=== PATIENT | female | born 1960 | race Caucasian/White ===

== ENCOUNTER 2021-01-15 10:24 | Outpatient (REF) | payer MEDICAID, SELFPAY ==
--- NOTE | ~2021-01-15 | US_ITS ---
EXAMINATION: US THYROID CLINICAL INFORMATION: Nontoxic single thyroid nodule. COMPARISON: Thyroid ultrasound 04/03/2016. TECHNIQUE: Linear transducer fuller-scale and color Doppler examination with attention to the region of the thyroid. FINDINGS: SIZE: Measurements of the thyroid lobes and nodules are given in sagittal, anteroposterior and transverse dimensions respectively. Right Thyroid Lobe: 4.1 x 1.9 x 1.7 cm, volume 6.6 mL. Previously 3.8 x 1.7 x 1.8 cm, volume 5.8 mL. Parenchyma: The gland echotexture is homogeneous. Thyroid vascularity is normal. Left Thyroid Lobe: 3.4 x 1.5 x 1.3 cm, volume 3.4 mL. Previously 3.6 x 1.4 x 1.5 cm, volume 3.8 mL. Parenchyma: The gland echotexture is homogeneous. Thyroid vascularity is normal. Isthmus: 0.5 cm in maximum AP dimension. Previously 0.4 cm. Estimated total number of nodules greater than or equal to 1 cm: 0. Hose Builder nodules are described as follows: 1. Location: Right midpole. Size: 0.9 x 0.5 x 0.8 cm, volume 0.2 mL. Previously: 1.1 x 0.5 x 0.8 cm, volume 0.2 mL. Nodule characteristics: Composition: Solid (2). Echogenicity: Hyperechoic (1). Shape: Not taller than wide (0). Margins: Smooth (0). Echogenic Foci: None (0). ACR TI-RADS total points: 3 ACR TI-RADS category: 3 Significant change in size (>/= 20% in 2 dimensions and minimal increase of 2 mm or 50% or greater increase in volume): None Change in features: None Change in ACR TI-RADS risk category: None NODES: No lymphadenopathy is seen in the tissue surrounding the thyroid gland. US/US thyroid IMPRESSION: Solitary nodule midpole right thyroid lobe, stable. Rest of the thyroid ultrasound is unremarkable. ACR TI-RADS RECOMMENDATION REFERENCE: Ultrasound-guided fine-needle aspiration, followup ultrasound, no further follow up. * TR1 (0 point) and TR 2 (2 points): No FNA or follow up * TR3 (3 points): FNA if more than or equal to 2.5 cm in maximum dimension, followup ultrasound in 1, 3 and 5 years if 1.5 to 2.4 cm in maximum dimension. * TR4 (4-6 points): FNA if more than or equal to 1.5 cm in maximum dimension, followup ultrasound in 1, 2, 3 and 5 years if 1 to 1.4 cm in maximum dimension. * TR5 (more than or equal to 7 points): FNA if more than or equal to 1 cm in maximum dimension, followup ultrasound every year for 5 years if 0.5 to 0.9 cm in maximum dimension. * TR3, TR4 or TR5 nodules that are below the size threshold for follow up receive no follow up.
== END 2021-01-15 10:25 | disposition home or self-care (01) ==
LOC: HO.US 10:24
PROVIDERS: Visit Provider Internal Medicine
DX: L04.1 Acute lymphadenitis of trunk (principal)
CPT/HCPCS: 76536

== ENCOUNTER 2021-08-08 12:04 | Emergency (ER) | payer MEDICAID, SELFPAY ==
--- NOTE | 2021-08-08 | ECG_ITS ---
Test Reason : weakness Blood Pressure : / mmHG Vent. Rate : 074 BPM Atrial Rate : 074 BPM P-R Int : 186 ms QRS Dur : 070 ms QT Int : 368 ms P-R-T Axes : 049 043 039 degrees QTc Int : 408 ms Normal sinus rhythm Normal ECG No previous ECGs available Referred By: Generic ED Physician Electronically Signed By:ATTO ANTON MD
--- NOTE | ~2021-08-08 | CT_ITS ---
EXAMINATION: CT ABDOMEN AND PELVIS WITHOUT CONTRAST CLINICAL INFORMATION: Left flank pain. Rule out kidney stone. COMPARISON: Previous abdominal ultrasound December 2019 TECHNIQUE: Multidetector volumetric imaging was performed from the superior aspect of the liver through the pubic symphysis. Sagittal and coronal reformatted images were obtained on the technologist's workstation. This CT examination was performed using dose optimization techniques as appropriate, variously including the following: *Automated exposure control *Adjustment of mA and/or kV according to patient size (this includes techniques or standardized protocols for targeted exams where dose is matched to indication/reason for exam; i.e. extremities or head) *Use of iterative reconstruction technique DLP: 759 mGy-cm FINDINGS: LUNG BASES: There is a 4 mm calcified left lower lobe nodule probably representing a calcified granuloma. LIVER, GALLBLADDER, AND BILIARY TREE: The liver is normal in size, shape, and attenuation. No focal hepatic lesion or biliary ductal dilatation is present. The gallbladder has been removed. PANCREAS: Unremarkable. SPLEEN: Unremarkable. ADRENAL GLANDS: Unremarkable. KIDNEYS AND URETERS: The kidneys are normal in size, shape, and attenuation. No hydronephrosis, hydroureter, or calculi seen. No perinephric stranding. BLADDER: Unremarkable. GASTROINTESTINAL TRACT: The small and large bowel are unremarkable. The appendix is unremarkable. ABDOMINAL WALL: There is a small umbilical hernia containing fat. LYMPH NODES: There are small retroperitoneal lymph nodes. No enlarged lymph nodes are seen. VASCULAR: Unremarkable. PELVIC VISCERA: There is abnormal contour to the left anterior uterine fundus, question representing a fibroid. This abuts the left anterior abdominal wall/rectus muscle for example axial image 57and 58 series 3. There are small calcifications in the right ovary. OSSEOUS STRUCTURES: There are degenerative changes of the spine. CT/CT abdomen pelvis wo con IMPRESSION: No renal stone or hydronephrosis seen. Abnormal contour to the left anterior uterine fundus probably representing a small fibroid. This abuts the left anterior abdominal wall/rectus muscle.
[2021-08-08 12:14] VITALS: BP 128/78; PULSE 80; O2SAT 98
[2021-08-08 12:18] VITALS: BP 126/62; PULSE 77; RESP 18; TEMP 36.9; O2SAT 97; BMI 37.7
--- NOTE | 2021-08-08 12:51 | ED_ITS ---
HPI - General Adult General Chief complaint: General Medical Stated complaint: KIDNEY PAIN PER EMS Time Seen by Provider: 08/08/21 12:30 Source: patient Mode of arrival: EMS Limitations: no limitations History of Present Illness HPI narrative: 61-year-old female who presents emergency department for evaluation headache, nausea, left flank pain. Patient states that she has been having pain in her left flank for approximately 2 weeks. She states that the pain came on gradually but has gotten progressively worse. She describes the pain as a constant, stabbing pain which is 8/10. The patient states that she robin s had similar pain in the past when her sugars have been high. She states that she was on metformin for hyperglycemia but this was stopped after she modified her diet and was able to get her A1c below 6. She states that she has been under increased stress since her 2-year-old granddaughter was diagnosed with cancer and that she has not followed a good diet has not been exercising. She states her glucose has been running in the 150-200 range. She has noted urinary frequency but denied dysuria. She denied fever but has had occasional chills. She denied chest pain, shortness of breath or cough. She is also complaining of a headache over the past 2 days. She points to the frontal area of her head when asked to localize the pain. The pain is a pressure-like pain which is constant and is 8/10 at its worst. The patient was seen yesterday and today by her PCP and was sent to the emergency department by ambulance after seeing her PCP today. Related Data Previous Rx's Medication Instructions Recorded cyclobenzaprine 10 mg tablet 10 mg PO BEDTIME PRN #10 tab 08/08/21 Allergies Allergy/AdvReac Type Severity Reaction Status Date / Time No Known Drug Allergies Allergy Unknown Verified 08/08/21 12:22 Review of Systems Review of Systems: Yes all other systems are reviewed and are negative [facility] Past Medical History [facility] Narrative: Past medical history: Diabetes mellitus-diet controlled, hypothyroidism. Past surgical history: Cholecystectomy. Social history: Patient is her is here in the emergency department with the patient. The patient denies tobacco, alcohol and drug use. Social History Social History Use of substances other than those prescribed or required for medical reasons: No Advance Directives: No Advance Directives Information Provided: No Patient : No Physical Exam Vital Signs: Vital Signs: Last Vital Signs Temp 98.4 F 08/08/21 12:18 Pulse 78 08/08/21 14:20 Resp 16 08/08/21 14:20 BP 127/64 08/08/21 14:20 Pulse Ox 99 08/08/21 14:20 Body Mass Index 37.7 Const: General: cooperative and no acute distress Orientation/consciousness: oriented to person and oriented to place Limitations: no limitations HENMT: Head: Yes normal to inspection, Yes normocephalic and Yes atraumatic Ears: external ears normal General nose exam: Normal external nose present Face and sinus: Yes normal facial exam Mouth: Normal oral and palatal mucosa present Throat: Yes posterior oropharynx normal Eyes: General: appearance normal, both eyes and all related structures Pupils: Equal, round and reactive pupils present Neck: Neck: Yes normal visual inspection, Yes no lymphadenopathy, Yes trachea midline and Yes supple Chest: Chest palpation & inspection: normal inspection of the chest and normal palpation of entire chest wall Resp: Effort & Inspection: normal respiratory effort and able to speak in complete sentences Auscultation: clear to auscultation bilaterally Cardio: Rate: regular rate Rhythm: regular rhythm Heart sounds: S1 normal heart sound present, S2 normal heart sound present and no murmurs GI: Inspection: Yes normal to inspection Palpation (GI): Soft to palpation, Tenderness to palpation present (GI) in the epigastrum (Moderate) and no guarding Auscultation: normal bowel sounds : General: Yes CVA tenderness (Moderate, left-sided) Back/Spine/Pelvis: Back: CVA tenderness (Moderate, left-sided) Skin: General skin exam: no rashes or lesions noted Neuro: General: oriented to person and oriented to place Cranial nerves: Yes CN's II-XII intact bilaterally and Yes Equal, round and reactive pupils present Cognition (Neuro): normal cognition Motor exam (neuro): 5/5 motor strength present throughout Extrem: General: Yes normal to inspection Psych: Appearance: grossly normal Speech and movement: Normal speech and movement present Affect: normal affect Attitude: cooperative Thought process: Normal thought process present Thought content: Normal thought content present Course Course Course Narrative: 61-year-old female who presents emergency department for evaluation left-sided flank pain which is common gradually over 2 weeks associated with frequency but no dysuria. She has also had a headache x2 days associated with nausea photophobia and frontal pain. Patient's vital signs were normal. Physical examination did reveal epigastric tenderness and left CVA tenderness otherwise was unremarkable. Differential includes but is not limited to kidney stone, pyelonephritis, musculoskeletal pain. The patient's headache is consistent with a migraine-like syndrome. I did order a CBC, CMP, lipase, urinalysis, CT scan of the abdomen pelvis without contrast. Patient was ordered to get normal saline 1 L IV. Her flank pain and headache will be treated with Toradol 30 mg IV, Reglan 10 mg IV and Benadryl 50 mg IV. 1514: The patient states that her headache and abdominal pain has resolved with the above treatment. The patient's laboratory evaluation was unremarkable. The patient's CT scan of the abdomen pelvis with a out IV contrast did not reveal a clear cause for the patient's left-sided flank pain. I did discuss this with the patient. At this time the patient will be treated with Tylenol and ibuprofen for pain and Flexeril (cyclobenzaprine) at night for pain and spasm. Patient was given printed and verbal instructions and discharged home. Medical Decision Making Lab Data Result diagrams: 08/08/21 14:03 08/08/21 14:03 Labs: Lab Results 08/08/21 08/08/21 08/08/21 Range/Units 14:03 14:03 14:08 WBC 10.6 (4.8-10.8) X10*3/uL RBC 4.49 (4.20-5.50) X10*6/uL Hgb 13.3 (12.0-16.0) g/dl Hct 41.2 (37.0-47.0) % MCV 91.8 (80.0-98.0) fL MCH 29.6 (27.0-33.0) pg MCHC 32.3 (31.0-35.0) g/dl RDW 12.8 (11.0-16.0) % Plt Count 248 (160-400) X10*3/uL MPV 10.6 (9.4-12.3) fL Immature Gran % (Auto) 0.3 (0.0-0.4) % Neut % (Auto) 62.0 (45-73) % Lymph % (Auto) 27.4 (20-40) % Parke % (Auto) 8.1 (2-11) % Eos % (Auto) 1.4 (0-4) % Baso % (Auto) 0.8 (0-2) % Lymph # (Auto) 2.9 (1.2-4.9) X10*3/uL Parke # (Auto) 0.9 (0.1-1.2) X10*3/uL Eos # (Auto) 0.2 (0.0-0.4) X10*3/uL Baso # (Auto) 0.1 (0.0-0.2) X10*3/uL Abs Immat Gran (auto) 0.03 (0.00-0.03) X10*3/uL Absolute Neuts (auto) 6.6 (2.0-8.3) x10*3/uL Absolute Nucleated RBC 0.000 (0.0-0.012) X10*3/uL Nucleated RBC % (auto) 0.0 (0.0-0.2) /100WBC Smear Tech's Comments VERIFIED Sodium 143 (135-145) mmol/L Potassium 4.0 (3.3-5.1) mmol/L Chloride 111 H (96-108) mmol/L Carbon Dioxide 25 (22-29) mmol/L Anion Gap 11 L (12-20) BUN 6 L (9-16) mg/dL Creatinine 0.71 (0.5-1.4) mg/dL Estim Creat Clear Calc 83.9 Estimated GFR > 60 Random Glucose 112 (60-115) mg/dL Calcium 9.0 (8.4-10.2) mg/dL Total Bilirubin 0.4 (0.0-1.0) mg/dL AST 16 (5-31) U/L ALT 14 (0-31) U/L Alkaline Phosphatase 63 (39-117) U/L Total Protein 6.7 (6.5-8.0) g/dL Albumin 3.9 (3.5-5.0) g/dL Lipase 25 (8-78) U/L Urine Color STRAW Urine Appearance CLEAR Urine pH 5.5 (5.0-8.0) Ur Specific [place] 1.020 (1.005-1.025) Urine Protein NEG (NEG-TRACE) MG/DL Urine Glucose (UA) NEG (NEG) MG/DL Urine Ketones NEG (NEG) MG/DL Urine Blood TRACE (NEG) Urine Nitrite NEG (NEG) Ur Leukocyte Esterase NEG (NEG) Urine RBC 0-2 (0) /HPF Urine WBC 1-4 (0-4) /HPF Ur Squamous Epith Cells 1+ /LPF Urine Bacteria 1+ /LPF ECG Data Attestation: I personally reviewed and interpreted this ECG as follows: Interpretation: 1244: Normal sinus rhythm with a rate of 74, normal NH interval, QRS duration and QTC interval, no ST segment elevation, no ST segment depression, no PACs, no PVCs. This is a normal EKG. Discharge Plan Discharge Clinical Impression: Acute flank pain Headache Qualifiers: Headache type: unspecified Headache chronicity pattern: acute headache Intractability: not intractable Qualified Code(s): R51.9 - Headache, unspecified Patient Disposition: Home, Self-Care Instructions: Flank Pain (ED) Additional Instructions: The CT scan of your abdomen pelvis without IV contrast did not reveal a clear cause for your left-sided flank pain. You do have a fibroid uterus but this is not the cause of your pain. Your blood work was normal. Your urinalysis was unremarkable. At this time, I do not have a clear cause for your pain, it is possible that the pain may be caused by muscle pain and spasm in your back. Take ibuprofen 200 mg pills, 3 pills every 6 hours as needed for pain. Take Tylenol (acetaminophen) 500 mg pills, 2 pills every 4 to 6 hours as needed for pain. Take Flexeril (cyclobenzaprine) 10 mg pills, 1 pill every at night for pain or spasm as needed This medication will make you sleepy. Do not drive or work while taking this medication. Follow-up with your doctor in 2 days. Please return to the emergency department if your symptoms get worse or if you develop any symptoms that are concerning to you. Prescriptions: New cyclobenzaprine 10 mg tablet 10 mg PO BEDTIME PRN (Reason: pain, muscle spasm) Qty: 10 RF: 0
[2021-08-08] MEDS: Metoclopramide HCl 10 MG/2 ML VIAL IVPUSH (13:16)
[2021-08-08] MEDS: diphenhydrAMINE HCL 50 MG/ML VIAL IVPUSH (13:17)
[2021-08-08] MEDS: Ketorolac Tromethamine 15 MG/ML VIAL 30 MG IVPUSH (13:17)
[2021-08-08] MEDS: 0.9 % Sodium Chloride 1,000 ML 999 ML IV (13:17)
[2021-08-08 14:14] LABS: Basophils Absolute Auto 0.1 X10*3/uL (0.0-0.2); Hemoglobin 13.3 g/dl (12.0-16.0); Imm Gran Abs Auto 0.03 X10*3/uL (0.00-0.03); Imm Gran Pct Auto 0.3 % (0.0-0.4); MANUAL DIFF FLAG SCAN; PLT CLUMP 1; Red Cell Distribution Width 12.8 % (11.0-16.0); SCAN SMEAR FLAG 1
[2021-08-08 14:14] LABS: Appearance Urine CLEAR; Color Urine STRAW; Glucose Urine UA NEG (NEG); Leukocyte Esterase Urine NEG (NEG); Nitrite Urine NEG (NEG); PH 5.5 (5.0-8.0); UACC Culture Trigger NO; Urine Blood TRACE (NEG); Urine Ketones NEG (NEG); Urine Protein NEG (NEG-TRACE)
[2021-08-08 14:15] LABS: Basophils Percent Auto 0.8 % (0-2); Eosinophils Absolute Auto 0.2 X10*3/uL (0.0-0.4); Eosinophils Percent Auto 1.4 % (0-4); Hematocrit 41.2 % (37.0-47.0); Lymphocytes Absolute Auto 2.9 X10*3/uL (1.2-4.9); Lymphocytes Percent Auto 27.4 % (20-40); Mean Corpuscular HGB Conc 32.3 g/dl (31.0-35.0); Mean Corpuscular Hemoglobin 29.6 pg (27.0-33.0); Mean Corpuscular Volume 91.8 fL (80.0-98.0); Mean Platelet Volume 10.6 fL (9.4-12.3); Monocytes Absolute Auto 0.9 X10*3/uL (0.1-1.2); Monocytes Percent Auto 8.1 % (2-11); Neutrophils Absolute Auto 6.6 x10*3/uL (2.0-8.3); Platelet Count 248 X10*3/uL (160-400); Red Blood Count 4.49 X10*6/uL (4.20-5.50); White Blood Count 10.6 X10*3/uL (4.8-10.8)
[2021-08-08 14:20] VITALS: BP 127/64; PULSE 78; RESP 16; O2SAT 99
[2021-08-08 14:25] LABS: Bacteria Urine 1+ /LPF; RBC Urine 0-2 /HPF (0); Squamous Epithelial Cell Urine 1+ /LPF
[2021-08-08 14:33] LABS: Alanine Aminotransferase 14 U/L (0-31); Albumin Level 3.9 g/dL (3.5-5.0); Alkaline Phosphatase 63 U/L (39-117); Anion Gap 11 (12-20); Aspartate Amino Transferase 16 U/L (5-31); Bilirubin Total 0.4 mg/dL (0.0-1.0); Blood Urea Nitrogen 6 mg/dL (9-16); Carbon Dioxide 25 mmol/L (22-29); Chloride 111 mmol/L (96-108); Creatinine Clr Calc Pharmacy 83.9; Estimated Glomerular Filt Rate > 60; Glucose Random 112 mg/dL (60-115); Lipase 25 U/L (8-78); Sodium 143 mmol/L (135-145); Total Protein 6.7 g/dL (6.5-8.0)
[2021-08-08 14:56] LABS: SLIDE REVIEW VERIFIED
== END 2021-08-08 15:47 | disposition home or self-care (01) ==
PROVIDERS: Emergency Provider Emergency Medicine Emergency Medical Services; PCP Internal Medicine
DX: R10.9 Unspecified abdominal pain (principal); R51.9 Headache, unspecified; E11.9 Type 2 diabetes mellitus without complications
CPT/HCPCS: 36415; 74176; 80053; 81001; 83690; 85025; 93005; 96361; 96374; 96375; 99284; J1200; J1885; J2765

== ENCOUNTER 2021-10-09 10:37 | Outpatient (REF) | payer MEDICAID, SELFPAY ==
--- NOTE | ~2021-10-09 | US_ITS ---
EXAMINATION: US PELVIS CLINICAL INFORMATION: Uterine fibroids. COMPARISON: Previous CT of the abdomen and pelvis July 2021. TECHNIQUE: Ultrasound of the pelvis is performed using both transabdominal and transvaginal transducers along with Doppler. Transvaginal imaging is performed due to inadequate visualization transabdominally. FINDINGS: Exam is limited due to patient body habitus. The uterus and left ovary are seen transabdominally only. The uterus is slightly anteverted and retroflexed and measures 10.6 x 3.3 x 5 cm in dimension. There are 2 hypoechoic uterine lesions 1.2 x 0.9 x 1.5 cm in the right posterior uterine body and 1 x 0.9 x 1 cm in the left anterior uterine fundus suggestive of small fibroids. Endometrial thickness is normal measuring 0.3 cm. The right ovary is not seen. The left ovary measures 1.8 x 0.8 x 1.8 cm and is normal-appearing. There is no fluid in the pelvis. US/US pelvic and transvaginal IMPRESSION: Limited exam. 2 small hypoechoic uterine lesions probably representing fibroids. Right ovary not seen.
== END 2021-10-09 10:38 | disposition home or self-care (01) ==
LOC: HO.US 10:37
PROVIDERS: PCP Internal Medicine; Visit Provider Internal Medicine
DX: D25.9 Leiomyoma of uterus, unspecified (principal)
CPT/HCPCS: 76830; 76856

== ENCOUNTER 2022-03-20 12:47 | Outpatient (REF) | payer MEDICAID, SELFPAY ==
--- NOTE | ~2022-03-20 | US_ITS ---
EXAMINATION: US THYROID CLINICAL INFORMATION: Nontoxic single thyroid nodule. COMPARISON: US thyroid 01/15/2021 and 04/03/2016. TECHNIQUE: Linear transducer grayscale and color Doppler examination with attention to the region of the thyroid. FINDINGS: SIZE: Measurements of the thyroid lobes and nodules are given in sagittal, anteroposterior and transverse dimensions respectively. Right Thyroid Lobe: 4.5 x 1.7 x 1.8 cm, volume 7.2 mL. Previously 4.1 x 1.9 x 1.7 cm, volume 6.6 mL. Parenchyma: The gland echotexture is homogeneous. Thyroid vascularity is normal. Left Thyroid Lobe: 3.7 x 1.5 x 1.2 cm, volume 3.5 mL. Previously 3.4 x 1.5 x 1.3 cm, volume 3.4 mL. Parenchyma: The gland echotexture is homogeneous. Thyroid vascularity is normal. Isthmus: 0.6 cm in maximum AP dimension. Previously 0.5 cm. Estimated total number of nodules greater than or equal to 1 cm: 1. Medical Recruiter nodules are described as follows: 1. Location: Right mid. Size: 1.3 x 1.1 x 0.7 cm, volume 0.50 mL. Previously: 0.9 x 0.5 x 0.8 cm, volume 0.14 mL. Nodule characteristics: Composition: Solid (2). Echogenicity: Hyperechoic (1). Shape: Not taller than wide (0). Margins: Smooth (0). Echogenic Foci: None (0). ACR TI-RADS total points: 3 Previous: 3 ACR TI-RADS category: 3 Previous: 3 Significant change in size (>/= 20% in 2 dimensions and minimal increase of 2 mm or 50% or greater increase in volume): None Change in features: None Change in ACR TI-RADS risk category: None NODES: No lymphadenopathy is seen in the tissue surrounding the thyroid gland. US/US thyroid IMPRESSION: There is mild right thyroid enlargement with a solitary nodule midpole measuring 1.3 cm slightly increased in size but no change in the TI-RADS component. ACR TI-RADS RECOMMENDATION REFERENCE: Ultrasound-guided fine-needle aspiration, followup ultrasound, no further follow up. * TR1 (0 point) and TR 2 (2 points): No FNA or follow up * TR3 (3 points): FNA if more than or equal to 2.5 cm in maximum dimension, followup ultrasound in 1, 3 and 5 years if 1.5 to 2.4 cm in maximum dimension. * TR4 (4-6 points): FNA if more than or equal to 1.5 cm in maximum dimension, followup ultrasound in 1, 2, 3 and 5 years if 1 to 1.4 cm in maximum dimension. * TR5 (more than or equal to 7 points): FNA if more than or equal to 1 cm in maximum dimension, followup ultrasound every year for 5 years if 0.5 to 0.9 cm in maximum dimension. * TR3, TR4 or TR5 nodules that are below the size threshold for follow up receive no follow up.
== END 2022-03-20 12:48 | disposition home or self-care (01) ==
LOC: HO.US 12:47
PROVIDERS: Visit Provider Internal Medicine
DX: E04.1 Nontoxic single thyroid nodule (principal)
CPT/HCPCS: 76536

== ENCOUNTER → 2022-08-14 11:55 | Outpatient (BNVA) | payer MEDICAID, SELFPAY | PROVIDERS: PCP Internal Medicine; Visit Provider Internal Medicine | DX: E04.2 Nontoxic multinodular goiter (principal); E03.9 Hypothyroidism, unspecified | CPT/HCPCS: 36415; 84439; 84443; 86376; 86800; 99202 ==

== ENCOUNTER 2022-08-14 12:36 | Outpatient (REF) | payer MEDICAID, SELFPAY ==
[2022-08-14 14:52] LABS: Thyroid Stimulating Hormone 2.09 uIU/mL (0.32-4.0)
[2022-08-16 04:51] LABS: Thyroglobulin Antibodies 17 IU/mL (< or = 1); Thyroid Peroxidase Antibodies 43 IU/mL (<9)
== END 2022-08-14 12:37 | disposition home or self-care (01) ==
LOC: HO.10HDL 12:36
PROVIDERS: Visit Provider Internal Medicine
DX: E04.2 Nontoxic multinodular goiter (principal)
CPT/HCPCS: 36415; 84439; 84443; 86376; 86800

== ENCOUNTER 2022-08-29 12:51 | Outpatient (REF) | payer MEDICAID, SELFPAY ==
--- NOTE | ~2022-08-29 | CT_ITS ---
EXAMINATION: CT SOFT TISSUE NECK WITHOUT CONTRAST CLINICAL INFORMATION: Nontoxic multinodular goiter. COMPARISON: Thyroid ultrasound from 03/20/2022. CT chest from 07/21/2019. TECHNIQUE: Multidetector helical imaging was performed in the axial plane without intravenous contrast. Multiple axial reformats and coronal/sagittal reconstructions were created the technologist workstation for review. This CT examination was performed using dose optimization techniques as appropriate, variously including the following: *Automated exposure control. *Adjustment of mA and/or kV according to patient size (this includes techniques or standardized protocols for targeted exams where dose is matched to indication/reason for exam; i.e. extremities or head). *Use of iterative reconstruction technique. DLP: 329 mGy-cm FINDINGS: No significant cutaneous thickening or subcutaneous inflammation. No discrete fluid collection within the deep tissues of the neck. The premaxillary, retromaxillary, pterygopalatine fossa, orbital apical, parapharyngeal, and prelaryngeal adipose tissue is maintained. Normal appearance of the parotid and submandibular glands. Heterogeneous multinodular thyroid gland similar to prior evaluation. The largest demonstrated nodule appears to measure approximately 1.3 cm (no follow-up imaging recommended based on current guidelines at the time of examination). Elongated level Ib lymph nodes measure up to 1.3 cm bilaterally with maintained normal fatty josi. Level IIa lymph nodes measure up to 1.2 cm bilaterally with maintained normal fatty josi. An elongated left supraclavicular lymph node measures up to 1.2 cm with maintained normal fatty hilum (similar to exam from 2019). Otherwise, scattered subcentimeter lymph nodes bilaterally, none of which are pathologically enlarged. Normal mucosal contours of the pharynx and larynx. Normal appearance of the hyoid bone, thyroid cartilage, or cartilaginous trachea. The airways remains widely patent. No radiopaque foreign bodies. The atlantooccipital and atlantoaxial articulations remain well aligned. Straightening of the normal cervical lordosis. Otherwise, normal anatomic alignment. No evidence of acute fracture or subluxation of the cervical spine. The vertebral body heights are maintained. Moderate degenerative disc disease at C6-C7. Mild degenerative disc disease at all additional cervical levels. There is no prevertebral soft tissue swelling. The visualized portion of the skull base is without significant abnormalities. The visualized paranasal sinuses are clear. The mastoid air cells and middle ear cavities are clear. Periapical lucency associated with the maxillary left molar. No demonstrated additional significant periapical odontogenic disease. CT Upper Chest: The visualized lung apices and upper mediastinum are within normal limits. CT/CT soft tissue neck wo IV con IMPRESSION: 1. Redemonstrated multinodular thyroid gland. The largest demonstrated nodule appears to measure approximately 1.3 cm (no follow-up imaging recommended based on current guidelines at the time of examination). If clinical concern remains high, follow-up thyroid ultrasound would provide more direct comparison to prior evaluations to evaluate for changer fixer time. 2. Mildly prominent level I, level II, and left supraclavicular lymph nodes with normal maintained fatty josi. No morphologically suspicious cervical lymphadenopathy.
== END 2022-08-29 12:52 | disposition home or self-care (01) ==
LOC: HO.CT 12:51
PROVIDERS: Visit Provider Internal Medicine
DX: E04.2 Nontoxic multinodular goiter (principal)
CPT/HCPCS: 70490

== ENCOUNTER → 2022-09-18 10:53 | Outpatient (BNVA) | payer MEDICAID, SELFPAY | PROVIDERS: PCP Internal Medicine; Visit Provider Internal Medicine | DX: E04.2 Nontoxic multinodular goiter (principal); E03.8 Other specified hypothyroidism; E06.3 Autoimmune thyroiditis; Z79.899 Other long term (current) drug therapy | CPT/HCPCS: 99212 ==

== ENCOUNTER 2022-12-09 12:16 | Day surgery (SDC) | payer MEDICAID, SELFPAY ==
--- NOTE | 2022-12-06 10:49 | HO.ANESPROP2 ---
Documented by User: Sloane Emery NP 12/06/22 10:49 HPI - Anesthesia Eval Consult details Narrative: 62yo F for Colonoscopy PMFSH Active Problems Active Problems: All Active Problems (Updated 08/14/22 @ 12:29 by Ladi Gonzalez DO) Hypothyroidism (Acute) Multinodular thyroid (Acute) Past Medical History Medical History Hypothyroidism Multinodular thyroid T2DM (type 2 diabetes mellitus) Family History Family History Father Diabetes Heart attack Mother Thyroid disease COPD (chronic obstructive pulmonary disease) Maternal Aunt Thyroid cancer Surgical History Surgical History Hx of cholecystectomy Hx of tubal ligation Social History Social History Alcohol intake: current Alcohol intake frequency: does not drink Patient Tobacco Use Status: Never used Tobacco Use of substances other than those prescribed or required for medical reasons: No Are you DNR?: No Advance Directives: No Advance Directives Information Provided: Yes Recently lost weight without trying: No How much weight loss: 2-13 pounds Nutrition Risks: No Nutritional Risk Meds Allergies Allergy/AdvReac Type Severity Reaction Status Date / Time tumeric AdvReac Hives Uncoded 12/09/22 12:32 Home Medications Medication Instructions Recorded Confirmed Last Taken Type cholecalciferol (vitamin D3) 25 25 mcg PO DAILY 08/14/22 12/09/22 Unknown History mcg (1,000 unit) capsule levothyroxine 88 mcg capsule 88 mcg PO DAILY 08/14/22 12/09/22 Unknown History (Tirosint) metformin 500 mg tablet,extended 500 mg PO QPM 08/14/22 12/09/22 Unknown History release 24 hr Exam Exam Date and Time: December 06, 2022 104 Assessment and Plan Assessment Anesthesia Assessment: Chart Reviewed Documented by User: Ferny Melgar MD 12/09/22 12:37 [facility] Past Medical History Medical History Hypothyroidism Multinodular thyroid T2DM (type 2 diabetes mellitus) Family History Family History Father Diabetes Heart attack Mother Thyroid disease COPD (chronic obstructive pulmonary disease) Maternal Aunt Thyroid cancer Family history of problems with anesthesia: No Surgical History Surgical History Hx of cholecystectomy Hx of tubal ligation History of Problems with Anesthesia: No Social History Social History Alcohol intake: current Alcohol intake frequency: does not drink Patient Tobacco Use Status: Never used Tobacco Use of substances other than those prescribed or required for medical reasons: No Are you DNR?: No Advance Directives: No Advance Directives Information Provided: Yes Recently lost weight without trying: No How much weight loss: 2-13 pounds Nutrition Risks: No Nutritional Risk Meds Allergies Allergy/AdvReac Type Severity Reaction Status Date / Time tumeric AdvReac Hives Uncoded 12/09/22 12:32 Home Medications Medication Instructions Recorded Confirmed Last Taken Type cholecalciferol (vitamin D3) 25 25 mcg PO DAILY 08/14/22 12/09/22 Unknown History mcg (1,000 unit) capsule levothyroxine 88 mcg capsule 88 mcg PO DAILY 08/14/22 12/09/22 Unknown History (Tirosint) metformin 500 mg tablet,extended 500 mg PO QPM 08/14/22 12/09/22 Unknown History release 24 hr Exam Airway Mallampati Class: II TM Dist: >3cm Neck ROM: Full Heart: rrr Lungs: cta Assessment and Plan Assessment Anesthesia Assessment: Anesthesia Plan Discussed Final Anesthetic Review Family History of Problems with Anesthesia: No History of Problems with Anesthesia: No NPO: Yes ASA Class: II Final Preanesthetic Review: No Changes in Pt Med Stat, Meds/Allgs Chart Reviewed, Consent Obtained/Reviewed and Anes Risks/Benef Reviewed Patient Risk: Low Procedure Risk: Low Anesthetic Plan Anesthetic Plan: MAC: Disposition: Standard PACU
[2022-12-09 12:33] VITALS: BMI 33.2
[2022-12-09 12:40] VITALS: BP 104/68; PULSE 79; RESP 16; TEMP 36.5; O2SAT 99
[2022-12-09 12:56] LABS: Glucose, Whole Blood 82 mg/dL (60-115)
[2022-12-09] MEDS: Lactated Ringers 1,000 ML 100 ML IVCONT (13:00)
[2022-12-09 14:34] VITALS: BP 93/49; PULSE 74; RESP 16; TEMP 36.7; O2SAT 98
--- NOTE | 2022-12-09 14:35 | P.BOP_ITS ---
Brief Operative Note Date of Service: 12/09/22 Pre-op diagnosis: Screening Post-op diagnosis: other (Colon polyps) Procedure: Colonoscopy to the cecum and TI with bx/removal of polyps Surgeon: Siddhartha Calderon Anesthesia: MAC Was an Sound Engineering Technician used for this Procedure?: No Estimated blood loss (mL): 2.0 Pathology: other (A. Proximal ascending colon polyps) Condition: stable Disposition: PACU
[2022-12-09 14:49] VITALS: BP 103/46; PULSE 66; RESP 16; TEMP 36.6; O2SAT 100
--- NOTE | 2022-12-10 01:56 | OP_ITS ---
SURGEON: Siddhartha Calderon MD PREOPERATIVE DIAGNOSIS: Colorectal cancer screening and personal history of tubular adenoma of the colon. POSTOPERATIVE DIAGNOSIS: Colorectal cancer screening and personal history of tubular adenoma of the colon. Small colon polyps, diverticulosis, and internal hemorrhoids. Medications used; monitored anesthesia care. PROCEDURE PERFORMED: ESTIMATED BLOOD LOSS: COMPLICATIONS: ANESTHESIA: ASSISTANTS: SPECIMENS: PROCEDURE: Colonoscopy to the cecum and terminal ileum with biopsy and removal of polyps. INDICATION: The patient presents for evaluation of colorectal cancer screening and personal history of tubular adenoma of the colon. Full consent has been obtained from her for this, including risks of bleeding and perforation. DESCRIPTION OF PROCEDURE: The patient was placed in the left lateral decubitus position. The digital rectal exam revealed no abnormality. The Olympus video pediatric colonoscope was entered into the rectum, advanced to the cecum with the assistance of abdominal pressure. Once in the cecum, I did identify normal-appearing cecal pouch with appendiceal orifice and a normal-appearing ileocecal valve. The terminal ileum was cannulated and appeared normal. The scope was withdrawn back in the colon. The entire cecum and ileocecal valve appeared normal. The scope was slowly withdrawn assessing all mucosal surfaces carefully. Preparation was excellent. In the very proximal ascending colon, just above the ileocecal valve, were 2 flat approximately 3 to 4 mm polyps which were both biopsied and removed with cold biopsy forceps and placed in the same container. I did not visualize any other polyps, colitis nor angiodysplasia. There was a mild amount of sigmoid diverticulosis. In the rectum, the scope was retroflexed visualizing internal hemorrhoids, but no other pathology. The rectal mucosa appeared normal. The scope was straightened out and withdrawn from the patient. She tolerated the procedure well and returned to the recovery area in stable condition. IMPRESSION: 1. Colon polyps. 2. Diverticulosis. 3. Internal hemorrhoids. PLAN: The biopsies will be checked. I would recommend a repeat colonoscopy in 5 years for further surveillance. She will otherwise see me on a p.r.n. basis. MD ALLEY Bryson/BRENDA / [id number] MTDD
== END 2022-12-09 15:45 | disposition home or self-care (01) ==
PROVIDERS: PCP Internal Medicine; Visit Provider Internal Medicine
PROC: 0DJD8ZZ Inspection of Lower Intestinal Tract, Via Natural or Artificial Opening Endoscopic (ICD-10-PCS; CPT 45378; principal; 2022-12-09 13:20)
DX: Z12.11 Encounter for screening for malignant neoplasm of colon (principal); Z86.010 Personal history of colon polyps; D12.2 Benign neoplasm of ascending colon; K57.30 Diverticulosis of large intestine without perforation or abscess without bleeding; K64.8 Other hemorrhoids; E03.9 Hypothyroidism, unspecified; E04.1 Nontoxic single thyroid nodule; E11.8 Type 2 diabetes mellitus with unspecified complications; Z79.84 Long term (current) use of oral hypoglycemic drugs; Z79.899 Other long term (current) drug therapy; Z90.49 Acquired absence of other specified parts of digestive tract
CPT/HCPCS: 45380; 82947; 88305

== ENCOUNTER 2023-01-02 09:57 | Outpatient (REF) | payer MEDICAID, SELFPAY ==
--- NOTE | 2023-01-02 10:18 | P.BOP_ITS ---
Brief Operative Note Date of Service: 01/02/23 Pre-op diagnosis: Goiter Procedure: EXAMINATION: US THYROID CLINICAL INFORMATION: Multinodular Thyroid COMPARISON: Prior TECHNIQUE: Linear transducer fuller-scale and color Doppler examination with attention to the region of the thyroid. FINDINGS: SIZE: Measurements of the thyroid lobes and nodules are given in sagittal, anteroposterior and transverse dimensions respectively. Right Thyroid Lobe: 4.1 x 1.7 x 1.6 cm, volume 5.92 mL. Parenchyma: The gland echotexture is diffusely heterogenous. Thyroid vascularity is increased. Left Thyroid Lobe: 3.7 x 1.5 x 1.4 cm, volume 7.8 mL. Parenchyma: The gland echotexture is diffusely heterogenous. Thyroid vascularity is normal. Isthmus: 0.4 cm in maximum AP dimension. There are no thyroid nodules visualized. There are multiple pseudonodules, but no true thyroid nodules visualized. NODES: No lymphadenopathy is seen in the tissue surrounding the thyroid gland. Impression: A hypervascular and diffusely heterogenous thyroid gland consistent with autoimmune thyroid disease. No nodules are appreciated. Surgeon: Ladi Gonzalez, DO Was an Heavy Equipment Operator/Paver used for this Procedure?: No Estimated blood loss (mL): 0
== END 2023-01-02 09:58 | disposition home or self-care (01) ==
LOC: HO.US 09:57
PROVIDERS: Visit Provider Internal Medicine
DX: E04.2 Nontoxic multinodular goiter (principal)
CPT/HCPCS: 76536

== ENCOUNTER → 2023-01-30 14:16 | Outpatient (BNVA) | payer MEDICAID, SELFPAY | PROVIDERS: PCP Internal Medicine; Visit Provider Internal Medicine | DX: E03.9 Hypothyroidism, unspecified (principal) | CPT/HCPCS: 99212 ==

== ENCOUNTER 2023-08-27 09:48 | Outpatient (REF) | payer MEDICAID, SELFPAY ==
--- NOTE | ~2023-08-27 | XR_ITS ---
EXAMINATION: XR CHEST CLINICAL INFORMATION: Posterior chest pain COMPARISON: None available. TECHNIQUE: 2 views of the chest were obtained. FINDINGS: No significant abnormality is noted involving the heart, lungs, mediastinum, bony thorax or soft tissues. No pleural effusions seen. There is thoracic spondylitic change. XR/XR chest 2V IMPRESSION: No evidence for acute process.
== END 2023-08-27 09:49 | disposition home or self-care (01) ==
LOC: HO.HHCX 09:48
PROVIDERS: Visit Provider Emergency Medicine
DX: Z13.89 Encounter for screening for other disorder (principal)
CPT/HCPCS: 71046

== ENCOUNTER 2023-08-28 09:23 | Outpatient (REF) | payer MEDICAID, SELFPAY | END 2023-08-28 09:24 | disposition home or self-care (01) | LOC: HO.LNP 09:23 | PROVIDERS: Visit Provider Emergency Medicine | DX: N23 Unspecified renal colic (principal) | CPT/HCPCS: 87086 ==

== ENCOUNTER 2024-01-30 06:17 | Outpatient (REF) | payer MEDICAID, SELFPAY ==
[2024-01-30 08:35] LABS: Thyroid Stimulating Hormone 2.06 uIU/mL (0.32-4.0)
== END 2024-01-30 06:18 | disposition home or self-care (01) ==
LOC: HO.LAB 06:17
PROVIDERS: PCP Internal Medicine; Visit Provider Internal Medicine Endocrinology, Diabetes & Metabolism
DX: E03.9 Hypothyroidism, unspecified (principal)
CPT/HCPCS: 36415; 84439; 84443

== ENCOUNTER 2024-02-02 13:38 | Outpatient (AMB) | payer MEDICAID, SELFPAY ==
--- NOTE | 2024-02-02 13:39 | A.OFFVIS_ITS ---
Vital Signs 02/02/24 13:40 Height 5 ft Weight 179 lb 10.828 oz BMI 35.1 BP 98/62 Blood Pressure Location Lt brachial Position Sitting Pulse 83 Pulse Source Pulse Oximeter Intake Visit Reasons: F/U Hypothyroidism/CONFIRMED Intake Note: Patient present today for Hypothyroidism follow up visit. Senior Report Developer Required: No Accompanied by: Self / Same As Patient Allergies tumeric Adverse Reaction (Uncoded 02/02/24 13:45) Hives HPI Comments Details: 63 YO F with PMHx hypothyroidism who is seen in F/U for a NTMNG.. The patient last saw Dr. Crespo on 01/30/2023 She has a long history of hypothyroidism, and is currently using Tirosint 88 mcg PO daily. She had a thyroid US which revealed a 1.3 cm RMP thyroid nodule. She was subsequently referred to Endocrinology. Currently does complain of dysphagia but denies hoarseness of voice. Denies sensation of swelling in the neck or difficulty breathing while lying flat. Denies any tenderness in the neck. She underwent CT of the neck given the compressive symptoms. This did not reveal any mass effect from the thyroid. There were some elongated lymph nodes visualized. I repeated her US of the thyroid myself 12/09/2022 and this revealed only pseudonodules, no true nodules were identified. Denies any symptoms of hyper or hypothyroidism. Has hypothyroidism and remains on tirosint 88 mcg PO daily with TSH at goal. Denies any history of head or neck irradiation. Does have a family history of thyroid cancer in her maternal aunt. CT Neck: 08/29/2022 FINDINGS: No significant cutaneous thickening or subcutaneous inflammation. No discrete fluid collection within the deep tissues of the neck. The premaxillary, retromaxillary, pterygopalatine fossa, orbital apical, parapharyngeal, and prelaryngeal adipose tissue is maintained. Normal appearance of the parotid and submandibular glands. Heterogeneous multinodular thyroid gland similar to prior evaluation. The largest demonstrated nodule appears to measure approximately 1.3 cm (no follow-up imaging recommended based on current guidelines at the time of examination). Elongated level Ib lymph nodes measure up to 1.3 cm bilaterally with maintained normal fatty josi. Level IIa lymph nodes measure up to 1.2 cm bilaterally with maintained normal fatty josi. An elongated left supraclavicular lymph node measures up to 1.2 cm with maintained normal fatty hilum (similar to exam from 2019). Otherwise, scattered subcentimeter lymph nodes bilaterally, none of which are pathologically enlarged. Normal mucosal contours of the pharynx and larynx. Normal appearance of the hyoid bone, thyroid cartilage, or cartilaginous trachea. The airways remains widely patent. No radiopaque foreign bodies. The atlantooccipital and atlantoaxial articulations remain well aligned. Straightening of the normal cervical lordosis. Otherwise, normal anatomic alignment. No evidence of acute fracture or subluxation of the cervical spine. The vertebral body heights are maintained. Moderate degenerative disc disease at C6-C7. Mild degenerative disc disease at all additional cervical levels. There is no prevertebral soft tissue swelling. The visualized portion of the skull base is without significant abnormalities. The visualized paranasal sinuses are clear. The mastoid air cells and middle ear cavities are clear. Periapical lucency associated with the maxillary left molar. No demonstrated additional significant periapical odontogenic disease. CT Upper Chest: The visualized lung apices and upper mediastinum are within normal limits. Labs: Laboratory Tests 08/14/22 12:42 TSH 2.09 Free T4 1.10 PFSH Medical History Hypothyroidism Multinodular thyroid T2DM (type 2 diabetes mellitus) Surgical History Hx of cholecystectomy Hx of tubal ligation Family History Father Diabetes Heart attack Mother Thyroid disease COPD (chronic obstructive pulmonary disease) Maternal Aunt Thyroid cancer Social History (System 08/27/23 @ 11:06 by Rneetta Martinez) Alcohol intake: current Alcohol intake frequency: does not drink Patient Tobacco Use Status: Never used Tobacco Physical Exam Vital Signs: Last Vital Signs Pulse 83 02/02/24 13:40 BP 98/62 02/02/24 13:40 BMI result Body Mass Index 35.1 Assessment & Plan Assessment & Plan (1) Hypothyroidism: Code(s): E03.9 - Hypothyroidism, unspecified Category: Medical Plan: Clinically and biochemically euthyroid on Tirosint 88 mcg Continue current management. At this time, patient returned to the care of her primary care provider and returned back to endocrinology as needed (2) Multinodular thyroid: Code(s): E04.2 - Nontoxic multinodular goiter Category: Medical Plan This 63-year-old female with a history of a right midpole thyroid nodule which may represent a pseudo nodule. Repeat thyroid ultrasound and biopsy was canceled because no discrete nodule was seen No reason to repeat thyroid ultrasound Coding Level of Care Code Est Pt Level 3 (55693) Diagnoses Hypothyroidism E03.9 Multinodular thyroid E04.2
[2024-02-02 13:40] VITALS: BP 98/62; PULSE 83; BMI 35.1
== END 2024-02-02 16:15 | disposition home or self-care (01) ==
PROVIDERS: PCP Internal Medicine; Referring Provider Internal Medicine; Visit Provider Internal Medicine Endocrinology, Diabetes & Metabolism
DX: E03.9 Hypothyroidism, unspecified (principal); E04.2 Nontoxic multinodular goiter
CPT/HCPCS: 99213

== ENCOUNTER → 2024-02-02 13:38 | Outpatient (BNVA) | payer MEDICAID, SELFPAY | PROVIDERS: Visit Provider Internal Medicine Endocrinology, Diabetes & Metabolism | DX: E03.9 Hypothyroidism, unspecified (principal); E04.2 Nontoxic multinodular goiter | CPT/HCPCS: 99212 ==

== ENCOUNTER 2024-03-09 10:13 | Outpatient (REF) | payer MEDICAID, SELFPAY ==
--- NOTE | 2024-03-09 10:18 | EMG_ITS ---
Bilateral median and ulnar motor and sensory studies were performed. Bilateral radial and median and lateral antecubital brachial sensory studies were performed. The patient refused electromyogram. IMPRESSION: Mild bilateral median neuropathy across carpal tunnel. Radiculopathy could not be ruled out as patient refused electromyogram. MD СЕРГЕЙ Saucedo/SHAEL / [id number]
== END 2024-03-09 10:14 | disposition home or self-care (01) ==
LOC: HO.NEURO 10:13
PROVIDERS: PCP Internal Medicine; Visit Provider Internal Medicine
DX: R20.0 Anesthesia of skin (principal); R20.2 Paresthesia of skin
CPT/HCPCS: 95913

== ENCOUNTER 2024-05-27 07:30 | Outpatient (REF) | payer MEDICAID, SELFPAY ==
[2024-05-27 09:15] LABS: Alanine Aminotransferase 14 U/L (0-31); Alkaline Phosphatase 60 U/L (39-117); Anion Gap 15 (12-20); Aspartate Amino Transferase 18 U/L (5-31); Bilirubin Total 0.3 mg/dL (0.0-1.0); Blood Urea Nitrogen 10 mg/dL (9-16); Calcium 9.9 mg/dL (8.4-10.2); Carbon Dioxide 24 mmol/L (22-29); Chloride 108 mmol/L (96-108); Cholesterol 152 mg/dL (<200); Estimated Glomerular Filt Rate > 60; Glucose Random 116 mg/dL (60-115); HDL Cholesterol 45 mg/dL (>40); LDL Cholesterol Calculated 85 mg/dL (<100); Potassium 4.6 mmol/L (3.3-5.1); Sodium 142 mmol/L (135-145); Total Protein 7.3 g/dL (6.5-8.0); Triglycerides 110 mg/dL (<150)
== END 2024-05-27 07:31 | disposition home or self-care (01) ==
LOC: HO.LAB 07:30
PROVIDERS: PCP Internal Medicine; Visit Provider Internal Medicine
DX: E78.2 Mixed hyperlipidemia (principal); I10 Essential (primary) hypertension
CPT/HCPCS: 36415; 80053; 80061

== ENCOUNTER 2024-08-03 13:31 | Outpatient (REF) | payer MEDICAID, SELFPAY ==
[2024-08-03 16:49] LABS: Creatinine Urine 121.86 mg/dL; Microalbum/Creatinine Ratio Ur 9.8 ug/mg cr (<30)
== END 2024-08-03 13:32 | disposition home or self-care (01) ==
LOC: HO.HHCL 13:31
PROVIDERS: Visit Provider Internal Medicine
DX: E11.9 Type 2 diabetes mellitus without complications (principal)
CPT/HCPCS: 82043; 82570

== ENCOUNTER 2024-12-02 14:39 | Outpatient (REF) | payer MEDICAID, SELFPAY ==
--- NOTE | ~2024-12-02 | XR_ITS ---
EXAMINATION: XR LUMBOSACRAL SPINE CLINICAL INFORMATION: low back pain COMPARISON: None available. TECHNIQUE: Three views of the lumbosacral spine. FINDINGS: There is normal lumbar lordosis. The vertebral heights and alignment is normal. There is loss of L2-3 disc height. Rest the disc heights are normal. There is no visible acute fracture, dislocation or lytic process seen. There is mild ventral spondylosis at L2-3 disc level. No visible acute fracture, dislocation or lytic process seen. SI joints are symmetrical and normal. XR/XR lumbar spine 2-3V IMPRESSION: Mild degenerative disc changes L2-3 disc level with ventral spondylosis. No visible acute fracture, dislocation or subluxation seen Electronically signed by: Christofer Monroy MD 12/02/2024 03:57 PM EST
--- OUTSIDE RECORDS SUMMARY | 2024-12-02 18:04 | XMS_ITS | Patient Health Record ---
Author Organization [facility] Address [address] [place] [address] Care Team Providers Care Relief Master Name Role Phone Drew Long MD, Eduardo Primary Care Provide r Siddhartha Grove Unavailable [phone] Allergies No Known Allergies Reason For Referral No Information Medications Medication SIG (Take, Route, Fr equency, Duration) Notes Start Date End Date Status Vitamin B12 Active Vitamin D Active Potassium Active Multivitamin Active Tirosint 88 MCG Oral for 90 Ac tive metFORMIN HCl ER 500 MG TAKE 1 TABLET BY MOUTH EVERY DAY WITH THE EVENING MEAL Oral for 90 Active Immunizations Vaccine Route Administration Date Status Comme nts Influenza Unknown 10/31/2022 Refused Social History Alcohol Screen Question Answer Notes Did you have a drink containing alcohol in the p ast year? No Points 0 Interpretation Negative Section Notes: Nonsmoker; no alcohol Nonsmoker; no alcohol Nonsmoker; no alcohol Problems Problem Type SNOMED Code ICD Code Onset Dates Problem Status W/U Status Risk Notes Problem 960886332 Encounter for screening for malignant neoplasm of colon (Z12.11) Active confirmed Problem 079861740 History of adenomatous polyp of colon (Z86.010) Active confirmed Problem 903903718 Bloating (R14.0) Active confirmed Problem Diverticular disease of colon (275776956) Diverticulosis of large intestine without perforation or abscess without bleeding (K57.30) Active confirmed Problem 736088424650874 Pre-procedural examination (Z01.818) Active confirmed Plan Of Treatment Future Test Test Name Order Date COLONOSCOPY 11/05/2012 COLONOSCOPY 01/31/2017 COLONOSCOPY 10/31/2022 Insurance Providers Payer Name Payer Address Payer Phone Subscriber Number Group Number Insured Name Patient Relationship to Insured Coverage Start Date Coverage End Date [place] [address] [place] [phone] [id number] SHANAE GARCIA Self - patient is the insured Medical (General) History Medical History History ICD Code NIDDM Hypothyroidism and thyroid nodule Denies ME,CVA,Lung disease,renal disease Neg. ETT at [facility] in 2011 and 1 10/2015 Screening Colonoscopy 12/2012 --small tubular adenomas, mild diverticulosis, small internal hemorrhoids Negative colonoscopy in 08/2017 Surgical History Surgery Date(Month/Year) Tubal ligatiion 4 C-sections Cholecystectomy
--- OUTSIDE RECORDS SUMMARY | 2024-12-02 18:04 | XMS_ITS | Clinical Summary ---
Author Organization [facility] it[facility] Address [address] [place] [address] Care Team Providers Care Learning And Development Consultant Name Role Phone Eduardo Verma MD Primary Care Provi nabil Surgical History Surgery Date Site/Laterality Comments CHOLECYSTECTOMY PROCEDURE: PA LAPAROSCOPY SURG CHOLECYSTECTOMY Medical History Medical History Date Comments Diabetes mellitus type 2, co ntrolled, with complications (CMS/HCC) DX:Diabetes mellitus type 2, controlled, with complications (HCC) Thyroid disorder DX:Thyroid diso rder Social History Tobacco Use Types Packs/Day Years Used Date Smoking Tobacco: Never Assessed Alcohol Use Standard Drinks/Week Comments Never 0 (1 standard drink = 0.6 oz pur e alcohol) Comments Unknown Sex and Gender Information Value Date Recorded Sex Assigned at Not on file Legal Sex Female 3:58 AM EST Gender Identity Not on file Sexual Orientation Not on file Obstetrics History Last Filed Vital Signs Vital Sign Reading Time Taken Comments Blood Pressure 114/64 04/12/2022 10:40 AM EDT Si tting L Arm Pulse 72 04/12/2022 10:40 AM EDT Temperature - - Respiratory Rate - - Oxygen Saturation - - Inhaled Oxygen Concentration - - Weight 81.6 kg (180 lb) 04/12/2022 10:40 AM EDT Height 152.4 cm (5') 04/12/2022 10:40 AM EDT Body Mass Index 35.15 04/12/2022 10:40 AM EDT Plan of Treatment Health Maintenance Due Date Last Done Comments DTaP,Tdap,and Td Vaccines (1 - Tdap) 1981 Cervical Cancer Screening: Pap Smear 1983 Pneumococcal Vaccine: 50+ Years (1 of 1 - PCV) 2012 Zoster Vaccines (1 of 2) 2012 Colorectal Cancer Screening: Colonoscopy 09/01/2022 Depression Screening 09/01/2022 HIV Screening 09/01/2022 Hepatitis C Screening 09/01/2022 Social Influencers of Health Screening 09/01/2022 COVID-19 Vaccine (2023- season) 2024 Influenza Vaccine (#1) 2024 Breast Cancer Screening 09/18/2025 09/18/20 23, 07/12/2022, 07/10/2021, Additional history exists RSV Immunization Patients 60+ Years Old (1 - 1-dose 75+ series) 2037 HIB Vaccines Aged Out No longer eligi ble based on patient's age to complete this topic HPV Vaccines Aged Out No longer eligi ble based on patient's age to complete this topic Hepatitis A Vaccines Aged Out No long er eligible based on patient's age to complete this topic Hepatitis B Vaccines Aged Out No long er eligible based on patient's age to complete this topic IPV Vaccines Aged Out No longer eligi ble based on patient's age to complete this topic MMR Vaccines Aged Out No longer eligi ble based on patient's age to complete this topic Meningococcal ACWY Vaccine Aged Out N o longer eligible based on patient's age to complete this topic Meningococcal B Vacine Aged Out No lo nger eligible based on patient's age to complete this topic Pneumococcal Vaccine: Pediatrics (0 to 5 Years) and At-Risk Patients (6 to 64 Years) Aged Out No longer eligible based on patient's age to complete this topic RSV Immunization Patients Under 20 months Aged Out No longer eligible based on patient's age to complete this topic Varicella Vaccines Aged Out No longer eligible based on patient's age to complete this topic Procedures Procedure Name Priority Date/Time Associated Diagnosis Comments [facility] SCREENING DIGITAL Routine 09/18/2023 2:29 PM EST Encounter for screening mammogram for malignant neoplasm of breast from Last 3 Months or Most Recently Relevant to Health Maintenance Results * MAYI SCREENING DIGITAL (09/18/2023 2:29 PM EST) Anatomical Region Laterality Modality Mammography 09/18/2023 12:5 1 PM EST Narrative 09/18/2023 2:29 PM EST [facility] Diagnostic Imaging Department [address] [place] [id number] Patient: ??SHANAE GARCIA ?/Age/Sex: 1960 - 63 - F Unit#: ??[id number] ? Location/Status: ??SPDIMAM/REG CLI ? Mnemonic/Ordering Site: ??DIGSC/SPMAM Ordering Physician: ??EDUARDO VERMA MD [facility] Screening Digital - 09/18/23 - 1318 Report Status:Signed EXAM: [facility] Screening Digital EXAM DATE AND TIME: 09/18/2023 1:18 PM HISTORY: ??Screening. 30 pound weight loss in past year. COMPARISON: ??07/12/22, 07/10/21, 06/23/20 TECHNIQUE: Bilateral digital breast tomosynthesis was performed in the CC and MLO projections. Computer aided detection with [employer] 3D 3.1 was employed. TISSUE DENSITY: b. There are scattered areas of fibroglandular density. FINDINGS: No suspicious masses, grouped microcalcifications, or areas of architectural distortion are seen. Skin calcifications are again seen. The vascularity is unremarkable. IMPRESSION: Stable mammographic appearance of the breasts. ??No evidence of malignancy is seen. A negative mammogram in the presence of a clinically suspicious palpable abnormality does not preclude the possibility of malignancy or alter the indications for biopsy. BI-RADS: ??Category 2: Benign RECOMMENDATION(S): 1: Routine screening mammogram BILATERAL in 1 year. Dictating Physician: ??MARK JULIO MD Electronically Signed by: ??MARK JULIO MD Dic Date/Time: ??09/18/23 142 Sign date/Time: ??09/18/23 1424 Procedure Note Mark Julio MD - 11/04/2023 [facility] Diagnostic Imaging Department [address] [place] [address] Patient: SHANAE GARCIA /Age/Sex: 1960 - 63 - F Unit#: [id number] [facility] Mnemonic/Ordering Site: [facility] Ordering Physician: EDUARDO VERMA MD [facility] Screening Digital - 09/18/23 - 1318 Report Status:Signed EXAM: [facility] Screening Digital EXAM DATE AND TIME: 09/18/2023 1:18 PM HISTORY: Screening. 30 pound weight loss in past year. COMPARISON: 07/12/22, 07/10/21, 06/23/20 TECHNIQUE: Bilateral digital breast tomosynthesis was performed in the CCand MLO projections. Computer aided detection with [employer] 3D 3.1was employed. TISSUE DENSITY: b. There are scattered areas of fibroglandular density. FINDINGS: No suspicious masses, grouped microcalcifications, or areas ofarchitectural distortion are seen. Skin calcifications are again seen. The vascularityis unremarkable. IMPRESSION: Stable mammographic appearance of the breasts. No evidence of malignancyis seen. A negative mammogram in the presence of a clinically suspicious palpable abnormality does not preclude the possibility of malignancy or alter the indications for biopsy. BI-RADS: Category 2: Benign RECOMMENDATION(S): 1: Routine screening mammogram BILATERAL in 1 year. Dictating Physician: MARK JULIO MD Electronically Signed by: MARK JULIO MD Dic Date/Time: 09/18/23 1428 Sign date/Time: 09/18/231428 us Eduardo Verma MD IMG BI PROCEDURES F inal Result from Last 3 Months or Most Recently Relevant to Health Maintenance Care Teams Learning And Development Consultant Relationship Specialty Start Date End Date Eduardo Verma MD [address] [place] [address] [place] [address] PCP - General Internal Medicine 04/08/22
== END 2024-12-02 14:40 | disposition home or self-care (01) ==
LOC: HO.HHCX 14:39
PROVIDERS: Visit Provider Internal Medicine
DX: M54.50 Low back pain, unspecified (principal)
CPT/HCPCS: 36415; 72100; 85025

== ENCOUNTER → 2024-12-02 14:39 | Outpatient (BNV) | payer MEDICAID, SELFPAY | PROVIDERS: Visit Provider Radiology Diagnostic Radiology | DX: M54.50 Low back pain, unspecified (principal) | CPT/HCPCS: 72100 ==

== ENCOUNTER 2024-12-02 15:01 | Outpatient (REF) | payer MEDICAID, SELFPAY ==
--- OUTSIDE RECORDS SUMMARY | 2024-12-02 18:35 | XMS_ITS | Encounter Summary ---
Author Organization [employer] Address [address] [facility] 7 [place] [address] Care Team Providers Care Compliance Aide Name Role Phone Eduardo Minor MD Primary Care Provide r Reason for Visit * Reason Onset Date Comments Med Refill 10/13/2024 Encounter Details Date Type Department Care Team ([facility] st Contact Info) Description 10/13/2024 Refill [facility] [address] [place], [place] [phone] Eduardo Minor MD [address] [place] [address] Type 2 diabetes mellitus without complication, without long-term current use of insulin ([facility]); Type 2 diabetes mellitus without complication, unspecified whether mcc insulin use ([facility]) Social History Tobacco Use Types Packs/Day Years Used Date Smoking Tobacco: Never Passive Smoke Exposure: Never Smokeless Tobacco: Never Depression Answer Date Recorded Patient Health Questionnaire-9 Score 0 02/03/2024 Patient Health Questionnaire-9 Score 0 02/03/2024 Last PHQ-9: Questionnaire Data Not on file 0 02/03/2024 Housing Stability Answer Date Recorded What is your housing situation today? I have xiomy walker 02/03/[address] you li ve. Do you have problems with any of the following? None of the above 02/03/2024 Food Insecurity Answer Date Recorded Within the past 12 months, y ou worried that your food would run out before you got money to buy more: Never True 02/03/2024 Within the past 12 months,th e food you bought just didn't last and you didn't have enough money to get more: Never True 03/2024 Transportation Answer Date Recorded In the past 12 months, has l ack of transportation kept you from medical appts, meetings, work or from getting things needed for daily living? No 02/03/2024 Utilities Answer Date Recorded In the past 12 months, has t he electric, gas, oil or water company threatened to shut off services in your home? No 02/03/2024 Depression Answer Date Recorded Patient Health Questionnaire-2 Score 0 02/03/2024 Internet Access Answer Date Recorded Internet Access Q1 Yes 05/31/2024 Internet Access Q2 Not on file 05/31/2024 Comments Unknown Sex and Gender Information Value Date Recorded Sex Assigned at Female 07/29/2022 10:14 AM EDT Legal Sex Female 10:14 AM EDT Gender Identity Female 07/29/2022 10:14 AM EDT Sexual Orientation Straight 07/29/2022 10 :14 AM EDT documented as of this encounter Plan of Treatment Not on file documented as of this encounter Visit Diagnoses Diagnosis Type 2 diabetes mellitus without complication, unspecified whether intermediate accountant insulin use ([facility]) documented in this encounter Additional Health Concerns Assessment Noted Time PHQ-9 Depression Total Score: 0 02/03/20 24 1:01 PM EDT documented as of this encounter Care Teams Compliance Aide Relationship Specialty Start Date End Date Eduardo Minor MD [address] [place] [id number] PCP - General Internal Medicine 03/18/19 documented as of this encounter
--- OUTSIDE RECORDS SUMMARY | 2024-12-02 18:35 | XMS_ITS | Encounter Summary ---
Author Organization [employer] Address [address] [facility] 7t [place] [address] Care Team Providers Care Circuit Judge Name Role Phone Eduardo Minor MD Primary Care Provide r Reason for Visit * Reason Onset Date Comments Medication Question 11/18/2024 Encounter Details Date Type Department Care Team ([facility] st Contact Info) Description 11/18/2024 Telephone [facility] [address] [place], [place] [phone] Eduardo Minor MD [address] [place], [place] [phone] Medication Question Social History Tobacco Use Types Packs/Day Years [...] AM EDT documented as of this encounter Miscellaneous Notes * Telephone Encounter - Opal Friedman RN - 11/22/2024 8:45 AM EST Pt seen in [facility] by Dr Gar on 11/20/23, prescribed levothyroxine tablets. [facility] Endocrinology office called back today 11/22/24 and said okay to prescribe tablets however they haven't seen the pt in >1year. If PCP recommends her to continue to see endocrinology, then pt needs a new referral. Will send as FYI to PCP. * Telephone Encounter - Opal Friedman RN - 11/19/2024 4:16 PM EST Called [facility] Endocrinology, left message for KYREE Hardwick regarding message below. Will task to call again. * Telephone Encounter - Opal Friedman RN - 11/19/2024 8:52 AM EST Called [facility] endocrinology Dr Merida's office, left voicemail for medical communication specialist Belinda asking forcall back in regards to this medication. -- Pt sees an Hedis Coordinator, please contact their office * Telephone Encounter - Opal Friedman RN - 11/18/2024 2:40 PM EST Telephone call to Ana. Per Estefany, [employer] will not cover levothyroxine capsules (either brand name or generic) so PA would be required (this was already done and denied). She stated that tablets are typically covered by [employer]. Will send to PCP to advise. * Telephone Encounter - Pura Roland - 11/18/2024 2:05 PM EST Tc from pt stating received email from pharmacy saying needs to pay $336 for medication (levothyroxine (Tirosint) 88MCG capsule) documented in this encounter Plan of Treatment Not on file documented as of this encounter Visit Diagnoses Not on filedocumented in this encounter Additional Health Concerns Assessment Noted Time PHQ-9 Depression Total Score: 0 02/03/20 24 1:01 PM EDT documented as of this encounter Care Teams Circuit Judge Relationship Specialty Start Date End Date Eduardo Minor MD [address] [place] [id number] PCP - General Internal Medicine 03/18/19 documented as of this encounter
--- OUTSIDE RECORDS SUMMARY | 2024-12-02 18:35 | XMS_ITS | Encounter Summary ---
Author Organization [employer] [facility] Address [address] [place] [address] 7t [place] [address] Care Team Providers Care Trichologist Name Role Phone Eduadro Minor MD Primary Care Provide r Reason for Referral * Neurology (Routine) - Authorized Specialty Diagnoses / Procedures Referred By Heri ibrahim Referred To Contact Diagnoses Left leg numbness Procedures Nerve conduction test Eduardo Minor MD [address] [place] [address] Phone: tel: fax: [address] Phone: tel: fax: Referral ID Status Reason Start Date Expiration Date V isits Requested Visits Authorized [id number] Authorized 12/02/2024 12/02/2025 1 1 * Imaging (Routine) - Closed Specialty Diagnoses / Procedures Referred By Contmejia t Referred To Contact Radiology Diagnoses Breast cancer screening by mammogram Procedures BI Mammogram Screening Tomosynthesis Bilateral Eduardo Minor MD [address] [place] [address] Phone: tel: fax: [address] Phone: tel: fax: Referral ID Status Reason Start Date Expiration Date Visits Re quested Visits Authorized [id number] Closed 12/02/2024 12/02/2025 1 1 * Imaging (Routine) - Authorized Specialty Diagnoses / Procedures Referred By Heri t Referred To Contact Radiology Diagnoses Low back pain radiating down leg Procedures MR Lumbar Spine w/o Contrast Eduardo Minor MD [address] [place] [address] Phone: tel: fax: [address] Phone: tel: fax: Referral ID Status Reason Start Date Expiration Date V isits Requested Visits Authorized [id number] Authorized 12/02/2024 12/02/2025 1 1 Reason for Visit * Reason Comments Diabetes Pt would like to get her Iron levels checked CHW - Office Visit Pt states that her l eft leg from her knee to her ankle its numb , she was seen on a Friday visit and was told that it could be because of a pinched nerve; pt stated that ever since she stopped using Metformin that's when the numbness began. Encounter Details Date Type Department Care Team (Late st Contact Info) Description 12/02/2024 2:00 PM EST Office Visit [facility] [address] [place] [address] Eduardo Minor MD [address] [place] [address] Essential hypertension (Primary Dx); Type 2 diabetes mellitus without complication, without long-term current use of insulin ([facility]); Acquired hypothyroidism; Low back pain radiating down leg; Breast cancer screening by mammogram; Left leg numbness Social History Tobacco Use Types Packs/Day Years Used Date Smoking Tobacco: Never Passive Smoke Exposure: Never Smokeless Tobacco: Never Depression Answer Date Recorded Patient Health Questionnaire-9 Score 0 12/02/2024 Patient Health Questionnaire-9 Score 0 12/02/2024 Last PHQ-9: Questionnaire Data Not on file 0 12/02/2024 Housing Stability Answer Date Recorded What is [...] to shut off services in your home? Yes 12/02/2024 Depression Answer Date Recorded Patient Health Questionnaire-2 Score 0 12/02/2024 Internet Access Answer Date Recorded Internet Access Q1 Yes 05/31/2024 Internet Access Q2 Not on file 05/31/2024 Comments Unknown Sex and Gender Information Value Date Recorded Sex Assigned at Female 07/29/2022 10:14 AM EDT Legal Sex Female 10:14 AM EDT Gender Identity Female 07/29/2022 10:14 AM EDT Sexual Orientation Straight 07/29/2022 10 :14 AM EDT documented as of this encounter Last Filed Vital Signs Vital Sign Reading Time Taken Comments Blood Pressure 105/66 12/02/2024 1:45 PM EST pt reports no symptoms of dizziness or SOB Pulse 70 12/02/2024 1:45 PM EST Temperature 35.9 ??C (96.6 ??F) 12/02/2024 1 :45 PM EST Respiratory Rate 20 12/02/2024 1:45 PM EST Oxygen Saturation 97% 12/02/2024 1:4 5 PM EST Inhaled Oxygen Concentration - - Weight 78.7 kg (173 lb 9.6 oz) 12/02/2024 1:45 PM EST Height 152.4 cm (5') 12/02/2024 1:45 PM EST Body Mass Index 33.9 12/02/2024 1:45 PM EST documented in this encounter Progress Notes * Eduardo Long MD - 12/02/2024 2:00 PM EST SUBJECTIVE Lili Madrid is a 64 y.o. female who presents for Diabetes (Pt would like to get her Iron levels checked ) and [facility]W - Office Visit (Pt states that her left leg from her knee to her ankle its numb , she was seen on a Friday visit and was told that it could be because of a pinched nerve; pt stated that ever since she stopped using Metformin that's when the numbness began.). Diabetes She presents for her follow-up diabetic visit. She has type 2 diabetes mellitus. Pertinent negatives for hypoglycemia include no headaches. Pertinent negatives for diabetes include no chest pain. Review of Systems Constitutional: Negative for fever. HENT: Negative for sore throat. Respiratory: Negative for cough and shortness of breath. Cardiovascular: Negative for chest pain. Gastrointestinal: Negative for abdominal pain. Neurological: Negative for headaches. Allergies Allergen Reactions Qc Tumeric Complex [Turmeric] Hives OBJECTIVE Vitals: 12/02/24 1345 BP: 105/66 BP Location: Left arm Patient Position: Sitting BP Cuff Size: Large adult Pulse: 70 Resp: 20 Temp: 96.6 ??F (35.9 ??C) TempSrc: Temporal SpO2: 97% Weight: 173 lb 9.6 oz (78.7 kg) Height: 5' (1.524 m) Physical Exam Vitals reviewed. Constitutional: Appearance: Normal appearance. HENT: Head: Normocephalic and atraumatic. Right Ear: External ear normal. Left Ear: External ear normal. Nose: Nose normal. Mouth/Throat: Mouth: Mucous membranes are moist. Eyes: Conjunctiva/sclera: Conjunctivae normal. Cardiovascular: Rate and Rhythm: Normal rate and regular rhythm. Pulmonary: Effort: Pulmonary effort is normal. Breath sounds: Normal breath sounds. Skin: General: Skin is warm. Neurological: Mental Status: She is alert. Mental status is at baseline. Assessment/Plan Problem List Items Addressed This Visit Type 2 diabetes mellitus without complication (CMS/HCC) Patient here for a f/u DM controlled She had been on a regimen of: Metformin XR 500 mg po daily . Pt tells me she stopped it on her own because her BG were fine Hgb A1c 12/02/2024: 6.4 Eye exam 04/07/2024 [facility] Microalbumin checked on: 11/30/2020 1 was: 0.4 Pt is not on an HOLGER/ARB. Pt very concerned about side effects of these medications. Foot check risk zero Plan: continue to hold off Metformin for now Pt does not take Asa due to stomach upset Pt advised to: adhere to diabetic diet check your blood sugars regularly check your feet on a daily basis Relevant Orders POCT Glucose (Completed) POCT HGB A1C (Completed) Essential hypertension - Primary Patient here for a f/u BP today Controlled She is on a regimen of: diet and exercise. Pt previously lost over 30 lbs and controls her salt intake Given adequate blood pressure control will continue with current regimen. Most recent electrolytes, Bun and Creatinine done on: Lab Results Component Value Date NA 142 05/27/2024 NA 141 01/07/2023 K 4.6 05/27/2024 K 4.6 01/07/2023 CL 108 05/27/2024 CL 101 01/07/2023 BUN 10 05/27/2024 BUN 12 01/07/2023 CREATININE 0.73 05/27/2024 CREATININE 0.72 01/07/2023 were within normal limits. patient advised to adhere to a low sodium diet, encouraged about medication compliance. The 10-year ASCVD risk score (Tara TOMLIN, et al., 2019) is: 4.9% Values used to calculate the score: Age: 64 years Sex: Female Is Non- : No Diabetic: Yes Tobacco smoker: No Systolic Blood Pressure: 105 mmHg Is BP treated: No HDL Cholesterol: 45 mg/dL Total Cholesterol: 152 mg/dL Relevant Orders CBC auto differential Acquired hypothyroidism Pt with Hypothyroidism Used to be under the care of Dr Merida, last note on record 07/2022 on: Levothyroxine tablets 88 mcg po daily seen in the past by Dr Longo TSH and Free T4 01/2024 wnl Left leg numbness Pt with c/o new onset of Left anterior leg numbness x 1 month. Pt denies back pain at rest but reports it when bending Plan: NCS, Plain x-ray LS spine, MRI LS rule out radiculopathy VS neuropathy Relevant Orders Nerve conduction test Other Visit Diagnoses Breast cancer screening by mammogram Relevant Orders BI Mammogram Screening Tomosynthesis Bilateral documented in this encounter Miscellaneous Notes * Assessment & Plan Note - Eduardo Long MD - 12/02/2024 2:07 PM EST Associated Problem(s): Left leg numbness Pt with c/o new onset of Left anterior leg numbness x 1 month. Pt denies back pain at rest but reports it when bending Plan: NCS, Plain x-ray LS spine, MRI LS rule out radiculopathy VS neuropathy * Assessment & Plan Note - Eduardo Long MD - 12/02/2024 2:06 PM EST Associated Problem(s): Acquired hypothyroidism Pt with Hypothyroidism Used to be under the care of Dr Merida, last note on record 07/2022 on: Levothyroxine tablets 88 mcg po daily seen in the past by Dr Longo TSH and Free T4 01/2024 wnl * Assessment & Plan Note - Eduardo Long MD - 12/02/2024 2:04 PM EST Associated Problem(s): Type 2 diabetes mellitus without complication (CMS/HCC) Patient here for a f/u DM controlled She had been on a regimen of: Metformin XR 500 mg po daily . Pt tells me she stopped it on her own because her BG were fine Hgb A1c 12/02/2024: 6.4 Eye exam 04/07/2024 [facility] Microalbumin checked on: 11/30/2020 1 was: 0.4 Pt is not on an HOLGER/ARB. Pt very concerned about side effects of these medications. Foot check risk zero Plan: continue to hold off Metformin for now Pt does not take Asa due to stomach upset Pt advised to: adhere to diabetic diet check your blood sugars regularly check your feet on a daily basis * Assessment & Plan Note - Eduardo Long MD - 12/02/2024 2:04 PM EST Associated Problem(s): Essential hypertension Patient here for a f/u BP today Controlled She is on a regimen of: diet and exercise. Pt previously lost over 30 lbs and controls her salt intake Given adequate blood pressure control will continue with current regimen. Most recent electrolytes, Bun and Creatinine done on: Lab Results Component Value Date NA 142 05/27/2024 NA 141 01/07/2023 K 4.6 05/27/2024 K 4.6 01/07/2023 CL 108 05/27/2024 CL 101 01/07/2023 BUN 10 05/27/2024 BUN 12 01/07/2023 CREATININE 0.73 05/27/2024 CREATININE 0.72 01/07/2023 were within normal limits. patient advised to adhere to a low sodium diet, encouraged about medication compliance. The 10-year ASCVD risk score (Tara TOMLIN, et al., 2019) is: 4.9% Values used to calculate the score: Age: 64 years Sex: Female Is Non- : No Diabetic: Yes Tobacco smoker: No Systolic Blood Pressure: 105 mmHg Is BP treated: No HDL Cholesterol: 45 mg/dL Total Cholesterol: 152 mg/dL documented in this encounter Plan of Treatment Scheduled Orders Name Type Priority Associated Diagnoses Orde r Schedule MR Lumbar Spine w/o Contrast Imaging Routine Low back pain radiating down leg Expected: 12/02/2024, Expires: 12/02/2025 BI Mammogram Screening Tomosynthesis Bilateral Imaging Routine Breast cancer screening by mammogram Ordered: 12/02/2024 Nerve conduction test Neurology Routine Left leg numbness Expected: 12/02/2024 (Approximate), Expires: 12/02/2025 CBC auto differential Lab Routine Essential hypertension Expected: 12/02/2024 (Approximate), Expires: 12/02/2025 documented as of this encounter Procedures Procedure Name Priority Date/Time Associated Diagnosis Comments XR LUMBAR SPINE 2-3 VIEWS Routine 12/02/2024 2:39 PM EST Low back pain radiating down leg POCT GLYCATED HEMOGLOBIN, TOTAL Routine 12/02/2024 2:06 PM EST Type 2 diabetes mellitus without complication, without long-term current use of insulin ([facility]) POCT GLUCOSE Routine 12/02/2024 1:58 PM EST Type 2 diabetes mellitus without complication, without long-term current use of insulin ([facility]) documented in this encounter Results * XR Lumbar Spine 2-3 Views (12/02/2024 2:39 PM EST) Anatomical Region Laterality Modality Spine, L-spine Radiographic Soledad ging 12/02/2024 2:39 PM EST Narrative 12/02/2024 4:00 PM EST ?[facility] ?[address] ?[place] [address] ?XRay Report ? Signed ? Patient: Lili Madrid ?MR#: [id number] ? : 1960 ?Acct:[id number] ? Age/Sex: 64 / F ?ADM Date: 12/02/24 ? Loc: HO.HHCX ? Attending Dr: Eduardo Verma MD ? Ordering Physician: Eduardo Verma MD ?? Date of Service: 12/02/24 ?? Procedure(s): XR lumbar spine 2-3V ?? Accession Number(s): [id number] ? cc: Eduardo Verma MD ? EXAMINATION: ?? XR LUMBOSACRAL SPINE ? CLINICAL INFORMATION: ?? low back pain ? COMPARISON: ?? None available. ? TECHNIQUE: ?? Three views of the lumbosacral spine. ? FINDINGS: ?? There is normal lumbar lordosis. The vertebral heights and alignment is ?? normal. There is loss of L2-3 disc height. Rest the disc heights are ?? normal. There is no visible acute fracture, dislocation or lytic ?? process seen. There is mild ventral spondylosis at L2-3 disc level. No ?? visible acute fracture, dislocation or lytic process seen. SI joints ?? are symmetrical and normal. ? XR/XR lumbar spine 2-3V ?? IMPRESSION: ?? Mild degenerative disc changes L2-3 disc level with ventral ?? spondylosis. No visible acute fracture, dislocation or subluxation seen ? Electronically signed by: ??Christofer Monroy MD ??12/02/2024 03:57 PM EST RP ? Dictated By: ?Christofer Monroy MD ? Signed By: ?<Electronically signed by Christofer Monroy MD in OV> ?12/02/24 1557 ? DD/ 1439 ? TD/TT: 12/02/24 1541 ? Lithoplate Maker: [employer] ? Procedure Note Donfarihater, Image - 12/02/[address] [address] XRay Report Signed Patient: Linda Madrid#: [id number] : 2Acct:[id number] Age/Sex: 64 / FADM Date: 12/02/24 Loc: HO.HHCX Attending Dr: Eduardo Verma MD Ordering Physician: Eduardo Verma MD Date of Service: 12/02/24 Procedure(s): XR lumbar spine 2-3V Accession Number(s): [id number] cc: Eduardo Verma MD EXAMINATION: XR LUMBOSACRAL SPINE CLINICAL INFORMATION: low back pain COMPARISON: None available. TECHNIQUE: Three views of the lumbosacral spine. FINDINGS: There is normal lumbar lordosis. The vertebral heights and alignment is normal. There is loss of L2-3 disc height. Rest the disc heights are normal. There is no visible acute fracture, dislocation or lytic process seen. There is mild ventral spondylosis at L2-3 disc level. No visible acute fracture, dislocation or lytic process seen. SI joints are symmetrical and normal. XR/XR lumbar spine 2-3V IMPRESSION: Mild degenerative disc changes L2-3 disc level with ventral spondylosis. No visible acute fracture, dislocation or subluxation seen Electronically signed by: Christofer Monroy MD 12/02/2024 03:57 PM EST RP Dictated By: Christofer Monroy MD Signed By: <Electronically signed by Christofer Monroy MD in OV> 12/02/24 1557 DD/ 1439 TD/TT: 12/02/24 1541 Lithoplate Maker: [facility] Eduardo Long MD IMG XR PROCEDURES Fin al Result * (ABNORMAL) POCT HGB A1C (12/02/2024 2:06 PM EST) Hemoglobin A1C 6.4(A) 4.0 - 6.0 % QC Media Lot # [id number] Lot# Expiration Date , Blood 12/02/2024 2:06 PM EST Eduardo Long MD POINT OF CARE TEST EN TER/EDIT ORDERABLES Final Result * POCT Glucose (12/02/2024 1:58 PM EST) Glucose Blood, POC 94 60 - 200 mg/dL QC Media Lot # [id number] Lot# Expiration Date 706,025 Blood Capillary blood specimen / Unknown 12/02/2024 1:58 PM EST Eduardo Long MD POINT OF CARE TEST EN TER/EDIT ORDERABLES Final Result documented in this encounter Visit Diagnoses Diagnosis Essential hypertension- Primary Unspecified essential hypertension Type 2 diabetes mellitus without complication, without long-term current use of insulin ([facility]) Acquired hypothyroidism Unspecified hypothyroidism Low back pain radiating down leg Breast cancer screening by mammogram Left leg numbness Disturbance of skin sensation documented in this encounter Additional Health Concerns Assessment Noted Time PHQ-9 Depression Total Score: 0 12/03/19 25 1:50 PM EST documented as of this encounter Care Teams Trichologist Relationship Specialty Start Date End Date Eduardo Minor MD [address] [place] [address] PCP - General Internal Medicine 03/18/19 documented as of this encounter
--- OUTSIDE RECORDS SUMMARY | 2024-12-02 18:35 | XMS_ITS | Encounter Summary ---
Author Organization [employer] Address [address] [place] [address] Care Team Providers Care It Sales Representative Name Role Phone Eduardo Minor MD Primary Care Provide r Encounter Details Date Type Department Care Team (Late st Contact Info) Description 11/07/2023 Orders Only [facility] [address] [place] [address] [phone] Ronny Topete MD [address] [place], [place] [phone] Posterior chest pain (Primary Dx) Social History Tobacco Use Types Packs/Day Years Used Date Smoking Tobacco: Never Passive Smoke Exposure: Never Smokeless Tobacco: Never Depression Answer Date Recorded Patient Health Questionnaire-9 Score 5 01/07/2023 Housing Stability Answer Date Recorded What is your housing situation today? I have xiomydwaine walker 07/05/[address] you li ve. Do you have problems with any of the following? Oven or stove not working 07/05/2023 Food Insecurity Answer Date Recorded Within the past 12 months, y ou worried that your food would run out before you got money to buy more: Never True 07/29/2023 Within the past 12 months,th e food you bought just didn't last and you didn't have enough money to get more: Never True Transportation Answer Date Recorded In the past 12 months, has l ack of transportation kept you from medical appts, meetings, work or from getting things needed for daily living? No 07/29/2023 Utilities Answer Date Recorded In the past 12 months, has t he electric, gas, oil or water company threatened to shut off services in your home? No 07/29/2023 Depression Answer Date Recorded Patient Health Questionnaire-2 Score 0 01/07/2023 Comments Unknown Sex and Gender Information Value Date Recorded Sex Assigned at Female 07/29/2022 10:14 AM EDT Legal Sex Female 10:14 AM EDT Gender Identity Female 07/29/2022 10:14 AM EDT Sexual Orientation Straight 07/29/2022 10 :14 AM EDT documented as of this encounter Plan of Treatment Scheduled Orders Name Type Priority Associated Diagnoses Orde r Schedule XR Chest 2 Views Imaging Routine Posterior chest pain Expected: 11/07/2023, Expires: 11/07/2024 documented as of this encounter Visit Diagnoses Diagnosis Posterior chest pain- Primary documented in this encounter Additional Health Concerns Assessment Noted Time PHQ-9 Depression Total Score: 5 01/08/20 23 1:17 PM EDT documented as of this encounter Care Teams It Sales Representative Relationship Specialty Start Date End Date Eduardo Minor MD [address] [place] [id number] PCP - General Internal Medicine 03/18/19 documented as of this encounter
--- OUTSIDE RECORDS SUMMARY | 2024-12-02 18:35 | XMS_ITS | Encounter Summary ---
Author Organization [employer] Address [address] [facility] [address] [place] [address] Care Team Providers Care Industrial Relations Manager Name Role Phone Eduardo Minor MD Primary Care Provide r Reason for Visit * Reason Comments walk in visit Encounter Details Date Type Department Care Team (Latest Contact Info) Description 11/20/2024 10:00 AM EST Office Visit [facility] [address] [place] [phone] Name, MD Bacilio [address] [place] [phone] Acquired hypothyroidism (Primary Dx); Paresthesia of left leg Social History Tobacco Use Types Packs/Day Years [...] Sign Reading Time Taken Comments Blood Pressure 127/75 11/20/2024 9:44 AM EST Pulse 83 11/20/2024 9:44 AM EST Temperature 36.3 ??C (97.3 ??F) 11/20/2024 9:44 AM ES T Respiratory Rate 16 11/20/2024 9:44 AM EST Oxygen Saturation 98% 11/20/2024 9:44 AM EST Inhaled Oxygen Concentration - - Weight 78.6 kg (173 lb 3.2 oz) 11/20/2024 9:44 A M EST Height 152.4 cm (5') 11/20/2024 9:44 AM EST Body Mass Index 33.83 11/20/2024 9:44 AM EST documented in this encounter Progress Notes * Bacilio Gar MD - 11/20/2024 10:00 AM EST Subjective Patient ID: Lili Madrid is a 64 y.o. female who presents for walk in visit. Patient comes to walk-in because she ran out of her levothyroxine. The patient is chronically treated with levothyroxine but the medication is now not covered by her insurance. She was instructed to switch from levothyroxine capsules to tablets. She requires a new prescription. Patient is also concerned of a few weeks of left lower leg numbness, paresthesias, pain. The patient tells me she has a history of DJD of the spine and she had similar symptoms in the past on her arms. She does not have severe pain, no weakness, no back pain, no history of trauma, no history of malignancy. Review of Systems Constitutional: Negative for chills and fever. HENT: Negative for sore throat. Respiratory: Negative for cough, shortness of breath and wheezing. Cardiovascular: Negative for chest pain, palpitations and leg swelling. Gastrointestinal: Negative for abdominal pain. Musculoskeletal: See HPI Visit Vitals BP 127/75 (BP Location: Left arm, Patient Position: Sitting, BP Cuff Size: Adult long) Pulse 83 Temp 97.3 ??F (36.3 ??C) (Temporal) Resp 16 Ht 5' (1.524 m) Wt 173 lb 3.2 oz (78.6 kg) SpO2 98% BMI 33.83 kg/m?? Smoking Status Never BSA 1.82 m?? Objective Physical Exam Constitutional: Appearance: Normal appearance. Cardiovascular: Rate and Rhythm: Normal rate and regular rhythm. Pulses: Dorsalis pedis pulses are 3+ on the left side. Posterior tibial pulses are 3+ on the left side. Pulmonary: Effort: Pulmonary effort is normal. Breath sounds: Normal breath sounds. Musculoskeletal: Right lower leg: No edema. Left lower leg: No edema. Feet: Left foot: Protective Sensation: 5 sites tested. 5 sites sensed. Neurological: General: No focal deficit present. Mental Status: She is alert. Sensory: No sensory deficit. Motor: No weakness. Deep Tendon Reflexes: Reflexes normal. Assessment/Plan Diagnoses and all orders for this visit: Acquired hypothyroidism Comments: I refilled the levothyroxine tablets at her request at her usual dose. Paresthesia of left leg Comments: Likely related to lumbar radiculopathy. Neurological exam is nonfocal. She is reassured. I recommended OTC Tylenol or ibuprofen for pain. Keep follow-up with PCP. Other orders - levothyroxine (Synthroid) 88 MCG tablet; Take 1 tablet (88 mcg) by mouth before breakfast. documented in this encounter Plan of Treatment Not on file documented as of this encounter Visit Diagnoses Diagnosis Acquired hypothyroidism- Primary Unspecified hypothyroidism Paresthesia of left leg Disturbance of skin sensation documented in this encounter Additional Health Concerns Assessment Noted Time PHQ-9 Depression Total Score: 0 02/03/20 24 1:01 PM EDT documented as of this encounter Care Teams Industrial Relations Manager Relationship Specialty Start Date End Date Eduardo Minor MD [address] [place] [phone] PCP - General Internal Medicine 03/18/19 documented as of this encounter
--- OUTSIDE RECORDS SUMMARY | 2024-12-02 18:35 | XMS_ITS | Clinical Summary ---
Author Organization [employer] Address [address] [facility] [address] [place] [address] Care Team Providers Care Lien Searcher Name Role Phone Eduardo Minor MD Primary Care Provide r Allergies Active Allergy Reactions Criticality Noted Date Comments Turmeric Hives 01/07/2023 Medications ibuprofen 400 MG tablet Take 1 tablet (400 mg) by mouth every 6 (six) hours if needed for moderate pain or fever for up to 30 doses. 15 tablet 08/27/20 23 Active triamcinolone (Kenalog) 0.025 % ointmentIndicatio ns:Eczema, unspecified type Apply topically 2 times daily. 15 g 3 02/03/20 24 Active Blood Glucose Monitoring Suppl (FreeStyle Lite) w/Device kitIndications:Ty pe 2 diabetes mellitus without complication, without long-term current use of insulin (CMS/HCC) USE KIT TWICE DAILY 1 kit 03/11/20 24 Active glucose blood (FREESTYLE LITE) test stripIndications: Type 2 diabetes mellitus without complication, unspecified whether correction insulin use (CMS/HCC) USE DIRECTED TO TEST BLOOD GLUCOSE TWICE DAILY 50 strip 11 08/03/20 24 Active levothyroxine (Synthroid) 88 MCG tablet Take 1 tablet (88 mcg) by mouth before breakfast. 30 tablet 11 11/20/19 25 2025 Active metFORMIN XR (Glucophage-XR) 500 MG 24 hr tabletIndications :Type 2 diabetes mellitus without complication, without long-term current use of insulin (CMS/HCC) TAKE 1 TABLET BY MOUTH EVERY DAY WITH THE EVENING MEAL 90 tablet 09/16/20 24 03/06/ 2025 Discontinued(N on-compliance) levothyroxine (Tirosint) 88 MCG capsuleIndication s:Acquired hypothyroidism TAKE 1 CAPSULE(88 MCG) BY MOUTH IN THE MORNING 90 capsule 1 09/30/19 25 2024 Discontinued(R eorder (will not trigger notification to Pharmacy)) levothyroxine (Tirosint) 88 MCG capsuleIndication s:Acquired hypothyroidism TAKE 1 CAPSULE(88 MCG) BY MOUTH IN THE MORNING 90 capsule 1 11/18/19 25 2024 Discontinued(D ose adjustment) levothyroxine (Synthroid, Levoxyl) 25 MCG tablet Take 88 mcg by mouth before breakfast. 2024 Discontinued(D ose adjustment) Active Problems Problem Noted Date Diagnosed Date Left leg numbness 12/02/2024 Assessment & Plan (12/02/2024 2:16 PM EST): Pt with c/o new onset of Left anterior leg numbness x 1 month. Pt denies back pain at rest but reports it when bending Plan: NCS, Plain x-ray LS spine, MRI LS rule out radiculopathy VS neuropathy Bilateral carpal tunnel syndrome 02/03/2024 Assessment & Plan (08/03/2024 1:00 PM EST): X 5 months mainly on the left hand 3th 4th and 5th finger Etiology ? CTS ? VS radiculopathy VS Peripheral Neuropathy Pt has a Hx of CTS release surgery. NCS 03/09/2024 showed: Mild bilateral median neuropathy across carpal tunnel. Radiculopathy could not be ruled out as patient refused electromyogram. Assessment & Plan (02/03/2024 1:13 PM EDT): X 5 months mainly on the left hand 3th 4th and 5th finger Etiology ? CTS ? VS radiculopathy VS Peripheral Neuropathy Pt has a Hx of CTS release surgery Eczema 02/03/2024 Assessment & Plan (02/03/2024 1:19 PM EDT): Pt reports a hx of this responds well to topical steroid creams requesting a refill Fibroids 01/07/2023 Assessment & Plan (01/07/2023 12:41 PM EDT): Seen on , follows with Dr Paulson [facility] 01/07/2023 Assessment & Plan (02/03/2024 1:03 PM EDT): Mammogram: 09/18/2023 Normal done at [facility] Pap Smear: Done 08/2023 at [facility] Colonoscopy: 11/2022 showed a Tubular adenoma, Diverticulosis and Hemorrhoids Dr. Calderon Assessment & Plan (01/07/2023 4:16 PM EDT): Mammogram: 07/12/2022 Normal done at [facility] Pap Smear: Done by Dr Paulson [facility] Colonoscopy: 12/09/2022 showed a Tubular adenoma, Diverticulosis and Hemorrhoids Dr. Calderon Acquired hypothyroidism 10/07/2022 Assessment & Plan (12/02/2024 2:06 PM EST): Pt with Hypothyroidism Used to be under the care of Dr Merida, last note on record 07/2022 on: Levothyroxine tablets 88 mcg po daily seen in the past by Dr Donta TREOJ and Free T4 01/2024 wnl Assessment & Plan (02/03/2024 1:04 PM EDT): Pt with Hypothyroidism Used to be under the care of Dr Merida, last note on record 07/2022 on: Levothyroxine 88 mcg po daily seen in the past by Dr Donta TREJO and Free T4 01/2024 wnl Assessment & Plan (01/07/2023 12:42 PM EDT): Pt with Hypothyroidism Under the care of Dr Merida, last note on record 07/2022 on: Levothyroxine 88 mcg po daily seen in the past by Dr Donta TREJO 07/2022 wnl Essential hypertension 10/07/2022 Assessment & Plan (12/02/2024 2:04 PM EST): Patient here for a f/u BP today [...] Cholesterol: 45 mg/dL Total Cholesterol: 152 mg/dL Assessment & Plan (08/03/2024 12:59 PM EST): Patient here for a f/u BP today [...] score (Tara TOMLIN, et al., 2019) is: 7.8% Values used to calculate the score: Age: 64 years Sex: Female Is Non- : No Diabetic: Yes Tobacco smoker: No Systolic Blood Pressure: 134 mmHg Is BP treated: No HDL Cholesterol: 45 mg/dL Total Cholesterol: 152 mg/dL Assessment & Plan (02/03/2024 12:57 PM EDT): Patient here for a f/u BP today Controlled She is on a regimen of: diet and exercise. Pt previously lost over 30 lbs and controls her salt intake Given adequate blood pressure control will continue with current regimen. Most recent electrolytes, Bun and Creatinine done on: 01/07/2023 were within normal limits. Will repeat patient advised to adhere to a low sodium diet, encouraged about medication compliance. Assessment & Plan (01/07/2023 12:35 PM EDT): Patient here for a f/u BP today Controlled She is on a regimen of: diet and exercise. Pt previously lost over 30 lbs and controls her salt intake Given adequate blood pressure control will continue with current regimen. Most recent electrolytes, Bun and Creatinine done on: 03/25/2022 were within normal limits. patient advised to adhere to a low sodium diet, encouraged about medication compliance. Major depression in remission 10/07/2022 Mixed hyperlipidemia 10/07/2022 Assessment & Plan (08/03/2024 12:59 PM EST): Patient with elevated lipids. Most recent lipid profile from: Lab Results Component Value Date TRIG 110 05/27/2024 TRIG 82 01/07/2023 CHOL 152 05/27/2024 LDLCHOLCAL 85 05/27/2024 HDL 45 05/27/2024 Were wnl Currently not on any regimen . Plan: continue to adhere to a low cholesterol diet. Advised to try to adhere to a low cholesterol diet, counseled and educated about diet and exercise, Patient encouraged to come up with a personal goal for weight loss. Assessment & Plan (02/03/2024 1:00 PM EDT): Patient with elevated lipids. Most recent lipid profile from: 01/07/2023 Will repeat Currently not on any regimen . Plan: continue to adhere to a low cholesterol diet. Repeat Lipid profile advised to try to adhere to a low cholesterol diet, counseled and educated about diet and exercise, Patient encouraged to come up with a personal goal for weight loss. Assessment & Plan (01/07/2023 12:36 PM EDT): Patient with elevated lipids. Most recent lipid profile from: 11/30/2020 shows a total cholesterol of: 160 triglycerides of: 146 HDL of: 50 and LDL of: 85 Currently not on any regimen . Plan: continue to adhere to a low cholesterol diet. Repeat Lipid profile advised to try to adhere to a low cholesterol diet, counseled and educated about diet and exercise, Patient encouraged to come up with a personal goal for weight loss. Tubular adenoma 10/07/2022 Assessment & Plan (02/03/2024 1:01 PM EDT): Last colonoscopy 11/2022 Dr. Calderon Type 2 diabetes mellitus without complication Assessment & Plan (12/02/2024 2:14 PM EST): Patient here for a f/u DM controlled She had been on a regimen of: Metformin XR 500 mg po daily . Pt tells me she stopped it on her own because her BG were fine Hgb A1c 12/02/2024: 6.4 Eye exam 04/07/2024 [facility] Microalbumin checked on: 11/30/2020 1 was: 0.4 Pt is not on an HOLGER/ARB. Pt very concerned about side effects of these medications. Foot check risk zero Plan: continue to hold off Metformin for now Pt does not take Asa due to stomach upset Pt advised to: adhere to diabetic diet check your blood sugars regularly check your feet on a daily basis Assessment & Plan (08/03/2024 1:09 PM EST): Patient here for a f/u DM controlled She has been on a regimen of: Metformin XR 500 mg po daily Hgb A1c 08/03/2024: 5.9 Eye exam 04/07/2024 [facility] Microalbumin checked on: 11/30/2020 1 was: 0.4 Pt is not on an HOLGER/ARB. Pt very concerned about side effects of these medications. Foot check risk zero Plan: continue Metformin XR 500 mg po daily Pt does not take Asa due to stomach upset Pt advised to: adhere to diabetic diet check your blood sugars regularly check your feet on a daily basis Assessment & Plan (02/03/2024 1:04 PM EDT): Patient here for a f/u DM controlled She has been on a regimen of: Metformin XR 500 mg po daily Hgb A1c 02/03/2024: 6.3 Eye exam done less than a year ago, records were requested previous visit Microalbumin checked on: 11/30/2020 1 was: 0.4 Pt is not on an HOLGER/ARB. Pt very concerned about side effects of these medications. Foot check risk zero Plan: continue Metformin XR 500 mg po daily Pt does not take Asa due to stomach upset Pt advised to: adhere to diabetic diet check your blood sugars regularly check your feet on a daily basis Assessment & Plan (01/07/2023 1:25 PM EDT): Patient here for a f/u DM controlled She has been on a regimen of: Metformin XR 500 mg po daily Hgb A1c 01/07/2023 was 6.0 Eye exam done less than a year ago, records were requested previous visit Microalbumin checked on: 11/30/2020 1 was: 0.4 Pt is not on an HOLGER/ARB. Pt very concerned about side effects of these medications. Foot check risk zero plan: continue Metformin XR 500 mg po daily Pt does not take Asa due to stomach upset Pt advised to: adhere to diabetic diet check your blood sugars regularly check your feet on a daily basis Thyroid nodule 10/07/2022 Assessment & Plan (02/03/2024 12:58 PM EDT): Seen in the past by Dr Donta Comer U/S thyroid showed: There is mild right thyroid enlargement with a solitary nodule midpole measuring 1.3 cm slightly increased in size but no change in the TI-RADS component. Pt was referred back to Endocrinology (Dr Merida ) Seen 07/2022. He recommended to repeat her Thyroid US and a CT of her neck given that she was c/o dysphagia ( CT 08/29/2022 redemonstrated a nodular gland) Pt was subsequently seen by Dr Ladi Crespo who after reviewing the US of her thyroid from 01/02/2023 she no longer needed to have it done. Assessment & Plan (01/07/2023 4:17 PM EDT): Seen in the past by Dr Longo Repeat U/S thyroid showed: There is mild right thyroid enlargement with a solitary nodule midpole measuring 1.3 cm slightly increased in size but no change in the TI-RADS component. Pt was referred back to Endocrinology (Dr Merida ) Seen 07/2022. He recommended to repeat her Thyroid US and a CT of her neck given that she was c/o dysphagia ( CT 08/29/2022 redemonstrated a nodular gland) Pt was subsequently seen by Dr Ladi Crespo who after reviewing the US of her thyroid from 01/02/2023 she no longer needed to have it done Pt has a follow up 01/16/2023 Encounters Date Type Department Care Team Description 12/02/2024 2:00 PM EST Office Visit [address] [phone] Eduardo Minor MD Essential hypertension (Primary Dx); Type 2 diabetes mellitus without complication, without long-term current use of insulin (CMS/HCC); Acquired hypothyroidism; Low back pain radiating down leg; Breast cancer screening by mammogram; Left leg numbness 12/02/2024 Travel 11/26/[address] [address] Eduardo Minor MD Referral 11/23/2024 Patient Outreach [address] [address] Eduardo Minor MD Pre-visit Planning (SDOH Screening negative and Tobacco screening negative) 11/20/2024 10:00 AM EST Office Visit [facility] [address] [place] [phone] Bacilio Gar MD Acquired hypothyroidism (Primary Dx); Paresthesia of left leg 11/20/2024 Refill [facility] [address] [place] [phone] Bacilio Gar MD 11/19/[address] [address] Eduardo Minor MD Nurse Triage 11/18/[address] [address] Eduardo Minor MD Medication Question 11/18/2024 Telephone [facility] [address] [place] [address] Eduardo Minor MD Chart Prep 11/17/2024 Refill [facility] [address] [place] [address] Eduardo Minor MD Acquired hypothyroidism 11/08/2024 Telephone [facility] [address] [place] [address] Eduardo Minor MD Prior Authorization 10/13/2024 Refill [facility] [address] [place] [address] Eduardo Minor MD Type 2 diabetes mellitus without complication, without long-term current use of insulin (CMS/HCC); Type 2 diabetes mellitus without complication, unspecified whether ferry terminal agent insulin use (CMS/HCC) 09/30/2024 Refill [facility] [address] [place] [address] Eduardo Minor MD Acquired hypothyroidism 09/16/2024 Refill [facility] [address] [place] [address] Rachel Cifuentes MD Type 2 diabetes mellitus without complication, without long-term current use of insulin (CMS/HCC) from Last 3 Months Immunizations Name Administration Dates Next Due Tdap 08/09/2021 Social History Tobacco Use Types Packs/Day Years Used Date Smoking Tobacco: Never Passive Smoke Exposure: Never Smokeless Tobacco: Never Tobacco Cessation:Counseling Given: Not Answered Depression Answer Date Recorded Patient Health Questionnaire-9 Score 0 12/02/2024 Patient Health Questionnaire-9 Score 0 12/02/2024 Last PHQ-9: Questionnaire Data Not on file 0 12/02/2024 Housing Stability Answer Date Recorded What is your housing situation today? I have xiomy denise 02/03/[address] you li [...] Orientation Straight 07/29/2022 10 :14 AM EDT Last Filed Vital Signs Vital Sign Reading [...] Mass Index 33.9 12/02/2024 1:45 PM EST Plan of Treatment Health Maintenance Due Date Last Done Comments CT Colonography 1962 FIT DNA/Cologuard 1962 FIT 1962 FOBT 1960 HIV Screening 1960 Sigmoidoscopy 1960 Eye Exam 1972 Hepatitis C Screening 1980 Pneumococcal Vaccine: 50+ Years (1 of 2 - PCV) 1981 Zoster Vaccines (1 of 2) 2012 COVID-19 Vaccine ( season) 2024 10/24/2021, 01/12/2021, 12/15/2020 Influenza Vaccine (#1) 2024 Lipid Panel 05/27/2025 05/27/2024, 04/09/2022, 11/30/2020 Diabetes: Hemoglobin A1C 06/04/2025 025, 02/03/2024, 01/07/2023, Additional history exists Diabetes: Urine Protein Screening 08/03/2025 08/03/2024, 01/07/2023, 11/30/2020 Mammogram 09/18/2025 09/18/2023 Diabetes: Foot Exam 11/20/2025 11/20/2024 Tobacco Screening 11/23/2025 11/23/2024 Alcohol/Substance Use Screening 12/02/2025 12/02/2024 Depression Screening 12/02/2025 12/02/2024, 12/03/19 SDOH Screening 12/02/2025 12/02/2024 Cervical Cancer Screening 09/18/2026 HPV/Cotest 09/18/2026 07/09/2022 Pap Smear 09/18/2026 09/18/2023, 07/09/2022 Colonoscopy 12/10/2027 12/09/2022 Colorectal Cancer Screening 12/10/2027 DTaP/Tdap/Td Vaccines (2 - Td or Tdap) 08/09/2031 08/09/2021 RSV Patients and Patients Aged 60 years or older (1 - 1-dose 75+ series) 2037 HIB [...] patient's age to complete this topic Meningococcal Vaccine Aged Out No nik clint eligible based on patient's age to complete this topic RSV under 20 months Aged Out No longe r eligible based on patient's age to complete this topic Rotavirus Vaccines Aged Out No longer eligible based on patient's age to complete this topic Procedures Procedure Name Priority Date/Time Associated Diagnosis Comments HOLD GREEN GEL Routine 12/02/2024 3:04 PM EST XR LUMBAR SPINE 2-3 VIEWS Routine 12/02/2024 2:39 PM EST Low back pain radiating down leg POCT GLYCATED HEMOGLOBIN, TOTAL Routine 12/02/2024 2:06 PM EST Type 2 diabetes mellitus without complication, without long-term current use of insulin ([facility]) POCT GLUCOSE Routine 12/02/2024 1:58 PM EST Type 2 diabetes mellitus without complication, without long-term current use of insulin ([facility]) ALBUMIN, RANDOM URINE W/CREATININE Routine 08/03/2024 1:35 PM EST Type 2 diabetes mellitus without complication, without long-term current use of insulin ([facility]) LIPID PANEL, STANDARD Routine 05/27/2024 7:46 AM EDT Mixed hyperlipidemia HM PAP/HPV Routine 09/18/2023 HM MAMMOGRAPHY Routine 09/18/2023 HM COLONOSCOPY Routine 12/09/2022 HM PAP/HPV Routine 07/09/2022 from Last 3 Months or Most Recently Relevant to Health Maintenance Results * Hold Green Gel (12/02/2024 3:04 PM EST) Hold Green Gel See Note [facility] Comment:Specimen held untest ed for 24 hours; Call to requestChemistry testing. 12/02/2024 3:04 PM EST 12/02/2024 4:55 PM EST us Eduardo Long MD HISTORICAL/NON ORDERA BLE LABS Final Result [facility] [address] [place] [phone] * XR Lumbar Spine 2-3 Views (12/02/2024 2:39 PM EST) Anatomical Region Laterality Modality Spine, L-spine Radiographic Soledad ging 12/02/2024 2:39 PM EST Narrative 12/02/2024 4:00 PM EST ?[facility] ?[address] ?[place] [address] ?XRay Report ? Signed ? Patient: Madrid,Lili ?MR#: [id number] ? : 1960 ?Acct:[id number] ? Age/Sex: 64 / F ?ADM Date: 12/02/24 ? Loc: HO.HHCX ? Attending Dr: Eduardo Verma MD ? Ordering Physician: Eduardo Verma MD ?? Date of Service: 12/02/24 ?? Procedure(s): XR lumbar spine 2-3V ?? Accession Number(s): [id number] ? cc: Eduardo Verma MD ? EXAMINATION: [...] subluxation seen ? Electronically signed by: ??Christofer Eliana MD ??12/02/2024 03:57 PM EST RP ? Dictated By: ?Eliana,Christofer S MD ? Signed By: ?<Electronically signed by Christofer S Eliana, MD in [place]> ?12/02/24 1557 ? DD/ 1439 ? TD/TT: 12/02/24 1541 ? Repair Armature Winder Helper: MSM ? Procedure Note Donotrupertointerpreter, Image - 12/02/[address] [address] XRay Report Signed Patient: Linda Madrid#: [id number] : 2Acct:[id number] Age/Sex: 64 / FADM Date: 12/02/24 Loc: HO.HHCX Attending Dr: Eduardo Verma MD Ordering Physician: Eduardo Verma MD Date of Service: 12/02/24 Procedure(s): XR lumbar spine 2-3V Accession Number(s): [id number] cc: Eduardo Verma MD EXAMINATION: XR LUMBOSACRAL [...] Christofer Monroy MD 12/02/2024 03:57 PM EST Dictated By: Christofer Monroy MD Signed By: <Electronically signed by Christofer Monroy MD in OV> 12/02/24 1557 DD/ 1439 TD/TT: 12/02/24 1541 Repair Armature Winder Helper: RAUL us Eduardo Long MD IMG XR PROCEDURES Fin al Result * (ABNORMAL) POCT HGB A1C (12/02/2024 2:06 PM EST) Hemoglobin A1C 6.4(A) 4.0 - 6.0 % QC Media Lot # [id number] Lot# Expiration Date Blood 12/02/2024 2:06 PM EST us Eduardo Long MD POINT OF CARE TEST EN TER/EDIT ORDERABLES Final Result * POCT Glucose (12/02/2024 1:58 PM EST) Glucose Blood, POC 94 60 - 200 mg/dL QC Media Lot # [id number] Lot# Expiration Date Blood Capillary blood specimen / Unknown 12/02/2024 1:58 PM EST us Eduardo Long MD POINT OF CARE TEST EN TER/EDIT ORDERABLES Final Result * Albumin, Random Urine W/Creatinine (08/03/2024 1:35 PM EST) Creatinine, Urine 121.86 mg/dL [facility] Microalbumin Urine 12.0 mg/L [facility] Microalbum Creatinine Ratio Ur 9.8 <30 ug/mg cr [facility] Comment:Albumin/Creatinine R atio Reference Ranges: Normal: < 30 ug/mg creatinine Microalbuminuria: 30 - 300 ug/mg creatinineClinical Albuminuria: > 300 ug/mg creatinine Urine (Urine, Random) 08/03/2024 1:35 PM EST 08/03/2024 4:09 PM EST Result Rubens Long MD LAB URINE ORDERABLES Final Result [facility] [address] [place] [phone] * Lipid Panel, Standard (05/27/2024 7:46 AM EDT) Triglycerides 110 <150 mg/dL [facility] Comment:Desirable Triglyceri de: less than 150 mg/dLBorderline High Triglyceride 150-199 mg/dLHigh Triglyceride: 200-499 mg/dLVery High Triglyceride: greater than or equal to 5OO mg/dL Cholesterol 152 <200 mg/dL [facility] Comment:Desirable Cholestero l: less than 200 mg/dLBorderline High Cholesterol: 200-239 mg/dLHigh Cholesterol: greater than 239 mg/dL LDL Cholesterol Calculated 85 <100 mg/dL [facility] Comment:Desirable LDL: less than 100 mg/dLNear Optimal/Above Optimal LDL: 110- 129 mg/dLBorderline High LDL: 130-159 mg/dLHigh LDL: 160-189 mg/dLVery High LDL: greater than or equal to 190 mg/dL HDL Cholesterol 45 >40 mg/dL [facility] Comment:Desirable HDL: great er than 40 mg/dL Note: This HDL assay may give artificially low results in patients with liver disease. Blood Venous blood specimen / Unknown 05/27/2024 7:46 AM EDT 05/27/2024 7:46 AM EDT Eduardo Long MD LAB BLOOD ORDERABLES Final Result [facility] [address] [place] [phone] * Pap Smear (09/18/2023) Only the most recent of2 resultswithin the time period is included. Historical Provider HEALTH MAINTENANCE Final Result * Mammography (09/18/2023) HM Mammogram Normal Comment:[facility] Anatomical Region Laterality Modality Other Historical Provider HEALTH MAINTENANCE Final Result * Colonoscopy (12/09/2022) Colonoscopy Normal Normal Narrative Kelli Mix - 12/09/2022 Repeat in 5 years us Historical Provider HEALTH MAINTENANCE Final Result from Last 3 Months or Most Recently Relevant to Health Maintenance Insurance [facility] C3 Care Teams Lien Searcher Relationship Specialty Start Date End Date Eduardo Minor MD [address] [place] [phone] PCP - General Internal Medicine 03/18/19
--- OUTSIDE RECORDS SUMMARY | 2024-12-02 18:35 | XMS_ITS | Encounter Summary ---
Author Organization [employer] Address [address] [facility] [address] [place] [address] Care Team Providers Care Licensing And Registration Director Name Role Phone Eduardo Minor MD Primary Care Provide r Reason for Visit * Reason Onset Date Comments Referral 11/26/2024 Encounter Details Date Type Department Care Team ([facility] st Contact Info) Description 11/26/2024 Telephone [facility] [address] [place], [place] [phone] Eduardo Minor MD [address] [place], [place] [phone] Referral Social History Tobacco Use Types Packs/Day Years [...] encounter Miscellaneous Notes * Telephone Encounter - Carmen Barboza MA - 11/26/2024 8:16 AM EST Received fax back from [facility] in regards to referral, they indicated that there was no records for this pt in their system. LB documented in this encounter Plan of Treatment Not on file documented as of this encounter Visit Diagnoses Not on filedocumented in this encounter Additional Health Concerns Assessment Noted Time PHQ-9 Depression Total Score: 0 02/03/20 24 1:01 PM EDT documented as of this encounter Care Teams Licensing And Registration Director Relationship Specialty Start Date End Date Eduardo Minor MD [address] [place] [phone] PCP - General Internal Medicine 03/18/19 documented as of this encounter
--- OUTSIDE RECORDS SUMMARY | 2024-12-02 18:35 | XMS_ITS | Encounter Summary ---
Author Organization [employer] Address [address] 7t [place] [address] Care Team Providers Care Loom Checker Name Role Phone Eduardo Minor MD Primary Care Provide r Encounter Details Date Type Department Care Team (Late st Contact Info) Description 10/15/2023 Orders Only [facility] MED[facility]INE [address] [place] [address] ProviderCarlyle MD Social History Tobacco Use Types Packs/Day Years [...] on file documented as of this encounter Procedures Procedure Name Priority Date/Time Associated Diagnosis Comments HM PAP/HPV Routine 09/18/2023 documented in this encounter Results * Pap Smear (09/18/2023) Historical Provider HEALTH MAINTENANCE Final Result documented in this encounter Visit Diagnoses Not on filedocumented in this encounter Additional Health Concerns Assessment Noted Time PHQ-9 Depression Total Score: 5 01/08/20 23 1:17 PM EDT documented as of this encounter Care Teams Loom Checker Relationship Specialty Start Date End Date Eduardo Minor MD [address] [place] [address] PCP - General Internal Medicine 03/18/19 documented as of this encounter
--- OUTSIDE RECORDS SUMMARY | 2024-12-02 18:35 | XMS_ITS | Encounter Summary ---
Author Organization [employer] Address [address] [facility] 7t [place] [address] Care Team Providers Care Tire Room Supervisor Name Role Phone Eduardo Minro MD Primary Care Provide r Reason for Visit * Reason Onset Date Comments Med Refill 11/17/2024 Encounter Details Date Type Department Care Team (Late st Contact Info) Description 11/17/2024 Refill [facility] MED[facility]INE [address] [place], [place] [phone] Eduardo Minor MD [address] [place] [address] Acquired hypothyroidism Social History Tobacco Use Types Packs/Day Years [...] of this encounter Visit Diagnoses Diagnosis Acquired hypothyroidism Unspecified hypothyroidism documented in this encounter Additional Health Concerns Assessment Noted Time PHQ-9 Depression Total Score: 0 02/03/20 24 1:01 PM EDT documented as of this encounter Care Teams Tire Room Supervisor Relationship Specialty Start Date End Date Eduardo Minor MD [address] [place] [address] PCP - General Internal Medicine 03/18/19 documented as of this encounter
--- OUTSIDE RECORDS SUMMARY | 2024-12-02 18:35 | XMS_ITS | Encounter Summary ---
Author Organization [employer] Address [address] 7t [place] [address] Care Team Providers Care Help Desk Manager Name Role Phone Eduardo Minor MD Primary Care Provide r Reason for Visit * Reason Onset Date Comments Med Refill 11/20/2024 Encounter Details Date Type Department Care Team ([facility] st Contact Info) Description 11/20/2024 Refill [facility] [address] [place] [address] [phone] Name, MD Bacilio [address] [place] [address] Social History Tobacco Use Types Packs/Day Years [...] encounter Miscellaneous Notes * Telephone Encounter - Bacilio Gar MD - 11/20/2024 10:03 AM EST This is the wrong dose * Telephone Encounter - Mary Sultana RN - 11/20/2024 9:34 AM EST TC placed to [facility] to inquire about Levothyroxine 88 mcg which is requiring a PA, pharmacist states that insurance doesn't usually cover capsules however if new Rx sent for tablets the medicationshould be covered. Spoke to covering Dr in walk in and provider agrees to send Rx for tablet will que to provider and contact pt. documented in this encounter Plan of Treatment Not on file documented as of this encounter Visit Diagnoses Not on filedocumented in this encounter Additional Health Concerns Assessment Noted Time PHQ-9 Depression Total Score: 0 02/03/20 24 1:01 PM EDT documented as of this encounter Care Teams Help Desk Manager Relationship Specialty Start Date End Date Eduardo Minor MD [address] [place] [address] PCP - General Internal Medicine 03/18/19 documented as of this encounter
--- OUTSIDE RECORDS SUMMARY | 2024-12-02 18:35 | XMS_ITS | Encounter Summary ---
Author Organization [employer] Address [address] [facility] 7t [place] [address] Care Team Providers Care Faculty Dean Name Role Phone Eduardo Minor MD Primary Care Provide r Reason for Visit * Reason Comments Med Refill Encounter Details Date Type Department Care Team ([facility] st Contact Info) Description 01/16/2023 Refill [facility] [address] [place], [place] [phone] Eduardo Minor MD [address] [place] [address] Acquired hypothyroidism Social History Tobacco Use Types Packs/Day Years Used Date Smoking Tobacco: Never Passive Smoke Exposure: Never Smokeless Tobacco: Never Depression Answer Date Recorded Patient Health Questionnaire-9 Score 5 01/07/2023 Depression Answer Date Recorded Patient Health Questionnaire-2 Score 0 01/07/2023 Comments Unknown Sex and Gender Information Value Date Recorded Sex Assigned at Female 07/29/2022 10:14 AM EDT Legal Sex Female 10:14 AM EDT Gender Identity Female 07/29/2022 10:14 AM EDT Sexual Orientation Straight 07/29/2022 10 :14 AM EDT COVID-19 Exposure Response Date Recorded In the last 10 days, have yo u been in contact with someone who was confirmed or suspected to have Coronavirus/COVID-19? No / Unsure 01/07/2023 12:58 PM EDT documented as of this encounter Plan of Treatment Not on file documented as of this encounter Visit Diagnoses Diagnosis Acquired hypothyroidism Unspecified hypothyroidism documented in this encounter Additional Health Concerns Assessment Noted Time PHQ-9 Depression Total Score: 5 01/08/20 23 1:17 PM EDT documented as of this encounter Care Teams Faculty Dean Relationship Specialty Start Date End Date Eduardo Minor MD [address] [place] [address] PCP - General Internal Medicine 03/18/19 documented as of this encounter
--- OUTSIDE RECORDS SUMMARY | 2024-12-02 18:35 | XMS_ITS | Clinical Summary ---
Author Organization [facility] it[facility] Address [address] [place] [address] Care Team Providers Care Electronics Warfare Technician Name Role Phone Eduardo Verma MD Primary Care Provi nabil Surgical History Surgery Date Site/Laterality Comments CHOLECYSTECTOMY PROCEDURE: IN LAPAROSCOPY SURG CHOLECYSTECTOMY Medical History Medical History [...] Procedure Name Priority Date/Time Associated Diagnosis Comments [facility] SCREENING DIGITAL Routine 09/18/2023 2:29 PM EST Encounter for screening mammogram for malignant neoplasm of breast from Last 3 Months or Most Recently Relevant to Health Maintenance Results * [facility] SCREENING DIGITAL (09/18/2023 2:29 PM EST) Anatomical Region Laterality Modality Mammography 09/18/2023 12:5 1 PM EST Narrative 09/18/2023 2:29 PM EST [facility] Diagnostic Imaging Department [address] [place] [address] Patient: ??SHANAE GARCIA ?/Age/Sex: 1960 - 63 - F Unit#: ??[id number] ? Location/Status: ??SPDIMAM/REG CLI ? Mnemonic/Ordering Site: ??DIGSC/SPMAM Ordering Physician: ??EDUARDO VERMA MD [facility] Screening Digital - 09/18/23 - 1318 Report Status:Signed EXAM: [facility] Screening Digital EXAM DATE AND TIME: 09/18/2023 1:18 PM HISTORY: ??Screening. 30 pound weight loss in past year. COMPARISON: ??07/12/22, 07/10/21, 06/23/20 TECHNIQUE: Bilateral digital breast tomosynthesis was performed in the CC and MLO projections. Computer aided detection with [employer] 3D 3.1 was employed. TISSUE DENSITY: b. [...] Dic Date/Time: ??09/18/23 142 Sign date/Time: ??09/18/23 142 Procedure Note Mark Julio MD - 11/04/2023 [facility] Diagnostic Imaging Department [address] [place] [address] Patient: SHANAE GARCIA /Age/Sex: 1960 - 63 - F Unit#: [id number] Location/Status: [facility] Mnemonic/Ordering Site: [facility] Ordering Physician: EDUARDO VERMA MD [facility] Screening Digital - 09/18/23 - 1318 Report Status:Signed EXAM: [facility] Screening Digital EXAM DATE AND TIME: 09/18/2023 1:18 PM HISTORY: Screening. 30 pound weight loss in past year. COMPARISON: 07/12/22, 07/10/21, 06/23/20 TECHNIQUE: Bilateral digital breast tomosynthesis was performed in the CCand MLO projections. Computer aided detection with [employer] 3D 3.1was employed. TISSUE DENSITY: b. There [...] Recently Relevant to Health Maintenance Care Teams Electronics Warfare Technician Relationship Specialty Start Date End Date Eduardo Verma MD [address] [place] [address] [facility] [place] [address] PCP - General Internal Medicine 04/08/22
--- OUTSIDE RECORDS SUMMARY | 2024-12-02 18:35 | XMS_ITS | Encounter Summary ---
Author Organization [employer] Address [address] [facility] 7t [place] [address] Care Team Providers Care Frozen Pie Maker Name Role Phone Eduardo Minor MD Primary Care Provide r Encounter Details Date Type Department Care Team (Latest Contact Info) Description 12/02/2024 Travel Social History Tobacco Use Types Packs/Day Years [...] documented as of this encounter Care Teams Frozen Pie Maker Relationship Specialty Start Date End Date Eduardo Minor MD [address] [place] [address] PCP - General Internal Medicine 03/18/19 documented as of this encounter
--- OUTSIDE RECORDS SUMMARY | 2024-12-02 18:35 | XMS_ITS | Encounter Summary ---
Author Organization [employer] Address [address] [facility] 7t [place] [address] Care Team Providers Care Correctional Food Service Supervisor Name Role Phone Eduardo Minor MD Primary Care Provide r Reason for Visit * Reason Onset Date Comments Nurse Triage 11/19/2024 Encounter Details Date Type Department Care Team ([facility] st Contact Info) Description 11/19/[address] [facility] MEDICINE [address] [place], [place] [phone] Eduardo Minor MD [address] [place], [place] [phone] Nurse Triage Social History Tobacco Use Types Packs/Day Years [...] Encounter - Opal Friedman RN - 11/22/2024 2:38 PM EST Called [facility] pharmacy, pt has not picked up med yet. Called pt who stated she had family emergency after her appt with Dr Gar and just got back in town but is planning to go pick up driver her med tonight. No further questions. * Telephone Encounter - Trina Nolen LPN - 11/19/2024 3:10 PM EST Triage call returned with S # [id number] Patient declines watershed tender. Patient called directly.Patient reports anxiety as related to running out of Thyroid medications and that letter as forwarded from her to [facility] is pending. Patient reports that she took last thyroid pill today as she stretched them out to last by taking one every other day . Now has no further thyroid medication available. Patient reports she used to take Synthroid years ago and wants medication to be addressed SAMMI> Patient without SI/HI concerns at time of call. Reports she has underlying depression. Offered afternoon appt for today and declines as she is getting ready for [employer]. Patient provided information for [facility] for tomorrow as needed and message forwarded to PCP re review of letter requiring more doc umentation for RX coverage. Patient aware that medication concern may not be addressed at [facility] as desired but that she can address anxiety as needed. Patient in agreement with plan. Forwarded to PCP and team as FYI to follow up PRN Multiple (2) protocols were used on this call. Disposition for Call: Discuss with PCP and Callback by Nurse within 1 Hour Protocol Used: Medication Question Call (Adult) Protocol-Based Disposition: Discuss with PCP and Callback by Nurse within 1 Hour Video visit not offered Positive Triage Question: * Caller has URGENT medicine question about med that PCP or specialist prescribed and triager unable to answer question * All higher-acuity triage questions were negative Protocol Used: Anxiety and Panic Attack (Adult) Protocol-Based Disposition: Home Care Positive Triage Question: * Mild anxiety symptoms (e.g., anxiety symptoms are mild and intermittent; symptoms do not interfere with daily activities) * All higher-acuity triage questions were negative Care Advice Discussed: * Reasons To Call Back - Anxiety or panic attacks continue - You feel like harming yourself - You become worse * Telephone Encounter - Pura Roland - 11/19/2024 2:42 PM EST Symptoms: Shaking, Anxiety or Panic Attack, Depression Outcome: Talk to a nurse or provider within 15 minutes Reason: Started within the past 24 hours The caller accepted this outcome. [phone] djiboutian * (pt knows East Timorese but prefers Faroese to understand better) documented in this encounter Plan of Treatment Not on file documented as of this encounter Visit Diagnoses Not on filedocumented in this encounter Additional Health Concerns Assessment Noted Time PHQ-9 Depression Total Score: 0 02/03/20 24 1:01 PM EDT documented as of this encounter Care Teams Correctional Food Service Supervisor Relationship Specialty Start Date End Date Eduardo Minor MD [address] [place] [address] PCP - General Internal Medicine 03/18/19 documented as of this encounter
--- OUTSIDE RECORDS SUMMARY | 2024-12-02 18:35 | XMS_ITS | Encounter Summary ---
Author Organization [employer] Address [address] [facility] 7 [place] [address] Care Team Providers Care Retort Operator Name Role Phone Eduardo Minor MD Primary Care Provide r Reason for Visit * Reason Comments Pre-visit Planning SDOH Screening negat alexei and Tobacco screening negative Encounter Details Date Type Department Care Team ([facility] st Contact Info) Description 11/23/2024 Patient Outreach [facility] MEDICINE [address] [place], [place] [phone] Eduardo Minor MD [address] [place], [place] [phone] Pre-visit Planning (SDOH Screening negative and Tobacco screening negative) Social History Tobacco Use Types Packs/Day Years [...] AM EDT documented as of this encounter Progress Notes * Ana Lilia Arce - 11/23/2024 2:07 PM EST CC Ana Lilia Lima placed successful outbound call to patient for pre-visit planning. Patient name and confirmed. Patient confirms appt date and time, and has transportation arrangements. Biggest concern for appointment at this time is no concerns but if something come up will mentioned it to PCP. Patient advised to bring to appointment a photo id and insurance card. Appropriate screenings completed in anticipation of appointment. documented in this encounter Plan of Treatment Not on file documented as of this encounter Visit Diagnoses Not on filedocumented in this encounter Additional Health Concerns Assessment Noted Time PHQ-9 Depression Total Score: 0 02/03/20 24 1:01 PM EDT documented as of this encounter Care Teams Retort Operator Relationship Specialty Start Date End Date Eduardo Minor MD [address] [place] [address] PCP - General Internal Medicine 03/18/19 documented as of this encounter
--- OUTSIDE RECORDS SUMMARY | 2024-12-02 18:35 | XMS_ITS | Encounter Summary ---
Author Organization [employer] Address [address] [facility] 7t [place] [address] Care Team Providers Care Stretching Press Operator Name Role Phone Eduardo Minor MD Primary Care Provide r Reason for Visit * Reason Onset Date Comments Prior Authorization 11/08/2024 Encounter Details Date Type Department Care Team ([facility] st Contact Info) Description 11/08/2024 Telephone [facility] MEDICINE [address] [place], [place] [phone] Eduardo Minor MD [address] [place] [address] Prior Authorization Social History Tobacco Use Types Packs/Day Years [...] encounter Miscellaneous Notes * Telephone Encounter - Zohreh Alvarez - 11/16/2024 10:09 AM EST PA DENIAL received for Levothyroxine/Tirosint 88mcg; scanned into media. * Telephone Encounter - Zohreh Alvarez - 11/16/2024 9:41 AM EST PA for Levothyroxine(Tirosint) signed and faxed to [facility] on 11/12/24. Confirmation received andsent to scan. If patient calls to check status on above, please advise them to contact Pharmacy . * Telephone Encounter - William Yu MA - 11/10/2024 9:50 AM EST Form has been signed by the PCP, and faxed to [facility] Drug Utilization Review program. Form hasbeen sent in for scanning. * Telephone Encounter - Zohreh Alvarez - 11/09/2024 8:31 AM EST PA for Tirosint 88mcg from [facility] generated and placed on pcp desk for review and signature. * Telephone Encounter - Bernardo Pinaarez - 11/08/2024 9:45 AM EST TC from pt reports PA needed for levothyroxine (Tirosint) 88 MCG capsule . [facility] contacted pharmacy and they tried name brand and generic and it wont go through . Pt only has 3-4 capsules left documented in this encounter Plan of Treatment Not on file documented as of this encounter Visit Diagnoses Not on filedocumented in this encounter Additional Health Concerns Assessment Noted Time PHQ-9 Depression Total Score: 0 02/03/20 24 1:01 PM EDT documented as of this encounter Care Teams Stretching Press Operator Relationship Specialty Start Date End Date Eduardo Minor MD [address] [place] [address] PCP - General Internal Medicine 03/18/19 documented as of this encounter
--- OUTSIDE RECORDS SUMMARY | 2024-12-02 18:35 | XMS_ITS | Encounter Summary ---
Author Organization [employer] Address [address] 7t [place] [address] Care Team Providers Care Advertising Project Manager Name Role Phone Eduardo Minor MD Primary Care Provide r Encounter Details Date Type Department Care Team ([facility] st Contact Info) Description 10/01/[address] [facility] MEDICINE [address] [place], [place] [phone] Eduardo Minor MD [address] [place], [place] [phone] Social History Tobacco Use Types Packs/Day Years [...] documented as of this encounter Care Teams Advertising Project Manager Relationship Specialty Start Date End Date Eduardo Minor MD [address] [place] [address] PCP - General Internal Medicine 03/18/19 documented as of this encounter
--- OUTSIDE RECORDS SUMMARY | 2024-12-02 18:36 | XMS_ITS | Encounter Summary ---
Author Organization [employer] Address [address] [facility] 7t [place] [address] Care Team Providers Care Fire Lookout Name Role Phone Eduardo Minor MD Primary Care Provide r Reason for Visit * Reason Comments Med Refill Encounter Details Date Type Department Care Team ([facility] st Contact Info) Description 08/03/2024 Refill [facility] MEDICINE [address] [place], [place] [phone] Eduardo Minor MD [address] [place], [place] [phone] Type 2 diabetes mellitus without complication, unspecified whether longwall machine operator helper insulin use ([facility]) Social History Tobacco Use Types Packs/Day Years [...] 2 diabetes mellitus without complication, unspecified whether halfway insulin use ([facility]) documented in this encounter Additional Health Concerns Assessment Noted Time PHQ-9 Depression Total Score: 0 02/03/20 24 1:01 PM EDT documented as of this encounter Care Teams Fire Lookout Relationship Specialty Start Date End Date Eduardo Minor MD [address] [place] [address] PCP - General Internal Medicine 03/18/19 documented as of this encounter
--- OUTSIDE RECORDS SUMMARY | 2024-12-02 18:36 | XMS_ITS | Encounter Summary ---
Author Organization [employer] Address [address] [facility] 7 [place] [address] Care Team Providers Care Window Systems Administrator Name Role Phone Eduardo Minor MD Primary Care Provide r Reason for Visit * Reason Onset Date Comments Med Refill 03/08/2024 Encounter Details Date Type Department Care Team ([facility] st Contact Info) Description 03/08/2024 Refill [facility] MEDICINE [address] [place], [place] [phone] Eduardo Minor MD [address] [place] [address] Type 2 diabetes mellitus without complication, without long-term current use of insulin ([facility]); Type 2 diabetes mellitus without complication, unspecified whether fpc insulin use ([facility]) Social History Tobacco Use Types Packs/Day Years Used Date Smoking Tobacco: Never Passive Smoke Exposure: Never Smokeless Tobacco: Never Depression Answer Date Recorded Patient Health Questionnaire-9 Score 0 02/03/2024 Patient Health Questionnaire-9 Score 0 02/03/2024 Last PHQ-9: Questionnaire Data Not on file 0 02/03/2024 Housing Stability Answer Date Recorded What is your housing situation today? I have xiomydwaine walker 02/03/[address] you [...] Recorded Patient Health Questionnaire-2 Score 0 02/03/2024 Comments Unknown Sex and Gender Information Value [...] 2 diabetes mellitus without complication, unspecified whether fpc insulin use ([facility]) documented in this encounter Additional Health Concerns Assessment Noted Time PHQ-9 Depression Total Score: 0 02/03/20 24 1:01 PM EDT documented as of this encounter Care Teams Window Systems Administrator Relationship Specialty Start Date End Date Eduardo Minor MD [address] [place] [address] PCP - General Internal Medicine 03/18/19 documented as of this encounter
--- OUTSIDE RECORDS SUMMARY | 2024-12-02 18:36 | XMS_ITS | Encounter Summary ---
Author Organization [employer] Address [address] [facility] 7t [place] [address] Care Team Providers Care Lap Machine Operator Name Role Phone Eduardo Minor MD Primary Care Provide r Encounter Details Date Type Department Care Team (Late st Contact Info) Description 10/07/2022 Orders Only [facility] MEDICINE [address] [place] [address] Awa Bermudez RN Social History Tobacco Use Types Packs/Day Years Used Date Smoking Tobacco: Never Assessed Comments Unknown Sex and Gender Information Value Date Recorded Sex Assigned at Female 07/29/2022 10:14 AM EDT Legal Sex Female 10:14 AM EDT Gender Identity Female 07/29/2022 10:14 AM EDT Sexual Orientation Straight 07/29/2022 10 :14 AM EDT documented as of this encounter Plan of Treatment Not on file documented as of this encounter Visit Diagnoses Not on filedocumented in this encounter Care Teams Lap Machine Operator Relationship Specialty Start Date End Date Eduardo Minor MD [address] [place] [address] PCP - General Internal Medicine 03/18/19 documented as of this encounter
--- OUTSIDE RECORDS SUMMARY | 2024-12-02 18:36 | XMS_ITS | Encounter Summary ---
Author Organization [employer] Address 75 [facility] 7t [place] [address] Care Team Providers Care Italian Lecturer Name Role Phone Eduardo Minor MD Primary Care Provide r Reason for Visit * Reason Onset Date Comments Chart Prep 11/18/2024 Encounter Details Date Type Department Care Team ([facility] st Contact Info) Description 11/18/2024 Telephone [facility] MEDICINE 230 [place], [place] [phone] Eduardo Minor MD 230 [place], [place] [phone] Chart Prep Social History Tobacco Use Types Packs/Day Years [...] Telephone Encounter - Carmen Barboza [place] - 11/18/2024 11:39 AM EST Chart Prep Labs: done Images: not applicable Vaccines due: Covid Due, PCV20 Due, Flu Due, and Shingles in pharmacy Due Referrals: Physical Therapy Requested notes by Fax. Waiting for notes. Screenings: Eye Exam, Foot Exam, and HIV screening Overdue care gaps: A1C, Glucose, Sbirt, SDOH, PHQ-9, and Oral Health Chart prep for upcoming appt with Dr.Esparza pennington. LB documented in this encounter Plan of Treatment Not on file documented as of this encounter Visit Diagnoses Not on filedocumented in this encounter Additional Health Concerns Assessment Noted Time PHQ-9 Depression Total Score: 0 02/03/20 24 1:01 PM EDT documented as of this encounter Care Teams Italian Lecturer Relationship Specialty Start Date End Date Eduardo Minor MD [address] [place] [phone] PCP - General Internal Medicine 03/18/19 documented as of this encounter
--- OUTSIDE RECORDS SUMMARY | 2024-12-02 18:36 | XMS_ITS | Encounter Summary ---
Author Organization [employer] Address 75 [facility] 7t [place] [address] Care Team Providers Care Embroidery Finisher Name Role Phone Eduardo Minor MD Primary Care Provide r Reason for Visit * Reason Comments Med Refill Encounter Details Date Type Department Care Team ([facility] st Contact Info) Description 12/15/2023 Refill [facility] MEDICINE 230 [place], [place] [phone] Eduardo Minor MD 230 [place], [place] [phone] Social History Tobacco Use Types Packs/Day Years [...] the past 12 months, has t he [employer], gas, oil or water company threatened to [...] documented as of this encounter Care Teams Embroidery Finisher Relationship Specialty Start Date End Date Eduardo Minor MD 230 [place] [address] PCP - General Internal Medicine 03/18/19 documented as of this encounter
--- OUTSIDE RECORDS SUMMARY | 2024-12-02 18:36 | XMS_ITS | Encounter Summary ---
Author Organization [employer] Address 75 [facility] 7t [place] [address] Care Team Providers Care Education Supervisor Name Role Phone Eduardo Minor MD Primary Care Provide r Reason for Visit * Reason Onset Date Comments Appointment Request 12/05/2023 Encounter Details Date Type Department Care Team ([facility] st Contact Info) Description 12/05/2023 Telephone [facility] MEDICINE 230 [place], [place] [phone] Eduardo Minor MD 230 [place], [place] [phone] Appointment Request Social History Tobacco Use Types Packs/Day Years Used Date Smoking Tobacco: Never Passive Smoke Exposure: Never Smokeless Tobacco: Never Depression Answer Date Recorded Patient Health Questionnaire-9 Score 5 01/07/2023 Housing Stability Answer Date Recorded What is your housing situation today? I have xiomy walker 07/05/[address] you [...] encounter Miscellaneous Notes * Telephone Encounter - Mika Long - 12/05/2023 9:38 AM EST Tc from patient calling to reschedule the appt from 10/30 however there was no availability at the moment documented in this encounter Plan of Treatment Not on file documented as of this encounter Visit Diagnoses Not on filedocumented in this encounter Additional Health Concerns Assessment Noted Time PHQ-9 Depression Total Score: 5 01/08/20 23 1:17 PM EDT documented as of this encounter Care Teams Education Supervisor Relationship Specialty Start Date End Date Eduardo Minor MD [address] [place] [phone] PCP - General Internal Medicine 03/18/19 documented as of this encounter
--- OUTSIDE RECORDS SUMMARY | 2024-12-02 18:36 | XMS_ITS | Encounter Summary ---
Author Organization [employer] Address 75 [facility] 7t [place] [address] Care Team Providers Care Emergency Service Restorer Name Role Phone Eduardo Minor MD Primary Care Provide r Encounter Details Date Type Department Care Team (Late st Contact Info) Description 11/26/2022 Orders Only [facility] [address] [place] [address] Gayatri Otto LPN Social History Tobacco Use Types Packs/Day Years [...] on filedocumented in this encounter Care Teams Emergency Service Restorer Relationship Specialty Start Date End Date Eduardo Minor MD [address] [place] [phone] PCP - General Internal Medicine 03/18/19 documented as of this encounter
--- OUTSIDE RECORDS SUMMARY | 2024-12-02 18:36 | XMS_ITS | Encounter Summary ---
Author Organization [employer] Address 75 [facility] 7t [place] [address] Care Team Providers Care Processing Inspector Name Role Phone Eduardo Minor MD Primary Care Provide r Reason for Visit * Reason Comments Med Refill Encounter Details Date Type Department Care Team ([facility] st Contact Info) Description 08/05/2024 Refill [facility] MEDICINE 230 [place], [place] [phone] Eduardo Minor MD 230 [place], [place] [phone] Type 2 diabetes mellitus without complication, without long-term current use of insulin ([facility]) Social History Tobacco Use Types [...] Diagnosis Type 2 diabetes mellitus without complication, without long-term current use of insulin ([facility]) documented in this encounter Additional Health Concerns Assessment Noted Time PHQ-9 Depression Total Score: 0 02/03/20 24 1:01 PM EDT documented as of this encounter Care Teams Processing Inspector Relationship Specialty Start Date End Date Eduardo Minor MD [address] [place] [phone] PCP - General Internal Medicine 03/18/19 documented as of this encounter
--- OUTSIDE RECORDS SUMMARY | 2024-12-02 18:36 | XMS_ITS | Encounter Summary ---
Author Organization [employer] Address 75 [facility] 7t [place] [address] Care Team Providers Care Wall Covering Installer Name Role Phone Eduardo Minor MD Primary Care Provide r Reason for Visit * Reason Comments Med Refill Encounter Details Date Type Department Care Team ([facility] st Contact Info) Description 08/14/2023 Refill [facility] MEDICINE 230 [place], [place] [phone] Eduardo Minor MD 230 [place], [place] [phone] Social History Tobacco Use Types Packs/Day Years [...] the past 12 months, has t he [employer], gas, oil or water company threatened to [...] documented as of this encounter Care Teams Wall Covering Installer Relationship Specialty Start Date End Date Eduardo Minor MD 230 [place] [address] PCP - General Internal Medicine 03/18/19 documented as of this encounter
--- OUTSIDE RECORDS SUMMARY | 2024-12-02 18:36 | XMS_ITS | Encounter Summary ---
Author Organization [employer] Address 75 [facility] 7t [place] [address] Care Team Providers Care Music Cataloguer Name Role Phone Eduardo Minor MD Primary Care Provide r Reason for Visit * Reason Onset Date Comments Durable Medical Equipment 05/06/2023 Encounter Details Date Type Department Care Team ([facility] st Contact Info) Description 05/06/2023 Telephone [facility] MEDICINE 230 [place], [place] [phone] Eduardo Minor MD 230 [place] [address] Durable Medical Equipment Social History Tobacco Use Types Packs/Day Years [...] encounter Miscellaneous Notes * Telephone Encounter - Noa Evans - 05/06/2023 9:25 AM EDT Tc from pt requesting a new glucose monitor. States the one she currently has is not working. documented in this encounter Plan of Treatment Not on file documented as of this encounter Visit Diagnoses Not on filedocumented in this encounter Additional Health Concerns Assessment Noted Time PHQ-9 Depression Total Score: 5 01/08/20 23 1:17 PM EDT documented as of this encounter Care Teams Music Cataloguer Relationship Specialty Start Date End Date Eduardo Minor MD 230 [place] [address] PCP - General Internal Medicine 03/18/19 documented as of this encounter
== END 2024-12-02 15:02 | disposition home or self-care (01) ==
LOC: HO.HHCL 15:01
PROVIDERS: Visit Provider Internal Medicine
DX: Z13.89 Encounter for screening for other disorder (principal)

== ENCOUNTER → 2025-01-10 08:00 | Outpatient (BNV) | payer MEDICAID, SELFPAY | PROVIDERS: PCP Internal Medicine; Referring Provider Internal Medicine; Visit Provider Internal Medicine | DX: R59.0 Localized enlarged lymph nodes (principal) | CPT/HCPCS: 99204 ==

== ENCOUNTER 2025-01-25 08:57 | Day surgery (SDC) | payer MEDICAID, SELFPAY ==
--- OUTSIDE RECORDS SUMMARY | 2025-01-17 13:37 | XMS_ITS | Encounter Summary ---
Author Organization [employer] Address 75 [facility] 7t [place] [address] Care Team Providers Care Rubber Worker Name Role Phone Eduardo Minor MD Primary Care Provide r Reason for Visit * Reason Onset Date Comments Durable Medical Equipment 05/06/2023 Encounter Details Date Type Department Care Team ([facility] st Contact Info) Description 05/06/[address] [facility] MEDICINE 230 [place], [place] [phone] Eduardo Minor MD [address] [place] [address] Durable Medical Equipment Social History Tobacco Use [...] documented in this encounter Plan of Treatment Upcoming Encounters Date Type Department Care Team (Late st Contact Info) Description 03/10/2025 1:15 PM EDT Office Visit [facility] MEDICINE 230 [place] [address] Eduardo Minor MD [address] [place] [address] documented as of this encounter Visit Diagnoses Not on filedocumented in this encounter Additional Health Concerns Assessment Noted Time PHQ-9 Depression Total Score: 5 01/08/20 23 1:17 PM EDT documented as of this encounter Care Teams Rubber Worker Relationship Specialty Start Date End Date Eduardo Minor MD [address] [place], [place] [phone] PCP - General Internal Medicine 03/18/19 documented as of this encounter
--- OUTSIDE RECORDS SUMMARY | 2025-01-17 13:37 | XMS_ITS | Encounter Summary ---
Author Organization [employer] Address 75 [facility] 7t [place] [address] Care Team Providers Care Office Support Specialist Name Role Phone Eduardo Minor MD Primary Care Provide r Reason for Visit * Reason Comments Med Refill Encounter Details Date Type Department Care Team ([facility] st Contact Info) Description 08/03/2024 Refill [facility] MEDICINE 230 [place], [place] [phone] Eduardo Minor MD 230 [place], [place] [phone] Type 2 diabetes mellitus without complication, unspecified whether correction insulin use ([facility]) Social History Tobacco Use Types Packs/Day [...] as of this encounter Plan of Treatment Upcoming Encounters Date Type Department Care Team (Late st Contact Info) Description 03/10/2025 1:15 PM EDT Office Visit [facility] MEDICINE [address] [place] [phone] Eduardo Minor MD [address] [place] [phone] documented as of this encounter Visit Diagnoses Diagnosis Type 2 diabetes mellitus without complication, unspecified whether correction insulin use ([facility]) documented in this encounter Additional Health Concerns Assessment Noted Time PHQ-9 Depression Total Score: 0 02/03/20 24 1:01 PM EDT documented as of this encounter Care Teams Office Support Specialist Relationship Specialty Start Date End Date Eduardo Minor MD [address] [place] [address] PCP - General Internal Medicine 03/18/19 documented as of this encounter
--- OUTSIDE RECORDS SUMMARY | 2025-01-17 13:37 | XMS_ITS | Encounter Summary ---
Author Organization [employer] Address 75 [facility] 7t [place] [address] Care Team Providers Care Grinding Machine Operator Automatic Name Role Phone Eduardo Minor MD Primary Care Provide r Reason for Visit * Reason Comments Med Refill Encounter Details Date Type Department Care Team ([facility] st Contact Info) Description 08/05/2024 Refill [facility] MEDICINE 230 [place], [place] [phone] Eduardo Minor MD 230 [place], [place] [phone] Type 2 diabetes mellitus without complication, without long-term current use of insulin ([facility]) Social History Tobacco Use Types [...] Description 03/10/2025 1:15 PM EDT Office Visit [facility] MEDICINE [address] [place] [phone] Eduardo Minor MD [address] [place] [address] documented as of this encounter Visit Diagnoses Diagnosis Type 2 diabetes mellitus without complication, without long-term current use of insulin ([facility]) documented in this encounter Additional Health Concerns Assessment Noted Time PHQ-9 Depression Total Score: 0 02/03/20 24 1:01 PM EDT documented as of this encounter Care Teams Grinding Machine Operator Automatic Relationship Specialty Start Date End Date Eduardo Minor MD [address] [place] [phone] PCP - General Internal Medicine 03/18/19 documented as of this encounter
--- OUTSIDE RECORDS SUMMARY | 2025-01-17 13:37 | XMS_ITS | Encounter Summary ---
Author Organization [employer] Address [address] [facility] [address] 7t [place] [address] Care Team Providers Care Collet Making Machine Operator Name Role Phone Eduardo Minor MD Primary Care Provide r Encounter Details Date Type Department Care Team ([facility] st Contact Info) Description 10/01/2023 Telephone [facility] MEDICINE 230 [place], [place] [phone] Eduardo Minor MD 230 [place], [place] [phone] Social History Tobacco Use Types Packs/Day Years [...] Description 03/10/2025 1:15 PM EDT Office Visit [facility] MEDICINE 230 [place] [address] Eduardo Minor MD 230 [place] [address] documented as of this encounter Visit Diagnoses Not on filedocumented in this encounter Additional Health Concerns Assessment Noted Time PHQ-9 Depression Total Score: 5 01/08/20 23 1:17 PM EDT documented as of this encounter Care Teams Collet Making Machine Operator Relationship Specialty Start Date End Date Eduardo Minor MD 230 [place] [address] PCP - General Internal Medicine 03/18/19 documented as of this encounter
--- OUTSIDE RECORDS SUMMARY | 2025-01-17 13:37 | XMS_ITS | Encounter Summary ---
Author Organization [employer] Address 75 [facility] 7t [place] [address] Care Team Providers Care Glass Beveller Name Role Phone Eduardo Minor MD Primary Care Provide r Reason for Visit * Reason Comments Med Refill Encounter Details Date Type Department Care Team (Late Contact Info) Description 01/16/2023 Refill [facility] MEDICINE [address] [place] [address] [phone] Eduardo Minor MD [address] [place] [address] Acquired hypothyroidism Social History Tobacco Use Types [...] Upcoming Encounters Date Type Department Care Team ([facility] Contact Info) Description 03/10/2025 1:15 PM EDT Office Visit [facility] MEDICINE 230 [place] [address] Eduardo Minor MD [address] [place] [address] documented as of this encounter Visit Diagnoses Diagnosis Acquired hypothyroidism Unspecified hypothyroidism documented in this encounter Additional Health Concerns Assessment Noted Time PHQ-9 Depression Total Score: 5 01/08/20 23 1:17 PM EDT documented as of this encounter Care Teams Glass Beveller Relationship Specialty Start Date End Date Eduardo Minor MD [address] [place] [address] PCP - General Internal Medicine 03/18/19 documented as of this encounter
--- OUTSIDE RECORDS SUMMARY | 2025-01-17 13:37 | XMS_ITS | Encounter Summary ---
Author Organization [employer] Address 75 [facility] [address] 7t [place] [address] Care Team Providers Care Melter Supervisor Open Hearth Furnace Name Role Phone Eduardo Minor MD Primary Care Provide r Encounter Details Date Type Department Care Team (Late st Contact Info) Description 11/07/2023 Orders Only [facility] [address] [place] [address] [phone] Ronny Topete MD 230 [place], [place] [phone] Posterior chest pain (Primary Dx) Social History [...] Description 03/10/2025 1:15 PM EDT Office Visit [facility] MEDICINE [address] [place] [phone] Eduardo Minor MD [address] [place] [address] Scheduled Orders Name Type Priority Associated Diagnoses Orde r Schedule XR Chest 2 Views Imaging Routine Posterior chest pain Expected: 11/07/2023, Expires: 11/07/2024 documented as of this encounter Visit Diagnoses Diagnosis Posterior chest pain- Primary documented in this encounter Additional Health Concerns Assessment Noted Time PHQ-9 Depression Total Score: 5 01/08/20 23 1:17 PM EDT documented as of this encounter Care Teams Melter Supervisor [employer] Relationship Specialty Start Date End Date Eduardo Minor MD [address] [place] [id number] PCP - General Internal Medicine 03/18/19 documented as of this encounter
--- OUTSIDE RECORDS SUMMARY | 2025-01-17 13:37 | XMS_ITS | Encounter Summary ---
Author Organization [employer] Address 75 [facility] 7t [place] [address] Care Team Providers Care Field Hauler Name Role Phone Eduardo Minor MD Primary Care Provide r Reason for Visit * Reason Comments Med Refill Encounter Details Date Type Department Care Team ([facility] st Contact Info) Description 08/14/2023 Refill [facility] MEDICINE 230 [place], [place] [phone] Eduardo Minor MD 230 [place], [place] [phone] Social History Tobacco Use Types Packs/Day Years [...] the past 12 months, has t he [employer], gas, oil or water company threatened to [...] Description 03/10/2025 1:15 PM EDT Office Visit [facility] MEDICINE 230 [place] [address] Eduardo Minor MD 230 [place] [address] documented as of this encounter Visit Diagnoses Not on filedocumented in this encounter Additional Health Concerns Assessment Noted Time PHQ-9 Depression Total Score: 5 01/08/20 23 1:17 PM EDT documented as of this encounter Care Teams Field Hauler Relationship Specialty Start Date End Date Eduardo Minor MD 230 [place] [address] PCP - General Internal Medicine 03/18/19 documented as of this encounter
--- OUTSIDE RECORDS SUMMARY | 2025-01-17 13:37 | XMS_ITS | Encounter Summary ---
Author Organization [employer] Address [address] [facility] [address]t [place] [address] Care Team Providers Care Emissions Inspector Name Role Phone Eduardo Minor MD Primary Care Provide r Encounter Details Date Type Department Care Team (Late st Contact Info) Description 10/15/2023 Orders Only [facility] MEDICINE 230 [place] [address] ProviderCarlyle MD Social History Tobacco Use Types [...] Description 03/10/2025 1:15 PM EDT Office Visit [facility] MEDICINE 230 [place] [address] Eduardo Minor MD 230 [place] [address] documented as of this encounter Procedures Procedure Name Priority Date/Time Associated Diagnosis Comments HM PAP/HPV Routine 09/18/2023 documented in this encounter Results * Hm Pap Smear (09/18/2023) Historical Provider HEALTH MAINTENANCE Final Result documented in this encounter Visit Diagnoses Not on filedocumented in this encounter Additional Health Concerns Assessment Noted Time PHQ-9 Depression Total Score: 5 01/08/20 23 1:17 PM EDT documented as of this encounter Care Teams Emissions Inspector Relationship Specialty Start Date End Date Eduardo Minor MD [address] [place] [phone] PCP - General Internal Medicine 03/18/19 documented as of this encounter
--- OUTSIDE RECORDS SUMMARY | 2025-01-17 13:38 | XMS_ITS | Encounter Summary ---
Author Organization [employer] Address 75 [facility] 7 [place] [address] Care Team Providers Care Slate Mixer Name Role Phone Eduardo Minor MD Primary Care Provide r Reason for Visit * Reason Onset Date Comments Med Refill 03/08/2024 Encounter Details Date Type Department Care Team ([facility] st Contact Info) Description 03/08/2024 Refill [facility] MEDICINE 230 [place], [place] [phone] Eduardo Minor MD 230 [place] [address] Type 2 diabetes mellitus without complication, without long-term current use of insulin ([facility]); Type 2 diabetes mellitus without complication, unspecified whether mcc insulin use ([facility]) Social History Tobacco Use Types Packs/Day [...] Description 03/10/2025 1:15 PM EDT Office Visit [facility] MEDICINE 230 [place] [address] Eduardo Minor MD 230 [place] [address] documented as of this encounter Visit Diagnoses Diagnosis Type 2 diabetes mellitus without complication, unspecified whether roasterman insulin use ([facility]) documented in this encounter Additional Health Concerns Assessment Noted Time PHQ-9 Depression Total Score: 0 02/03/20 24 1:01 PM EDT documented as of this encounter Care Teams Slate Mixer Relationship Specialty Start Date End Date Eduardo Minor MD [address] [place] [phone] PCP - General Internal Medicine 03/18/19 documented as of this encounter
--- OUTSIDE RECORDS SUMMARY | 2025-01-17 13:38 | XMS_ITS | Clinical Summary ---
Author Organization [employer] Address [address] [facility] [address] [place] [address] Care Team Providers Care Dip Dyer Name Role Phone Eduardo Minor MD Primary Care Provide r Allergies Active Allergy Reactions Criticality Noted Date Comments Turmeric Hives 01/07/2023 Medications ibuprofen 400 MG tablet Take 1 tablet (400 mg) by mouth every 6 (six) hours if needed for moderate pain or fever for up to 30 doses. 15 tablet 3 Active triamcinolone (Kenalog) 0.025 % ointmentIndicati ons:Eczema, unspecified type Apply topically 2 times daily. 15 g 3 4 Active Blood Glucose Monitoring Suppl (FreeStyle Lite) w/Device kitIndications:T ype 2 diabetes mellitus without complication, without long-term current use of insulin ([facility]) USE KIT TWICE DAILY 1 kit 4 Active glucose blood (FREESTYLE LITE) test stripIndications :Type 2 diabetes mellitus without complication, unspecified whether termite control representative insulin use ([facility]) USE DIRECTED TO TEST BLOOD GLUCOSE TWICE DAILY 50 strip 11 4 Active levothyroxine (Synthroid) 88 MCG tablet Take 1 tablet (88 mcg) by mouth before breakfast. 30 tablet 11 5 11/20/19 26 Active Active Problems Problem Noted Date Diagnosed Date Abnormal computed tomography angiography (CTA) of abdomen and pelvis 01/03/2025 Overview (01/03/2025): Pt reported left leg numbness new onset of Left anterior leg numbness x 1 month. at PCP visit on 12/02/24. Pt denies back pain at rest but reports it when bending Plan: NCS, Plain x-ray LS spine, MRI LS rule out radiculopathy VS neuropathy On 12/09/24 PCP documented MRI of Lumbar spine showed 4.9 cm x 3cm para aortic soft tissue mass at the level of L3 . Radiologist recommended Ct abd and pelvis with contrast. Please contact patient to let he know we will be ordering this. CT abdomen and pelvis with contrast dated 12/28/24 shows soft tissue mass in left perarotic region measuring 3.8cm x3.2 cm x4.6 cm with additional enlarged lymph nodes in the left peraortic region more superiorly measuring up to 1.5,g. Fiding concerning for a neoplastic process such as lymphoma. Recommending pathologic sampling. -heme onc contacted to see about getting in and if we can order anything prior to the appointment. -Stat referral to heme onc and interventional radiology placed 01/03/25. Will notify PCP. Soft tissue mass 01/03/2025 Overview (01/03/2025): Pt reported left leg numbness new onset of Left anterior leg numbness x 1 month. at PCP visit on 12/02/24. Pt denies back pain at rest but reports it when bending Plan: NCS, Plain x-ray LS spine, MRI LS rule out radiculopathy VS neuropathy On 12/09/24 PCP documented MRI of Lumbar spine showed 4.9 cm x 3cm para aortic soft tissue mass at the level of L3 . Radiologist recommended Ct abd and pelvis with contrast. Please contact patient to let he know we will be ordering this. CT abdomen and pelvis with contrast dated 12/28/24 shows soft tissue mass in left perarotic region measuring 3.8cm x3.2 cm x4.6 cm with additional enlarged lymph nodes in the left peraortic region more superiorly measuring up to 1.5,g. Fiding concerning for a neoplastic process such as lymphoma. Recommending pathologic sampling. -heme onc contacted to see about getting in and if we can order anything prior to the appointment. -Stat referral to heme onc and interventional radiology placed 01/03/25. Will notify PCP. Left leg numbness 12/02/2024 Assessment & Plan [...] Plan (01/07/2023 12:41 PM EDT): Seen on US , follows with Dr Paulson [facility] 01/07/2023 Assessment & Plan (02/03/2024 1:03 PM EDT): Mammogram: 09/18/2023 Normal done at [facility] Pap Smear: Done 08/2023 at [facility] Colonoscopy: 11/2022 showed a Tubular adenoma, Diverticulosis and Hemorrhoids Dr. Calderon Assessment & Plan (01/07/2023 4:16 PM EDT): Mammogram: 07/12/2022 Normal done at [facility] Pap Smear: Done by Dr Paulson [facility] Colonoscopy: 12/09/2022 showed a Tubular adenoma, Diverticulosis and Hemorrhoids Dr. Calderon Acquired hypothyroidism 10/07/2022 Assessment & Plan (12/02/2024 2:06 PM EST): Pt with Hypothyroidism Used to be under the care of Dr Merida, last note on record 07/2022 on: Levothyroxine tablets 88 mcg po daily seen in the past by Dr Longo TSH and Free T4 01/2024 wnl Assessment & [...] Hgb A1c 12/02/2024: 6.4 Eye exam 04/07/2024 [facility] Microalbumin checked on: 11/30/2020 1 was: [...] Hgb A1c 08/03/2024: 5.9 Eye exam 04/07/2024 [facility] Microalbumin checked on: 11/30/2020 1 was: [...] Encounters Date Type Department Care Team Description 01/10/[address] [address] Eduardo Minor MD 01/03/2025 Orders Only [facility] [place] [address] Bel Han MD 01/03/2025 Telephone [facility] [place] [address] Bel Han MD 01/03/2025 Orders Only [facility] [address] [place] [address] Bel Han MD Soft tissue mass (Primary Dx); Abnormal computed tomography angiography (CTA) of abdomen and pelvis; Enlarged lymph node 12/21/2024 Orders Only [facility] [address] [place] [address] Eduardo Minor MD Essential hypertension (Primary Dx) 12/16/2024 Telephone [facility] [place] [address] ABDOMEN ORDER 12/10/2024 Population Health Risk Score Community [facility] () Department [address] [place] [phone] Provider, Population Health Generic 12/09/2024 Telephone [facility] [place] [address] Sayra Mcmullen, business economist Orders 12/09/2024 Orders Only [facility] [place] [address] Eduardo Minor MD Abdominal mass of other site (Primary Dx) 12/06/2024 Telephone [facility] [place] [address] Eduardo Minor MD Lab Orders 12/02/2024 2:00 PM EST Office Visit [facility] [place] [address] Eduardo Minor MD Essential hypertension (Primary Dx); Type 2 diabetes mellitus without complication, without long-term current use of insulin ([facility]); Acquired hypothyroidism; Low back pain radiating down leg; Breast cancer screening by mammogram; Left leg numbness 12/02/2024 Travel 11/26/[address] [address] Eduardo Minor MD Referral 11/23/2024 Patient Outreach [address] [address] Eduardo Minor MD Pre-visit Planning (SDOH Screening negative and Tobacco screening negative) 11/20/2024 10:00 AM EST Office Visit [facility] [address] [place] [phone] Bacilio Gar MD Acquired hypothyroidism (Primary Dx); Paresthesia of left leg 11/20/[facility] [address] [address] Bacilio Gar MD 11/19/[address] [address] Eduardo Minor MD Nurse Triage 11/18/[address] [address] Eduardo Minor MD Medication Question 11/18/[address] [address] Eduardo Minor MD Chart Prep 11/17/[address] [address] Eduardo Minor MD Acquired hypothyroidism 11/08/[address] [address] Eduardo Minor MD Prior Authorization from Last 3 Months Immunizations Name Administration [...] 12/02/2024 1:45 PM EST Plan of Treatment Upcoming Encounters Date Type Department Care Team (Late st Contact Info) Description 03/10/2025 1:15 PM EDT Office Visit [facility] [address] [place] [address] Eduardo Minor MD [address] [place] [address] Health Maintenance Due Date Last Done Comments CT Colonography 1962 FIT DNA/Cologuard 1962 FIT 1960 FOBT 1960 HIV Screening 1960 Sigmoidoscopy 1960 Eye Exam 1972 Hepatitis C Screening 1980 Pneumococcal Vaccine: 50+ Years (1 of 2 - PCV) 1981 Zoster Vaccines (1 of 2) 2012 COVID-19 Vaccine ( - season) 2024 10/24/2021, 01/12/2021, 12/15/2020 Influenza Vaccine (#1) 2024 Lipid Panel 05/27/2025 05/27/2024, 0409/2022, 11/30/2020 Diabetes: Hemoglobin A1C 06/04/2025 025, 02/03/2024, 01/07/2023, Additional history exists Diabetes: Urine Protein Screening 08/03/2025 08/03/2024, 01/07/2023, 11/30/2020 Diabetes: Foot Exam 11/20/2025 11/20/2024 Tobacco Screening 11/23/2025 11/23/2024 Alcohol/Substance Use Screening 12/02/2025 12/02/2024 Depression Screening 12/02/2025 12/02/2024, 12/03/19 25 SDOH Screening 12/02/2025 12/02/2024 Cervical Cancer Screening 09/18/2026 HPV/Cotest 09/18/2026 07/09/2022 Pap Smear 09/18/2026 09/18/2023, 07/09/2022 Mammogram 01/10/2027 01/10/2025, 09/18/2023 Colonoscopy 12/10/2027 12/09/2022 Colorectal Cancer Screening 12/10/2027 [...] Procedure Name Priority Date/Time Associated Diagnosis Comments BI MAMMOGRAM SCREENING TOMOSYNTHESIS BILATERAL Routine 01/10/2025 Breast cancer screening by mammogram CT ABDOMEN PELVIS W CONTRAST STAT 12/28/2024 Abdominal mass of other site BASIC METABOLIC PANEL Routine 12/23/2024 Essential hypertension CANCELLED HEMATOLOGY Routine 12/02/2024 3:04 PM EST HOLD GREEN GEL Routine 12/02/2024 3:04 PM EST XR LUMBAR SPINE 2-3 VIEWS Routine 12/02/2024 2:39 PM EST Low back pain radiating down leg POCT GLYCATED HEMOGLOBIN, TOTAL Routine 12/02/2024 2:06 PM EST Type 2 diabetes mellitus without complication, without long-term current use of insulin (CMS/HCC) POCT GLUCOSE Routine 12/02/2024 1:58 PM EST Type 2 diabetes mellitus without complication, without long-term current use of insulin (CMS/HCC) ALBUMIN, RANDOM URINE W/CREATININE Routine 08/03/2024 1:35 PM EST Type 2 diabetes mellitus without complication, without long-term current use of insulin (CMS/HCC) LIPID PANEL, STANDARD Routine 05/27/2024 7:46 AM EDT Mixed hyperlipidemia PAP/HPV Routine 09/18/2023 COLONOSCOPY Routine 12/09/2022 PAP/HPV Routine 07/09/2022 from Last 3 Months or Most Recently Relevant to Health Maintenance Results * BI Mammogram Screening Tomosynthesis Bilateral (01/10/2025) Anatomical Region Laterality Modality Breast Bilateral Mammography us Eduardo Long MD IMG BI PROCEDURES Fin al Result * CT Abdomen Pelvis w/ Contrast (12/28/2024) Anatomical Region Laterality Modality Body, Pelvis, Abdomen Computed T omography us Eduardo Long MD IMG CT PROCEDURES Fin al Result * Basic Metabolic Panel (12/23/2024) Blood Venous blood specimen / Unknown us Eduardo Long MD LAB BLOOD ORDERABLES Final Result [facility] [address], [place] [phone] * Cancelled Hematology (12/02/2024 3:04 PM EST) Cancelled Hematology SEE NOTE [facility] Comment:THE FOLLOWING TESTS WERE CANCELLED: CBCREASON: INCORRECT CONTAINER 12/02/2024 3:04 PM EST 12/02/2024 4:26 PM EST us Eduardo Long MD HISTORICAL/NON ORDERA BLE LABS Final Result Performing Organization Address City/[facility]/ZIP Co de Phone Number [facility] [address] [place] [address] [phone] * Hold Green Gel (12/02/2024 3:04 PM EST) Hold Green Gel See Note [facility] Comment:Specimen held untest ed for 24 hours; Call to requestChemistry testing. 12/02/2024 3:04 PM EST 12/02/2024 4:55 PM EST us Eduardo Long MD HISTORICAL/NON ORDERA BLE LABS Final Result [facility] [address] [place] [address] [phone] * XR Lumbar Spine 2-3 Views (12/02/2024 2:39 PM EST) Anatomical Region Laterality Modality Spine, L-spine Radiographic Soledad ging 12/02/2024 2:39 PM EST Narrative 12/02/2024 4:00 PM EST ?[facility] ?[address] ?[place] [address] ?XRay Report ? Signed ? Patient: Madrid,Lili ?MR#: [id number] ? : 1960 ?Acct:[id number] ? Age/Sex: 64 / F ?ADM Date: 12/02/24 ? Loc: HO.HHCX ? Attending Dr: Eduardo Verma MD ? Ordering Physician: Eduardo Verma MD ?? Date of Service: 12/02/24 ?? Procedure(s): XR lumbar spine 2-3V ?? Accession Number(s): [id number] ? cc: Eduardo Verma MD ? EXAMINATION: [...] DD/ 1439 ? TD/TT: 12/02/24 1541 ? Tour Operator: MSM ? Procedure Note Donotrupertointerpreter, Image - 12/02/[address] [address] XRay Report Signed Patient: Linda Madrid#: [id number] : 2Acct:[id number] Age/Sex: 64 / FADM Date: 12/02/24 Loc: HO.HHCX Attending Dr: Eduardo Verma MD Ordering Physician: Eduardo Verma MD Date of Service: 12/02/24 Procedure(s): XR lumbar spine 2-3V Accession Number(s): [id number] cc: Eduardo Verma MD EXAMINATION: XR LUMBOSACRAL [...] 12/02/24 1557 DD/ 1439 TD/TT: 12/02/24 1541 Tour Operator: [facility] [place] Long MD IMG XR PROCEDURES Fin al Result * (ABNORMAL) POCT HGB A1C (12/02/2024 2:06 PM EST) Hemoglobin A1C 6.4(A) 4.0 - 6.0 % QC Media Lot # [id number] Lot# Expiration Date Blood 12/02/2024 2:06 PM EST Eduardo Long [...] 1:35 PM EST) Creatinine, Urine 121.86 mg/dL [facility] Microalbumin Urine 12.0 mg/L [facility] Microalbum Creatinine Ratio Ur 9.8 <30 ug/mg cr [facility] Comment:Albumin/Creatinine R atio Reference Ranges: Normal: < 30 ug/mg creatinine Microalbuminuria: 30 - 300 ug/mg creatinineClinical Albuminuria: > 300 ug/mg creatinine Urine (Urine, Random) 08/03/2024 1:35 PM EST 08/03/2024 4:09 PM EST Eduardo Long MD LAB URINE ORDERABLES Final Result Performing Organization Address [facility] Co de Phone Number [facility] [address] [place] [address] [phone] * Lipid Panel, Standard (05/27/2024 7:46 AM EDT) Triglycerides 110 <150 mg/dL [facility] Comment:Desirable Triglyceri de: less than 150 mg/dLBorderline High Triglyceride 150-199 mg/dLHigh Triglyceride: 200-499 mg/dLVery High Triglyceride: greater than or equal to 5OO mg/dL Cholesterol 152 <200 mg/dL [facility] Comment:Desirable Cholestero l: less than 200 mg/dLBorderline High Cholesterol: 200-239 mg/dLHigh Cholesterol: greater than 239 mg/dL LDL Cholesterol Calculated 85 <100 mg/dL [facility] Comment:Desirable LDL: less than 100 mg/dLNear Optimal/Above Optimal LDL: 110- 129 mg/dLBorderline High LDL: 130-159 mg/dLHigh LDL: 160-189 mg/dLVery High LDL: greater than or equal to 190 mg/dL HDL Cholesterol 45 >40 mg/dL [facility] Comment:Desirable HDL: great er than 40 mg/dL Note: This HDL assay may give artificially low results in patients with liver disease. Blood Venous blood specimen / Unknown 05/27/2024 7:46 AM EDT 05/27/2024 7:46 AM EDT Eduardo Long MD LAB BLOOD ORDERABLES Final Result Performing Organization Address [facility]/ZIP Co de Phone Number [facility] [address] [place] [phone] * Hm Pap Smear (09/18/2023) Only the most recent of2 resultswithin the time period is included. us Historical Provider HEALTH MAINTENANCE Final Result * Hm Colonoscopy (12/09/2022) Colonoscopy Normal Normal Narrative Kelli Mix - 12/09/2022 Repeat in 5 years Historical Provider HEALTH MAINTENANCE Final Result from Last 3 Months or Most Recently Relevant to Health Maintenance Insurance [employer] Care Teams Dip Dyer Relationship Specialty Start Date End Date Eduardo Minor MD [address] [place] [address] PCP - General Internal Medicine 03/18/19
--- OUTSIDE RECORDS SUMMARY | 2025-01-17 13:38 | XMS_ITS | Clinical Summary ---
Author Organization [facility] Address [address] [place] [address] Phone Care Team Providers Care Job Checker Name Role Phone Eduardo Verma MD Primary Care Provi nabil Encounters Date Type Department Care Team Description 01/10/2025 10:15 AM EDT - 01/10/2025 11:59 PM EDT Hospital [facility] at [address] [phone] Encounter for screening mammogram for malignant neoplasm of breast Discharge Disposition: Home or Self Care 12/07/2024 7:05 PM EDT - 12/07/2024 11:59 PM EDT Hospital Encounter [facility] MRI [address] [place] [address] Low back pain, unspecified Discharge Disposition: Home or Self Care from Last 3 Months Surgical History Surgery Date Site/Laterality Comments CHOLECYSTECTOMY PROCEDURE: GA LAPAROSCOPY SURG CHOLECYSTECTOMY Medical History Medical History Date Comments Diabetes mellitus type 2, co ntrolled, with complications (CMS/HCC V24, CMS/HCC V28) DX:Diabetes mellitus type 2, controlled, with complications (HCC) Thyroid disorder DX:Thyroid diso rder Social History Tobacco Use Types Packs/Day Years Used Date Smoking Tobacco: Never Assessed Alcohol Use Standard Drinks/Week Comments Never 0 (1 standard drink = 0.6 oz pur e alcohol) Comments No Sex and Gender Information Value Date Recorded Sex Assigned at Not on file Legal Sex Female 3:58 AM EST Gender Identity Not on file Sexual Orientation Not on file Obstetrics History Para Term AB IAB SAB Ectopic Multiple Livin g Live Births 4 Last Filed Vital Signs Vital Sign Reading Time Taken Comments Blood Pressure 114/64 04/12/2022 10:40 AM EDT Si tting L Arm Pulse 72 04/12/2022 10:40 AM EDT Temperature - - Respiratory Rate - - Oxygen Saturation - - Inhaled Oxygen Concentration - - Weight 77.1 kg (170 lb) 01/10/2025 10:32 AM EDT Height 152.4 cm (5') 01/10/2025 10:32 AM EDT Body Mass Index 33.2 01/10/2025 10:32 AM EDT Plan of Treatment Upcoming Encounters Date Type Department Care Team (Late st Contact Info) Description 03/07/2025 1:00 PM EDT Appointment [facility] [address] [place] [phone] 01/11/2026 11:00 AM EDT Appointment [facility] at [address] [address] Health Maintenance Due Date Last Done Comments Diabetes: Annual Foot Exam 1972 Diabetes: Annual Retina Eye Exam 1972 Cervical Cancer Screening: Pap Smear 1983 Pneumococcal Vaccine: 50+ Years (1 of 1 - PCV) 2012 Zoster Vaccines (1 of 2) 2012 RSV Immunization Adult Patients (1 - Risk 60-74 years 1-dose series) 2022 Colorectal Cancer Screening: Colonoscopy 09/01/2022 HIV Screening 09/01/2022 Hepatitis C Screening 09/01/2022 Social Influencers of Health Screening 09/01/2022 COVID-19 Vaccine ( season) 2024 10/24/2021, 01/12/2021, 12/15/2020 Diabetes: Annual Urine Albumin-Creatinine Ratio (uACR) 12/07/2024 Influenza Vaccine (Season Ended) 2025 Diabetes: Blood Sugar Control Test (HGBA1C) 06/04/2025 12/02/2024 Depression Screening 12/02/2025 12/02/2024 Diabetes: Annual GFR (Glomerular Filtration Rate) 12/23/2025 12/23/2024, 12/23/2024 Hypertension/CHF/CAD Annual BMP Blood Test 12/23/2025 12/23/2024, 12/23/2024 Breast Cancer Screening 01/10/2027 01/11/20 25, 09/18/2023, 07/12/2022, Additional history exists Cholesterol Screening (Lipid Panel) 05/27/2029 05/27/2024 DTaP,Tdap,and Td Vaccines (2 - Td or Tdap) 08/09/2031 08/09/2021 HIB Vaccines Aged Out No longer eligi [...] age to complete this topic Meningococcal B Vaccine Aged Out No l onger eligible based on patient's age to complete [...] Procedure Name Priority Date/Time Associated Diagnosis Comments MG MAMMO DIGITAL SCREENING W REJI BILAT Routine 01/10/2025 10:38 AM EDT Encounter for screening mammogram for malignant neoplasm of breast BASIC METABOLIC PANEL Routine 12/23/2024 8:00 AM EDT Essential hypertension, malignant MR LUMBAR SPINE WO CONTRAST Routine 12/07/2024 7:51 PM EDT Low back pain, unspecified from Last 3 Months Results * MG Mammo Digital Screening w Reji bilat (01/10/2025 10:38 AM EDT) Anatomical Region Laterality Modality Breast Bilateral Mammography 01/10/2025 5:24 PM EDT Impressions 01/10/2025 5:32 PM EDT No mammographic evidence of malignancy. ?? No suspicious interval change. A negative mammogram in the presence of a clinically suspicious palpable abnormality does not preclude the possibility of malignancy or alter the indications for biopsy. ASSESSMENT: ?? BI-RADS 1: NEGATIVE RECOMMENDATION(S): 1: Routine screening mammogram BILATERAL in 1 year. [facility]amm[facility] location[facility] at [address], [address] -------- FINAL REPORT -------- Dictated By: Ricardo Patterson Dictated Date: 01/10/2025 17:24 ET Assigned Physician: Ricardo Patterson Reviewed and Electronically Signed By: Ricardo Patterson Signed Date: 01/10/2025 17:32 ET Workstation ID: [id number] Transcribed By: Self Edit Transcribed Date: 01/10/2025 17:24 ET Narrative 01/10/2025 5:32 PM EDT EXAM: ??SCREENING MAMMOGRAPHY, BILATERAL HISTORY: ??SCREENING. ??No additional history. COMPARISON: ??09/18/23, 07/12/22, 07/10/21, 06/23/20 TECHNIQUE: Synthesized CC and MLO projections of each breast. ??Tomosynthesis of each breast in the CC and MLO projections. ADDITIONAL IMAGING: None Computer-aided detection was employed with the iCAD ??ProFound AI 3-D. TISSUE DENSITY: There are scattered areas of fibroglandular density. (BI-RADS category B) FINDINGS: RIGHT BREAST: No suspicious mass. No suspicious calcification. No distortion. ?? No additional suspicious right breast findings LEFT BREAST: No suspicious mass. No suspicious calcification. No distortion. ?? No additional suspicious left breast findings Procedure Note Ricardo Patterson MD - 01/10/2025 EXAM: SCREENING MAMMOGRAPHY, BILATERAL HISTORY: SCREENING. No additional history. COMPARISON: 09/18/23, 07/12/22, 07/10/21, 06/23/20 TECHNIQUE: Synthesized CC and MLO projections of each breast.Tomosynthesis of each breast in the CC and MLO projections. ADDITIONAL IMAGING: None Computer-aided detection was employed with the iCAD ProFound AI 3-D. TISSUE DENSITY: There are scattered areas of fibroglandular density.(BI-RADS category B) FINDINGS: RIGHT BREAST: No suspicious mass. No suspicious calcification. No distortion. Noadditional suspicious right breast findings LEFT BREAST: No suspicious mass. No suspicious calcification. No distortion. Noadditional suspicious left breast findings IMPRESSION: No mammographic evidence of malignancy. No suspicious interval change. A negative mammogram in the presence of a clinically suspicious palpableabnormality does not preclude the possibility of malignancy or alter theindications for biopsy. ASSESSMENT: BI-RADS 1: NEGATIVE RECOMMENDATION(S): 1: Routine screening mammogram BILATERAL in 1 year. [facility]amm[facility] location[facility] [address], [address] -------- FINAL REPORT -------- Dictated By: Ricardo Patterson Dictated Date: 01/10/2025 17:24 ET Assigned Physician: Ricardo Patterson Reviewed and Electronically Signed By: Ricardo Patterson Signed Date: 01/10/2025 17:32 ET Workstation ID: [id number] Transcribed By: Self Edit Transcribed Date: 01/10/2025 17:24 ET Eduardo Verma MD IMG BI PROCEDURES F inal Result * (ABNORMAL) Basic metabolic panel (12/23/2024 8:00 AM EDT) Sodium 142 133 - 145 mmol/L LAB CHEMISTRY METHOD 12/23/2024 9:[address] [facility] Potassium 4.6 3.5 - 5.5 mmol/L LAB CHEMISTRY METHOD 12/23/2024 9:[address] [facility] Chloride 106 96 - 110 mmol/L LAB CHEMISTRY METHOD 12/23/2024 9:[address] [facility] CO2 32 21 - 32 mmol/L LAB CHEMISTRY METHOD 12/23/2024 9:[address] [facility] Anion Gap 4 3 - 11 LAB CHEMISTRY METHOD 12/23/2024 9:[address] [facility] Glucose 110(H) 70 - 100 mg/dL LAB CHEMISTRY METHOD 12/23/2024 9:[address] [facility] BUN 20 5 - 25 mg/dL LAB CHEMISTRY METHOD 12/23/2024 9:[address] [facility] Creatinine 0.62 0.50 - 1.10 mg/dL LAB CHEMISTRY METHOD 12/23/2024 9:[address] [facility] eGFR 101 >=60 mL/min/1. 73m2 LAB CHEMISTRY METHOD 12/23/2024 9:[address] [facility] Comment:Calculation based on the??Chronic Kidney Disease Epidemiology Collaboration (CKD-EPI) equation refit??without adjustment for race. BUN/Creatinine Ratio 32.3 LAB CHEMISTRY METHOD 12/23/2024 9:[address] [facility] Calcium 9.8 8.5 - 10.5 mg/dL LAB CHEMISTRY METHOD 12/23/2024 9:[address] [facility] Blood Venous blood specimen / Unknown Venipuncture / Unknown 12/23/2024 8:00 AM EDT 12/23/2024 8:44 AM EDT us Eduardo Verma MD LAB BLOOD ORDERABLE S Final Result [facility] [address] [place] [address], * MR Lumbar Spine wo Contrast (12/07/2024 7:51 PM EDT) Anatomical Region Laterality Modality L-spine, Spine Magnetic Resonan ce 12/07/2024 9:42 PM EDT Impressions 12/08/2024 9:18 AM EDT 1. ??Partially visible 4 x 2.9 cm soft tissue mass in the left para-aortic region at L3. ??This is incompletely evaluated on this study. ??Recommend further evaluation with dedicated contrast-enhanced CT of the abdomen and pelvis. 2. ??Degenerative changes of the lumbar spine as detailed above. -------- FINAL REPORT -------- Dictated By: Luis Lowery Dictated Date: 12/07/2024 21:42 ET Assigned Physician: Luis Lowery Reviewed and Electronically Signed By: Luis Lowery Signed Date: 12/08/2024 09:18 ET Workstation ID: [id number] Transcribed By: Self Edit Transcribed Date: 12/07/2024 21:42 ET Narrative 12/08/2024 9:18 AM EDT PROCEDURE: MRI of the lumbar spine without contrast. TECHNIQUE: Multiplanar multisequence MRI of the lumbar spine without intravenous contrast administration. HISTORY: LOW BACK PAIN RADIATING DOWN LEG, NUMBNESS COMPARISON: None. FINDINGS: Partially visible 4 x 2.9 cm soft tissue mass in the left para-aortic region at L3. ??No other paraspinous soft tissue findings. No significant listhesis. ??No compression deformity. ??L5 vertebral body hemangioma. ??No concerning marrow infiltrative lesion. The conus is in a normal position at L1. Lumbar disc levels: L1-2: Only imaged in the sagittal plane. ??Minimal endplate irregularity. ??No spinal or foraminal stenosis. L2-3: Moderate disc space height loss and endplate irregularity. ??Small symmetric disc osteophyte complex. ??Minimal degenerative irregularity of the facet joints. ??No significant spinal stenosis. ??Minimal bilateral foraminal stenosis. L3-4: Minimal endplate irregularity. ??Minimal symmetric disc bulge. ??No spinal or foraminal stenosis. L4-5: Mild posterior disc space height loss and mild diffuse endplate irregularity. ??Small disc bulge eccentric to the left. ??Moderate bilateral facet arthropathy and mild bilateral ligament flavum hypertrophy. ??Mild-moderate left and mild right foraminal stenosis. ??No significant spinal stenosis. L5-S1: Minimal endplate irregularity. ??Minimal symmetric disc bulge. ??Moderate bilateral facet arthropathy. ??Minimal right foraminal stenosis. ??No significant spinal stenosis. Procedure Note Luis Lowery MD - 12/08/2024 PROCEDURE: MRI of the lumbar spine without contrast. TECHNIQUE: Multiplanar multisequence MRI of the lumbar spine withoutintravenous contrast administration. HISTORY: LOW BACK PAIN RADIATING DOWN LEG, NUMBNESS COMPARISON: None. FINDINGS: Partially visible 4 x 2.9 cm soft tissue mass in the left para-aorticregion at L3. No other paraspinous soft tissue findings. No significant listhesis. No compression deformity. L5 vertebral bodyhemangioma. No concerning marrow infiltrative lesion. The conus is in a normal position at L1. Lumbar disc levels: L1-2: Only imaged in the sagittal plane. Minimal endplate irregularity.No spinal or foraminal stenosis. L2-3: Moderate disc space height loss and endplate irregularity. Smallsymmetric disc osteophyte complex. Minimal degenerative irregularity ofthe facet joints. No significant spinal stenosis. Minimal bilateralforaminal stenosis. L3-4: Minimal endplate irregularity. Minimal symmetric disc bulge. Nospinal or foraminal stenosis. L4-5: Mild posterior disc space height loss and mild diffuse endplateirregularity. Small disc bulge eccentric to the left. Moderate bilateralfacet arthropathy and mild bilateral ligament flavum hypertrophy.Mild-moderate left and mild right foraminal stenosis. No significantspinal stenosis. L5-S1: Minimal endplate irregularity. Minimal symmetric disc bulge.Moderate bilateral facet arthropathy. Minimal right foraminal stenosis.No significant spinal stenosis. IMPRESSION: 1. Partially visible 4 x 2.9 cm soft tissue mass in the left para-aorticregion at L3. This is incompletely evaluated on this study. Recommendfurther evaluation with dedicated contrast-enhanced CT of the abdomen andpelvis. 2. Degenerative changes of the lumbar spine as detailed above. -------- FINAL REPORT -------- Dictated By: Luis Lowery Dictated Date: 12/07/2024 21:42 ET Assigned Physician: Luis Lowrey Reviewed and Electronically Signed By: Luis Lowery Signed Date: 12/08/2024 09:18 ET Workstation ID: [id number] Transcribed By: Self Edit Transcribed Date: 12/07/2024 21:42 ET us Eduardo Verma MD IMG MRI PROCEDURES Final Result from Last 3 Months Insurance MEDICAID - [place] Care Teams Job Checker Relationship Specialty Start Date End Date Eduardo Verma MD [address] [place] [address] [place] [address] PCP - General Internal Medicine 04/08/22
--- OUTSIDE RECORDS SUMMARY | 2025-01-17 13:38 | XMS_ITS | Encounter Summary ---
Author Organization [employer] Address [address] [facility] 7t [place] [address] Care Team Providers Care Tire Installer Name Role Phone Eduardo Minor MD Primary Care Provide r Reason for Visit * Reason Comments Med Refill Encounter Details Date Type Department Care Team ([facility] st Contact Info) Description 12/15/2023 Refill [facility] [address] [place], [place] [phone] Eduardo Minor MD [address] [place], [place] [phone] Social History Tobacco Use Types Packs/Day Years [...] the past 12 months, has t he [employer], gas, oil or water company threatened to [...] Description 03/10/2025 1:15 PM EDT Office Visit [facility] [address] [place] [phone] Eduardo Minor MD [address] [place] [address] documented as of this encounter Visit Diagnoses Not on filedocumented in this encounter Additional Health Concerns Assessment Noted Time PHQ-9 Depression Total Score: 5 01/08/20 23 1:17 PM EDT documented as of this encounter Care Teams Tire Installer Relationship Specialty Start Date End Date Eduardo Minor MD [address] [place] [address] PCP - General Internal Medicine 03/18/19 documented as of this encounter
--- OUTSIDE RECORDS SUMMARY | 2025-01-17 13:38 | XMS_ITS | Encounter Summary ---
Author Organization [employer] [facility] Address [address] [place] [address] 7 [place] [address] Care Team Providers Care Build Engineer Name Role Phone Eduardo Minor MD Primary Care Provide r Encounter Details Date Type Department Care Team (Late st Contact Info) Description 10/07/[address] [facility] [address] [place] [phone] Awa Bermudez RN Social History Tobacco Use [...] 03/10/2025 1:15 PM EDT Office Visit [facility] [address] [place] [phone] Eduardo Minor MD [address] [place] [address] documented as of this encounter Visit Diagnoses Not on filedocumented in this encounter Care Teams Build Engineer Relationship Specialty Start Date End Date Eduardo Minor MD [address] [place] [address] PCP - General Internal Medicine 03/18/19 documented as of this encounter
--- OUTSIDE RECORDS SUMMARY | 2025-01-17 13:38 | XMS_ITS | Encounter Summary ---
Author Organization [employer] Address [address] [facility] 7t [place] [address] Care Team Providers Care Application Software Developer Name Role Phone Eduardo Minor MD Primary Care Provide r Reason for Visit * Reason Onset Date Comments Appointment Request 12/05/2023 Encounter Details Date Type Department Care Team ([facility] st Contact Info) Description 12/05/2023 Telephone [facility] [address] [place], [place] [phone] Eduardo Minor MD [address] [place], [place] [phone] Appointment Request Social History Tobacco Use Types [...] Description 03/10/2025 1:15 PM EDT Office Visit [facility] [address] [place] [address] Eduardo Minor MD [address] [place] [address] documented as of this encounter Visit Diagnoses Not on filedocumented in this encounter Additional Health Concerns Assessment Noted Time PHQ-9 Depression Total Score: 5 01/08/20 23 1:17 PM EDT documented as of this encounter Care Teams Application Software Developer Relationship Specialty Start Date End Date Eduardo Minor MD [address] [place] [address] PCP - General Internal Medicine 03/18/19 documented as of this encounter
--- OUTSIDE RECORDS SUMMARY | 2025-01-17 13:38 | XMS_ITS | Patient Health Record ---
Author Organization [facility] Address [address] [place] [address] Care Team Providers Care Unmanned Aircraft Systems Roboticist Name Role Phone Drew Long MD, Eduardo Primary Care Provide r Siddhartha [place] Unavailable [phone] Allergies No Known Allergies Reason For Referral [...] Problem Status W/U Status Risk Notes Problem [id number] Encounter for screening for malignant neoplasm of colon (Z12.11) Active confirmed Problem 742398107 History of adenomatous polyp of colon (Z86.010) Active confirmed Problem 816937281 Bloating (R14.0) Active confirmed Problem Diverticular disease of colon (853545125) Diverticulosis of large intestine without perforation or abscess without bleeding (K57.30) Active confirmed Problem [id number] Pre-procedural examination (Z01.818) Active confirmed Plan Of Treatment Future Test Test Name Order Date COLONOSCOPY 11/05/2012 COLONOSCOPY 01/31/2017 COLONOSCOPY 10/31/2022 Insurance Providers Payer Name Payer Address Payer Phone Subscriber Number Group Number Insured Name Patient Relationship to Insured Coverage Start Date Coverage End Date [place] [address] [place] [id number] SHANAE GARCIA Self - patient is the insured Medical (General) History Medical History History ICD Code NIDDM Hypothyroidism and thyroid nodule Denies VT,CVA,Lung disease,renal disease Neg. ETT at [facility] in 2011 and 1 10/2015 Screening Colonoscopy 12/2012 --small tubular adenomas, mild diverticulosis, small internal hemorrhoids Negative colonoscopy in 08/2017 Surgical History Surgery Date(Month/Year) Tubal ligatiion 4 C-sections Cholecystectomy
--- OUTSIDE RECORDS SUMMARY | 2025-01-17 13:38 | XMS_ITS | Encounter Summary ---
Author Organization [employer] Address [address] [facility] 7 [place] [address] Care Team Providers Care Case Aide Name Role Phone Eduardo Minor MD Primary Care Provide r Reason for Visit * Reason Onset Date Comments Med Refill 10/13/2024 Encounter Details Date Type Department Care Team ([facility] st Contact Info) Description 10/13/2024 Refill [facility] [address] [place], [place] [phone] Eduardo Minor MD [address] [place] [address] Type 2 diabetes mellitus without complication, without long-term current use of insulin ([facility]); Type 2 diabetes mellitus without complication, unspecified whether mcfp insulin use ([facility]) Social History Tobacco Use Types Packs/Day Years [...] Description 03/10/2025 1:15 PM EDT Office Visit [facility] [address] [place] [address] Eduardo Minor MD [address] [place] [address] documented as of this encounter Visit Diagnoses Diagnosis Type 2 diabetes mellitus without complication, unspecified whether cluster bore operator insulin use ([facility]) documented in this encounter Additional Health Concerns Assessment Noted Time PHQ-9 Depression Total Score: 0 02/03/20 24 1:01 PM EDT documented as of this encounter Care Teams Case Aide Relationship Specialty Start Date End Date Eduardo Minor MD [address] [place] [address] PCP - General Internal Medicine 03/18/19 documented as of this encounter
--- OUTSIDE RECORDS SUMMARY | 2025-01-17 13:39 | XMS_ITS | Encounter Summary ---
Author Organization [employer] Address [address] [facility] 7t [place] [address] Care Team Providers Care Analytical Manager Name Role Phone Eduardo Minor MD Primary Care Provide r Encounter Details Date Type Department Care Team (Late st Contact Info) Description 11/26/2022 Orders Only [facility] [address] [place] [address] Gaaytri Otto LPN Social History Tobacco Use Types [...] 03/10/2025 1:15 PM EDT Office Visit [facility] [address] [place] [address] Eduardo Minor MD [address] [place] [address] documented as of this encounter Visit Diagnoses Not on filedocumented in this encounter Care Teams Analytical Manager Relationship Specialty Start Date End Date Eduardo Minor MD [address] [place] [address] PCP - General Internal Medicine 03/18/19 documented as of this encounter
--- OUTSIDE RECORDS SUMMARY | 2025-01-17 13:39 | XMS_ITS | Encounter Summary ---
Author Organization [employer] Address [address] [facility] 7t [place] [address] Care Team Providers Care Coremaking Machine Operator Name Role Phone Eduardo Minor MD Primary Care Provide r Encounter Details Date Type Department Care Team ([facility] st Contact Info) Description 01/03/2025 Orders Only [facility] [address] [place], [place] [phone] Bel Han MD [address] [place], [place] [phone] Social History Tobacco Use Types Packs/Day Years [...] Description 03/10/2025 1:15 PM EDT Office Visit [facility] [address] [place] [address] Eduardo Minor MD [address] [place] [address] documented as of this encounter Visit Diagnoses Not on filedocumented in this encounter Additional Health Concerns Assessment Noted Time PHQ-9 Depression Total Score: 0 12/03/19 25 1:50 PM EST documented as of this encounter Care Teams Coremaking Machine Operator Relationship Specialty Start Date End Date Eduardo Minor MD [address] [place] [address] PCP - General Internal Medicine 03/18/19 documented as of this encounter
--- OUTSIDE RECORDS SUMMARY | 2025-01-17 13:39 | XMS_ITS | Encounter Summary ---
Author Organization [employer] Address [address] [facility] 7t [place] [address] Care Team Providers Care Office Support Clerk Name Role Phone Eduardo Minor MD Primary Care Provide r Reason for Referral * Imaging (STAT) - Authorized Specialty Diagnoses / Procedures Referred By Contac t Referred To Contact Radiology Diagnoses Soft tissue mass Enlarged lymph nodes Procedures US Guided Soft Tissue Biopsy Bel Olmos MD [address] [place] [address] Phone: tel: fax: [address] Phone: tel: fax: Referral ID Status Reason Start Date Expiration Date V isits Requested Visits Authorized [id number] Authorized 01/04/2025 01/04/2026 1 1 Reason for Visit * Reason Onset Date Comments Lab Orders 12/09/2024 Encounter Details Date Type Department Care Team (Late st Contact Info) Description 12/09/2024 Telephone [facility] [address] [place], [place] [phone] Sayra Mcmullen RN Lab Orders Social History Tobacco Use Types Packs/Day Years [...] encounter Miscellaneous Notes * Telephone Encounter - Kenyetta Silva RN - 01/13/2025 1:55 PM EDT Incoming call from Ailin at [facility] radiology who states radiologist was able to review the imaging and he thinks it is, just lymph nodes . Wants to review with ordering provider Dr Olmos. I informed Ailin that Dr Olmos is not pt's PCP and was helping out as covering provider while PCP was out of office. I informed that pt has started care with Dr Nelson and I would encourage them to reach out to hem/onc to discuss. Informed Dr Olmos of this who agrees. * Telephone Encounter - Kenyetta Silva RN - 01/10/2025 10:25 AM EDT Telephone call placed to [facility]. Was transferred to planning manager Ailin who states that they have been having trouble uploading images from [employer]. They have been working with IT on this. If anything, she states will call [employer] and see if there is another way they can get images. He states that she spoke with [facility] this morning and has told them the situation and is coordinating with them. * Telephone Encounter - Kenyetta Silva RN - 01/07/2025 11:51 AM EDT Telephone call placed to [facility]. They received the images. Will process now and will call me back to let me know appt details. * Telephone Encounter - Kenyetta Silva RN - 01/07/2025 9:13 AM EDT Telephone call placed to [facility] again. Spoke with Lynda who states they have not received images still. She will send message to her supervisor nurse so that they can try to coordinate with [facility] as well. Telephone call placed to [facility]. Spoke with Sophie who sent via [employer] to [facility] while on the phone with me. States should be all set. * Telephone Encounter - Kenyetta Silva RN - 01/06/2025 1:54 PM EDT Telephone call placed to [facility] Interventional [facility]. No answer, left v/m requesting returned call at my direct ext. * Telephone Encounter - Kenyetta Silva RN - 01/05/2025 3:20 PM EDT Telephone call placed to [facility] who report pt is booked for 01/10/25 @8am with them. Telephone call placed to Judah to see if images were sent to [facility] yet. Spoke Giovani who stated received request but not processed yet. Explained that it is STAT and what thesituation is. Asked if there is any way it can be sent electronically, that would be ideal. She states that she can. She will have her planning manager send images over to [facility] STAT. * Telephone Encounter - Kenyetta Silva RN - 01/04/2025 4:23 PM EDT Incoming call from Bel at [facility]iology stating that they need actual CT images in order to do biopsy, cannot go off of the report. Telephone call placed to judah who states I need to fax written request on [facility] cover sheet to them which address and that they will send it. They stated no way to send electronically, will send overnight mail. Faxed as requested with address as [facility] as STAT * Telephone Encounter - Kenyetta Silva RN - 01/04/2025 1:49 PM EDT Telephone call placed to [facility] hem/onc. They confirmed that they received referral, pt not booked yet. Will give to flight deck officer to review and schedule pt this afternoon. Telephone call placed to [facility] Centralized Scheduling to see if biopsy is scheduled yet. They stated they just received it this morning. Not scheduled yet. Telephone call placed to [facility] Inter[facility] x2. No answer, left detailed v/m requesting urgent returned call at my direct ext to book STAT order. * Addendum Note - Bel Olmos MD - 01/04/2025 8:53 AM EDTAddended by: BEL OLMOS on: 01/04/2025 08:53 AM Modules accepted: Orders * Addendum Note - Kenyetta Silva RN - 01/03/2025 4:32 PM EDTAddended by: KENYETTA SILVA on: 01/03/2025 04:32 PM Modules accepted: Orders * Telephone Encounter - Kenyetta Silva RN - 01/03/2025 4:30 PM EDT Telephone call placed to pt. Informed that I am actively working on everything. As soon as I have any update, I will let her know. Pt verbalized understanding and denied having any further questions or concerns at this time. * Telephone Encounter - Kenyetta Silva RN - 01/03/2025 9:36 AM EDT Spoke with Dr Olmos on site who advised to call Oncology and see if we can get pt in STAT and ifthey need us to order anything for them in the meantime. Telephone call placed to [facility] who stated we need to place STAT referral to them and interventional radiology. Once they get STAT referral, will discuss with oncologist and will get pt in [facility]. Discussed with Dr Olmos who placed both referrals as STAT. Discussed with science specialist who processed. Faxed STAT to [facility]. Telephone call placed to interventional radiology who requested I fax to Centralized Scheduling and directly to her. Faxed as STAT to both. Telephone call placed IR who states needs authorization code and needs to say what procedure. Emely fixed. Spoke with science specialist who states Dx specialist does this type of order. Dx specialist states needs to be ordered as imaging, not referral. * Telephone Encounter - Kenyetta Silva RN - 01/01/2025 9:03 AM EDT Telephone call placed to [facility]. They reported that pt did go and CT has been resulted. They faxed it to HIM. Requested they fax directly to green team. She will fax now. Received fax and scanned in under media DOS 12/28/24. Results most notably showed possible lymphoma. They recommend pathologic sampling. To note, this task is being completed on a Friday. Our Dx specialists are not available, nor is the radiology department at [facility] open today. Will discuss findings with provider first thing Friday morning. Can we check if the CT Abd/pelvis I ordered was done 12/28/2024 please check at [facility] or [facility] * Telephone Encounter - Kenyetta Silva RN - 12/13/2024 9:23 AM EDT I had sent this request to retirement benefits specialist but it looks like instead they sent to [facility] along with previous results so that radiologist can compare. Please contact imaging science specialist to make sure exam is done at [facility] so they can compare with MRI * Telephone Encounter - Sayra Mcmullen RN - 12/09/2024 9:53 AM EDT TC placed to pt to inform of message below regarding results of pt MRI of the lumbar spine that wasperformed on 12/07/2024. Pt advised of the results showing a para aortic soft tissue mass at the level of L3. Pt educated that this needs more detailed imaging as recommended by the radiologist with aCT of the abdomen/pelvis with contrast. Pt agreeable to this information and will await call to schedule. ----- Message from Eduardo Long MD sent at 12/09/2024 9:47 AM EDT ----- MRI of Lumbar spine showed 4.9 cm x 3cm para aortic soft tissue mass at the level of L3 . Radiologist recommended Ct abd and pelvis with contrast. Please contact patient to let he know we will be ordering this. documented in this encounter Plan of Treatment Upcoming Encounters Date Type Department Care Team (Late st Contact Info) Description 03/10/2025 1:15 PM EDT Office Visit [facility] [address] [place] [phone] Eduardo Minor MD [address] [place] [phone] Scheduled Orders Name Type Priority Associated Diagnoses Orde r Schedule US Guided Soft Tissue Biopsy Imaging STAT Soft tissue mass Enlarged lymph nodes Expected: 01/04/2025 (Approximate), Expires: 01/03/2026 documented as of this encounter Visit Diagnoses Diagnosis Soft tissue mass- Primary Disorders of soft tissue, unspecified Enlarged lymph nodes Enlargement of lymph nodes documented in this encounter Additional Health Concerns Assessment Noted Time PHQ-9 Depression Total Score: 0 12/03/19 25 1:50 PM EST documented as of this encounter Care Teams Office Support Clerk Relationship Specialty Start Date End Date Eduardo Minor MD [address] [place] [phone] PCP - General Internal Medicine 03/18/19 documented as of this encounter
[2025-01-25] VITALS (14 sets, daily range): BP systolic 109–132; BP diastolic 44–87; PULSE 61–89; RESP 3–16; TEMP 36.3–36.7; O2SAT 96–100; BMI 33.7
--- NOTE | ~2025-01-25 | CT_ITS ---
PROCEDURE: CT GUIDED BIOPSY, ABDOMINAL MASS CLINICAL INFORMATION: Left retroperitoneal lymph node/mass biopsy COMPARISON: Outside CT performed at [facility]. TECHNIQUE: Following explaining CT fluoroscopy guided left apical mass/lymph node biopsy procedure, benefits and risk, a written consent was obtained. Patient was placed prone on CT table and preliminary imaging was obtained through the abdomen. An optimal slice was selected marker placed along the skin and repeat imaging obtained. A marker was selected and marked on the skin. The area was cleaned and draped in usual sterile manner. 1% lidocaine was administered at puncture site. Conscious sedation and monitoring was performed during the exam by IR nurse and IR physician. Through a small skin incision 20-gauge guide needle was advanced from the skin to the posterior margin of left para-aortic retroperitoneal mass. Subsequently coaxially a 4-5 pass core biopsies were performed to the left retroperitoneal mass. Tissue collected was sent in Cyto[employer]yt and flow cytometry test tubes. Postprocedure needle was withdrawn and complete hemostasis achieved at puncture site. Incidental Band-Aid applied at the puncture site. Repeat CT imaging was performed post procedure. This CT examination was performed using dose optimization techniques as appropriate, variously including the following: *Automated exposure control *Adjustment of mA and/or kV according to patient size (this includes techniques or standardized protocols for targeted exams where dose is matched to indication/reason for exam; i.e. extremities or head) *Use of iterative reconstruction technique DLP: 295 mGy/cm. FINDINGS: On previous CT imaging there is a moderate-sized left retroperitoneal para-aortic mass measuring 3.4 x 2.4 cm. The fluoroscopy-guided left adrenal mass biopsy performed using coaxial technique. Approximately 4-5 passes were performed during exam. CT/CT biopsy abdomen percutaneous IMPRESSION: Successful fluoroscopy-guided left para-aortic mass/lymph node biopsy performed. There are no immediate complications. Electronically signed by: Christofer Monroy MD 01/27/2025 09:33 AM EDT
[2025-01-25 09:48] LABS: Glucose, Whole Blood 122 mg/dL (60-115)
[2025-01-25] MEDS: Midazolam HCl 2 MG/2 ML VIAL 1 MG IVPUSH ×2 (11:00→11:06)
[2025-01-25] MEDS: fentaNYL citrate/PF 100 MCG/2 ML VIAL 25 MCG IVPUSH ×2 (11:00→11:06)
[2025-01-25] MEDS: Lidocaine HCl 1 % MPF 30 ML VIAL 10 ML SUBCUT (11:42)
== END 2025-01-25 13:33 | disposition home or self-care (01) ==
PROVIDERS: Pathology Anatomic Pathology & Clinical Pathology; Radiology Diagnostic Radiology; PCP Internal Medicine; Visit Provider Family Medicine
DX: R59.0 Localized enlarged lymph nodes (principal); R19.09 Other intra-abdominal and pelvic swelling, mass and lump; R20.0 Anesthesia of skin; E27.9 Disorder of adrenal gland, unspecified; E11.9 Type 2 diabetes mellitus without complications; E03.9 Hypothyroidism, unspecified; E04.2 Nontoxic multinodular goiter; Z79.899 Other long term (current) drug therapy; Z90.49 Acquired absence of other specified parts of digestive tract; Z98.51 Tubal ligation status
CPT/HCPCS: 36415; 49180; 77012; 82947; 88184; 88185; 88300; 88305; 88341; 88342; 88374; 99152; J2003; J2250; J2310; J3010

== ENCOUNTER → 2025-01-25 10:38 | Outpatient (BNV) | payer MEDICAID, SELFPAY | PROVIDERS: PCP Internal Medicine; Visit Provider Radiology Diagnostic Radiology | DX: R59.0 Localized enlarged lymph nodes (principal) | CPT/HCPCS: 38505; 77012; 99152 ==

== ENCOUNTER 2025-03-09 11:15 | Outpatient (REF) | payer MEDICAID, SELFPAY ==
--- OUTSIDE RECORDS SUMMARY | 2025-03-09 12:55 | XMS_ITS | Encounter Summary ---
Author Organization [employer] Address [address] [facility] [address] 7t [place] [address] Care Team Providers Care Tunnel Heading Inspector Name Role Phone Eduardo Minor MD Primary Care Provide r Encounter Details Date Type Department Care Team ([facility] st Contact Info) Description 11/07/[address] [facility] [address] [place] [address] [phone] Ronny Topete MD [address] [place], [place] [phone] Posterior chest pain (Primary Dx) Social History [...] Care Team (Late st Contact Info) Description 05/26/2025 10:30 AM EDT Office Visit [facility] [address] [place] [address] Eduardo Minor MD [address] [place] [phone] Scheduled Orders Name Type Priority Associated Diagnoses Orde r Schedule XR Chest 2 Views Imaging Routine Posterior chest pain Expected: 11/07/2023, Expires: 11/07/2024 documented as of this encounter Visit Diagnoses Diagnosis Posterior chest pain- Primary documented in this encounter Additional Health Concerns Assessment Noted Time PHQ-9 Depression Total Score: 5 01/08/20 23 1:17 PM EDT documented as of this encounter Care Teams Tunnel Heading Inspector Relationship Specialty Start Date End Date Eduardo Minor MD [address] [place] [phone] PCP - General Internal Medicine 03/18/19 documented as of this encounter
== END 2025-03-09 11:16 | disposition home or self-care (01) ==
LOC: HO.HHCL 11:15
PROVIDERS: Visit Provider Internal Medicine
DX: Z13.89 Encounter for screening for other disorder (principal)

== ENCOUNTER 2025-03-31 11:34 | Outpatient (REF) | payer MEDICAID, SELFPAY ==
[2025-03-31 11:50] LABS: MANUAL DIFF FLAG NO
--- OUTSIDE RECORDS SUMMARY | 2025-03-31 12:18 | XMS_ITS | Encounter Summary ---
Author Organization [employer] Address [address] 7[address] [place] [address] Care Team Providers Care Journeyman Molder Name Role Phone Eduardo Minor MD Primary Care Provide r Encounter Details Date Type Department Care Team ([facility] st Contact Info) Description 11/07/2023 Orders Only [facility] [address] [place] [address] [phone] Ronny Topete MD [address] [place], [place] [phone] Posterior chest pain (Primary Dx) Social History [...] Care Team (Late st Contact Info) Description 05/24/2025 1:30 PM EDT Office Visit [facility] [address] [place] [phone] Eduardo Mionr MD [address] [place] [address] 05/26/2025 10:30 AM EDT Office Visit [facility] [address] [place] [phone] Eduardo Minor MD [address] [place] [address] Scheduled Orders Name Type Priority Associated Diagnoses Orde r Schedule XR Chest 2 Views Imaging Routine Posterior chest pain Expected: 11/07/2023, Expires: 11/07/2024 documented as of this encounter Visit Diagnoses Diagnosis Posterior chest pain- Primary documented in this encounter Additional Health Concerns Assessment Noted Time PHQ-9 Depression Total Score: 5 01/08/20 23 1:17 PM EDT documented as of this encounter Care Teams Journeyman Molder Relationship Specialty Start Date End Date Eduardo Minor MD [address] [place] [phone] PCP - General Internal Medicine 03/18/19 documented as of this encounter
--- OUTSIDE RECORDS SUMMARY | 2025-03-31 12:18 | XMS_ITS | Patient Health Record ---
Author Organization [facility] Address [address] [place] [phone] Care Team Providers Care Portfolio Administrator Name Role Phone Drew Long MD, Eduardo Primary Care Provide r Siddhartha [place] Unavailable [phone] Allergies No Known Allergies Reason For Referral [...] Problem Status W/U Status Risk Notes Problem [id number] Encounter for screening for malignant neoplasm of colon (Z12.11) Active confirmed Problem 376018223 History of adenomatous polyp of colon (Z86.010) Active confirmed Problem 780463240 Bloating (R14.0) Active confirmed Problem Diverticular disease of colon (151696203) Diverticulosis of large intestine without perforation or abscess without bleeding (K57.30) Active confirmed Problem 691713105111149 Pre-procedural examination (Z01.818) Active confirmed Plan Of Treatment Future Test Test Name Order Date COLONOSCOPY 11/05/2012 COLONOSCOPY 01/31/2017 COLONOSCOPY 10/31/2022 Insurance Providers Payer Name Payer Address Payer Phone Subscriber Number Group Number Insured Name Patient Relationship to Insured Coverage Start Date Coverage End Date [place] [address] [place] [phone] [id number] SHANAE GARCIA Self - patient is the insured Medical (General) History Medical History History ICD Code NIDDM Hypothyroidism and thyroid nodule Denies ME,CVA,Lung disease,renal disease Neg. ETT at [facility] in 2011 and 1 10/2015 Screening Colonoscopy 12/2012 --small tubular adenomas, mild diverticulosis, small internal hemorrhoids Negative colonoscopy in 08/2017 Surgical History Surgery Date(Month/Year) Tubal ligatiion 4 C-sections Cholecystectomy
[2025-03-31 12:31] LABS: Hematocrit 40.2 % (37.0-47.0); Hemoglobin 13.3 g/dl (12.0-16.0); Imm Gran Abs Auto 0.03 X10*3/uL (0.00-0.03); Imm Gran Pct Auto 0.3 % (0.0-0.4); Lymphocytes Absolute Auto 2.0 X10*3/uL (1.2-4.9); Mean Corpuscular HGB Conc 33.1 g/dl (31.0-35.0); Mean Corpuscular Hemoglobin 29.8 pg (27.0-33.0); Mean Corpuscular Volume 90.1 fL (80.0-98.0); NRBC Abs Auto 0.000 X10*3/uL (0.0-0.012); NRBC Pct Auto 0.0 /100WBC (0.0-0.2); Platelet Count 295 X10*3/uL (160-400); Red Blood Count 4.46 X10*6/uL (4.20-5.50); White Blood Count 8.8 X10*3/uL (4.8-10.8)
[2025-03-31 13:18] LABS: Alanine Aminotransferase 19 U/L (0-31); Albumin Level 4.4 g/dL (3.5-5.0); Alkaline Phosphatase 61 U/L (39-117); Anion Gap 12 (12-20); Aspartate Amino Transferase 24 U/L (5-31); Blood Urea Nitrogen 11 mg/dL (9-16); Calcium 9.4 mg/dL (8.4-10.2); Carbon Dioxide 27 mmol/L (22-29); Chloride 105 mmol/L (96-108); Estimated Glomerular Filt Rate > 60; Potassium 4.4 mmol/L (3.3-5.1); Sodium 140 mmol/L (135-145); Total Protein 7.4 g/dL (6.5-8.0)
== END 2025-03-31 11:35 | disposition home or self-care (01) ==
LOC: HO.LAB 11:34
PROVIDERS: PCP Internal Medicine; Visit Provider Internal Medicine
DX: E11.9 Type 2 diabetes mellitus without complications (principal); C85.10 Unspecified B-cell lymphoma, unspecified site; E03.9 Hypothyroidism, unspecified
CPT/HCPCS: 36415; 80053; 84443; 85025

== ENCOUNTER 2025-04-07 14:50 | Outpatient (AMB) | payer MEDICAID, SELFPAY ==
--- OUTSIDE RECORDS SUMMARY | 2025-04-07 14:53 | XMS_ITS | Encounter Summary ---
Author Organization [employer] Address [address] 7[address] [place] [address] Care Team Providers Care Anesthesia Associate Name Role Phone Eduardo Minor MD Primary Care Provide r Encounter Details Date Type Department Care Team ([facility] st Contact Info) Description 11/07/2023 Orders Only [facility] [address] [place] [address] [phone] Ronny Topete MD [address] [place], [place] [phone] Posterior chest pain (Primary Dx) Social History [...] Description 05/24/2025 1:30 PM EDT Office Visit [facility] [address] [place] [phone] Eduardo Minor MD [address] [place] [address] 05/26/2025 10:30 AM EDT Office Visit [facility] [address] [place] [phone] Eduardo Minor MD [address] [place] [address] Scheduled Orders Name Type Priority Associated Diagnoses Orde r Schedule XR Chest 2 Views Imaging Routine Posterior chest pain Expected: 11/07/2023, Expires: 11/07/2024 documented as of this encounter Visit Diagnoses Diagnosis Posterior chest pain- Primary documented in this encounter Additional Health Concerns Assessment Noted Time PHQ-9 Depression Total Score: 5 01/08/20 23 1:17 PM EDT documented as of this encounter Care Teams Anesthesia Associate Relationship Specialty Start Date End Date Eduardo Minor MD [address] [place] [phone] PCP - General Internal Medicine 03/18/19 documented as of this encounter
--- OUTSIDE RECORDS SUMMARY | 2025-04-07 14:53 | XMS_ITS | Clinical Summary ---
Author Organization [facility] Address [address] [place] [address] Phone Care Team Providers Care Senior Net Software Developer Name Role Phone Eduardo Verma MD Primary Care Provi nabil Encounters Date Type Department Care Team Description 02/22/2025 11:07 AM EDT - 02/22/2025 11:59 PM EDT Hospital Encounter [facility] PET Scan [address] [place] [phone] Follicular lymphoma (CMS/HCC V24, CMS/HCC V28) Discharge Disposition: Home or Self Care 01/10/2025 10:15 AM EDT - 01/10/2025 11:59 PM EDT Hospital Encounter [facility] at [address] [phone] Encounter for screening mammogram for malignant neoplasm of breast Discharge Disposition: Home or Self Care from Last 3 Months Surgical History Surgery Date Site/Laterality Comments CHOLECYSTECTOMY PROCEDURE: IA LAPAROSCOPY SURG CHOLECYSTECTOMY Medical History Medical History [...] Care Team (Late st Contact Info) Description 01/11/2026 11:00 AM EDT Appointment [facility] at [address] [phone] Health Maintenance Due Date Last Done Comments Diabetes: Annual Foot Exam 1972 Diabetes: Annual Retina Eye Exam 1972 Pneumococcal Vaccine: 50+ Years (1 of 2 - PCV) 1981 Pneumococcal Vaccine: Pediatrics (0 to 5 Years) and At-Risk Patients (6 to 49 Years) (1 of 2 - PCV) 1981 Zoster Vaccines (1 of 2) 1981 Cervical Cancer Screening: Pap Smear 1983 Colorectal Cancer Screening: Colonoscopy 09/01/2022 HIV Screening 09/01/2022 Hepatitis C Screening 09/01/2022 Social Influencers of Health Screening 09/01/2022 COVID-19 Vaccine ( season) 2024 10/24/2021, 01/12/2021, 12/15/2020 Diabetes: Annual Urine Albumin-Creatinine Ratio (uACR) 12/07/2024 Influenza Vaccine (#1) 2025 Diabetes: Blood Sugar Control Test (HGBA1C) 06/04/2025 12/02/2024 Depression Screening 12/02/2025 12/02/2024 Diabetes: Annual GFR (Glomerular Filtration Rate) 12/23/2025 12/23/2024, 12/23/2024 Hypertension/CHF/CAD Annual BMP Blood Test 12/23/2025 12/23/2024, 12/23/2024 Breast Cancer Screening 01/10/2027 01/11/20 25, 09/18/2023, 07/12/2022, Additional history exists Cholesterol Screening (Lipid Panel) 05/27/2029 05/27/2024 DTaP,Tdap,and Td Vaccines (2 - Td or Tdap) 08/09/2031 08/09/2021 RSV Immunization Adult Patients (1 - 1-dose 75+ series) 2037 HIB [...] Procedure Name Priority Date/Time Associated Diagnosis Comments PET CT SKULL TO MID THIGH INITIAL Routine 02/22/2025 1:35 PM EDT Follicular lymphoma ([facility]/HCC V24, [facility] V28) MG MAMMO DIGITAL SCREENING W REJI BILAT Routine 01/10/2025 10:38 AM EDT Encounter for screening mammogram for malignant neoplasm of breast BASIC METABOLIC PANEL Routine 12/23/2024 8:00 AM EDT Essential hypertension, malignant from Last 3 Months or Most Recently Relevant to Health Maintenance Results * PET CT Skull to Mid Thigh Initial (02/22/2025 1:35 PM EDT) Anatomical Region Laterality Modality Body Radiographic Soledad ging 02/24/2025 3:35 PM EDT Addenda Addendum by Ronn Sweeney MD on 03/16/2025 1:31 PM EDT Addendum: Addendum issued to correct the technique performed. Imaging was performed from the skull base to the distal thighs. -------- ADDENDUM -------- Dictated By: Ronn Sweeney Dictated Date: 03/16/2025 13:30 ET Assigned Physician: Ronn Sweeney Reviewed and Electronically Signed By: Ronn Sweeney Signed Date: 03/16/2025 13:31 ET Workstation ID: [id number] Transcribed By: Self Edit Transcribed Date: 03/16/2025 13:30 ET Impressions 02/24/2025 3:48 PM EDT Metabolically active left para-aortic lymphadenopathy. Heterogeneous thyroid activity is nonspecific. Consider thyroid ultrasound for further evaluation. -------- FINAL REPORT -------- Dictated By: Ronn Sweeney Dictated Date: 02/24/2025 15:35 ET Assigned Physician: Ronn Sweeney Reviewed and Electronically Signed By: Ronn Sweeney Signed Date: 02/24/2025 15:48 ET Workstation ID: [id number] Transcribed By: Self Edit Transcribed Date: 02/24/2025 15:35 ET Narrative 02/24/2025 3:48 PM EDT History: Low-grade follicular lymphoma, initial treatment strategy Comparison: No prior PET scan available for comparison. Outside CT scan of the abdomen and pelvis from December 28, 2024 reviewed. Radiopharmaceutical: 10.7 mCi of F-18 FDG IV given 58 minutes prior to imaging. Blood glucose: 93 mg/dl. CT Dose: 862 DLP (mGy-cm) Routine body FDG PET-CT imaging was performed from the skull base to the proximal thighs and reconstructed in axial, coronal, and sagittal planes at the computer workstation with fused data from both the PET imaging study and attenuation correction CT. The CT portion of the examination was done strictly for attenuation correction and is not a true diagnostic CT examination. PET 5-point scale (Deauville Criteria) Mediastinum uptake SUV max = 3.5 Liver uptake SUV max = 4 Score 4 - Uptake moderately higher than liver. FINDINGS: HEAD AND NECK: Mild activity in nonenlarged left submental node with SUV max of 2.5 and nonenlarged left level 2 node with SUV max of 2.3, likely reactive. Asymmetric increased activity within the right thyroid lobe with SUV max of 5.6. For comparison SUV max is 4.1 within the left thyroid gland. Small nodular focus noted within the left side of the isthmus SUV max of 3.6. THORAX: No abnormal activity. ABDOMEN/PELVIS: Metabolic active left-sided para-aortic lymph node mass with SUV max of 6.8. Mild activity in noted noted solid anterior and superiorly best seen on series 4 image 1:15 measuring 17 mm x 10 mm axially with SUV max of 3. MUSCULOSKELETAL: No abnormal activity. Procedure Note Ronn Sweeney MD - 02/24/2025 History: Low-grade follicular lymphoma, initial treatment strategy Comparison: No prior PET scan available for comparison. Outside CT scan ofthe abdomen and pelvis from December 28, 2024 reviewed. Radiopharmaceutical: 10.7 mCi of F-18 FDG IV given 58 minutes prior toimaging. Blood glucose: 93 mg/dl. CT Dose: 862 DLP (mGy-cm) Routine body FDG PET-CT imaging was performed from the skull base to theproximal thighs and reconstructed in axial, coronal, and sagittal planesat the computer workstation with fused data from both the PET imagingstudy and attenuation correction CT. The CT portion of the examination wasdone strictly for attenuation correction and is not a true diagnostic CTexamination. PET 5-point scale (Deauville Criteria) Mediastinum uptake SUV max = 3.5 Liver uptake SUV max = 4 Score 4 - Uptake moderately higher than liver. FINDINGS: HEAD AND NECK: Mild activity in nonenlarged left submental node with SUVmax of 2.5 and nonenlarged left level 2 node with SUV max of 2.3, likelyreactive. Asymmetric increased activity within the right thyroid lobe with SUV maxof 5.6. For comparison SUV max is 4.1 within the left thyroid gland. Smallnodular focus noted within the left side of the isthmus SUV max of 3.6. THORAX: No abnormal activity. ABDOMEN/PELVIS: Metabolic active left-sided para-aortic lymph node masswith SUV max of 6.8. Mild activity in noted noted solid anterior andsuperiorly best seen on series 4 image 1:15 measuring 17 mm x 10 mmaxially with SUV max of 3. MUSCULOSKELETAL: No abnormal activity. IMPRESSION: Metabolically active left para-aortic lymphadenopathy. Heterogeneous thyroid activity is nonspecific. Consider thyroid ultrasoundfor further evaluation. -------- FINAL REPORT -------- Dictated By: Ronn Sweeney Dictated Date: 02/24/2025 15:35 ET Assigned Physician: Ronn Sweeney Reviewed and Electronically Signed By: Ronn Sweeney Signed Date: 02/24/2025 15:48 ET Workstation ID: [id number] Transcribed By: Self Edit Transcribed Date: 02/24/2025 15:35 ET Xochitl Nelson MD [facility]ED[place] Edited Result - Final * MG Mammo Digital Screening w Reji bilat (01/10/2025 10:38 AM EDT) Anatomical Region Laterality Modality Breast Bilateral Mammography 01/10/2025 5:24 PM EDT Impressions 01/10/2025 5:32 PM EDT No mammographic evidence of malignancy. No suspicious interval change. A negative mammogram in the presence of a clinically suspicious palpable abnormality does not preclude the possibility of malignancy or alter the indications for biopsy. ASSESSMENT: BI-RADS 1: NEGATIVE RECOMMENDATION(S): 1: Routine screening mammogram BILATERAL in 1 year. [facility]amm[facility] location: [facility] at [address], [phone] -------- FINAL REPORT -------- Dictated By: Ricardo Patterson Dictated Date: 01/10/2025 17:24 ET Assigned Physician: Ricardo Patterson Reviewed and Electronically Signed By: Ricardo Patterson Signed Date: 01/10/2025 17:32 ET Workstation ID: [id number] Transcribed By: Self Edit Transcribed Date: 01/10/2025 17:24 ET Narrative 01/10/2025 5:32 PM EDT EXAM: SCREENING MAMMOGRAPHY, BILATERAL HISTORY: SCREENING. No additional history. COMPARISON: 09/18/23, 07/12/22, 07/10/21, 06/23/20 TECHNIQUE: Synthesized CC and MLO projections of each breast. Tomosynthesis of each breast in the CC and MLO projections. ADDITIONAL IMAGING: None Computer-aided detection was employed with the [employer] AI 3-D. TISSUE DENSITY: There are scattered areas of fibroglandular density. (BI-RADS category B) FINDINGS: RIGHT BREAST: No suspicious mass. No suspicious calcification. No distortion. No additional suspicious right breast findings LEFT BREAST: No suspicious mass. No suspicious calcification. No distortion. No additional suspicious left breast findings Procedure Note Ricardo Patterson MD - 01/10/2025 EXAM: SCREENING MAMMOGRAPHY, BILATERAL HISTORY: SCREENING. No additional history. COMPARISON: 09/18/23, 07/12/22, 07/10/21, 06/23/20 TECHNIQUE: Synthesized CC and MLO projections of each breast.Tomosynthesis of each breast in the CC and MLO projections. ADDITIONAL IMAGING: None Computer-aided detection was employed with the [employer] AI 3-D. TISSUE DENSITY: There are [...] year. Mammography location: [facility] at [address], [address] -------- FINAL REPORT -------- Dictated By: Ricardo Patterson Dictated Date: 01/10/2025 17:24 ET Assigned Physician: Ricardo Patterson Reviewed and Electronically Signed By: Ricardo Patterson Signed Date: 01/10/2025 17:32 ET Workstation ID: [id number] Transcribed By: Self Edit Transcribed Date: 01/10/2025 17:24 ET us Eduardo Verma MD IMG BI PROCEDURES F inal Result * (ABNORMAL) Basic metabolic panel (12/23/2024 8:00 AM EDT) Sodium 142 133 - 145 mmol/L LAB CHEMISTRY METHOD 12/23/2024 9:15 AM [facility] Potassium 4.6 3.5 - 5.5 mmol/L LAB CHEMISTRY METHOD 12/23/2024 9:15 AM [facility] Chloride 106 96 - 110 mmol/L LAB CHEMISTRY METHOD 12/23/2024 9:15 AM [facility] CO2 32 21 - 32 mmol/L LAB CHEMISTRY METHOD 12/23/2024 9:15 AM [facility] Anion Gap 4 3 - 11 LAB CHEMISTRY METHOD 12/23/2024 9:15 AM [facility] Glucose 110(H) 70 - 100 mg/dL LAB CHEMISTRY METHOD 12/23/2024 9:15 AM [facility] BUN 20 5 - 25 mg/dL LAB CHEMISTRY METHOD 12/23/2024 9:15 AM [facility] Creatinine 0.62 0.50 - 1.10 mg/dL LAB CHEMISTRY METHOD 12/23/2024 9:15 AM [facility] eGFR 101 >=60 mL/min/1. 73m2 LAB CHEMISTRY METHOD 12/23/2024 9:15 AM [facility] Comment:Calculation based on the Chronic Kidney Disease Epidemiology Collaboration (CKD-EPI) equation refit without adjustment for race. BUN/Creatinine Ratio 32.3 LAB CHEMISTRY METHOD 12/23/2024 9:15 AM [facility] Calcium 9.8 8.5 - 10.5 mg/dL LAB CHEMISTRY METHOD 12/23/2024 9:15 AM [facility] Blood Venous blood specimen / Unknown Venipuncture / Unknown 12/23/2024 8:00 AM EDT 12/23/2024 8:44 AM EDT Eduardo Verma MD LAB BLOOD ORDERABLE S Final Result [facility] [address] [place] [address], from Last 3 Months or Most Recently Relevant to Health Maintenance Insurance MEDICAID - [place] Care Teams Senior Net Software Developer Relationship Specialty Start Date End Date Eduardo Verma MD [address] [place] [address] [place] [address] PCP - General Internal Medicine 04/08/22
[2025-04-07 15:05] VITALS: BP 104/62; PULSE 71; O2SAT 99; BMI 35.2
--- NOTE | 2025-04-07 15:05 | MHC.OFFVIS ---
Vital Signs 04/07/25 15:05 Height 5 ft Weight 180 lb 1.883 oz BMI 35.2 BP 104/62 Blood Pressure Location Rt brachial Position Sitting Pulse 71 Pulse Source Pulse Oximeter Pulse Oximetry (%) 99 Oxygen Delivery Method Room Air Intake Visit Reasons: Hypothyroidism Intake Note: Patient present today for Hypothyroidism office visit. Retail Client Manager Required: No Accompanied by: Self / Same As Patient Allergies tumeric Adverse Reaction (Uncoded 04/07/25 15:08) Hives Medication List - Last Reconciled 04/07/25 by Avani Gold MD blood sugar diagnostic (FreeStyle Lite Strips) As directed blood-glucose meter (FreeStyle Lite Meter kit) As directed cholecalciferol (vitamin D3) 25 mcg PO DAILY cyclobenzaprine 10 mg PO BEDTIME PRN levothyroxine (Tirosint) 88 mcg PO DAILY mecobalamin (vitamin B12) 500 mcg PO DAILY metformin ER 500 mg PO QPM HPI Comments Details: 64 YO F with PMHx hypothyroidism who is seen in F/U for a NTMNG.. Found to have a incidental paraaortic mass on MRI lumbar spine , in , biopsy of the mass showed follicular lymphoma. She is seeing Dr. Nelson for this. During evaluation, had a PET CT for staging performed at [facility] on 02/22/25 revealed metabolically active left para-aortic lymphadenopathy SUV max of 6.8. Asymmetric increased activity in the right thyroid lobe SUV max 5.6. Thats why she is here today. History of hypothyroidism since in her 20s or 30s Currently on levothyroxine 88 mcg , take it at 3 or 4 AM in the morning and then goes to sleep 03/20/22: She had a thyroid US which revealed a 1.3 cm RMP thyroid nodule. She was subsequently referred to Endocrinology. US thyroid showed right mid 1.3 cm nodule solid hyper echoic that had increased in size 08/29/22: She underwent CT of the neck given the compressive symptoms. This did not reveal any mass effect from the thyroid. There were some elongated lymph nodes visualized. 01/02/23: Dr. Crespo repeated US herself didnt show any real nodules jus ta heterogenous gland with pseudonodules Patient currently denies heat or cold intolerance, hair loss, palpitation, mood changes, , changes in appearance of eyes or vision changes, tremors, increased diaphoresis or dry skin. ?Some days low energy. Has Constipation. Anxiety regarding new diagnosis and has gained 8 lbs in the past 3-4 monhts due to eating a lot because of anxiety. Reports intermittent difficulty swallowing, some intermittent hoarseness. Patient denies any history of childhood neck radiation. Denies having ever used lithium, amiodarone or biotin supplements. Maternal aunt had thyroid cancer. Doesnt know what type . Physical exam General: sitting comfortably in no acute distress HEENT: normocephalic/atraumatic Neck: supple, symmetrical, Cardiac: normal heart sounds Pulm: normal breath sounds B/L, no added breath sounds Abd: not distended, no tenderness Extremities: no edema, no signs of myxedema Laboratory Tests 08/14/22 03/31/25 12:42 11:48 TSH 1.80 Thyroglobulin Antibody 17 H Thyroid Peroxidase Ab 43 H Thyroid US: 03/20/2022 Right Thyroid Lobe: 4.5 x 1.7 x 1.8 cm, volume 7.2 mL. Previously 4.1 x 1.9 x 1.7 cm, volume 6.6 mL. Parenchyma: The gland echotexture is homogeneous. Thyroid vascularity is normal. Left Thyroid Lobe: 3.7 x 1.5 x 1.2 cm, volume 3.5 mL. Previously 3.4 x 1.5 x 1.3 cm, volume 3.4 mL. Parenchyma: The gland echotexture is homogeneous. Thyroid vascularity is normal. Isthmus: 0.6 cm in maximum AP dimension. Previously 0.5 cm. Estimated total number of nodules greater than or equal to 1 cm: 1. Cutter Inspector nodules are described as follows: 1. Location: Right mid. Size: 1.3 x 1.1 x 0.7 cm, volume 0.50 mL. Previously: 0.9 x 0.5 x 0.8 cm, volume 0.14 mL. Nodule characteristics: Composition: Solid (2). Echogenicity: Hyperechoic (1). Shape: Not taller than wide (0). Margins: Smooth (0). Echogenic Foci: None (0). ACR TI-RADS total points: 3 Previous: 3 ACR TI-RADS category: 3 Previous: 3 Significant change in size (>/= 20% in 2 dimensions and minimal increase of 2 mm or 50% or greater increase in volume): None Change in features: None Change in ACR TI-RADS risk category: None NODES: No lymphadenopathy is seen in the tissue surrounding the thyroid gland. CT Neck: 08/29/2022 FINDINGS: No significant cutaneous thickening or subcutaneous inflammation. No discrete fluid collection within the deep tissues of the neck. The premaxillary, retromaxillary, pterygopalatine fossa, orbital apical, parapharyngeal, and prelaryngeal adipose tissue is maintained. Normal appearance of the parotid and submandibular glands. Heterogeneous multinodular thyroid gland similar to prior evaluation. The largest demonstrated nodule appears to measure approximately 1.3 cm (no follow-up imaging recommended based on current guidelines at the time of examination). Elongated level Ib lymph nodes measure up to 1.3 cm bilaterally with maintained normal fatty josi. Level IIa lymph nodes measure up to 1.2 cm bilaterally with maintained normal fatty josi. An elongated left supraclavicular lymph node measures up to 1.2 cm with maintained normal fatty hilum (similar to exam from 2019). Otherwise, scattered subcentimeter lymph nodes bilaterally, none of which are pathologically enlarged. Normal mucosal contours of the pharynx and larynx. Normal appearance of the hyoid bone, thyroid cartilage, or cartilaginous trachea. The airways remains widely patent. No radiopaque foreign bodies. The atlantooccipital and atlantoaxial articulations remain well aligned. Straightening of the normal cervical lordosis. Otherwise, normal anatomic alignment. No evidence of acute fracture or subluxation of the cervical spine. The vertebral body heights are maintained. Moderate degenerative disc disease at C6-C7. Mild degenerative disc disease at all additional cervical levels. There is no prevertebral soft tissue swelling. The visualized portion of the skull base is without significant abnormalities. The visualized paranasal sinuses are clear. The mastoid air cells and middle ear cavities are clear. Periapical lucency associated with the maxillary left molar. No demonstrated additional significant periapical odontogenic disease. CT Upper Chest: The visualized lung apices and upper mediastinum are within normal limits. [facility] Medical History Hypothyroidism Multinodular thyroid T2DM (type 2 diabetes mellitus) Surgical History Hx of cholecystectomy Hx of tubal ligation Family History Father Diabetes Heart attack Mother Thyroid disease COPD (chronic obstructive pulmonary disease) Maternal Aunt Thyroid cancer Social History Household Members: Spouse Housing: Apartment Are you a primary weekend caregiver to a significant other at home: Yes Do you presently have visiting nurse or other home services: No Alcohol intake: current Alcohol intake frequency: does not drink Patient Tobacco Use Status: Never used Tobacco service: No Current occupational status: disabled Physical Exam Vital Signs: Last Vital Signs Pulse 71 04/07/25 15:05 BP 104/62 04/07/25 15:05 Pulse Ox 99 04/07/25 15:05 Oxygen Delivery Method Room Air 04/07/25 15:05 BMI result Body Mass Index 35.2 Assessment & Plan Assessment & Plan (1) Multinodular thyroid: Code(s): E04.2 - Nontoxic multinodular goiter Category: Medical Plan: 64-year-old female who was found to have a right dominant 1.3 cm nodule on ultrasound of the thyroid in 2021, who was subsequently thought to have pseudonodules on ultrasound repeated in December 2022. Now she is coming in to reestablish care because recently in November 2024 she got diagnosed with follicular lymphoma, and when she underwent PET-CT scan while staging of this lymphoma in January 2025, she was noted to have increased activity in the right thyroid lobe. At this point given there is a possible concern of increased PET activity on the right thyroid lobe, with a history of possible right-sided nodule, and given her family history of thyroid cancer, I am going to order an ultrasound of the thyroid again. She does have some intermittent compressive symptoms which have been there for years. 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
== END 2025-04-07 15:48 | disposition home or self-care (01) ==
LOC: HO.ENCR 14:51
PROVIDERS: PCP Internal Medicine; Visit Provider Student in an Organized Health Care Education/Training Program
DX: E04.2 Nontoxic multinodular goiter (principal); E06.3 Autoimmune thyroiditis
CPT/HCPCS: 99214

== ENCOUNTER → 2025-04-07 14:50 | Outpatient (BNVA) | payer MEDICAID, SELFPAY | PROVIDERS: PCP Internal Medicine; Visit Provider Student in an Organized Health Care Education/Training Program | DX: E04.2 Nontoxic multinodular goiter (principal); E06.3 Autoimmune thyroiditis | CPT/HCPCS: 99212 ==

== ENCOUNTER 2025-05-23 08:05 | Outpatient (REF) | payer MEDICAID, SELFPAY ==
--- NOTE | ~2025-05-23 | CT_ITS ---
EXAMINATION: CT ABDOMEN AND PELVIS WITH CONTRAST CLINICAL INFORMATION: Follicular lymphoma. COMPARISON: Correlated to CT biopsy procedure. Left retroperitoneal lymph node/mass. CT abdomen and pelvis dated August 08, 2021. TECHNIQUE: Multidetector volumetric images were obtained from the superior aspect of the liver through the pubic symphysis following administration 85 mL of Omnipaque 350 intravenous contrast. Sagittal and coronal reformatted images were obtained on the technologist's workstation. Oral contrast: No This CT examination was performed using dose optimization techniques as appropriate, variously including the following: *Automated exposure control *Adjustment of mA and/or kV according to patient size (this includes techniques or standardized protocols for targeted exams where dose is matched to indication/reason for exam; i.e. extremities or head) *Use of iterative reconstruction technique. DLP: 985 mGy centimeter. FINDINGS: LUNG BASES: 3 mm calcified nodule, left lung base. LIVER, GALLBLADDER, AND BILIARY TREE: Liver measures 17 cm. No focal mass. The main portal veins, hepatic veins and intrahepatic portion of the IVC are patent. Status post cholecystectomy, likely laparoscopic. Mild prominent intrahepatic biliary ductal system. The common bile duct measures 6 mm. . PANCREAS: No focal mass. No peripancreatic fluid collection. No main pancreatic ductal dilatation. SPLEEN: Subcentimeter. No focal mass. ADRENAL GLANDS: No nodular lesions. KIDNEYS AND URETERS: There are a few scattered less than 9 mm cyst in the kidneys. No gross renal mass. No hydronephrosis. No gross nephrolithiasis. There is slight asymmetric prominent left pelvicalyceal system. BLADDER: Fluid-filled nearly collapsed. GASTROINTESTINAL TRACT: Abundant stool throughout the large intestine. Appendix is normal. No intestinal obstruction pattern. No intestinal wall thickening. Collapsed appearance of the rectosigmoid colon. No ascites. No pneumoperitoneum. No peripheral enhancing fluid collection, peritoneal cavity. ABDOMINAL WALL: Fat-containing umbilical hernia. LYMPH NODES: There is lymphadenopathy, retroperitoneum and mostly on the left side and below the infrarenal abdominal aorta, the largest measures 2.9 x 3.8 x 4.5 cm. VASCULAR: No aneurysm or dissection, thoracic aorta. No gross calcified plaques. PELVIC VISCERA: The uterus is elongated in anteversion position. OSSEOUS STRUCTURES: Multilevel thoracolumbar spondylosis pronounced at L2-3 without acute fracture or gross listhesis. Mild degenerative changes in the coxofemoral joints and sacroiliac joints. Facet joint hypertrophy at L5-S1 and L4-[address]/CT abdomen pelvis w IV con IMPRESSION: Left-sided retroperitoneal lymphadenopathy probably engulfing the mid to distal left ureter. Hepatomegaly, mild. Fleischner guidelines were followed. Electronically signed by: Fredi Montoya MD 05/23/2025 11:56 AM EDT
[2025-05-23 08:24] LABS: MANUAL DIFF FLAG NO
[2025-05-23 08:25] LABS: Hematocrit 39.4 % (37.0-47.0); Hemoglobin 13.2 g/dl (12.0-16.0); Imm Gran Abs Auto 0.03 X10*3/uL (0.00-0.03); Imm Gran Pct Auto 0.4 % (0.0-0.4); Lymphocytes Absolute Auto 2.2 X10*3/uL (1.2-4.9); Mean Corpuscular HGB Conc 33.5 g/dl (31.0-35.0); Mean Corpuscular Hemoglobin 30.1 pg (27.0-33.0); Mean Corpuscular Volume 89.7 fL (80.0-98.0); NRBC Abs Auto 0.000 X10*3/uL (0.0-0.012); NRBC Pct Auto 0.0 /100WBC (0.0-0.2); Platelet Count 330 X10*3/uL (160-400); Red Blood Count 4.39 X10*6/uL (4.20-5.50); White Blood Count 7.8 X10*3/uL (4.8-10.8)
[2025-05-23 08:50] LABS: Alanine Aminotransferase 19 U/L (0-31); Albumin Level 4.3 g/dL (3.5-5.0); Alkaline Phosphatase 69 U/L (39-117); Anion Gap 13 (12-20); Aspartate Amino Transferase 23 U/L (5-31); Blood Urea Nitrogen 15 mg/dL (9-16); Calcium 9.9 mg/dL (8.4-10.2); Carbon Dioxide 29 mmol/L (22-29); Chloride 105 mmol/L (96-108); Estimated Glomerular Filt Rate > 60; Potassium 5.1 mmol/L (3.3-5.1); Sodium 142 mmol/L (135-145); Total Protein 7.5 g/dL (6.5-8.0)
[2025-05-23] MEDS: iohexoL 350 MG/ML 100 ML INFUS..BTL 85 ML IV (11:36)
== END 2025-05-23 08:06 | disposition home or self-care (01) ==
LOC: HO.CT 08:05
PROVIDERS: PCP Internal Medicine; Visit Provider Internal Medicine
DX: R59.0 Localized enlarged lymph nodes (principal)
CPT/HCPCS: 36415; 74177; 80053; 82232; 83615; 85025; Q9967

== ENCOUNTER → 2025-05-23 11:06 | Outpatient (BNV) | payer MEDICAID, SELFPAY | PROVIDERS: PCP Internal Medicine; Visit Provider Radiology Diagnostic Radiology | DX: C82.93 Follicular lymphoma, unspecified, intra-abdominal lymph nodes (principal); R59.0 Localized enlarged lymph nodes | CPT/HCPCS: 74177 ==

== ENCOUNTER 2025-05-26 15:14 | Outpatient (REF) | payer MEDICAID, SELFPAY ==
--- NOTE | ~2025-05-26 | US_ITS ---
EXAMINATION: US THYROID HISTORY: E04.2 - Nontoxic multinodular goiter. History of follicular lymphoma with a staging PET/CT scan showing increased activity on the right side of the thyroid. TECHNIQUE: Real-time grayscale ultrasound imaging was performed and images were reviewed. COMPARISON: Comparison is made with the prior examination dated . FINDINGS: SIZE: The right thyroid lobe measures 4.7 x 1.7 x 1.5 cm. The left thyroid lobe measures 4.2 x 1.5 x 1.2 cm. The isthmus measures 4 mm. FLOW: Flow to the gland is normal. ECHOGENICITY: The echotexture of the gland is homogeneous. NODULES: There are nodules in the right thyroid lobe as described below: Nodule #: 1 Location: Mid to lower pole of the right thyroid lobe measuring 1.2 x 0.7 x 0.9 cm (previously 1.3 x 1.1 x 0.7 cm). Shape: Wider than tall (0 points) Margins: Ill-defined (0 points) Echotexture: Isoechoic (1 point) Composition: Solid (2 points) Calcifications: None (0 points) Total points: 3 TIRADS: TR3: Mildly suspicious. Nodule #: 2 Location: Lower pole of the right thyroid lobe measuring 1.3 x 0.8 x 0.8 cm (not seen previously). Shape: Wider than tall (0 points) Margins: Ill-defined (0 points) Echotexture: Hyperechoic (1 point) Composition: Solid (2 points) Calcifications: None (0 points) Total points: 3 TIRADS: TR3: Mildly suspicious. US/US thyroid IMPRESSION: Mildly suspicious nodules on the right, one of which is new from the prior study. ACR TI-RADS Guidelines TR1 (0 points): Benign. No follow-up or biopsy required TR2 (2 points): Not Suspicious. No biopsy or follow up indicated TR3 (3 points): Mildly Suspicious. FNA if >= 2.5 cm, Follow if >= 1.5 cm TR4 (4-6 points): Moderately Suspicious. FNA if >= 1.5 cm, Follow if >= 1.0 cm TR5 (>=7 points): Highly Suspicious. FNA if >= 1.0 cm, Follow if >= 0.5 cm Electronically signed by: Siddhartha Jim MD 05/27/2025 07:25 AM EDT
--- OUTSIDE RECORDS SUMMARY | 2025-05-26 15:50 | XMS_ITS | Encounter Summary ---
Author Organization [employer] Address [address] [facility] 7t [place] [address] Care Team Providers Care Flavor Extractor Name Role Phone Eduardo Minor MD Primary Care Provide r Reason for Visit * Reason Comments Med Refill Encounter Details Date Type Department Care Team ([facility] st Contact Info) Description 08/14/[address] [facility] [address] [place], [place] [phone] Eduardo Minor MD [address] [place], [place] [phone] Social History Tobacco Use Types Packs/Day Years [...] t he electric, gas, oil or water [employer] threatened to shut off services in your [...] Care Team (Late st Contact Info) Description 07/07/2025 10:30 AM EDT Office Visit [facility] [address] [place] [address] Eduardo Minor MD [address] [place] [address] documented as of this encounter Visit Diagnoses Not on filedocumented in this encounter Additional Health Concerns Assessment Noted Time PHQ-9 Depression Total Score: 5 01/08/20 23 1:17 PM EDT documented as of this encounter Care Teams Flavor Extractor Relationship Specialty Start Date End Date Eduardo Minor MD [address] [place] [address] PCP - General Internal Medicine 03/18/19 documented as of this encounter
--- OUTSIDE RECORDS SUMMARY | 2025-05-26 15:50 | XMS_ITS | Encounter Summary ---
Author Organization [employer] Address [address] [facility] 7 [place] [address] Care Team Providers Care House Mover Helper Name Role Phone Eduardo Minor MD Primary Care Provide r Reason for Visit * Reason Onset Date Comments Med Refill 10/13/2024 Encounter Details Date Type Department Care Team ([facility] st Contact Info) Description 10/13/2024 Refill [facility] MED[facility]INE [address] [place], [place] [phone] Eduardo Minor MD [address] [place] [address] Type 2 diabetes mellitus without complication, without long-term current use of insulin ([facility]); Type 2 diabetes mellitus without complication, unspecified whether alf insulin use ([facility]) Social History Tobacco Use Types Packs/Day Years [...] Description 07/07/2025 10:30 AM EDT Office Visit [facility] [address] [place] [address] Eduardo Minor MD [address] [place] [address] documented as of this encounter Visit Diagnoses Diagnosis Type 2 diabetes mellitus without complication, unspecified whether terminal operations supervisor insulin use ([facility]) documented in this encounter Additional Health Concerns Assessment Noted Time PHQ-9 Depression Total Score: 0 02/03/20 24 1:01 PM EDT documented as of this encounter Care Teams House Mover Helper Relationship Specialty Start Date End Date Eduardo Minor MD [address] [place] [address] PCP - General Internal Medicine 03/18/19 documented as of this encounter
--- OUTSIDE RECORDS SUMMARY | 2025-05-26 15:50 | XMS_ITS | Clinical Summary ---
Author Organization [facility] Address [address] [place] [address] Phone Care Team Providers Care Pelletising Extruder Operator Name Role Phone Eduardo Verma MD [facility] Surgical History Surgery Date Site/Laterality Comments CHOLECYSTECTOMY PROCEDURE: [place] LAPAROSCOPY SURG CHOLECYSTECTOMY Medical History Medical History [...] AM EDT [facility]ment [facility] [address] [address] Health Maintenance Due Date Last [...] Vaccine ( season) 2024 10/24/2021, 01/12/2021, 12/15/2020 Depression Screening 09/29/2024 Diabetes: Annual Urine Albumin-Creatinine Ratio (uACR) 12/07/2024 Influenza Vaccine (#1) 2025 Diabetes: Blood Sugar Control Test (HGBA1C) 06/04/2025 12/02/2024 Diabetes: Annual GFR (Glomerular Filtration Rate) 12/23/2025 12/23/2024, 12/23/2024 Hypertension/CHF/CAD Annual BMP Blood Test 12/23/2025 12/23/2024, 12/23/2024 Breast Cancer Screening 01/10/2027 01/11/20, 09/18/2023, 07/12/2022, Additional history exists Cholesterol Screening [...] Recently Relevant to Health Maintenance Results * MG Mammo Digital Screening w [...] year. Mammography location: [facility] at [address], [address] -------- FINAL REPORT -------- Dictated By: Ricardo Patterson Dictated Date: 01/10/2025 17:24 ET Assigned Physician: Ricardo Patterson Reviewed and Electronically Signed By: Ricardo Patterson Signed Date: 01/10/2025 17:32 ET Workstation ID: [id number] Transcribed By: Self Edit Transcribed Date: 01/10/2025 17:24 ET Narrative 01/10/2025 5:32 PM EDT EXAM: SCREENING MAMMOGRAPHY, BILATERAL HISTORY: SCREENING. No additional history. COMPARISON: 09/18/23, 07/12/22, 07/10/21, 06/23/20 TECHNIQUE: Synthesized CC and MLO projections of each breast. Tomosynthesis of each breast in the CC and MLO projections. ADDITIONAL IMAGING: None Computer-aided detection was employed with the [employer] AI 3-D. TISSUE DENSITY: There are scattered [...] None Computer-aided detection was employed with the [employer] AI 3-D. TISSUE DENSITY: There are scattered [...] year. Mammography location: [facility] at [address], [address] -------- FINAL REPORT -------- Dictated By: Ricardo Patterson Dictated Date: 01/10/2025 17:24 ET Assigned Physician: Ricardo Patterson Reviewed and Electronically Signed By: Ricardo Patterson Signed Date: 01/10/2025 17:32 ET Workstation ID: [id number] Transcribed By: Self Edit Transcribed Date: 01/10/2025 17:24 ET us Eduardo Verma MD IMG BI PROCEDURES F inal Result * (ABNORMAL) Basic metabolic panel (12/23/2024 8:00 AM EDT) Sodium 142 133 - 145 mmol/L LAB CHEMISTRY METHOD 12/23/2024 9:15 AM [facility] Potassium 4.6 3.5 - 5.5 mmol/L LAB CHEMISTRY METHOD 12/23/2024 9:15 AM [facility] Chloride 106 96 - 110 mmol/L LAB CHEMISTRY METHOD 12/23/2024 9:15 AM [facility] CO2 32 21 - 32 mmol/L LAB CHEMISTRY METHOD 12/23/2024 9:15 AM [facility] Anion Gap 4 3 - 11 LAB CHEMISTRY METHOD 12/23/2024 9:15 AM [facility] Glucose 110(H) 70 - 100 mg/dL LAB CHEMISTRY METHOD 12/23/2024 9:15 AM [facility] BUN 20 5 - 25 mg/dL LAB CHEMISTRY METHOD 12/23/2024 9:15 AM [facility] Creatinine 0.62 0.50 - 1.10 mg/dL LAB CHEMISTRY METHOD 12/23/2024 9:15 AM [facility] eGFR 101 >=60 mL/min/1. 73m2 LAB CHEMISTRY METHOD 12/23/2024 9:15 AM [facility] Comment:Calculation based on the Chronic Kidney Disease Epidemiology Collaboration (CKD-EPI) equation refit without adjustment for race. BUN/Creatinine Ratio 32.3 LAB CHEMISTRY METHOD 12/23/2024 9:15 AM [facility] Calcium 9.8 8.5 - 10.5 mg/dL LAB CHEMISTRY METHOD 12/23/2024 9:15 AM [facility] Blood Venous blood specimen / Unknown Venipuncture / Unknown 12/23/2024 8:00 AM EDT 12/23/2024 8:44 AM EDT Eduardo Verma MD LAB BLOOD ORDERABLE S Final Result [facility] [address] [place] [address], from Last 3 Months or Most Recently Relevant to Health Maintenance Insurance MEDICAID - [place] Care Teams Pelletising Extruder Operator Relationship Specialty Start Date End Date dEuardo Verma MD [address] [place] [address] [place] [address] PCP - General Internal Medicine 04/08/22
--- OUTSIDE RECORDS SUMMARY | 2025-05-26 15:50 | XMS_ITS | Encounter Summary ---
Author Organization [employer] Address [address] [facility] 7t [place] [address] Care Team Providers Care Assistant Operator Name Role Phone Eduardo Minor MD Primary Care Provide r Encounter Details Date Type Department Care Team ([facility] Contact Info) Description 03/16/2025 Orders Only [facility] [address] [place] [address] Provider, MD Carlyle Social History Tobacco Use Types Packs/Day Years [...] Description 07/07/2025 10:30 AM EDT Office Visit [facility] MED[facility]INE [address] [place], [place] [phone] Eduardo Minor MD [address] [place] [address] documented as of this encounter Procedures Procedure Name Priority Date/Time Associated Diagnosis Comments PET/CT BONE SKULL BASE TO MID THIGH Routine 02/22/2025 3:18 PM EDT documented in this encounter Results * PET/CT Bone Skull Base to Mid Thigh (02/22/2025 3:18 PM EDT) Anatomical Region Laterality Modality Body Computed Tomogra phy us Historical Provider MD SOLIMAN CT PROCEDURES Final R esult documented in this encounter Visit Diagnoses Not on filedocumented in this encounter Additional Health Concerns Assessment Noted Time PHQ-9 Depression Total Score: 0 12/03/19 25 1:50 PM EST documented as of this encounter Care Teams Assistant Operator Relationship Specialty Start Date End Date Eduardo Minor MD [address] [place], [place] [phone] PCP - General Internal Medicine 03/18/19 documented as of this encounter
--- OUTSIDE RECORDS SUMMARY | 2025-05-26 15:50 | XMS_ITS | Encounter Summary ---
Author Organization [employer] Address [address] [place] [address] 7 [place] [address] Care Team Providers Care Soccer Referee Name Role Phone Eduardo Minor MD Primary Care Provide r Reason for Visit * Reason Comments Med Refill Encounter Details Date Type Department Care Team ([facility] Contact Info) Description 01/16/2023 Refill [facility] [address] [place] [phone] Eduardo Minor MD [address] [place] [address] Acquired hypothyroidism Social History Tobacco Use Types [...] Upcoming Encounters Date Type Department Care Team ([facility] Contact Info) Description 07/07/2025 10:30 AM EDT Office Visit [facility] [address] [place] [address] Eduardo Minor MD [address] [place] [address] documented as of this encounter Visit Diagnoses Diagnosis Acquired hypothyroidism Unspecified hypothyroidism documented in this encounter Additional Health Concerns Assessment Noted Time PHQ-9 Depression Total Score: 5 01/08/20 23 1:17 PM EDT documented as of this encounter Care Teams Soccer Referee Relationship Specialty Start Date End Date Eduadro Minor MD [address] [place] [address] PCP - General Internal Medicine 03/18/19 documented as of this encounter
--- OUTSIDE RECORDS SUMMARY | 2025-05-26 15:50 | XMS_ITS | Encounter Summary ---
Author Organization [employer] Address [address] [facility] 7t [place] [address] Care Team Providers Care Special Agent Fbi Name Role Phone Eduardo Minor MD Primary Care Provide r Encounter Details Date Type Department Care Team ([facility] st Contact Info) Description 01/03/2025 Orders Only [facility] MEDICINE [address] [place], [place] [phone] Bel Han MD [address] [place], [place] [phone] Social History Tobacco Use Types Packs/Day Years [...] Description 07/07/2025 10:30 AM EDT Office Visit [facility] MEDICINE [address] [place] [address] Eduardo Minor MD [address] [place] [address] documented as of this encounter Visit Diagnoses Not on filedocumented in this encounter Additional Health Concerns Assessment Noted Time PHQ-9 Depression Total Score: 0 12/03/19 25 1:50 PM EST documented as of this encounter Care Teams Special Agent [employer] Relationship Specialty Start Date End Date Eduardo Minor MD [address] [place] [address] PCP - General Internal Medicine 03/18/19 documented as of this encounter
--- OUTSIDE RECORDS SUMMARY | 2025-05-26 15:50 | XMS_ITS | Encounter Summary ---
Author Organization [employer] Address [address] [facility] [address] 7[address] [place] [address] Care Team Providers Care Shipping And Receiving Specialist Name Role Phone Eduardo Minor MD Primary Care Provide r Encounter Details Date Type Department Care Team ([facility] st Contact Info) Description 11/07/2023 Orders Only [facility] [address] [place] [phone] Ronny Topete MD [address] [place], [place] [phone] Posterior chest pain (Primary Dx) Social History [...] 10:30 AM EDT Office Visit [facility] [address] [place] [address] Eduardo Minor MD [address] [place] [address] Scheduled Orders Name Type Priority Associated Diagnoses Orde r Schedule XR Chest 2 Views Imaging Routine Posterior chest pain Expected: 11/07/2023, Expires: 11/07/2024 documented as of this encounter Visit Diagnoses Diagnosis Posterior chest pain- Primary documented in this encounter Additional Health Concerns Assessment Noted Time PHQ-9 Depression Total Score: 5 01/08/20 23 1:17 PM EDT documented as of this encounter Care Teams Shipping And Receiving Specialist Relationship Specialty Start Date End Date Eudardo Minor MD [address] [place] [address] PCP - General Internal Medicine 03/18/19 documented as of this encounter
--- OUTSIDE RECORDS SUMMARY | 2025-05-26 15:50 | XMS_ITS | Patient Health Record ---
Author Organization [facility] Address [address] [place] [address] Care Team Providers Care Readiness Paraprofessional Name Role Phone Drew Long MD, Eduardo Primary Care Provide r [place] Unavailable [phone] Allergies No Known Allergies Reason For Referral [...] Problem Status W/U Status Risk Notes Problem 658147054 Encounter for screening for malignant neoplasm of colon (Z12.11) Active confirmed Problem 333600442 History of adenomatous polyp of colon (Z86.010) Active confirmed Problem 899677985 Bloating (R14.0) Active confirmed Problem Diverticulosis o f large intestine without perforation or abscess without bleeding (K57.30) Active confirmed Problem [id number] Pre-procedural examination (Z01.818) Active confirmed Plan Of Treatment Future Test Test Name Order Date COLONOSCOPY 11/05/2012 COLONOSCOPY 01/31/2017 COLONOSCOPY 10/31/2022 Insurance Providers Payer Name Payer Address Payer Phone Subscriber Number Group Number Insured Name Patient Relationship to Insured Coverage Start Date Coverage End Date [employer] [facility] [address] [place] [address] [id number] JOSE SHANAE Self - patient is the insured Medical (General) History Medical History History ICD Code NIDDM Hypothyroidism and thyroid nodule Denies [place],CVA,Lung disease,renal disease Neg. ETT at [facility] in 2011 and 1 10/2015 Screening Colonoscopy 12/2012 --small tubular adenomas, mild diverticulosis, small internal hemorrhoids Negative colonoscopy in 08/2017 Surgical History Surgery Date(Month/Year) Tubal ligatiion 4 C-sections Cholecystectomy
--- OUTSIDE RECORDS SUMMARY | 2025-05-26 15:50 | XMS_ITS | Clinical Summary ---
Author Organization [employer] Address [address] [place] [address] 7[address] [place] [address] Care Team Providers Care Referral And Information Aide Name Role Phone Eduardo Minor MD [...] complication, without long-term current use of insulin ([facility]) USE KIT TWICE DAILY 1 kit 4 Active levothyroxine (Synthroid) 88 MCG tablet Take 1 tablet (88 mcg) by mouth before breakfast. 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 Newly diagnosed 12/2024 as a result of an incidental finding on a Lumbar MRI done on 12/09/2024 which revealed a 4.9 x 3 cm para-aortic soft tissue mass at level of L3. CT abdomen/pelvis performed 12/28/2024 showed soft tissue mass in left para- aortic region measuring 3.8 x 3.2 x 4.6 cm with additional enlarged lymph node in the left periaortic region more superiorly measuring up to 1.5 cm. Finding concerning for neoplastic process such as lymphoma. On 01/25/2025 she underwent core needle biopsy of left retroperitoneal mass which [id number] B-cell lymphoma with CD10 coexpression consistent with follicular lymphoma. FISH for t(14:18) is positive. Concurrent flow cytometry identified lambda light chain restricted B-cells with some degree of CD10 coexpression. By IHC lymphocytes are reactive with CD20 and coexpress CD10, dim, BCL6 dim and BCL 2. Proliferation index is low approximately 15% with Ki 67 immunostain. Low-grade follicular lymphoma, grade 1-2. Under the care of Hem/Onc Dr. Nelson. Last seen 02/09/2025 Per her last note: Blood work today showed normal CBC, normal ESR of 12 mm/hr, normal LDH of 124 normal kidney and liver functions which is reassuring. Patient does not have any constitutional or B symptoms. Dr. Nelson explained diagnosis of low- grade non-Hodgkin lymphoma/follicular lymphoma. This often affects people over the age of 50 and is the most common type of NHL in adults. Most patients have no symptoms, treatment could sometimes involve watchful waiting, radiation therapy for limited disease or a combination of immunotherapy/chemotherapy for more advanced stages. Per Sr. Nelson prognosis is generally good with median survival exceeding [address] Nelson ordered a Staging with PET-CT. Which patient tells me she already had. Soft tissue mass 01/03/2025 Overview (01/03/2025): Pt [...] Left leg numbness 12/02/2024 Assessment & Plan (02/24/2025 11:03 AM EDT): Pt with previous c/o new onset of Left anterior leg numbness. Pt denies back pain at rest but reports it when bending Plain x-ray LS spine: 11/2024 showed: IMPRESSION: Mild degenerative disc changes L2-3 disc level with ventral spondylosis. No visible acute fracture, dislocation or subluxation seen MRI LS 11/2024 showed: FINDINGS: Partially visible 4 x 2.9 cm soft tissue mass in the left para-aortic region at L3. No other paraspinous soft tissue findings. No significant listhesis. No compression deformity. L5 vertebral body hemangioma. No concerning marrow infiltrative lesion. The conus is in a normal position at L1. NCS Pending rescheduled for next month Assessment & Plan (12/02/2024 2:16 PM EST): [...] Seen on , follows with Dr Paulson [facility] 01/07/2023 Assessment & Plan (02/03/2024 1:03 PM EDT): Mammogram: 09/18/2023 Normal done at [facility] Pap Smear: Done 08/2023 at [facility] Colonoscopy: 11/2022 showed a Tubular adenoma, Diverticulosis and Hemorrhoids Dr. Calderon Assessment & Plan (01/07/2023 4:16 PM EDT): Mammogram: 07/12/2022 Normal done at [facility] Pap Smear: Done by Dr Paulson [facility] Colonoscopy: 12/09/2022 showed a Tubular adenoma, Diverticulosis and Hemorrhoids Dr. Calderon Acquired hypothyroidism 10/07/2022 Assessment & Plan (02/24/2025 10:54 AM EDT): Pt with Hypothyroidism Used to be under the care of Dr Merida, last note on record 07/2022 on: Levothyroxine tablets 88 mcg po daily seen in the past by Dr Longo TSH and Free T4 01/30/2024 wnl. Will repeat Assessment & Plan (12/02/2024 2:06 PM EST): [...] diabetes mellitus without complication Assessment & Plan (02/24/2025 10:53 AM EDT): Patient here for a f/u DM controlled She had been on a regimen of: Metformin XR 500 mg po daily . Pt tells me she stopped it on her own because her BG were fine Hgb A1c 12/02/2024: 6.4 Eye exam 04/07/2024 [facility] Microalbumin checked on: 11/30/2020 1 was: [...] on a daily basis Assessment & Plan (12/02/2024 2:14 PM EST): Patient here for a f/u DM controlled She had been on a regimen of: Metformin XR 500 mg po daily . Pt tells me she stopped it on her own because her BG were fine Hgb A1c 12/02/2024: 6.4 Eye exam 04/07/2024 [facility] Microalbumin checked on: 11/30/2020 1 was: [...] Hgb A1c 08/03/2024: 5.9 Eye exam 04/07/2024 [facility] Microalbumin checked on: 11/30/2020 1 was: [...] was: 0.4 Pt is not on an HOLGRE/ARB. Pt very concerned about side effects of [...] done Pt has a follow up 01/16/2023 Resolved Problems Problem Noted Date Diagnosed Date Resolved Date Abnormal computed tomography angiography (CTA) of abdomen and pelvis 01/03/2025 02/24/2025 Overview (01/03/2025): Pt reported left leg numbness [...] interventional radiology placed 01/03/25. Will notify PCP. Encounters Date Type Department Care Team Description 05/26/2025 Telephone [facility] [address] [place] [address] Eduardo Minor MD Appointment Confirmation 05/25/2025 Telephone [facility] [address] [place] [address] Eduardo Minor MD Chart Prep 05/23/2025 Orders Only GENERIC EXTERNAL DATA DEPARTMENT Provider, Generic External Data 05/18/2025 Patient Outreach [facility] [address] [place], [place] [phone] Eduardo Minor MD Pre-visit Planning ([facility] screening was completed on 12/02/2024) 05/11/2025 Telephone [facility] [address] [facility] [place] [address] Eduardo Minor MD Nurse Triage 05/08/2025 Refill [facility] [address] [facility] [place] [address] Eduardo Minor MD Type 2 diabetes mellitus without complication, without long-term current use of insulin (CMS/HCC) 03/16/2025 Orders Only [facility] [address] [place] [address] Carlyle Holden MD 02/25/2025 Orders Only [facility] [place] [address] Carlyle Holden MD 02/24/2025 11:00 AM EDT Office Visit [facility] [place] [address] Eduardo Minor MD B-cell non-Hodgkin lymphoma (CMS/HCC) (Primary Dx); Type 2 diabetes mellitus without complication, without long-term current use of insulin (CMS/HCC); Acquired hypothyroidism; Left leg numbness; Type 2 diabetes mellitus without complication, unspecified whether mcfp insulin use (CMS/HCC) 02/24/2025 Travel 02/24/2025 Telephone [facility] [address] [facility] [place] [address] Eduardo Minor MD CHART PREP from Last 3 Months Immunizations Immunization Administration Dates Next Due Tdap 08/09/2021 Social [...] your housing situation today? I have xiomy sing 02/03/[address] you li [...] Sign Reading Time Taken Comments Blood Pressure 140/78 02/24/2025 10:55 AM EDT Pulse 80 02/24/2025 10:55 AM EDT Temperature 36.1 C (97 F) 02/24/2025 10:55 AM EDT Respiratory Rate 20 02/24/2025 10:55 AM EDT Oxygen Saturation 98% 02/24/2025 10:55 AM EDT Inhaled Oxygen Concentration - - Weight 78 kg (172 lb) 02/24/2025 10:55 AM EDT Height 152.4 cm (5') 02/24/2025 10:55 AM EDT Body Mass Index 33.59 02/24/2025 10:55 AM EDT Plan of Treatment Upcoming Encounters Date Type Department Care Team (Late st Contact Info) Description 07/07/2025 10:30 AM EDT Office Visit [facility] [address] [place] [address] Eduardo Minor MD [address] [place], [place] [phone] Health Maintenance Due Date Last Done Comments CT Colonography 1962 FIT DNA/Cologuard 1960 FIT 1960 FOBT 1960 HIV Screening 1960 Sigmoidoscopy 1960 Eye Exam 1972 Hepatitis C Screening 1980 Pneumococcal Vaccine: 50+ Years (1 of 2 - PCV) 1981 Zoster Vaccines (1 of 2) 1981 RSV Patients and Patients Aged 60 years or older (1 - Risk 60-74 years 1-dose series) 2022 COVID-19 Vaccine ( season) 2024 10/24/2021, 01/12/2021, 12/15/2020 Lipid Panel 05/27/2025 05/27/2024, 12/28, 11/30/2020 Influenza Vaccine (#1) 2025 Diabetes: Urine Protein Screening 08/03/2025 08/03/2024, 01/07/2023, 11/30/2020 Diabetes: Hemoglobin A1C 08/27/2025 025, 12/02/2024, 02/03/2024, Additional history exists Diabetes: Foot Exam 11/20/2025 11/20/2024 Tobacco Screening 11/23/2025 11/23/2024 Alcohol/Substance Use Screening 12/02/2025 12/02/2024 Depression Screening 12/02/2025 12/02/2024, 12/03/19 25 SDOH Screening 12/02/2025 12/02/2024 Mammogram 01/10/2026 01/10/2025, 12/28, 01/10/2025, Additional history exists Disability Screening 02/24/2026 02/24/2025 Cervical Cancer Screening 09/18/2026 HPV/Cotest 09/18/2026 07/09/2022 [...] Procedure Name Priority Date/Time Associated Diagnosis Comments CT ABDOMEN PELVIS W CONTRAST Routine 05/23/2025 11:14 AM EDT LD Routine 05/23/2025 8:21 AM EDT COMPREHENSIVE METABOLIC PANEL Routine 05/23/2025 8:21 AM EDT CBC WITH AUTO DIFFERENTIAL Routine 05/23/2025 8:21 AM EDT CBC WITH AUTO DIFFERENTIAL Routine 03/31/2025 11:48 AM EDT B-cell non-Hodgkin lymphoma (CMS/HCC) COMPREHENSIVE METABOLIC PANEL Routine 03/31/2025 11:48 AM EDT Type 2 diabetes mellitus without complication, without long-term current use of insulin (CMS/HCC) TSH W/REFLEX TO FT4 Routine 03/31/2025 1 1:48 AM EDT Acquired hypothyroidism POCT GLYCATED HEMOGLOBIN, TOTAL Routine 02/24/2025 11:11 AM EDT Type 2 diabetes mellitus without complication, without long-term current use of insulin (CMS/HCC) POCT GLUCOSE Routine 02/24/2025 11:08 AM EDT Type 2 diabetes mellitus without complication, without long-term current use of insulin (CMS/HCC) BI MAMMOGRAM SCREENING TOMOSYNTHESIS BILATERAL Routine 01/10/2025 Breast cancer screening by mammogram ALBUMIN, RANDOM URINE W/CREATININE Routine 08/03/2024 1:35 PM EST Type 2 diabetes mellitus without complication, without long-term current use of insulin (CMS/HCC) LIPID PANEL, STANDARD Routine 05/27/2024 7:46 AM EDT Mixed hyperlipidemia HM PAP/HPV Routine 09/18/2023 HM COLONOSCOPY Routine 12/09/2022 PAP/HPV Routine 07/09/2022 from Last 3 Months or Most Recently Relevant to Health Maintenance Results * CT Abdomen Pelvis w/ Contrast (05/23/2025 11:14 AM EDT) Anatomical Region Laterality Modality Body, Pelvis, Abdomen Computed T omography 05/23/2025 11:1 4 AM EDT Narrative 05/23/2025 12:00 PM EDT [place] [id number] CT Scan Report Signed Patient: Lili Madrid MR#: [id number] : 1960 Acct:[id number] Age/Sex: 64 / F ADM Date: 05/23/25 Loc: HO.CT Attending Dr: Xochitl Nelson MD Ordering Physician: Xochitl Nelson MD Date of Service: 05/23/25 Procedure(s): CT abdomen pelvis w IV con Accession Number(s): [id number] cc: Xochitl Nelson MD; Eduardo Verma MD Report Number: [id number]: Total DLP = 985.00 mGy-cm EXAMINATION: CT ABDOMEN AND PELVIS WITH CONTRAST CLINICAL INFORMATION: Follicular lymphoma. COMPARISON: Correlated to CT biopsy procedure. Left retroperitoneal lymph node/mass. CT abdomen and pelvis dated August 08, 2021. TECHNIQUE: Multidetector volumetric images were obtained from the superior aspect of the liver through the pubic symphysis following administration 85 mL of Omnipaque 350 intravenous contrast. Sagittal and coronal reformatted images were obtained on the technologist's workstation. Oral contrast: No This CT examination was performed using dose optimization techniques as appropriate, variously including the following: *Automated exposure control *Adjustment of mA and/or kV according to patient size (this includes techniques or standardized protocols for targeted exams where dose is matched to indication/reason for exam; i.e. extremities or head) *Use of iterative reconstruction technique. DLP: 985 mGy centimeter. FINDINGS: LUNG BASES: 3 mm calcified nodule, left lung base. LIVER, GALLBLADDER, AND BILIARY TREE: Liver measures 17 cm. No focal mass. The main portal veins, hepatic veins and intrahepatic portion of the IVC are patent. Status post cholecystectomy, likely laparoscopic. Mild prominent intrahepatic biliary ductal system. The common bile duct measures 6 mm. . PANCREAS: No focal mass. No peripancreatic fluid collection. No main pancreatic ductal dilatation. SPLEEN: Subcentimeter. No focal mass. ADRENAL GLANDS: No nodular lesions. KIDNEYS AND URETERS: There are a few scattered less than 9 mm cyst in the kidneys. No gross renal mass. No hydronephrosis. No gross nephrolithiasis. There is slight asymmetric prominent left pelvicalyceal system. BLADDER: Fluid-filled nearly collapsed. GASTROINTESTINAL TRACT: Abundant stool throughout the large intestine. Appendix is normal. No intestinal obstruction pattern. No intestinal wall thickening. Collapsed appearance of the rectosigmoid colon. No ascites. No pneumoperitoneum. No peripheral enhancing fluid collection, peritoneal cavity. ABDOMINAL WALL: Fat-containing umbilical hernia. LYMPH NODES: There is lymphadenopathy, retroperitoneum and mostly on the left side and below the infrarenal abdominal aorta, the largest measures 2.9 x 3.8 x 4.5 cm. VASCULAR: No aneurysm or dissection, thoracic aorta. No gross calcified plaques. PELVIC VISCERA: The uterus is elongated in anteversion position. OSSEOUS STRUCTURES: Multilevel thoracolumbar spondylosis pronounced at L2-3 without acute fracture or gross listhesis. Mild degenerative changes in the coxofemoral joints and sacroiliac joints. Facet joint hypertrophy at L5-S1 and L4-[address]/CT abdomen pelvis w IV con IMPRESSION: Left-sided retroperitoneal lymphadenopathy probably engulfing the mid to distal left ureter. Hepatomegaly, mild. Fleischner guidelines were followed. Electronically signed by: Fredi Montoya MD 05/23/2025 11:56 AM EDT Dictated By: Fredi Woodward MD Signed By: <Electronically signed by Fredi Silva MD in OV> 05/23/25 1156 DD/ 1114 TD/TT: 05/23/25 1136 Filling Station Attendant: Procedure Note Donotuseinterpreter, Image - 05/23/[address] [place] [id number] [address] Scan Report Signed Patient: Linda Madrid#: [id number] : 2Acct:[id number] Age/Sex: 64 / FADM Date: 05/23/25 Loc: HO.CT Attending Dr: Xochitl Nelson MD Ordering Physician: Xochitl Nelson MD Date of Service: 05/23/25 Procedure(s): CT abdomen pelvis w IV con Accession Number(s): [id number] cc: Xochitl Nelson MD; Eduardo Verma MD Report Number: [id number]: Total DLP = 985.00 mGy-cm EXAMINATION: CT ABDOMEN AND PELVIS WITH CONTRAST CLINICAL INFORMATION: Follicular lymphoma. COMPARISON: Correlated to CT biopsy procedure. Left retroperitoneal lymph node/mass. CT abdomen and pelvis dated August 08, 2021. TECHNIQUE: Multidetector volumetric images were obtained from the superior aspect of the liver through the pubic symphysis following administration 85 mL of Omnipaque 350 intravenous contrast. Sagittal and coronal reformatted images were obtained on the technologist's workstation. Oral contrast: No This CT examination was performed using dose optimization techniques as appropriate, variously including the following: *Automated exposure control *Adjustment of mA and/or kV according to patient size (this includes techniques or standardized protocols for targeted exams where dose is matched to indication/reason for exam; i.e. extremities or head) *Use of iterative reconstruction technique. DLP: 985 mGy centimeter. FINDINGS: LUNG BASES: 3 mm calcified nodule, left lung base. LIVER, GALLBLADDER, AND BILIARY TREE: Liver measures 17 cm. No focal mass. The main portal veins, hepatic veins and intrahepatic portion of the IVC are patent. Status post cholecystectomy, likely laparoscopic. Mild prominent intrahepatic biliary ductal system. The common bile duct measures 6 mm. . PANCREAS: No focal mass. No peripancreatic fluid collection. No main pancreatic ductal dilatation. SPLEEN: Subcentimeter. No focal mass. ADRENAL GLANDS: No nodular lesions. KIDNEYS AND URETERS: There are a few scattered less than 9 mm cyst in the kidneys. No gross renal mass. No hydronephrosis. No gross nephrolithiasis. There is slight asymmetric prominent left pelvicalyceal system. BLADDER: Fluid-filled nearly collapsed. GASTROINTESTINAL TRACT: Abundant stool throughout the large intestine. Appendix is normal. No intestinal obstruction pattern. No intestinal wall thickening. Collapsed appearance of the rectosigmoid colon. No ascites. No pneumoperitoneum. No peripheral enhancing fluid collection, peritoneal cavity. ABDOMINAL WALL: Fat-containing umbilical hernia. LYMPH NODES: There is lymphadenopathy, retroperitoneum and mostly on the left side and below the infrarenal abdominal aorta, the largest measures 2.9 x 3.8 x 4.5 cm. VASCULAR: No aneurysm or dissection, thoracic aorta. No gross calcified plaques. PELVIC VISCERA: The uterus is elongated in anteversion position. OSSEOUS STRUCTURES: Multilevel thoracolumbar spondylosis pronounced at L2-3 without acute fracture or gross listhesis. Mild degenerative changes in the coxofemoral joints and sacroiliac joints. Facet joint hypertrophy at L5-S1 and L4-[address]/CT abdomen pelvis w IV con IMPRESSION: Left-sided retroperitoneal lymphadenopathy probably engulfing the mid to distal left ureter. Hepatomegaly, mild. Fleischner guidelines were followed. Electronically signed by: Fredi Montoya MD 05/23/2025 11:56 AM EDT RP Dictated By: Fredi Woodward MD Signed By: <Electronically signed by Fredi Silva MDin OV> 05/23/25 1156 DD/ 1114 TD/TT: 05/23/25 1136 Filling Station Attendant: [facility] External Provider IMG CT PROCEDURES Final Result * CBC auto differential (05/23/2025 8:21 AM EDT) Only the most recent of2 resultswithin the time period is included. White Blood Count 7.8 4.8 - 10.8 X10*3/uL [facility] Red Blood Count 4.39 4.20 - 5.50 X10*6/uL [facility] Hemoglobin 13.2 12.0 - 16.0 g/dl [facility] Hematocrit 39.4 37.0 - 47.0 % [facility] Mean Corpuscular Volume 89.7 80.0 - 98.0 fL [facility] Mean Corpuscular Hemoglobin 30.1 27.0 - 33.0 pg [facility] Mean Corpuscular HGB Conc 33.5 31.0 - 35.0 g/dl [facility] Red Cell Distribution Width 13.1 11.0 - 16.0 % [facility] Platelet Count 330 160 - 400 X10*3/uL [facility] Mean Platelet Volume 9.5 9.4 - 12.3 fL [facility] Neutrophils Percent Auto 57.6 45 - 73 % [facility] Imm Gran Pct Auto 0.4 0.0 - 0.4 % [facility] Lymphocytes Percent Auto 28.4 20 - 40 % [facility] Monocytes Percent Auto 9.6 2 - 11 % [facility] Eosinophils Percent Auto 2.8 0 - 4 % [facility] Basophils Percent Auto 1.2 0 - 2 % [facility] NRBC Pct Auto 0.0 0.0 - 0.2 /100WBC [facility] Neutrophils Absolute Auto 4.5 2.0 - 8.3 x10*3/uL [facility] Imm Gran Abs Auto 0.03 0.00 - 0.03 X10*3/uL [facility] Lymphocytes Absolute Auto 2.2 1.2 - 4.9 X10*3/uL [facility] Monocytes Absolute Auto 0.8 0.1 - 1.2 X10*3/uL [facility] Eosinophils Absolute Auto 0.2 0.0 - 0.4 X10*3/uL [facility] Basophils Absolute Auto 0.1 0.0 - 0.2 X10*3/uL [facility] NRBC Abs Auto 0.000 0.0 - 0.012 X10*3/uL [facility] 05/23/2025 8:21 AM EDT 05/23/2025 8:21 AM EDT Generic External Data Provider LAB BLOOD ORDERAB LES Final Result Performing Organization Address City/[facility]/ZIP Co de Phone Number [facility] [address] [place] [phone] * Lactate Dehydrogenase (LD) (05/23/2025 8:21 AM EDT) [facility] Lactate Dehydrogenase 156 122 - 220 U/L [facility] 05/23/2025 8:21 AM EDT 05/23/2025 8:21 AM EDT Generic External Data Provider LAB BLOOD ORDERAB LES Final Result Performing Organization Address [facility] Co de Phone Number [facility] [address] [place] [phone] * (ABNORMAL) Comprehensive Metabolic Panel (05/23/2025 8:21 AM EDT) Only the most recent of2 resultswithin the time period is included. Pathologist [facility] Sodium 142 135 - 145 mmol/L [facility] Potassium 5.1 3.3 - 5.1 mmol/L [facility] Chloride 105 96 - 108 mmol/L [facility] Carbon Dioxide 29 22 - 29 mmol/L [facility] Anion Gap 13 12 - 20 [facility] Urea Nitrogen (BUN) 15 9 - 16 mg/dL [facility] Creatinine, Serum 0.76 0.5 - 1.4 mg/dL [facility] Estimated Glomerular Filt Rate >60 [facility] Comment:Chronic Kidney Disea se: Estimated GFR < 60 mL/min/1.19y0[place] Kidney Disease: Estimated GFR < 15 mL/min/1.73m2 Glucose 137(H) 60 - 115 mg/dL [facility] Calcium 9.9 8.4 - 10.2 mg/dL [facility] Bilirubin, Total 0.3 0.0 - 1.0 mg/dL [facility] Aspartate Amino Transferase 23 5 - 31 U/L [facility] Alanine Aminotransferase 19 0 - 31 U/L [facility] Total Protein 7.5 6.5 - 8.0 g/dL [facility] Albumin Level 4.3 3.5 - 5.0 g/dL [facility] Alkaline Phosphatase 69 39 - 117 U/L [facility] 05/23/2025 8:21 AM EDT 05/23/2025 8:21 AM EDT us Generic External Data Provider LAB BLOOD ORDERAB LES Final Result Performing Organization Address City/[facility]/ZIP Co de Phone Number [facility] [address] [place] [phone] * TSH with Reflex to Free T4 (03/31/2025 11:48 AM EDT) Pathologist [facility] TSH reflex Free T4 1.80 0.32 - 4.0 uIU/mL [facility] Blood Venous blood specimen / Unknown 03/31/2025 11:48 AM EDT 03/31/2025 11:48 AM EDT us Eduardo Long MD LAB BLOOD ORDERABLES Final Result Performing Organization Address [facility]/ZIP Co de Phone Number [facility] [address] [place] [phone] * (ABNORMAL) POCT HGB A1C (02/24/2025 11:11 AM EDT) Hemoglobin A1C 6.4(A) 4.0 - 6.0 % QC Media Lot # [id number] Lot# Expiration Date , Blood 02/24/2025 11:1 1 AM EDT Result Rubens Long MD POINT OF CARE TEST EN TER/EDIT ORDERABLES Final Result * POCT Glucose (02/24/2025 11:08 AM EDT) Glucose Blood, POC 124 60 - 200 mg/dL QC Media Lot # [id number] Lot# Expiration Date 694 Blood Capillary blood specimen / Unknown 02/24/2025 11:08 AM EDT Result Rubens Long MD POINT OF CARE TEST EN TER/EDIT ORDERABLES Final Result * BI Mammogram Screening Tomosynthesis Bilateral (01/10/2025) Anatomical Region Laterality Modality Breast Bilateral Mammography Result Rubens Long MD IMG BI PROCEDURES Fin al Result * Albumin, Random Urine W/Creatinine (08/03/2024 1:35 PM EST) Creatinine, Urine 121.86 mg/dL [facility] Microalbumin Urine 12.0 mg/L [facility] Microalbum Creatinine Ratio Ur 9.8 <30 ug/mg cr [facility] Comment:Albumin/Creatinine R atio Reference Ranges: Normal: < 30 ug/mg creatinine Microalbuminuria: 30 - 300 ug/mg creatinineClinical Albuminuria: > 300 ug/mg creatinine Urine (Urine, Random) 08/03/2024 1:35 PM EST 08/03/2024 4:09 PM EST Result Rubens Long MD LAB URINE ORDERABLES Final Result [facility] [address] [place] [phone] * Lipid Panel, Standard (05/27/2024 7:46 AM EDT) Triglycerides 110 <150 mg/dL [facility] Comment:Desirable Triglyceri de: less than 150 mg/dLBorderline High Triglyceride 150-199 mg/dLHigh Triglyceride: 200-499 mg/dLVery High Triglyceride: greater than or equal to 5OO mg/dL Cholesterol 152 <200 mg/dL [facility] Comment:Desirable Cholestero l: less than 200 mg/dLBorderline High Cholesterol: 200-239 mg/dLHigh Cholesterol: greater than 239 mg/dL LDL Cholesterol Calculated 85 <100 mg/dL [facility] Comment:Desirable LDL: less than 100 mg/dLNear Optimal/Above Optimal LDL: 110- 129 mg/dLBorderline High LDL: 130-159 mg/dLHigh LDL: 160-189 mg/dLVery High LDL: greater than or equal to 190 mg/dL HDL Cholesterol 45 >40 mg/dL [facility] Comment:Desirable HDL: great er than 40 mg/dL Note: This HDL assay may give artificially low results in patients with liver disease. Blood Venous blood specimen / Unknown 05/27/2024 7:46 AM EDT 05/27/2024 7:46 AM EDT Eduardo Long MD LAB BLOOD ORDERABLES Final Result [facility] [address] [place], [place] [phone] * Pap Smear (09/18/2023) Only the most recent of2 resultswithin the time period is included. Historical Provider HEALTH MAINTENANCE Final Result * Colonoscopy (12/09/2022) Colonoscopy Normal Normal Narrative Kelli Mix - 12/09/2022 Repeat in 5 years Historical Provider HEALTH MAINTENANCE Final Result from Last 3 Months or Most Recently Relevant to Health Maintenance Insurance [facility] C3 Care Teams Referral And Information Aide Relationship Specialty Start Date End Date Eduardo Minor MD [address] [place] [phone] PCP - General Internal Medicine 03/18/19
--- OUTSIDE RECORDS SUMMARY | 2025-05-26 15:50 | XMS_ITS | Encounter Summary ---
Author Organization [employer] Address [address] 7t [place] [address] Care Team Providers Care Infantry Operations Specialist Name Role Phone Eduardo Minor MD Primary Care Provide r Encounter Details Date Type Department Care Team ([facility] st Contact Info) Description 10/01/2023 Telephone [facility] MEDICINE [address] [place], [place] [phone] Eduardo Minor MD [address] [place], [place] [phone] Social History Tobacco Use Types Packs/Day Years [...] Description 07/07/2025 10:30 AM EDT Office Visit [facility] MED[facility]INE [address] [place] [address] Eduardo Minor MD [address] [place] [address] documented as of this encounter Visit Diagnoses Not on filedocumented in this encounter Additional Health Concerns Assessment Noted Time PHQ-9 Depression Total Score: 5 01/08/20 23 1:17 PM EDT documented as of this encounter Care Teams Infantry Operations Specialist Relationship Specialty Start Date End Date Eduardo Minor MD [address] [place] [address] PCP - General Internal Medicine 03/18/19 documented as of this encounter
--- OUTSIDE RECORDS SUMMARY | 2025-05-26 15:50 | XMS_ITS | Encounter Summary ---
Author Organization [employer] Address [address] [facility] 7t [place] [address] Care Team Providers Care Career Portals Teacher Name Role Phone Eduardo Minor MD Primary Care Provide r Encounter Details Date Type Department Care Team ([facility] st Contact Info) Description 01/24/2025 Orders Only [facility] MEDICINE [address] [place], [place] [phone] Bel Han MD [address] [place], [place] [phone] Social History Tobacco Use Types Packs/Day Years [...] Description 07/07/2025 10:30 AM EDT Office Visit [facility] MEDICINE [address] [place] [address] Eduardo Minor MD [address] [place] [address] documented as of this encounter Visit Diagnoses Not on filedocumented in this encounter Additional Health Concerns Assessment Noted Time PHQ-9 Depression Total Score: 0 12/03/19 25 1:50 PM EST documented as of this encounter Care Teams Career Portals Teacher Relationship Specialty Start Date End Date Eduardo Minor MD [address] [place] [phone] PCP - General Internal Medicine 03/18/19 documented as of this encounter
--- OUTSIDE RECORDS SUMMARY | 2025-05-26 15:50 | XMS_ITS | Encounter Summary ---
Author Organization [employer] Address [address] [facility] [address] 7t [place] [address] Care Team Providers Care Flat Lock Operator Name Role Phone Eduardo Minor MD Primary Care Provide r Encounter Details Date Type Department Care Team ([facility] st Contact Info) Description 02/01/2025 Orders Only [facility] MEDICINE [address] [place] [address] External Provider, [facility] Social History Tobacco Use Types Packs/Day Years [...] Description 07/07/2025 10:30 AM EDT Office Visit [facility] MEDICINE [address] [place], [place] [phone] Eduardo Minor MD 230 [place] [address] documented as of this encounter Procedures Procedure Name Priority Date/Time Associated Diagnosis Comments TISSUE PATHOLOGY Routine 01/31/2025 8:47 AM EDT documented in this encounter Results * Tissue Pathology (01/31/2025 8:47 AM EDT) Tissue [facility] External Provider LAB PAT HOLOGY ORDERABLES Final Result documented in this encounter Visit Diagnoses Not on filedocumented in this encounter Additional Health Concerns Assessment Noted Time PHQ-9 Depression Total Score: 0 12/03/19 25 1:50 PM EST documented as of this encounter Care Teams Flat Lock Operator Relationship Specialty Start Date End Date Eduardo Minor MD [address] [place], [place] [phone] PCP - General Internal Medicine 03/18/19 documented as of this encounter
--- OUTSIDE RECORDS SUMMARY | 2025-05-26 15:50 | XMS_ITS | Encounter Summary ---
Author Organization [employer] Address [address] [facility] 7t [place] [address] Care Team Providers Care Arcade Games Mechanic Name Role Phone Eduardo Minor MD Primary Care Provide r Encounter Details Date Type Department Care Team ([facility] st Contact Info) Description 05/23/2025 Orders Only GENERIC EXTERNAL DATA DEPARTMENT Provider, Generic External Data Social History Tobacco Use Types Packs/Day Years [...] Description 07/07/2025 10:30 AM EDT Office Visit [facility] MEDICINE 230 [place] [address] Eduardo Minor MD [address] [place], [place] [phone] documented as of this encounter Procedures Procedure Name Priority Date/Time Associated Diagnosis Comments CT ABDOMEN PELVIS W CONTRAST Routine 05/23/2025 11:14 AM EDT CBC WITH AUTO DIFFERENTIAL Routine 05/23/2025 8:21 AM EDT LD Routine 05/23/2025 8:21 AM EDT COMPREHENSIVE METABOLIC PANEL Routine 05/23/2025 8:21 AM EDT documented in this encounter Results * CT Abdomen Pelvis w/ Contrast (05/23/2025 11:14 AM EDT) Anatomical Region Laterality Modality Body, Pelvis, Abdomen Computed T omography 05/23/2025 11:1 4 AM EDT Narrative 05/23/2025 12:00 PM EDT [address] [address] [address] Scan Report Signed Patient: Lili Madrid MR#: [id number] : 1960 Acct:[id number] Age/Sex: 64 / F ADM Date: 05/23/25 Loc: HO.CT Attending Dr: Xochitl Nelson MD Ordering Physician: Xochitl Nelson MD Date of Service: 05/23/25 Procedure(s): CT abdomen pelvis w IV con Accession Number(s): [id number] cc: Xochitl Nelson MD; Eduardo Verma MD Report Number: [id number]: Total DLP = 985.00 mGy-cm EXAMINATION: CT [...] 05/23/25 1156 DD/ 1114 TD/TT: 05/23/25 1136 Grip Assembler: Procedure Note Donotuseinterpreter, Image - 05/23/[address] [place] [address] [address] Scan Report Signed Patient: Linda Madrid#: [id number] : 1960cct:[id number] Age/Sex: 64 / FADM Date: 05/23/25 Loc: HO.CT Attending Dr: Xocihtl Nelson MD Ordering Physician: Xochitl Nelson MD Date of Service: 05/23/25 Procedure(s): CT abdomen pelvis w IV con Accession Number(s): [id number] cc: Xochitl Nelson MD; Eduardo Verma MD Report Number: [id number]: Total DLP = 985.00 mGy-cm EXAMINATION: CT [...] 05/23/25 1156 DD/ 1114 TD/TT: 05/23/25 1136 Grip Assembler: [facility] External Provider IMG CT PROCEDURES Final Result * Lactate Dehydrogenase (LD) (05/23/2025 8:21 AM EDT) Lactate Dehydrogenase 156 122 - 220 U/L [facility] 05/23/2025 8:21 AM EDT 05/23/2025 8:21 AM EDT Generic External Data Provider LAB BLOOD ORDERAB LES Final Result [facility] [address] [place] [phone] * (ABNORMAL) Comprehensive Metabolic Panel (05/23/2025 8:21 AM EDT) Sodium 142 135 - 145 mmol/L [facility] Potassium 5.1 3.3 - 5.1 mmol/L [facility] Chloride 105 96 - 108 mmol/L [facility] Carbon Dioxide 29 22 - 29 mmol/L [facility] Anion Gap 13 12 - 20 [facility] Urea Nitrogen (BUN) 15 9 - 16 mg/dL [facility] Creatinine, Serum 0.76 0.5 - 1.4 mg/dL [facility] Estimated Glomerular Filt Rate >60 [facility] Comment:Chronic Kidney Disea se: Estimated GFR < 60 mL/min/1.35i5Gshmde Kidney Disease: Estimated GFR < 15 mL/min/1.73m2 Glucose 137(H) 60 - 115 mg/dL [facility] Calcium 9.9 8.4 - 10.2 mg/dL [facility] Bilirubin, Total 0.3 0.0 - 1.0 mg/dL [facility] Aspartate Amino Transferase 23 5 - 31 U/L [facility] Alanine Aminotransferase 19 0 - 31 U/L [facility] Total Protein 7.5 6.5 - 8.0 g/dL [facility] Albumin Level 4.3 3.5 - 5.0 g/dL [facility] Alkaline Phosphatase 69 39 - 117 U/L [facility] 05/23/2025 8:21 AM EDT 05/23/2025 8:21 AM EDT us Generic External Data Provider LAB BLOOD ORDERAB LES Final Result [facility] [address] [place] [address] [phone] * CBC auto differential (05/23/2025 8:21 AM EDT) White Blood Count 7.8 4.8 - 10.8 X10*3/uL [facility] Red Blood Count 4.39 4.20 - 5.50 X10*6/uL [facility] Hemoglobin 13.2 12.0 - 16.0 g/dl [facility] Hematocrit 39.4 37.0 - 47.0 % [facility] Mean Corpuscular Volume 89.7 80.0 - 98.0 fL [facility] Mean Corpuscular Hemoglobin 30.1 27.0 - 33.0 pg [facility] Mean Corpuscular HGB Conc 33.5 31.0 - 35.0 g/dl [facility] Red Cell Distribution Width 13.1 11.0 - 16.0 % [facility] Platelet Count 330 160 - 400 X10*3/uL [facility] Mean Platelet Volume 9.5 9.4 - 12.3 fL [facility] Neutrophils Percent Auto 57.6 45 - 73 % [facility] Imm Gran Pct Auto 0.4 0.0 - 0.4 % [facility] Lymphocytes Percent Auto 28.4 20 - 40 % [facility] Monocytes Percent Auto 9.6 2 - 11 % [facility] Eosinophils Percent Auto 2.8 0 - 4 % [facility] Basophils Percent Auto 1.2 0 - 2 % [facility] NRBC Pct Auto 0.0 0.0 - 0.2 /100WBC [facility] Neutrophils Absolute Auto 4.5 2.0 - 8.3 x10*3/uL [facility] Imm Gran Abs Auto 0.03 0.00 - 0.03 X10*3/uL [facility] Lymphocytes Absolute Auto 2.2 1.2 - 4.9 X10*3/uL [facility] Monocytes Absolute Auto 0.8 0.1 - 1.2 X10*3/uL [facility] Eosinophils Absolute Auto 0.2 0.0 - 0.4 X10*3/uL [facility] Basophils Absolute Auto 0.1 0.0 - 0.2 X10*3/uL [facility] NRBC Abs Auto 0.000 0.0 - 0.012 X10*3/uL [facility] 05/23/2025 8:21 AM EDT 05/23/2025 8:21 AM EDT us Generic External Data Provider LAB BLOOD ORDERAB LES Final Result Performing Organization Address City/State/[facility] Co de Phone Number [facility] [address] [place] [address] [phone] documented in this encounter Visit Diagnoses Not on filedocumented in this encounter Additional Health Concerns Assessment Noted Time PHQ-9 Depression Total Score: 0 12/03/19 25 1:50 PM EST documented as of this encounter Care Teams Arcade Games Mechanic Relationship Specialty Start Date End Date Eduardo Minor MD [address] [place] [phone] PCP - General Internal Medicine 03/18/19 documented as of this encounter
--- OUTSIDE RECORDS SUMMARY | 2025-05-26 15:50 | XMS_ITS | Encounter Summary ---
Author Organization [employer] Address [address] [facility] 7t [place] [address] Care Team Providers Care Vendor Management Associate Name Role Phone Eduardo Minor MD Primary Care Provide r Reason for Visit * Reason Comments Med Refill Encounter Details Date Type Department Care Team ([facility] st Contact Info) Description 08/05/[address] [facility] [address] [place], [place] [phone] Eduardo Minor MD [address] [place], [place] [phone] Type 2 diabetes mellitus without complication, without long-term current use of insulin ([facility]) Social History Tobacco Use Types Packs/Day [...] Description 07/07/2025 10:30 AM EDT Office Visit [facility] MEDICINE [address] [place] [phone] Eduardo Minor MD [address] [place] [address] documented as of this encounter Visit Diagnoses Diagnosis Type 2 diabetes mellitus without complication, without long-term current use of insulin ([facility]) documented in this encounter Additional Health Concerns Assessment Noted Time PHQ-9 Depression Total Score: 0 02/03/20 24 1:01 PM EDT documented as of this encounter Care Teams Vendor Management Associate Relationship Specialty Start Date End Date Eduardo Minor MD [address] [place] [address] PCP - General Internal Medicine 03/18/19 documented as of this encounter
--- OUTSIDE RECORDS SUMMARY | 2025-05-26 15:50 | XMS_ITS | Encounter Summary ---
Author Organization [employer] Address [address] [facility] 7 [place] [address] Care Team Providers Care Early Childhood Associate Name Role Phone Eduardo Minor MD Primary Care Provide r Reason for Visit * Reason Onset Date Comments Appointment Confirmation 05/26/2025 Encounter Details Date Type Department Care Team ([facility] st Contact Info) Description 05/26/2025 Telephone [facility] MEDICINE [address] [place], [place] [phone] Eduardo Minor MD [address] [place], [place] [phone] Appointment Confirmation Social History Tobacco Use Types Packs/Day Years [...] Telephone Encounter - Carmen Barboza [place] - 05/26/2025 9:26 AM EDT Contacted pt in regards to appt needing to be r/s due to pcp being out, pt agreed to date/time o 07/07/2025 @10:30AM. LB documented in this encounter Plan of Treatment Upcoming Encounters Date Type Department Care Team (Late st Contact Info) Description 07/07/2025 10:30 AM EDT Office Visit [facility] MEDICINE [address] [place] [address] Eduardo Minor MD [address] [place] [address] documented as of this encounter Visit Diagnoses Not on filedocumented in this encounter Additional Health Concerns Assessment Noted Time PHQ-9 Depression Total Score: 0 12/03/19 25 1:50 PM EST documented as of this encounter Care Teams Early Childhood Associate Relationship Specialty Start Date End Date Eduardo Minor MD [address] [place] [phone] PCP - General Internal Medicine 03/18/19 documented as of this encounter
--- OUTSIDE RECORDS SUMMARY | 2025-05-26 15:50 | XMS_ITS | Encounter Summary ---
Author Organization [employer] Address [address] [place] [address] 7 [place] [address] Care Team Providers Care Egg Tester Name Role Phone Eduardo Minor MD Primary Care Provide r Encounter Details Date Type Department Care Team (Late st Contact Info) Description 11/26/2022 Orders Only [facility] [address] [place] [address] Gayatri Otto LPN Social History Tobacco Use [...] Description 07/07/2025 10:30 AM EDT Office Visit [facility] MEDICINE [address] [place] [address] Eduardo Minor MD [address] [place] [address] documented as of this encounter Visit Diagnoses Not on filedocumented in this encounter Care Teams Egg Tester Relationship Specialty Start Date End Date Eduardo Minor MD [address] [place] [address] PCP - General Internal Medicine 03/18/19 documented as of this encounter
--- OUTSIDE RECORDS SUMMARY | 2025-05-26 15:50 | XMS_ITS | Encounter Summary ---
Author Organization [employer] Address [address] [facility] 7 [place] [address] Care Team Providers Care Newspaper Columnist Name Role Phone Eduardo Minor MD Primary Care Provide r Reason for Visit * Reason Onset Date Comments Chart Prep 05/25/2025 Encounter Details Date Type Department Care Team ([facility] st Contact Info) Description 05/25/2025 Telephone [facility] MEDICINE [address] [place], [place] [phone] Eduardo Minor MD [address] [place], [place] [phone] Chart Prep Social History Tobacco Use Types [...] Telephone Encounter - Carmen Barboza [place] - 05/25/2025 3:32 PM EDT Chart Prep Labs: done Images: not applicable Screenings: Eye Exam and HIV screening Vaccines due: Covid Due, PCV20 Due, RSV in Pharmacy Due, and Shingles in pharmacy Due Referrals: Not Applicable Overdue care gaps: A1C and Glucose Chart prep for upcoming appt with Dr.Esparza espana LB documented in this encounter Plan of Treatment Upcoming Encounters Date Type Department Care Team (Late st Contact Info) Description 07/07/2025 10:30 AM EDT Office Visit [facility] MEDICINE [address] [place] [address] Eduardo Minor MD [address] [place] [address] documented as of this encounter Visit Diagnoses Not on filedocumented in this encounter Additional Health Concerns Assessment Noted Time PHQ-9 Depression Total Score: 0 12/03/19 25 1:50 PM EST documented as of this encounter Care Teams Newspaper Columnist Relationship Specialty Start Date End Date Eduardo Minor MD [address] [place] [address] PCP - General Internal Medicine 03/18/19 documented as of this encounter
--- OUTSIDE RECORDS SUMMARY | 2025-05-26 15:50 | XMS_ITS | Encounter Summary ---
Author Organization [employer] Address [address] [facility] 7t [place] [address] Care Team Providers Care Field Representative Name Role Phone Eduardo Minor MD Primary Care Provide r Encounter Details Date Type Department Care Team (Late st Contact Info) Description 10/15/2023 Orders Only [facility] MEDICINE [address] [place] [address] ProviderCarlyle MD Social History Tobacco Use Types [...] 07/07/2025 10:30 AM EDT Office Visit [facility] MEDICINE [address] [place] [address] Eduardo Minor MD [address] [place] [address] documented as of this encounter Procedures Procedure [...] as of this encounter Care Teams Field Representative Relationship Specialty Start Date End Date Eduardo Minor MD [address] [place] [address] PCP - General Internal Medicine 03/18/19 documented as of this encounter
--- OUTSIDE RECORDS SUMMARY | 2025-05-26 15:50 | XMS_ITS | Encounter Summary ---
Author Organization [employer] Address [address] [place] [address] 7 [place] [address] Care Team Providers Care Branch Service Associate Name Role Phone Eduardo Minor MD Primary Care Provide r Reason for Visit * Reason Onset Date Comments Durable Medical Equipment 05/06/2023 Encounter Details Date Type Department Care Team ([facility] st Contact Info) Description 05/06/2023 Telephone [facility] MEDICINE [address] [place], [place] [phone] Eduardo Minor MD [address] [place] [address] Durable Medical Equipment Social History Tobacco Use [...] Description 07/07/2025 10:30 AM EDT Office Visit [facility] MEDICINE [address] [place] [address] Eduardo Minor MD [address] [place] [address] documented as of this encounter Visit Diagnoses Not on filedocumented in this encounter Additional Health Concerns Assessment Noted Time PHQ-9 Depression Total Score: 5 01/08/20 23 1:17 PM EDT documented as of this encounter Care Teams Branch Service Associate Relationship Specialty Start Date End Date Eduardo Minor MD [address] [place], [place] [phone] PCP - General Internal Medicine 03/18/19 documented as of this encounter
--- OUTSIDE RECORDS SUMMARY | 2025-05-26 15:50 | XMS_ITS | Encounter Summary ---
Author Organization [employer] Address [address] [facility] 7t [place] [address] Care Team Providers Care Crystal Attacher Name Role Phone Eduardo Minor MD Primary Care Provide r Reason for Visit * Reason Comments Med Refill Encounter Details Date Type Department Care Team ([facility] st Contact Info) Description 12/15/2023 Refill [facility] MEDICINE [address] [place], [place] [phone] Eduardo Minor MD [address] [place], [place] [phone] Social History Tobacco Use Types Packs/Day Years [...] t he electric, gas, oil or water [employer] threatened to shut off services in your [...] Description 07/07/2025 10:30 AM EDT Office Visit [facility] MEDICINE [address] [place] [address] Eduardo Minor MD [address] [place] [address] documented as of this encounter Visit Diagnoses Not on filedocumented in this encounter Additional Health Concerns Assessment Noted Time PHQ-9 Depression Total Score: 5 01/08/20 23 1:17 PM EDT documented as of this encounter Care Teams Crystal Attacher Relationship Specialty Start Date End Date Eduardo Minor MD [address] [place] [address] PCP - General Internal Medicine 03/18/19 documented as of this encounter
--- OUTSIDE RECORDS SUMMARY | 2025-05-26 15:50 | XMS_ITS | Encounter Summary ---
Author Organization [employer] Address [address] [place] [address] 7 [place] [address] Care Team Providers Care Clay Thrower Name Role Phone Eduardo Minor MD Primary Care Provide r Encounter Details Date Type Department Care Team (Late st Contact Info) Description 10/07/2022 Orders Only [facility] MEDICINE [address] [place] [phone] Awa Bermudez RN Social History Tobacco Use [...] 10:30 AM EDT Office Visit [facility] MEDICINE [address] [place] [phone] Eduardo Minor MD [address] [place] [address] documented as of this encounter Visit Diagnoses Not on filedocumented in this encounter Care Teams Clay Thrower Relationship Specialty Start Date End Date Eduardo Minor MD [address] [place] [address] PCP - General Internal Medicine 03/18/19 documented as of this encounter
--- OUTSIDE RECORDS SUMMARY | 2025-05-26 15:50 | XMS_ITS | Encounter Summary ---
Author Organization [employer] Address 75 [facility] 7t [place] [address] Care Team Providers Care Scouring Train Operator Chief Name Role Phone Eduardo Minor MD Primary Care Provide r Reason for Visit * Reason Comments Med Refill Encounter Details Date Type Department Care Team ([facility] Contact Info) Description 08/03/2024 Refill [facility] 230 [place], [place] [phone] Eduardo Minor MD 230 [place], [place] [phone] Type 2 diabetes mellitus without complication, unspecified whether group home insulin use ([facility]) Social History Tobacco Use Types Packs/Day [...] Description 07/07/2025 10:30 AM EDT Office Visit [facility] [address] [place] [phone] Eduardo Minor MD [address] [place] [phone] documented as of this encounter Visit Diagnoses Diagnosis Type 2 diabetes mellitus without complication, unspecified whether termite exterminator insulin use ([facility]) documented in this encounter Additional Health Concerns Assessment Noted Time PHQ-9 Depression Total Score: 0 02/03/20 24 1:01 PM EDT documented as of this encounter Care Teams Scouring Train Operator Chief Relationship Specialty Start Date End Date Eduardo Minor MD [address] [place] [phone] PCP - General Internal Medicine 03/18/19 documented as of this encounter
--- OUTSIDE RECORDS SUMMARY | 2025-05-26 15:50 | XMS_ITS | Encounter Summary ---
Author Organization [employer] Address 75 [facility] 7 [place] [address] Care Team Providers Care Retail Shift Leader Name Role Phone Eduardo Minor MD Primary Care Provide r Reason for Visit * Reason Onset Date Comments Appointment Request 12/05/2023 Encounter Details Date Type Department Care Team ([facility] Contact Info) Description 12/05/[address] [facility] 230 [place], [place] [phone] Eduardo Minor MD 230 [place], [place] [phone] Appointment Request Social History Tobacco Use Types [...] 07/07/2025 10:30 AM EDT Office [facility] 230 [place] [address] Eduardo Minor MD 230 [place] [address] documented as of this encounter Visit Diagnoses Not on filedocumented in this encounter Additional Health Concerns Assessment Noted Time PHQ-9 Depression Total Score: 5 01/08/20 23 1:17 PM EDT documented as of this encounter Care Teams Retail Shift Leader Relationship Specialty Start Date End Date Eduardo Minor MD 230 [place] [address] PCP - General Internal Medicine 03/18/19 documented as of this encounter
--- OUTSIDE RECORDS SUMMARY | 2025-05-26 15:50 | XMS_ITS | Encounter Summary ---
Author Organization [employer] Address 75 [facility] 7t [place] [address] Care Team Providers Care Cloth Baler Name Role Phone Eduardo Minor MD Primary Care Provide r Reason for Visit * Reason Comments Med Refill Encounter Details Date Type Department Care Team ([facility] st Contact Info) Description 05/08/2025 Refill [facility] 230 [place], [place] [phone] Eduardo Minor MD 230 [place], [place] [phone] Type 2 diabetes mellitus without complication, without long-term current use of insulin ([facility]) Social History Tobacco Use Types Packs/Day [...] Description 07/07/2025 10:30 AM EDT Office Visit [facility] [address] [place] [phone] Eduardo Minor MD [address] [place] [phone] documented as of this encounter Visit Diagnoses Diagnosis Type 2 diabetes mellitus without complication, without long-term current use of insulin ([facility]) documented in this encounter Additional Health Concerns Assessment Noted Time PHQ-9 Depression Total Score: 0 12/03/19 25 1:50 PM EST documented as of this encounter Care Teams Cloth Baler Relationship Specialty Start Date End Date Eduardo Minor MD [address] [place] [phone] PCP - General Internal Medicine 03/18/19 documented as of this encounter
--- OUTSIDE RECORDS SUMMARY | 2025-05-26 15:50 | XMS_ITS | Encounter Summary ---
Author Organization [employer] Address 75 [facility] 7t [place] [address] Care Team Providers Care Wellfield Technician Name Role Phone Eduardo Minor MD Primary Care Provide r Encounter Details Date Type Department Care Team ([facility] Contact Info) Description 02/25/2025 Orders Only [facility] 230 [place] [address] Provider, MD Carlyle Social History Tobacco Use [...] Description 07/07/2025 10:30 AM EDT Office Visit [facility] 230 [place], [place] [phone] Eduardo Minor MD [address] [place] [phone] documented as of this encounter Procedures Procedure Name Priority Date/Time Associated Diagnosis Comments PET/CT BONE SKULL BASE TO MID THIGH Routine 02/22/2025 3:37 PM EDT documented in this encounter Results * PET/CT Bone Skull Base to Mid Thigh (02/22/2025 3:37 PM EDT) Anatomical Region Laterality Modality Body Computed Tomogra phy us Historical Provider MD SOLIMAN CT PROCEDURES Final R esult documented in this encounter Visit Diagnoses Not on filedocumented in this encounter Additional Health Concerns Assessment Noted Time PHQ-9 Depression Total Score: 0 12/03/19 25 1:50 PM EST documented as of this encounter Care Teams Wellfield Technician Relationship Specialty Start Date End Date Eduardo Minor MD [address] [place] [address] [phone] PCP - General Internal Medicine 03/18/19 documented as of this encounter
--- OUTSIDE RECORDS SUMMARY | 2025-05-26 15:50 | XMS_ITS | Encounter Summary ---
Author Organization [employer] Address 75 [facility] 7 [place] [address] Care Team Providers Care Rn Transplant Name Role Phone Eduardo Minor MD Primary Care Provide r Reason for Visit * Reason Onset Date Comments Med Refill 03/08/2024 Encounter Details Date Type Department Care Team ([facility] st Contact Info) Description 03/08/2024 Refill [facility] 230 [place], [place] [phone] Eduardo Minor MD 230 [place] [address] Type 2 diabetes mellitus without complication, without long-term current use of insulin ([facility]); Type 2 diabetes mellitus without complication, unspecified whether care home insulin use ([facility]) Social History Tobacco Use [...] Description 07/07/2025 10:30 AM EDT Office Visit [facility] 230 [place] [address] Eduardo Minor MD [address] [place] [address] documented as of this encounter Visit Diagnoses Diagnosis Type 2 diabetes mellitus without complication, unspecified whether care home insulin use ([facility]) documented in this encounter Additional Health Concerns Assessment Noted Time PHQ-9 Depression Total Score: 0 02/03/20 24 1:01 PM EDT documented as of this encounter Care Teams Rn Transplant Relationship Specialty Start Date End Date Eduardo Minor MD 230 [place] [address] PCP - General Internal Medicine 03/18/19 documented as of this encounter
== END 2025-05-26 15:15 | disposition home or self-care (01) ==
LOC: HO.US 15:14
PROVIDERS: PCP Internal Medicine; Visit Provider Student in an Organized Health Care Education/Training Program
DX: E04.2 Nontoxic multinodular goiter (principal)
CPT/HCPCS: 76536

== ENCOUNTER → 2025-05-26 15:15 | Outpatient (BNV) | payer MEDICAID, SELFPAY | PROVIDERS: PCP Internal Medicine; Visit Provider Radiology Diagnostic Radiology | DX: E04.2 Nontoxic multinodular goiter (principal) | CPT/HCPCS: 76536 ==

== ENCOUNTER 2025-06-16 09:55 | Outpatient (REF) | payer MEDICAID, SELFPAY ==
[2025-06-16 10:18] LABS: MANUAL DIFF FLAG NO
[2025-06-16 10:21] LABS: Hematocrit 40.3 % (37.0-47.0); Hemoglobin 13.7 g/dl (12.0-16.0); Imm Gran Abs Auto 0.04 X10*3/uL (0.00-0.03); Imm Gran Pct Auto 0.4 % (0.0-0.4); Lymphocytes Absolute Auto 2.5 X10*3/uL (1.2-4.9); Mean Corpuscular HGB Conc 34.0 g/dl (31.0-35.0); Mean Corpuscular Hemoglobin 30.2 pg (27.0-33.0); Mean Corpuscular Volume 88.8 fL (80.0-98.0); NRBC Abs Auto 0.000 X10*3/uL (0.0-0.012); NRBC Pct Auto 0.0 /100WBC (0.0-0.2); Platelet Count 308 X10*3/uL (160-400); Red Blood Count 4.54 X10*6/uL (4.20-5.50); White Blood Count 9.6 X10*3/uL (4.8-10.8)
--- OUTSIDE RECORDS SUMMARY | 2025-06-16 11:38 | XMS_ITS | Encounter Summary ---
Author Organization [employer] Address [address] [facility] [address] 7t [place] [address] Care Team Providers Care Airframe Design Engineer Name Role Phone Eduardo Minor MD Primary Care Provide r Encounter Details Date Type Department Care Team ([facility] st Contact Info) Description 10/01/2023 Telephone [facility]INE 230 [place], [place] [phone] Eduardo Minor MD 230 [place], [place] [phone] Social History Tobacco Use Types Packs/Day Years [...] Description 07/07/2025 10:30 AM EDT Office Visit [facility] 230 [place] [address] Eduardo Minor MD 230 [place] [address] documented as of this encounter Visit Diagnoses Not on filedocumented in this encounter Additional Health Concerns Assessment Noted Time PHQ-9 Depression Total Score: 5 01/08/20 23 1:17 PM EDT documented as of this encounter Care Teams Airframe Design Engineer Relationship Specialty Start Date End Date Eduardo Minor MD 230 [place] [address] PCP - General Internal Medicine 03/18/19 documented as of this encounter
--- OUTSIDE RECORDS SUMMARY | 2025-06-16 11:38 | XMS_ITS | Encounter Summary ---
Author Organization [employer] Address [address] [facility] [address] 7t [place] [address] Care Team Providers Care Enrollment Specialist Name Role Phone Eduardo Minor MD Primary Care Provide r Encounter Details Date Type Department Care Team ([facility] st Contact Info) Description 11/07/2023 Orders Only [facility] [address] [place] [address] [phone] Ronny Topete MD 230 [place], [place] [phone] Posterior chest pain (Primary Dx) Social History [...] Description 07/07/2025 10:30 AM EDT Office Visit [facility] 230 [place] [address] Eduardo Minor MD [address] [place] [phone] Scheduled Orders Name Type Priority Associated Diagnoses Orde r Schedule XR Chest 2 Views Imaging Routine Posterior chest pain Expected: 11/07/2023, Expires: 11/07/2024 documented as of this encounter Visit Diagnoses Diagnosis Posterior chest pain- Primary documented in this encounter Additional Health Concerns Assessment Noted Time PHQ-9 Depression Total Score: 5 01/08/20 23 1:17 PM EDT documented as of this encounter Care Teams Enrollment Specialist Relationship Specialty Start Date End Date Eduardo Minor MD [address] [place] [phone] PCP - General Internal Medicine 03/18/19 documented as of this encounter
--- OUTSIDE RECORDS SUMMARY | 2025-06-16 11:38 | XMS_ITS | Encounter Summary ---
Author Organization [employer] Address [address] [facility] [address] 7t [place] [address] Care Team Providers Care Relationship Assoc Name Role Phone Eduardo Minor MD Primary Care Provide r Encounter Details Date Type Department Care Team (Late st Contact Info) Description 10/15/2023 Orders Only [facility] 230 [place] [address] ProviderCarlyle MD Social History Tobacco Use Types [...] Description 07/07/2025 10:30 AM EDT Office Visit [facility] 230 [place] [address] Eduardo Minor MD 230 [place] [address] documented as of this encounter Procedures Procedure [...] documented as of this encounter Care Teams Relationship Assoc Relationship Specialty Start Date End Date Eduardo Minor MD [address] [place] [phone] PCP - General Internal Medicine 03/18/19 documented as of this encounter
--- OUTSIDE RECORDS SUMMARY | 2025-06-16 11:38 | XMS_ITS | Encounter Summary ---
Author Organization [employer] Address 75 [facility] 7t [place] [address] Care Team Providers Care Aviation Electrical Technician Name Role Phone Eduardo Minor MD Primary Care Provide r Reason for Visit * Reason Comments Med Refill Encounter Details Date Type Department Care Team ([facility] st Contact Info) Description 05/08/2025 Refill [facility] 230 [place], [place] [phone] Eduardo Minor MD 230 [place], [place] [phone] Type 2 diabetes mellitus without complication, without long-term current use of insulin ([facility]) Social History Tobacco Use Types Packs/Day Years [...] Description 07/07/2025 10:30 AM EDT Office Visit [facility] [address] [place] [address] Eduardo Minor MD [address] [place] [address] documented as of this encounter Visit Diagnoses Diagnosis Type 2 diabetes mellitus without complication, without long-term current use of insulin ([facility]) documented in this encounter Additional Health Concerns Assessment Noted Time PHQ-9 Depression Total Score: 0 12/03/19 25 1:50 PM EST documented as of this encounter Care Teams Aviation Electrical Technician Relationship Specialty Start Date End Date Eduardo Minor MD [address] [place] [phone] PCP - General Internal Medicine 03/18/19 documented as of this encounter
--- OUTSIDE RECORDS SUMMARY | 2025-06-16 11:39 | XMS_ITS | Encounter Summary ---
Author Organization [employer] Address [address] [facility] 7 [place] [address] Care Team Providers Care Supervisor [employer] Fruit [employer] Farming Name Role Phone Eduardo Minor MD Primary Care Provide r Reason for Visit * Reason Onset Date Comments Med Refill 10/13/2024 Encounter Details Date Type Department Care Team ([facility] st Contact Info) Description 10/13/2024 Refill [facility] 230 [place], [place] [phone] Eduardo Minor MD 230 [place] [address] Type 2 diabetes mellitus without complication, without long-term current use of insulin ([facility]); Type 2 diabetes mellitus without complication, 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 ([facility]) Social History Tobacco Use Types Packs/Day [...] [facility] 230 [place] [address] Eduardo Minor MD 230 [place] [address] documented as of this encounter Visit Diagnoses Diagnosis Type 2 diabetes mellitus without complication, unspecified whether skilled nursing insulin use ([facility]) documented in this encounter Additional Health Concerns Assessment Noted Time PHQ-9 Depression Total Score: 0 02/03/20 24 1:01 PM EDT documented as of this encounter Care Teams Supervisor [employer] Relationship Specialty Start Date End Date Eduardo Minor MD 230 [place] [address] PCP - General Internal Medicine 03/18/19 documented as of this encounter
--- OUTSIDE RECORDS SUMMARY | 2025-06-16 11:39 | XMS_ITS | Encounter Summary ---
Author Organization [employer] Address [address] [place] [address] 7 [place] [address] Care Team Providers Care Physician General Internal Medicine Name Role Phone Eduardo Minor MD Primary Care Provide r Reason for Visit * Reason Onset Date Comments Durable Medical Equipment 05/06/2023 Encounter Details Date Type Department Care Team ([facility] st Contact Info) Description 05/06/2023 Telephone [facility] 230 [place], [place] [phone] Eduardo Minor MD 230 [place] [address] Durable Medical Equipment Social History Tobacco Use [...] Description 07/07/2025 10:30 AM EDT Office Visit [facility] 230 [place] [address] Eduardo Minor MD 230 [place] [address] documented as of this encounter Visit Diagnoses Not on filedocumented in this encounter Additional Health Concerns Assessment Noted Time PHQ-9 Depression Total Score: 5 01/08/20 23 1:17 PM EDT documented as of this encounter Care Teams Physician General Internal Medicine Relationship Specialty Start Date End Date Eduardo Minor MD 230 [place], [place] [phone] PCP - General Internal Medicine 03/18/19 documented as of this encounter
--- OUTSIDE RECORDS SUMMARY | 2025-06-16 11:39 | XMS_ITS | Encounter Summary ---
Author Organization [employer] Address 75 [facility] 7t [place] [address] Care Team Providers Care Ground Water Technician Name Role Phone Eduardo Minor MD Primary Care Provide r Encounter Details Date Type Department Care Team ([facility] Contact Info) Description 02/25/2025 Orders Only [facility] 230 [place] [address] Provider, MD Carlyle Social History Tobacco Use [...] Description 07/07/2025 10:30 AM EDT Office Visit [facility] 230 [place], [place] [phone] Eduardo Minor MD [address] [place] [phone] documented as of this encounter Procedures Procedure [...] documented as of this encounter Care Teams Ground Water Technician Relationship Specialty Start Date End Date Eduardo Minor MD [address] [place] [address] [phone] PCP - General Internal Medicine 03/18/19 documented as of this encounter
--- OUTSIDE RECORDS SUMMARY | 2025-06-16 11:39 | XMS_ITS | Encounter Summary ---
Author Organization [employer] Address [address] [place] [address] 7 [place] [address] Care Team Providers Care Weasand Trimmer Name Role Phone Eduardo Minor MD Primary Care Provide r Reason for Visit * Reason Comments Med Refill Encounter Details Date Type Department Care Team ([facility] Contact Info) Description 01/16/2023 Refill [facility] [address] [place] [address] [phone] Eduardo Minor MD 230 [place] [address] Acquired hypothyroidism Social History Tobacco Use Types [...] Upcoming Encounters Date Type Department Care Team ([facility] Contact Info) Description 07/07/2025 10:30 AM EDT Office Visit [facility] 230 [place] [address] Eduardo Minor MD 230 [place] [address] documented as of this encounter Visit Diagnoses Diagnosis Acquired hypothyroidism Unspecified hypothyroidism documented in this encounter Additional Health Concerns Assessment Noted Time PHQ-9 Depression Total Score: 5 01/08/20 23 1:17 PM EDT documented as of this encounter Care Teams Weasand Trimmer Relationship Specialty Start Date End Date Eduardo Minor MD 230 [place] [address] PCP - General Internal Medicine 03/18/19 documented as of this encounter
--- OUTSIDE RECORDS SUMMARY | 2025-06-16 11:39 | XMS_ITS | Encounter Summary ---
Author Organization [employer] Address 75 [facility] 7t [place] [address] Care Team Providers Care Cutting Table Operator First Name Role Phone Eduardo Minor MD Primary Care Provide r Reason for Visit * Reason Comments Med Refill Encounter Details Date Type Department Care Team ([facility] st Contact Info) Description 08/14/2023 Refill [facility] 230 [place], [place] [phone] Eduardo Minor MD 230 [place], [place] [phone] Social History Tobacco Use Types Packs/Day Years [...] t he electric, gas, oil or water [facility] threatened to shut off services in your [...] Description 07/07/2025 10:30 AM EDT Office Visit [facility] 230 [place] [address] Eduardo Minor MD 230 [place] [address] documented as of this encounter Visit Diagnoses Not on filedocumented in this encounter Additional Health Concerns Assessment Noted Time PHQ-9 Depression Total Score: 5 01/08/20 23 1:17 PM EDT documented as of this encounter Care Teams Cutting Table Operator First Relationship Specialty Start Date End Date Eduardo Minor MD 230 [place] [address] PCP - General Internal Medicine 03/18/19 documented as of this encounter
--- OUTSIDE RECORDS SUMMARY | 2025-06-16 11:39 | XMS_ITS | Encounter Summary ---
Author Organization [employer] Address [address] [place] [address] 7 [place] [address] Care Team Providers Care Blueprint Assembler Name Role Phone Eduardo Minor MD Primary Care Provide r Encounter Details Date Type Department Care Team (Late st Contact Info) Description 10/07/2022 Orders Only [facility] MED[facility] [address] [place] [phone] Awa Bermudez RN Social History Tobacco Use [...] 07/07/2025 10:30 AM EDT Office Visit [facility] [address] [place] [address] Eduardo Minor MD [address] [place] [address] documented as of this encounter Visit Diagnoses Not on filedocumented in this encounter Care Teams Blueprint Assembler Relationship Specialty Start Date End Date Eduardo Minor MD [address] [place] [phone] PCP - General Internal Medicine 03/18/19 documented as of this encounter
--- OUTSIDE RECORDS SUMMARY | 2025-06-16 11:39 | XMS_ITS | Encounter Summary ---
Author Organization [employer] Address 75 [facility] 7t [place] [address] Care Team Providers Care Boiler Reliner Name Role Phone Eduardo Minor MD Primary Care Provide r Encounter Details Date Type Department Care Team ([facility] Contact Info) Description 03/16/2025 Orders Only [facility] 230 [place] [address] Provider, MD Carlyle Social History Tobacco Use [...] Description 07/07/2025 10:30 AM EDT Office Visit [facility] 230 [place], [place] [phone] Eduardo Minor MD [address] [place] [phone] documented as of this encounter Procedures Procedure [...] documented as of this encounter Care Teams Boiler Reliner Relationship Specialty Start Date End Date Eduardo Minor MD 230 [place], [place] [phone] PCP - General Internal Medicine 03/18/19 documented as of this encounter
--- OUTSIDE RECORDS SUMMARY | 2025-06-16 11:39 | XMS_ITS | Clinical Summary ---
Author Organization [facility] Address [address] [place] [address] Phone Care Team Providers Care Corn Sheller Operator Name Role Phone Eduardo Verma MD [facility] Surgical History Surgery Date Site/Laterality Comments CHOLECYSTECTOMY PROCEDURE: [place] LAPAROSCOPY SURG CHOLECYSTECTOMY Medical History Medical History [...] AM EDT Appointment [facility] [address] [address] Health Maintenance Due Date Last Done Comments Diabetes: Annual Foot Exam 1972 Diabetes: Annual Retina Eye Exam 1972 Pneumococcal Vaccine: 50+ Years (1 of 2 - PCV) 1981 Zoster Vaccines (1 of 2) 1981 Cervical Cancer Screening: Pap Smear 1983 Colorectal Cancer Screening: Colonoscopy 09/01/2022 HIV Screening 09/01/2022 Hepatitis C Screening 09/01/2022 Social Influencers of Health Screening 09/01/2022 Depression Screening 09/29/2024 Diabetes: Annual Urine Albumin-Creatinine Ratio (uACR) 12/07/2024 COVID-19 Vaccine ( season) 2025 10/24/2021, 01/12/2021, 12/15/2020 Influenza Vaccine (#1) 2025 Diabetes: Blood Sugar [...] year. Mammography location: [facility] at [address], [address] -------- FINAL REPORT -------- Dictated By: Ricardo Patterson Dictated Date: 01/10/2025 17:24 ET Assigned Physician: Ricardo Patterson Reviewed and Electronically Signed By: Ricardo Patterson Signed Date: 01/10/2025 17:32 ET Workstation ID: [id number] Transcribed By: Self Edit Transcribed Date: 01/10/2025 17:24 ET Narrative 01/10/2025 5:32 PM EDT EXAM: SCREENING MAMMOGRAPHY, BILATERAL HISTORY: SCREENING. No additional history. COMPARISON: 09/18/23, 07/12/22, 07/10/21, 06/23/20 TECHNIQUE: Synthesized CC and MLO projections of each breast. Tomosynthesis of each breast in the CC and MLO projections. ADDITIONAL IMAGING: None Computer-aided detection was employed with the Paladion AI 3-D. TISSUE DENSITY: There are scattered [...] None Computer-aided detection was employed with the Gekko[employer] PEMRED AI 3-D. TISSUE DENSITY: There are scattered [...] year. Mammography location: [facility] at [address], [address] -------- FINAL REPORT -------- Dictated By: Ricardo Patterson Dictated Date: 01/10/2025 17:24 ET Assigned Physician: Ricardo Patterson Reviewed and Electronically Signed By: Ricardo Patterson Signed Date: 01/10/2025 17:32 ET Workstation ID: [id number] Transcribed By: Self Edit Transcribed Date: 01/10/2025 17:24 ET us Eduardo Verma MD IMG BI PROCEDURES F inal Result * (ABNORMAL) Basic metabolic panel (12/23/2024 8:00 AM EDT) Sodium 142 133 - 145 mmol/L LAB CHEMISTRY METHOD 12/23/2024 9:15 AM [facility] Potassium 4.6 3.5 - 5.5 mmol/L LAB CHEMISTRY METHOD 12/23/2024 9:15 AM [facility] Chloride 106 96 - 110 mmol/L LAB CHEMISTRY METHOD 12/23/2024 9:15 AM [facility] CO2 32 21 - 32 mmol/L LAB CHEMISTRY METHOD 12/23/2024 9:15 AM [facility] Anion Gap 4 3 - 11 LAB CHEMISTRY METHOD 12/23/2024 9:15 AM [facility] Glucose 110(H) 70 - 100 mg/dL LAB CHEMISTRY METHOD 12/23/2024 9:15 AM [facility] BUN 20 5 - 25 mg/dL LAB CHEMISTRY METHOD 12/23/2024 9:15 AM [facility] Creatinine 0.62 0.50 - 1.10 mg/dL LAB CHEMISTRY METHOD 12/23/2024 9:15 AM [facility] eGFR 101 >=60 mL/min/1. 73m2 LAB CHEMISTRY METHOD 12/23/2024 9:15 AM [facility] Comment:Calculation based on the Chronic Kidney Disease Epidemiology Collaboration (CKD-EPI) equation refit without adjustment for race. BUN/Creatinine Ratio 32.3 LAB CHEMISTRY METHOD 12/23/2024 9:15 AM [facility] Calcium 9.8 8.5 - 10.5 mg/dL LAB CHEMISTRY METHOD 12/23/2024 9:15 AM [facility] Blood Venous blood specimen / Unknown Venipuncture / Unknown 12/23/2024 8:00 AM EDT 12/23/2024 8:44 AM EDT Eduardo Verma MD LAB BLOOD ORDERABLE S Final Result [facility] [address] [place] [address], from Last 3 Months or Most Recently Relevant to Health Maintenance Insurance MEDICAID - [place] Care Teams Corn Sheller Operator Relationship Specialty Start Date End Date Eduardo Verma MD [address] [place] [address] [place] [address] PCP - General Internal Medicine 04/08/22
--- OUTSIDE RECORDS SUMMARY | 2025-06-16 11:39 | XMS_ITS | Encounter Summary ---
Author Organization [employer] Address [address] [facility] [facility] [address] [facility] [address] [address] [place] [address] Care Team Providers Care Contracts Advisor Name Role Phone Eduardo Minor MD Primary Care Provide r Encounter Details Date Type Department Care Team ([facility] st Contact Info) Description 02/01/2025 Orders Only [facility] [address] [place] [address] External Provider, [facility] Social History Tobacco Use Types Packs/Day Years [...] Description 07/07/2025 10:30 AM EDT Office Visit [facility] [address] [place], [place] [phone] Eduardo Minor MD [address] [place] [address] documented as of this encounter Procedures Procedure Name Priority Date/Time Associated Diagnosis Comments TISSUE PATHOLOGY Routine 01/31/2025 8:47 AM EDT documented in this encounter Results * Tissue Pathology (01/31/2025 8:47 AM EDT) Tissue [facility] External Provider LAB PAT HOLOGY ORDERABLES Final Result documented in this encounter Visit Diagnoses Not on filedocumented in this encounter Additional Health Concerns Assessment Noted Time PHQ-9 Depression Total Score: 0 12/03/19 25 1:50 PM EST documented as of this encounter Care Teams Contracts Advisor Relationship Specialty Start Date End Date Eduardo Minor MD [address] [place], [place] [phone] PCP - General Internal Medicine 03/18/19 documented as of this encounter
--- OUTSIDE RECORDS SUMMARY | 2025-06-16 11:39 | XMS_ITS | Encounter Summary ---
Author Organization [employer] Address [address] [place] [address] 7 [place] [address] Care Team Providers Care Ballistics Teacher Name Role Phone Eduardo Minor MD Primary Care Provide r Encounter Details Date Type Department Care Team (Late st Contact Info) Description 11/26/2022 Orders Only [facility] [address] [place] [address] Gayatri Otto LPN Social History Tobacco Use [...] Description 07/07/2025 10:30 AM EDT Office Visit [facility] [address] [place] [address] Eduardo Minor MD [address] [place] [address] documented as of this encounter Visit Diagnoses Not on filedocumented in this encounter Care Teams Ballistics Teacher Relationship Specialty Start Date End Date Eduardo Minor MD [address] [place] [address] PCP - General Internal Medicine 03/18/19 documented as of this encounter
--- OUTSIDE RECORDS SUMMARY | 2025-06-16 11:39 | XMS_ITS | Encounter Summary ---
Author Organization [employer] Address [address] [facility] 7t [place] [address] Care Team Providers Care Core Winder Name Role Phone Eduardo Minor MD Primary Care Provide r Encounter Details Date Type Department Care Team ([facility] st Contact Info) Description 01/24/2025 Orders Only [facility] MED[facility]INE [address] [place], [place] [phone] Bel Han MD [address] [place], [place] [phone] Social History Tobacco Use Types Packs/Day Years [...] Office Visit [facility] [address] [place] [address] Eduardo Minor MD [address] [place] [address] documented as of this encounter Visit Diagnoses Not on filedocumented in this encounter Additional Health Concerns Assessment Noted Time PHQ-9 Depression Total Score: 0 12/03/19 25 1:50 PM EST documented as of this encounter Care Teams Core Winder Relationship Specialty Start Date End Date Eduardo Minor MD [address] [place] [phone] PCP - General Internal Medicine 03/18/19 documented as of this encounter
--- OUTSIDE RECORDS SUMMARY | 2025-06-16 11:39 | XMS_ITS | Encounter Summary ---
Author Organization [employer] Address [address] [facility] 7t [place] [address] Care Team Providers Care Waterfront Director Name Role Phone Eduardo Minor MD Primary Care Provide r Reason for Visit * Reason Comments Med Refill Encounter Details Date Type Department Care Team ([facility] st Contact Info) Description 08/05/[address] [facility] MEDICINE [address] [place], [place] [phone] Eduardo Minor MD [address] [place], [place] [phone] Type 2 diabetes mellitus without complication, without long-term current use of insulin ([facility]) Social History Tobacco Use Types Packs/Day Years Used Date Smoking Tobacco: Never Passive Smoke Exposure: Never Smokeless Tobacco: Never Depression Answer Date Recorded Patient Health Questionnaire-9 Score 0 02/03/2024 Patient Health Questionnaire-9 Score 0 02/03/2024 Last PHQ-9: Questionnaire Data Not on file 0 02/03/2024 Housing Stability Answer Date Recorded What is your housing situation today? I have xiomy wlaker 02/03/[address] you li [...] 10:30 AM EDT Office Visit [facility] MEDICINE [address] [place] [phone] Eduardo Minor MD [address] [place] [address] documented as of this encounter Visit Diagnoses Diagnosis Type 2 diabetes mellitus without complication, without long-term current use of insulin ([facility]) documented in this encounter Additional Health Concerns Assessment Noted Time PHQ-9 Depression Total Score: 0 02/03/20 24 1:01 PM EDT documented as of this encounter Care Teams Waterfront Director Relationship Specialty Start Date End Date Eduardo Minor MD [address] [place] [address] PCP - General Internal Medicine 03/18/19 documented as of this encounter
--- OUTSIDE RECORDS SUMMARY | 2025-06-16 11:39 | XMS_ITS | Encounter Summary ---
Author Organization [employer] Address [address] [facility] 7t [place] [address] Care Team Providers Care Tile And Marble Setter Name Role Phone Eduardo Minor MD Primary Care Provide r Encounter Details Date Type Department Care Team ([facility] st Contact Info) Description 01/03/2025 Orders Only [facility] MEDICINE [address] [place], [place] [phone] Bel Han MD [address] [place], [place] [phone] Social History Tobacco Use Types Packs/Day Years [...] Description 07/07/2025 10:30 AM EDT Office Visit [facility]INE [address] [place] [address] Eduardo Minor MD [address] [place] [address] documented as of this encounter Visit Diagnoses Not on filedocumented in this encounter Additional Health Concerns Assessment Noted Time PHQ-9 Depression Total Score: 0 12/03/19 25 1:50 PM EST documented as of this encounter Care Teams Tile And Marble Setter Relationship Specialty Start Date End Date Eduardo Minor MD [address] [place] [address] PCP - General Internal Medicine 03/18/19 documented as of this encounter
--- OUTSIDE RECORDS SUMMARY | 2025-06-16 11:39 | XMS_ITS | Encounter Summary ---
Author Organization [employer] Address [address] [facility] 7t [place] [address] Care Team Providers Care Pipe Assembly Worker Name Role Phone Eduardo Minor MD Primary Care Provide r Reason for Visit * Reason Comments Med Refill Encounter Details Date Type Department Care Team ([facility] Contact Info) Description 08/03/2024 Refill [facility] MEDICINE [address] [place], [place] [phone] Eduardo Minor MD [address] [place], [place] [phone] Type 2 diabetes mellitus without complication, unspecified whether buttermaker helper insulin use ([facility]) Social History Tobacco Use Types [...] Description 07/07/2025 10:30 AM EDT Office Visit [facility] MEDICINE [address] [place] [address] Eduardo Minor MD [address] [place] [address] documented as of this encounter Visit Diagnoses Diagnosis Type 2 diabetes mellitus without complication, unspecified whether buttermaker helper insulin use ([facility]) documented in this encounter Additional Health Concerns Assessment Noted Time PHQ-9 Depression Total Score: 0 02/03/20 24 1:01 PM EDT documented as of this encounter Care Teams Pipe Assembly Worker Relationship Specialty Start Date End Date Eduardo Minor MD [address] [place] [id number] PCP - General Internal Medicine 03/18/19 documented as of this encounter
--- OUTSIDE RECORDS SUMMARY | 2025-06-16 11:39 | XMS_ITS | Encounter Summary ---
Author Organization [employer] Address [address] [facility] 7t [place] [address] Care Team Providers Care Automotive Tire Tester Name Role Phone Eduardo Minor MD Primary Care Provide r Reason for Visit * Reason Comments Med Refill Encounter Details Date Type Department Care Team ([facility] st Contact Info) Description 12/15/2023 Refill [facility] MED[facility]INE [address] [place], [place] [phone] Eduardo Minor MD [address] [place], [place] [phone] Social History Tobacco Use Types Packs/Day Years [...] t he electric, gas, oil or water [employer] threatened to shut off services in your [...] 07/07/2025 10:30 AM EDT Office Visit [facility] MEDICINE [address] [place] [address] Eduardo Minor MD [address] [place] [address] documented as of this encounter Visit Diagnoses Not on filedocumented in this encounter Additional Health Concerns Assessment Noted Time PHQ-9 Depression Total Score: 5 01/08/20 23 1:17 PM EDT documented as of this encounter Care Teams Automotive Tire Tester Relationship Specialty Start Date End Date Eduardo Minor MD [address] [place] [address] PCP - General Internal Medicine 03/18/19 documented as of this encounter
--- OUTSIDE RECORDS SUMMARY | 2025-06-16 11:39 | XMS_ITS | Encounter Summary ---
Author Organization [employer] Address [address] [facility] 7 [place] [address] Care Team Providers Care Size Tester Name Role Phone Eduardo Minor MD Primary Care Provide r Reason for Visit * Reason Onset Date Comments Appointment Request 12/05/2023 Encounter Details Date Type Department Care Team ([facility] Contact Info) Description 12/05/[address] [facility] MEDICINE [address] [place], [place] [phone] Eduardo Minor MD [address] [place], [place] [phone] Appointment Request Social History Tobacco Use Types [...] 07/07/2025 10:30 AM EDT Office Visit [facility] [address] [place] [address] Eduardo Minor MD [address] [place] [address] documented as of this encounter Visit Diagnoses Not on filedocumented in this encounter Additional Health Concerns Assessment Noted Time PHQ-9 Depression Total Score: 5 01/08/20 23 1:17 PM EDT documented as of this encounter Care Teams Size Tester Relationship Specialty Start Date End Date Eduardo Minor MD [address] [place] [address] PCP - General Internal Medicine 03/18/19 documented as of this encounter
--- OUTSIDE RECORDS SUMMARY | 2025-06-16 11:39 | XMS_ITS | Patient Health Record ---
Author Organization [facility] Address [address] [place] [phone] Care Team Providers Care Journeyman Meat Cutter Name Role Phone Drew Long MD, Eduardo Primary Care Provide r S[place]a [place] Unavailable [phone] Allergies No Known Allergies Reason For Referral [...] Problem Status W/U Status Risk Notes Problem 415642205 Encounter for screening for malignant neoplasm of colon (Z12.11) Active confirmed Problem 506439316 History of adenomatous polyp of colon (Z86.010) Active confirmed Problem 367963430 Bloating (R14.0) Active confirmed Problem Diverticular disease of colon (010990857) Diverticulosis of large intestine without perforation or abscess without bleeding (K57.30) Active confirmed Problem [id number] Pre-procedural examination (Z01.818) Active confirmed Plan Of Treatment Future Test Test Name Order Date COLONOSCOPY 11/05/2012 COLONOSCOPY 01/31/2017 COLONOSCOPY 10/31/2022 Insurance Providers Payer Name Payer Address Payer Phone Subscriber Number Group Number Insured Name Patient Relationship to Insured Coverage Start Date Coverage End Date [place] [address] [place] [phone] [id number] SHANAE GARCIA Self - patient is the insured Medical (General) History Medical History History ICD Code NIDDM Hypothyroidism and thyroid nodule Denies [place],CVA,Lung disease,renal disease Neg. ETT at [facility] in 2011 and 1 10/2015 Screening Colonoscopy 12/2012 --small tubular adenomas, mild diverticulosis, small internal hemorrhoids Negative colonoscopy in 08/2017 Surgical History Surgery Date(Month/Year) Tubal ligatiion 4 C-sections Cholecystectomy
--- OUTSIDE RECORDS SUMMARY | 2025-06-16 11:39 | XMS_ITS | Clinical Summary ---
Author Organization [employer] Address [address] [place] [address] 7[address] [place] [address] Care Team Providers Care Internet Researcher Name Role Phone Eduardo Minor MD Primary [...] complication, without long-term current use of insulin ([facility]) USE KIT TWICE DAILY 1 kit 4 Active levothyroxine (Synthroid) 88 MCG tablet Take 1 tablet (88 mcg) by mouth before breakfast. 30 tablet 11 5 11/20/19 26 Active glucose blood (FREESTYLE LITE) test stripIndications :Type 2 diabetes mellitus without complication, unspecified whether detention insulin use ([facility]) USE DIRECTED TO TEST BLOOD GLUCOSE TWICE [...] needle biopsy of left retroperitoneal mass which [id number] B-cell lymphoma with CD10 coexpression consistent with [...] Seen on , follows with Dr Paulson [facility] 01/07/2023 Assessment & Plan (02/03/2024 1:03 PM EDT): Mammogram: 09/18/2023 Normal done at [facility] Pap Smear: Done 08/2023 at [facility] Colonoscopy: 11/2022 showed a Tubular adenoma, Diverticulosis and Hemorrhoids Dr. Calderon Assessment & Plan (01/07/2023 4:16 PM EDT): Mammogram: 07/12/2022 Normal done at [facility] Pap Smear: Done by Dr Paulson [facility] Colonoscopy: 12/09/2022 showed a Tubular adenoma, [...] Hgb A1c 12/02/2024: 6.4 Eye exam 04/07/2024 [facility] checked on: 11/30/2020 1 was: [...] Hgb A1c 12/02/2024: 6.4 Eye exam 04/07/2024 [facility]albumin checked on: 11/30/2020 1 was: [...] Hgb A1c 08/03/2024: 5.9 Eye exam 04/07/2024 [facility]albumin checked on: 11/30/2020 1 was: [...] Type Department Care Team Description 05/26/2025 Telephone [facility] [address] [place] [address] Eduardo Minor MD Appointment Confirmation 05/25/2025 Telephone [facility] [address] [place] [address] Eduardo Minor MD Chart Prep 05/23/2025 Orders Only GENERIC EXTERNAL DATA DEPARTMENT Provider, Generic External Data 05/18/2025 Patient Outreach [facility] [address] [place], [place] [phone] Eduardo Minor MD Pre-visit Planning ([facility] screening was completed on 12/02/2024) 05/11/2025 Telephone [facility] [address] [place] [address] Eduardo Minor MD Nurse Triage 05/08/2025 Refill [facility] [address] [place] [address] Eduardo Minor MD Type 2 diabetes mellitus without complication, without long-term current use of insulin ([facility]) 03/16/2025 Orders Only [facility] [address] [place] [address] Provider, MD Carlyle from Last 3 Months Immunizations Immunization Administration [...] Office Visit [facility] [address] [place] [address] Eduardo Minor MD [address] [place] [address] Health Maintenance Due Date Last Done Comments CT Colonography 1962 FIT DNA/Cologuard 1962 FIT 1962 FOBT 1960 HIV Screening 1960 Sigmoidoscopy 1962 Eye Exam 1972 Hepatitis C Screening 1980 Pneumococcal Vaccine: 50+ Years (1 of 2 - PCV) 1981 Zoster Vaccines (1 of 2) 1981 RSV Patients and Patients Aged 60 years or older (1 - Risk 60-74 years 1-dose series) 2022 Lipid Panel 05/27/2025 05/27/2024, 0409/2022, 11/30/2020 COVID-19 Vaccine ( season) 2025 10/24/2021, 01/12/2021, 12/15/2020 Influenza Vaccine (#1) 2025 Diabetes: Urine Protein Screening 08/03/2025 08/03/2024, 01/07/2023, 11/30/2020 Diabetes: Hemoglobin A1C 08/27/2025 025, 12/02/2024, 02/03/2024, Additional history exists Diabetes: Foot Exam 11/20/2025 11/20/2024 Tobacco Screening 11/23/2025 11/23/2024 Alcohol/Substance Use Screening 12/02/2025 12/02/2024 Depression Screening 12/02/2025 12/02/2024, 12/03/19 SDOH Screening 12/02/2025 12/02/2024 Mammogram 01/10/2026 01/10/2025, [...] Procedure Name Priority Date/Time Associated Diagnosis Comments US THYROID Routine 05/26/2025 4:[address] ABDOMEN PELVIS W CONTRAST Routine 05/23/2025 11:14 AM EDT [id number], SERUM Routine 05/23/2025 8:21 AM EDT LD Routine [...] PAP/HPV Routine 09/18/2023 HM COLONOSCOPY Routine 12/09/2022 HM PAP/HPV Routine 07/09/2022 from Last 3 Months or Most Recently Relevant to Health Maintenance Results * US Thyroid (05/26/2025 4:09 PM EDT) Anatomical Region Laterality Modality Head, Neck Ultrasound 05/26/2025 4:09 PM EDT Narrative 05/27/2025 7:28 AM EDT [place] [address] Ultrasound Report Signed Patient: Lili Madrid MR#: [id number] : 1960 Acct:[id number] Age/Sex: 64 / F ADM Date: 05/26/25 Loc: HO.US Attending Dr: Avani Gold MD Ordering Physician: Avani Gold MD Date of Service: 05/26/25 Procedure(s): US thyroid Accession Number(s): [id number] cc: Eduardo Verma MD; Avani Gold MD EXAMINATION: US THYROID HISTORY: E04.2 - Nontoxic multinodular goiter. History of follicular lymphoma with a staging PET/CT scan showing increased activity on the right side of the thyroid. TECHNIQUE: Real-time grayscale ultrasound imaging was performed and images were reviewed. COMPARISON: Comparison is made with the prior examination dated . FINDINGS: SIZE: The right thyroid lobe measures 4.7 x 1.7 x 1.5 cm. The left thyroid lobe measures 4.2 x 1.5 x 1.2 cm. The isthmus measures 4 mm. FLOW: Flow to the gland is normal. ECHOGENICITY: The echotexture of the gland is homogeneous. NODULES: There are nodules in the right thyroid lobe as described below: Nodule #: 1 Location: Mid to lower pole of the right thyroid lobe measuring 1.2 x 0.7 x 0.9 cm (previously 1.3 x 1.1 x 0.7 cm). Shape: Wider than tall (0 points) Margins: Ill-defined (0 points) Echotexture: Isoechoic (1 point) Composition: Solid (2 points) Calcifications: None (0 points) Total points: 3 TIRADS: TR3: Mildly suspicious. Nodule #: 2 Location: Lower pole of the right thyroid lobe measuring 1.3 x 0.8 x 0.8 cm (not seen previously). Shape: Wider than tall (0 points) Margins: Ill-defined (0 points) Echotexture: Hyperechoic (1 point) Composition: Solid (2 points) Calcifications: None (0 points) Total points: 3 TIRADS: TR3: Mildly suspicious. US/US thyroid IMPRESSION: Mildly suspicious nodules on the right, one of which is new from the prior study. ACR TI-RADS Guidelines TR1 (0 points): Benign. No follow-up or biopsy required TR2 (2 points): Not Suspicious. No biopsy or follow up indicated TR3 (3 points): Mildly Suspicious. FNA if >= 2.5 cm, Follow if >= 1.5 cm TR4 (4-6 points): Moderately Suspicious. FNA if >= 1.5 cm, Follow if >= 1.0 cm TR5 (>=7 points): Highly Suspicious. FNA if >= 1.0 cm, Follow if >= 0.5 cm Electronically signed by: Siddhartha Jim MD 05/27/2025 07:25 AM EDT Dictated By: Siddhartha Jim MD Signed By: <Electronically signed by Siddhartha Jim MD in OV> 05/27/25 0725 DD/ 1609 TD/TT: 05/26/25 1615 Expeller Operator: Procedure Note Donotuseinterpreter, Image - 05/27/[address] [address] Ultrasound Report Signed Patient: Linda Madrid#: [id number] : 2Acct:[id number] Age/Sex: 64 / FADM Date: 05/26/25 Loc: HO.US Attending Dr: Avani Gold MD Ordering Physician: Avani Gold MD Date of Service: 05/26/25 Procedure(s): US thyroid Accession Number(s): [id number] cc: Eduardo Verma MD; Avani Gold MD EXAMINATION: US THYROID HISTORY: E04.2 - Nontoxic multinodular goiter. History of follicular lymphoma with a staging PET/CT scan showing increased activity on the right side of the thyroid. TECHNIQUE: Real-time grayscale ultrasound imaging was performed and images were reviewed. COMPARISON: Comparison is made with the prior examination dated . FINDINGS: SIZE: The right thyroid lobe measures 4.7 x 1.7 x 1.5 cm. The left thyroid lobe measures 4.2 x 1.5 x 1.2 cm. The isthmus measures 4 mm. FLOW: Flow to the gland is normal. ECHOGENICITY: The echotexture of the gland is homogeneous. NODULES: There are nodules in the right thyroid lobe as described below: Nodule #: 1 Location: Mid to lower pole of the right thyroid lobe measuring 1.2 x 0.7 x 0.9 cm (previously 1.3 x 1.1 x 0.7 cm). Shape: Wider than tall (0 points) Margins: Ill-defined (0 points) Echotexture: Isoechoic (1 point) Composition: Solid (2 points) Calcifications: None (0 points) Total points: 3 TIRADS: TR3: Mildly suspicious. Nodule #: 2 Location: Lower pole of the right thyroid lobe measuring 1.3 x 0.8 x 0.8 cm (not seen previously). Shape: Wider than tall (0 points) Margins: Ill-defined (0 points) Echotexture: Hyperechoic (1 point) Composition: Solid (2 points) Calcifications: None (0 points) Total points: 3 TIRADS: TR3: Mildly suspicious. US/US thyroid IMPRESSION: Mildly suspicious nodules on the right, one of which is new from the prior study. ACR TI-RADS Guidelines TR1 (0 points): Benign. No follow-up or biopsy required TR2 (2 points): Not Suspicious. No biopsy or follow up indicated TR3 (3 points): Mildly Suspicious. FNA if >= 2.5 cm, Follow if >= 1.5 cm TR4 (4-6 points): Moderately Suspicious. FNA if >= 1.5 cm, Follow if >= 1.0 cm TR5 (>=7 points): Highly Suspicious. FNA if >= 1.0 cm, Follow if >= 0.5 cm Electronically signed by: Siddhartha Jim MD 05/27/2025 07:25 AM EDT Dictated By: Siddhartha Jim MD Signed By: <Electronically signed by Siddhartha Jim MD in OV> 05/27/25724 DD/ 1609 TD/TT: 05/26/25 1615 Expeller Operator: us [facility] External Provider IMG US PROCEDURES Edited Result - Final * CT Abdomen Pelvis w/ Contrast (05/23/2025 11:14 AM EDT) Anatomical Region Laterality Modality Body, Pelvis, Abdomen Computed T omography 05/23/2025 11:1 4 AM EDT Narrative 05/23/2025 12:00 PM EDT [place] [address] CT Scan Report Signed Patient: Lili Madrid MR#: [id number] : 1960 Acct:[id number] Age/Sex: 64 / F ADM Date: 05/23/25 Loc: HO.CT Attending Dr: Xochitl Nelson MD Ordering Physician: Xochitl Nelson MD Date of Service: 05/23/25 Procedure(s): CT abdomen pelvis w IV con Accession Number(s): [id number] cc: Xochitl Nelson MD; Eduardo Verma MD Report Number: [id number]: Total DLP = 985.00 mGy-cm EXAMINATION: CT [...] 05/23/25 1156 DD/ 1114 TD/TT: 05/23/25 1136 Expeller Operator: Procedure Note Donotuseinterpreter, Image - 05/23/[address] [address] [address] Scan Report Signed Patient: Linda Madrid#: [id number] : 1960cct:[id number] Age/Sex: 64 / FADM Date: 05/23/25 Loc: HO.CT Attending Dr: Xochitl Nelson MD Ordering Physician: Xochitl Nelson MD Date of Service: 05/23/25 Procedure(s): CT abdomen pelvis w IV con Accession Number(s): [id number] cc: Xochitl Nelson MD; Eduardo Verma MD Report Number: [id number]: Total DLP = 985.00 mGy-cm EXAMINATION: CT [...] 05/23/25 1156 DD/ 1114 TD/TT: 05/23/25 1136 Expeller Operator: [facility] External Provider IMG CT PROCEDURES Final Result * CBC auto differential (05/23/2025 8:21 AM EDT) Only the most recent of2 resultswithin the time period is included. White Blood Count 7.8 4.8 - 10.8 X10*3/uL [facility] Red Blood Count 4.39 4.20 - 5.50 X10*6/uL [facility] Hemoglobin 13.2 12.0 - 16.0 g/dl [facility] Hematocrit 39.4 37.0 - 47.0 % [facility] Mean Corpuscular Volume 89.7 80.0 - 98.0 fL [facility] Mean Corpuscular Hemoglobin 30.1 27.0 - 33.0 pg [facility] Mean Corpuscular HGB Conc 33.5 31.0 - 35.0 g/dl [facility] Red Cell Distribution Width 13.1 11.0 - 16.0 % [facility] Platelet Count 330 160 - 400 X10*3/uL [facility] Mean Platelet Volume 9.5 9.4 - 12.3 fL [facility] Neutrophils Percent Auto 57.6 45 - 73 % [facility] Imm Gran Pct Auto 0.4 0.0 - 0.4 % [facility] Lymphocytes Percent Auto 28.4 20 - 40 % [facility] Monocytes Percent Auto 9.6 2 - 11 % [facility] Eosinophils Percent Auto 2.8 0 - 4 % [facility] Basophils Percent Auto 1.2 0 - 2 % [facility] NRBC Pct Auto 0.0 0.0 - 0.2 /100WBC [facility] Neutrophils Absolute Auto 4.5 2.0 - 8.3 x10*3/uL [facility] Imm Gran Abs Auto 0.03 0.00 - 0.03 X10*3/uL [facility] Lymphocytes Absolute Auto 2.2 1.2 - 4.9 X10*3/uL [facility] Monocytes Absolute Auto 0.8 0.1 - 1.2 X10*3/uL [facility] Eosinophils Absolute Auto 0.2 0.0 - 0.4 X10*3/uL [facility] Basophils Absolute Auto 0.1 0.0 - 0.2 X10*3/uL [facility] NRBC Abs Auto 0.000 0.0 - 0.012 X10*3/uL [facility] 05/23/2025 8:21 AM EDT 05/23/2025 8:21 AM EDT us Generic External Data Provider LAB BLOOD ORDERAB LES Final Result Performing Organization Address [facility]/ZIP Co de Phone Number [facility] [address] [place] [phone] * Lactate Dehydrogenase (LD) (05/23/2025 8:21 AM EDT) Lactate Dehydrogenase 156 122 - 220 U/L [facility] 05/23/2025 8:21 AM EDT 05/23/2025 8:21 AM EDT us Generic External Data Provider LAB BLOOD ORDERAB LES Final Result Performing Organization Address [facility] de Phone Number [facility] [address] [place] [phone] * [id number], Serum (05/23/2025 8:21 AM EDT) Beta 2 Microglobulin, Serum 2.25 < OR = 2.51 mg/L [facility] Comment:THIS TEST WAS PERFOR MED AT:[employer] [address] [id number] CHE MD 05/23/2025 8:21 AM EDT 05/23/2025 8:21 AM EDT us Generic External Data Provider LAB BLOOD ORDERAB LES Final Result Performing Organization Address [facility] Co de Phone Number [facility] [address] [place] [phone] * (ABNORMAL) Comprehensive Metabolic Panel (05/23/2025 8:21 AM EDT) Only the most recent of2 resultswithin the time period is included. Sodium 142 135 - 145 mmol/L [facility] Potassium 5.1 3.3 - 5.1 mmol/L [facility] Chloride 105 96 - 108 mmol/L [facility] Carbon Dioxide 29 22 - 29 mmol/L [facility] Anion Gap 13 12 - 20 [facility] Urea Nitrogen (BUN) 15 9 - 16 mg/dL [facility] Creatinine, Serum 0.76 0.5 - 1.4 mg/dL [facility] Estimated Glomerular Filt Rate >60 [facility] Comment:Chronic Kidney Disea se: Estimated GFR < 60 mL/min/1.44a5Apmrcg Kidney Disease: Estimated GFR < 15 mL/min/1.73m2 Glucose 137(H) 60 - 115 mg/dL [facility] Calcium 9.9 8.4 - 10.2 mg/dL [facility] Bilirubin, Total 0.3 0.0 - 1.0 mg/dL [facility] Aspartate Amino Transferase 23 5 - 31 U/L [facility] Alanine Aminotransferase 19 0 - 31 U/L [facility] Total Protein 7.5 6.5 - 8.0 g/dL [facility] Albumin Level 4.3 3.5 - 5.0 g/dL [facility] Alkaline Phosphatase 69 39 - 117 U/L [facility] 05/23/2025 8:21 AM EDT 05/23/2025 8:21 AM EDT us Generic External Data Provider LAB BLOOD ORDERAB LES Final Result [facility] [address] [place] [address] [phone] * TSH with Reflex to Free T4 (03/31/2025 11:48 AM EDT) TSH reflex Free T4 1.80 0.32 - 4.0 uIU/mL [facility] Blood Venous blood specimen / Unknown 03/31/2025 11:48 AM EDT 03/31/2025 11:48 AM EDT us Eduardo Long MD LAB BLOOD ORDERABLES Final Result [facility] [address] [place] [phone] * (ABNORMAL) POCT HGB A1C (02/24/2025 11:11 AM EDT) Hemoglobin A1C 6.4(A) 4.0 - 6.0 % [employer] Lot # [id number] Lot# Expiration Date Blood 02/24/2025 11:1 1 AM EDT Result Rubens Long MD POINT OF CARE TEST EN TER/EDIT ORDERABLES Final Result * BI Mammogram Screening Tomosynthesis Bilateral (01/10/2025) Anatomical Region Laterality Modality Breast Bilateral Mammography Result Rubens Long MD IMG BI PROCEDURES Fin al Result * Albumin, Random Urine W/Creatinine (08/03/2024 1:35 PM EST) Creatinine, Urine 121.86 mg/dL [facility] Microalbumin Urine 12.0 mg/L [facility] Microalbum Creatinine Ratio Ur 9.8 <30 ug/mg cr [facility] Comment:Albumin/Creatinine R atio Reference Ranges: Normal: < 30 ug/mg creatinine Microalbuminuria: 30 - 300 ug/mg creatinineClinical Albuminuria: > 300 ug/mg creatinine Urine (Urine, Random) 08/03/2024 1:35 PM EST 08/03/2024 4:09 PM EST us Eduardo Long MD LAB URINE ORDERABLES Final Result Performing Organization Address City/[facility]/ZIP Co de Phone Number [facility] [address] [place] [phone] [phone] * Lipid Panel, Standard (05/27/2024 7:46 AM EDT) Triglycerides 110 <150 mg/dL [facility] Comment:Desirable Triglyceri de: less than 150 mg/dLBorderline High Triglyceride 150-199 mg/dLHigh Triglyceride: 200-499 mg/dLVery High Triglyceride: greater than or equal to 5OO mg/dL Cholesterol 152 <200 mg/dL [facility] Comment:Desirable Cholestero l: less than 200 mg/dLBorderline High Cholesterol: 200-239 mg/dLHigh Cholesterol: greater than 239 mg/dL LDL Cholesterol Calculated 85 <100 mg/dL [facility] Comment:Desirable LDL: less than 100 mg/dLNear Optimal/Above Optimal LDL: 110- 129 mg/dLBorderline High LDL: 130-159 mg/dLHigh LDL: 160-189 mg/dLVery High LDL: greater than or equal to 190 mg/dL HDL Cholesterol 45 >40 mg/dL [facility] Comment:Desirable HDL: great er than 40 mg/dL Note: This HDL assay may give artificially low results in patients with liver disease. Blood Venous blood specimen / Unknown 05/27/2024 7:46 AM EDT 05/27/2024 7:46 AM EDT Eduardo Long MD LAB BLOOD ORDERABLES Final Result [facility] [address] [place] [phone] [phone] * Pap Smear (09/18/2023) Only the most recent of2 resultswithin the time period is included. Historical Provider HEALTH MAINTENANCE Final Result * Hm Colonoscopy (12/09/2022) Colonoscopy Normal Normal Narrative Kelli iMx - 12/09/2022 Repeat in 5 years us Historical Provider HEALTH MAINTENANCE Final Result from Last 3 Months or Most Recently Relevant to Health Maintenance Insurance [facility] C3 Care Teams Internet Researcher Relationship Specialty Start Date End Date Eduardo Minor MD [address] [place] [phone] PCP - General Internal Medicine 03/18/19
--- OUTSIDE RECORDS SUMMARY | 2025-06-16 11:39 | XMS_ITS | Encounter Summary ---
Author Organization [employer] Address [address] [facility] 7 [place] [address] Care Team Providers Care Clinical Application Manager Name Role Phone dEuardo Minor MD Primary Care Provide r Reason for Visit * Reason Onset Date Comments Med Refill 03/08/2024 Encounter Details Date Type Department Care Team ([facility] st Contact Info) Description 03/08/2024 Refill [facility] [address], [place] [phone] Eduardo Minor MD [address] [place] [address] Type 2 diabetes mellitus without complication, without long-term current use of insulin ([facility]); Type 2 diabetes mellitus without complication, unspecified whether terminal makeup operator insulin use ([facility]) Social History Tobacco Use Types Packs/Day Years [...] Description 07/07/2025 10:30 AM EDT Office Visit [facility] [address] [place] [address] Eduardo Minor MD [address] [place] [phone] documented as of this encounter Visit Diagnoses Diagnosis Type 2 diabetes mellitus without complication, unspecified whether terminal makeup operator insulin use ([facility]) documented in this encounter Additional Health Concerns Assessment Noted Time PHQ-9 Depression Total Score: 0 02/03/20 24 1:01 PM EDT documented as of this encounter Care Teams Clinical Application Manager Relationship Specialty Start Date End Date Eduardo Minor MD [address] [place] [address] PCP - General Internal Medicine 03/18/19 documented as of this encounter
== END 2025-06-16 09:56 | disposition home or self-care (01) ==
LOC: HO.LAB 09:55
PROVIDERS: Visit Provider Internal Medicine
DX: C82.90 Follicular lymphoma, unspecified, unspecified site (principal)
CPT/HCPCS: 36415; 80053; 83615; 85025

== ENCOUNTER 2025-07-07 11:25 | Outpatient (AMB) | payer MEDICAID, SELFPAY ==
--- NOTE | 2025-07-07 11:27 | MHC.OFFVIS ---
Vital Signs 07/07/25 11:28 Height 5 ft Weight 183 lb BMI 35.7 BP 108/68 Blood Pressure Location Lt brachial Position Sitting Pulse 80 Pulse Source Pulse Oximeter Pulse Oximetry (%) 97 Oxygen Delivery Method Room Air Intake Visit Reasons: Hypothyroidism Intake Note: Patient present today for Hypothyroidism. Boat Wrapper Required: No Accompanied by: Self / Same As Patient Allergies tumeric Adverse Reaction (Uncoded 07/07/25 11:34) Hives HPI Comments Details: 65 YO F with PMHx hypothyroidism who is seen in F/U for a NTMNG.. Found to have a incidental paraaortic mass on MRI lumbar spine , in , biopsy of the mass showed follicular lymphoma. She is seeing Dr. Nelson for this. During evaluation, had a PET CT for staging performed at [facility] on 02/22/25 revealed metabolically active left para-aortic lymphadenopathy SUV max of 6.8. Asymmetric increased activity in the right thyroid lobe SUV max 5.6. Thats why she is here today. History of hypothyroidism since in her 20s or 30s Currently on levothyroxine 88 mcg , take it at 3 or 4 AM in the morning and then goes to sleep 03/20/22: She had a thyroid US which revealed a 1.3 cm RMP thyroid nodule. She was subsequently referred to Endocrinology. US thyroid showed right mid 1.3 cm nodule solid hyper echoic that had increased in size 08/29/22: She underwent CT of the neck given the compressive symptoms. This did not reveal any mass effect from the thyroid. There were some elongated lymph nodes visualized. 01/02/23: Dr. Crespo repeated US herself didnt show any real nodules jus ta heterogenous gland with pseudonodules Patient currently denies heat or cold intolerance, hair loss, palpitation, mood changes, , changes in appearance of eyes or vision changes, tremors, increased diaphoresis or dry skin. ?Some days low energy. Has Constipation. Anxiety regarding new diagnosis and has gained 8 lbs in the past 3-4 monhts due to eating a lot because of anxiety. Reports intermittent difficulty swallowing, some intermittent hoarseness. Patient denies any history of childhood neck radiation. Denies having ever used lithium, amiodarone or biotin supplements. Maternal aunt had thyroid cancer. Doesnt know what type . Interval history Ultrasound thyroid 05/26/2025, I reviewed the images myself which showed a right mid to lower 1.2 cm solid isoechoic TR 3 nodule, this was previously seen on the ultrasound in 2021 when remained stable in size. Another right lower pole 1.3 cm solid hypoechoic TR 3 nodule noted. While both of these do not meet criteria for biopsy based on TI-RADS category, however given patient had increased uptake on PET scan and these nodules are greater than 1 cm in size, I would err on the side of caution and biopsy these to rule out malignancy. Physical exam General: sitting comfortably in no acute distress HEENT: normocephalic/atraumatic Neck: supple, symmetrical, Cardiac: normal heart sounds Pulm: normal breath sounds B/L, no added breath sounds Abd: not distended, no tenderness Extremities: no edema, no signs of myxedema Laboratory Tests 08/14/22 03/31/25 12:42 11:48 TSH 1.80 Thyroglobulin Antibody 17 H Thyroid Peroxidase Ab 43 H EXAMINATION: US THYROID 05/26/25 HISTORY: E04.2 - Nontoxic multinodular goiter. History of follicular lymphoma with a staging PET/CT scan showing increased activity on the right side of the thyroid. TECHNIQUE: Real-time grayscale ultrasound imaging was performed and images were reviewed. COMPARISON: Comparison is made with the prior examination dated . FINDINGS: SIZE: The right thyroid lobe measures 4.7 x 1.7 x 1.5 cm. The left thyroid lobe measures 4.2 x 1.5 x 1.2 cm. The isthmus measures 4 mm. FLOW: Flow to the gland is normal. ECHOGENICITY: The echotexture of the gland is homogeneous. NODULES: There are nodules in the right thyroid lobe as described below: Nodule #: 1 Location: Mid to lower pole of the right thyroid lobe measuring 1.2 x 0.7 x 0.9 cm (previously 1.3 x 1.1 x 0.7 cm). Shape: Wider than tall (0 points) Margins: Ill-defined (0 points) Echotexture: Isoechoic (1 point) Composition: Solid (2 points) Calcifications: None (0 points) Total points: 3 TIRADS: TR3: Mildly suspicious. Nodule #: 2 Location: Lower pole of the right thyroid lobe measuring 1.3 x 0.8 x 0.8 cm (not seen previously). Shape: Wider than tall (0 points) Margins: Ill-defined (0 points) Echotexture: Hyperechoic (1 point) Composition: Solid (2 points) Calcifications: None (0 points) Total points: 3 TIRADS: TR3: Mildly suspicious. US/US thyroid IMPRESSION: Mildly suspicious nodules on the right, one of which is new from the prior study. Thyroid US: 03/20/2022 Right Thyroid Lobe: 4.5 x 1.7 x 1.8 cm, volume 7.2 mL. Previously 4.1 x 1.9 x 1.7 cm, volume 6.6 mL. Parenchyma: The gland echotexture is homogeneous. Thyroid vascularity is normal. Left Thyroid Lobe: 3.7 x 1.5 x 1.2 cm, volume 3.5 mL. Previously 3.4 x 1.5 x 1.3 cm, volume 3.4 mL. Parenchyma: The gland echotexture is homogeneous. Thyroid vascularity is normal. Isthmus: 0.6 cm in maximum AP dimension. Previously 0.5 cm. Estimated total number of nodules greater than or equal to 1 cm: 1. Mower Operator nodules are described as follows: 1. Location: Right mid. Size: 1.3 x 1.1 x 0.7 cm, volume 0.50 mL. Previously: 0.9 x 0.5 x 0.8 cm, volume 0.14 mL. Nodule characteristics: Composition: Solid (2). Echogenicity: Hyperechoic (1). Shape: Not taller than wide (0). Margins: Smooth (0). Echogenic Foci: None (0). ACR TI-RADS total points: 3 Previous: 3 ACR TI-RADS category: 3 Previous: 3 Significant change in size (>/= 20% in 2 dimensions and minimal increase of 2 mm or 50% or greater increase in volume): None Change in features: None Change in ACR TI-RADS risk category: None NODES: No lymphadenopathy is seen in the tissue surrounding the thyroid gland. CT Neck: 08/29/2022 FINDINGS: No significant cutaneous thickening or subcutaneous inflammation. No discrete fluid collection within the deep tissues of the neck. The premaxillary, retromaxillary, pterygopalatine fossa, orbital apical, parapharyngeal, and prelaryngeal adipose tissue is maintained. Normal appearance of the parotid and submandibular glands. Heterogeneous multinodular thyroid gland similar to prior evaluation. The largest demonstrated nodule appears to measure approximately 1.3 cm (no follow-up imaging recommended based on current guidelines at the time of examination). Elongated level Ib lymph nodes measure up to 1.3 cm bilaterally with maintained normal fatty josi. Level IIa lymph nodes measure up to 1.2 cm bilaterally with maintained normal fatty josi. An elongated left supraclavicular lymph node measures up to 1.2 cm with maintained normal fatty hilum (similar to exam from 2019). Otherwise, scattered subcentimeter lymph nodes bilaterally, none of which are pathologically enlarged. Normal mucosal contours of the pharynx and larynx. Normal appearance of the hyoid bone, thyroid cartilage, or cartilaginous trachea. The airways remains widely patent. No radiopaque foreign bodies. The atlantooccipital and atlantoaxial articulations remain well aligned. Straightening of the normal cervical lordosis. Otherwise, normal anatomic alignment. No evidence of acute fracture or subluxation of the cervical spine. The vertebral body heights are maintained. Moderate degenerative disc disease at C6-C7. Mild degenerative disc disease at all additional cervical levels. There is no prevertebral soft tissue swelling. The visualized portion of the skull base is without significant abnormalities. The visualized paranasal sinuses are clear. The mastoid air cells and middle ear cavities are clear. Periapical lucency associated with the maxillary left molar. No demonstrated additional significant periapical odontogenic disease. CT Upper Chest: The visualized lung apices and upper mediastinum are within normal limits. PENDING SALE TO [facility] Medical History Hypothyroidism Multinodular thyroid T2DM (type 2 diabetes mellitus) Surgical History Hx of cholecystectomy Hx of tubal ligation Family History Father Diabetes Heart attack Mother Thyroid disease COPD (chronic obstructive pulmonary disease) Maternal Aunt Thyroid cancer Social History Household Members: Spouse Housing: Apartment Are you a primary dialysis patient care technician to a significant other at home: Yes Do you presently have visiting nurse or other home services: No Alcohol intake: current Alcohol intake frequency: does not drink Patient Tobacco Use Status: Never used Tobacco service: No Current occupational status: disabled Physical Exam Vital Signs: Last Vital Signs Pulse 80 07/07/25 11:28 BP 108/68 07/07/25 11:28 Pulse Ox 97 07/07/25 11:28 Oxygen Delivery Method Room Air 07/07/25 11:28 BMI result Body Mass Index 35.7 Assessment & Plan Assessment & Plan (1) Multinodular thyroid: Code(s): E04.2 - Nontoxic multinodular goiter Category: Medical Plan: 65-year-old female who was found to have a right dominant 1.3 cm nodule on ultrasound of the thyroid in 2021, who was subsequently thought to have pseudonodules on ultrasound repeated in December 2022. Now she is coming in to reestablish care because recently in November 2024 she got diagnosed with follicular lymphoma, and when she underwent PET-CT scan while staging of this lymphoma in January 2025, she was noted to have increased activity in the right thyroid lobe. given there is a possible concern of increased PET activity on the right thyroid lobe, with a history of possible right-sided nodule, and given her family history of thyroid cancer, we decided to repeat thyroid ultrasound. She does have some intermittent compressive symptoms which have been there for years. Ultrasound thyroid 05/26/2025, I reviewed the images myself which showed a right mid to lower 1.2 cm solid isoechoic TR 3 nodule, this was previously seen on the ultrasound in 2021 when remained stable in size. Another right lower pole 1.3 cm solid hypoechoic TR 3 nodule noted. While both of these do not meet criteria for biopsy based on TI-RADS category, however given patient had increased uptake on PET scan and these nodules are greater than 1 cm in size, I would err on the side of caution and biopsy these to rule out malignancy. I explained that it is common to have thyroid nodules. About 95% of the time these nodules are benign. However if the nodule is > 1 cm in size or suspicious on ultrasound then a fine need aspiration biopsy is recommended. We discussed that a FNAB involves 4-5 passes with a small gauge needle and material obtained is sent off for cytology.If the cytopathology is benign then the nodule will be followed annually with repeat ultrasounds. However if it is suspicious or malignant, we will need to discuss further management. Indeterminate cytology can be further investigated with repeat FNA, genetic testing or empiric lobectomy. Malignant cytology is managed with either lobectomy or total thyroidectomy. We discussed briefly that thyroid cancer is, in most patients, an indolent disease that does not affect mortality. We will arrange for FNA of the right mid lower 1.2 cm and the right lower 1.3 cm thyroid nodules at next available opening and patient will follow up with me in clinic thereafter for results and further decision making. 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
[2025-07-07 11:28] VITALS: BP 108/68; PULSE 80; O2SAT 97; BMI 35.7
== END 2025-07-07 11:54 | disposition home or self-care (01) ==
LOC: HO.ENCR 11:26
PROVIDERS: PCP Internal Medicine; Referring Provider Internal Medicine; Visit Provider Student in an Organized Health Care Education/Training Program
DX: E04.2 Nontoxic multinodular goiter (principal); E06.3 Autoimmune thyroiditis
CPT/HCPCS: 99214

== ENCOUNTER → 2025-07-07 11:25 | Outpatient (BNVA) | payer MEDICAID, SELFPAY | PROVIDERS: PCP Internal Medicine; Visit Provider Student in an Organized Health Care Education/Training Program | DX: E06.3 Autoimmune thyroiditis (principal); E04.2 Nontoxic multinodular goiter | CPT/HCPCS: 99212 ==

== ENCOUNTER 2025-07-13 08:59 | Outpatient (REF) | payer MEDICAID, SELFPAY ==
--- OUTSIDE RECORDS SUMMARY | 2025-07-13 09:46 | XMS_ITS | Encounter Summary ---
Author Organization [employer] Address [address] [facility] 7t [place] [address] Care Team Providers Care Conventions Assistant Name Role Phone Eduardo Minor MD Primary Care Provide r Encounter Details Date Type Department Care Team ([facility] Contact Info) Description 03/16/2025 Orders Only [facility] [address] [place] [address] Provider, MD Carlyle Social History Tobacco Use [...] Region Laterality Modality Body Computed Tomogra phy Historical Provider MD SOLIMAN CT PROCEDURES Final R esult documented in this encounter Visit Diagnoses Not on filedocumented in this encounter Additional Health Concerns Assessment Noted Time PHQ-9 Depression Total Score: 0 12/03/19 25 1:50 PM EST documented as of this encounter Care Teams Conventions Assistant Relationship Specialty Start Date End Date Eduardo Minor MD [address] [place] [id number] PCP - General Internal Medicine 03/18/19 documented as of this encounter
--- OUTSIDE RECORDS SUMMARY | 2025-07-13 09:46 | XMS_ITS | Encounter Summary ---
Author Organization [employer] Address [address] [facility] 7 [place] [address] Care Team Providers Care Polishing Machine Operator Name Role Phone Eduardo Minor MD Primary Care Provide r Reason for Visit * Reason Onset Date Comments Appointment Request 12/05/2023 Encounter Details Date Type Department Care Team ([facility] Contact Info) Description 12/05/2023 Telephone [facility] MEDICINE [address] [place], [place] [phone] Eduardo Minor MD [address] [place], [place] [phone] Appointment Request Social History Tobacco Use Types [...] documented as of this encounter Care Teams Polishing Machine Operator Relationship Specialty Start Date End Date Eduardo Minor MD [address] [place] [id number] PCP - General Internal Medicine 03/18/19 documented as of this encounter
--- OUTSIDE RECORDS SUMMARY | 2025-07-13 09:46 | XMS_ITS | Encounter Summary ---
Author Organization [employer] Address [address] [facility] 7t [place] [address] Care Team Providers Care Office Cashier Name Role Phone Eduardo Minor MD Primary Care Provide r Reason for Visit * Reason Comments Med Refill Encounter Details Date Type Department Care Team ([facility] Contact Info) Description 08/03/2024 Refill [facility] MEDICINE [address] [place], [place] [phone] Eduardo Minor MD [address] [place], [place] [phone] Type 2 diabetes mellitus without complication, unspecified whether retirement insulin use ([facility]) Social History Tobacco Use Types Packs/Day [...] 2 diabetes mellitus without complication, 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
--- OUTSIDE RECORDS SUMMARY | 2025-07-13 09:46 | XMS_ITS | Patient Health Record ---
Author Organization [facility] Address [address] [place] [address] Care Team Providers Care Cylinder Press Operator Apprentice Name Role Phone Drew Long MD, Eduardo Primary Care Provide r Siddhartha Grove Unavailable [phone] Allergies No Known Allergies Reason For Referral No Information Medications Medication SIG (Take, Route, Fr equency, Duration) Notes Start Date End Date Status Vitamin B12 Active Vitamin D Active Potassium Active Multivitamin Active Tirosint 88 MCG Oral; Duration: 90 Active metFORMIN HCl ER 500 MG TAKE 1 TABLET BY MOUTH EVERY DAY WITH THE EVENING MEAL Oral; Duration: 90 Active Immunizations Vaccine Route Administration Date [...] Problem Status W/U Status Risk Notes Problem Screening for malignant neoplasm of colon (737160477) Encounter for screening for malignant neoplasm of colon (Z12.11) Active confirmed Problem History of adenomatous polyp of colon (460622370) History of adenomatous polyp of colon (Z86.010) Active confirmed Problem Flatulence, eructation and gas pain (971340489) Bloating (R14.0) Active confirmed Problem Diverticular disease of colon (217764172) Diverticulosis of large intestine without perforation or abscess without bleeding (K57.30) Active confirmed Problem Pre-procedure evaluation check (402853428) Pre-procedural examination (Z01.818) Active confirmed Plan Of Treatment Future Test Test Name Order Date COLONOSCOPY 11/05/2012 COLONOSCOPY 01/31/2017 COLONOSCOPY 10/31/2022 Insurance Providers Payer Name Payer Address Payer Phone Subscriber Number Group Number Insured Name Patient Relationship to Insured Coverage Start Date Coverage End Date [facility] [address] [place] [id number] SHANAE GARCIA Self - patient is the insured Medical (General) History Medical History History ICD Code NIDDM Hypothyroidism and thyroid nodule Denies [place],CVA,Lung disease,renal disease Neg. ETT at [facility] in 2011 and 1 10/2015 Screening Colonoscopy 12/2012 --small tubular adenomas, mild diverticulosis, small internal hemorrhoids Negative colonoscopy in 08/2017 Surgical History Surgery Date(Month/Year) Tubal ligatiion 4 C-sections Cholecystectomy
--- OUTSIDE RECORDS SUMMARY | 2025-07-13 09:46 | XMS_ITS | Encounter Summary ---
Author Organization [email or web address] Address [address] [facility] 7t [place] [address] Care Team Providers Care Manager Of Information Name Role Phone Eduardo Minor MD Primary Care Provide r Reason for Visit * Reason Comments Med Refill Encounter Details Date Type Department Care Team ([facility] st Contact Info) Description 05/08/2025 Refill [facility] MEDICINE [address] [place], [place] [phone] Eduardo Minor MD [address] [place], [place] [phone] Type 2 diabetes mellitus without complication, without long-term current use of insulin ([facility]) Social [...] complication, without long-term current use of insulin (HCC) documented in this encounter Additional Health Concerns Assessment Noted Time PHQ-9 Depression Total Score: 0 12/03/19 25 1:50 PM EST documented as of this encounter Care Teams Manager Of Information Relationship Specialty Start Date End Date Eduardo Minor MD [address] [place] [id number] PCP - General Internal Medicine 03/18/19 documented as of this encounter
--- OUTSIDE RECORDS SUMMARY | 2025-07-13 09:46 | XMS_ITS | Encounter Summary ---
Author Organization [employer] Address [address] [facility] 7t [place] [address] Care Team Providers Care Police Commissioner Name Role Phone Eduardo Minor MD Primary Care Provide r Encounter Details Date Type Department Care Team ([facility] st Contact Info) Description 06/24/2025 Abstract [facility] MEDICINE [address] [place], [place] [phone] Eduardo Minor MD [address] [place], [place] [phone] Social History Tobacco Use Types Packs/Day Years [...] Procedure Name Priority Date/Time Associated Diagnosis Comments DIABETES EYE EXAM Routine 06/07/2025 documented in this encounter Results * Diabetes Eye Exam (06/07/2025) [facility] Eye Exam Normal Normal Comment:Done by [facility] us Historical Provider HEALTH MAINTENANCE Final Result documented in this encounter Visit Diagnoses Not on filedocumented in this encounter Additional Health Concerns Assessment Noted Time PHQ-9 Depression Total Score: 0 12/03/19 25 1:50 PM EST documented as of this encounter Care Teams Police Commissioner Relationship Specialty Start Date End Date Eduardo Minor MD [address] [place] [address] PCP - General Internal Medicine 03/18/19 documented as of this encounter
--- OUTSIDE RECORDS SUMMARY | 2025-07-13 09:46 | XMS_ITS | Encounter Summary ---
Author Organization [employer] Address [address] [facility] [address] 7[address] [place] [address] Care Team Providers Care Studio Technician Name Role Phone Eduardo Minor MD Primary Care Provide r Encounter Details Date Type Department Care Team (Late st Contact Info) Description 10/15/2023 Orders Only [facility] MEDICINE [address] [place] [address] ProviderCarlyle MD Social History Tobacco Use Types [...] documented as of this encounter Care Teams Studio Technician Relationship Specialty Start Date End Date Eduardo Minor MD [address] [place] [id number] PCP - General Internal Medicine 03/18/19 documented as of this encounter
--- OUTSIDE RECORDS SUMMARY | 2025-07-13 09:46 | XMS_ITS | Encounter Summary ---
Author Organization [employer] Address [address] [facility] 7t [place] [address] Care Team Providers Care Appointment Setter Name Role Phone Eduardo Minor MD Primary Care Provide r Reason for Visit * Reason Comments Med Refill Encounter Details Date Type Department Care Team ([facility] st Contact Info) Description 08/14/2023 Refill [facility] MED[facility]INE [address] [place], [place] [phone] Eduardo Minor MD [address] [place], [place] [phone] Social History Tobacco Use Types Packs/Day Years [...] t he electric, gas, oil or water [employer] threatened to shut off services in your [...] documented as of this encounter Care Teams Appointment Setter Relationship Specialty Start Date End Date Eduardo Minor MD [address] [place] [address] PCP - General Internal Medicine 03/18/19 documented as of this encounter
--- OUTSIDE RECORDS SUMMARY | 2025-07-13 09:46 | XMS_ITS | Encounter Summary ---
Author Organization [employer] Address [address] [facility] 7 [place] [address] Care Team Providers Care Systems Software Designer Name Role Phone Eduardo Minor MD Primary Care Provide r Reason for Visit * Reason Onset Date Comments Med Refill 03/08/2024 Encounter Details Date Type Department Care Team ([facility] st Contact Info) Description 03/08/2024 Refill [facility] MEDICINE [address] [place], [place] [phone] Eduardo Minor MD [address] [place] [address] Type 2 diabetes mellitus without complication, without long-term current use of insulin ([facility]); Type 2 diabetes mellitus without complication, unspecified whether detention insulin use ([facility]) Social History Tobacco Use [...] without long-term current use of insulin (HCC) Type 2 diabetes mellitus without complication, unspecified whether oxygen equipment aide insulin use documented in this encounter Additional Health Concerns Assessment Noted Time PHQ-9 Depression Total Score: 0 02/03/20 24 1:01 PM EDT documented as of this encounter Care Teams Systems Software Designer Relationship Specialty Start Date End Date Eduardo Minor MD [address] [place] [address] PCP - General Internal Medicine 03/18/19 documented as of this encounter
--- OUTSIDE RECORDS SUMMARY | 2025-07-13 09:46 | XMS_ITS | Encounter Summary ---
Author Organization [employer] Address [address] 7t [place] [address] Care Team Providers Care Traffic Manager Name Role Phone Eduardo Minor MD Primary Care Provide r Encounter Details Date Type Department Care Team ([facility] st Contact Info) Description 02/01/2025 Orders Only [facility] MED[facility]INE [address] [place] [address] External Provider, [facility] Social History Tobacco Use Types Packs/Day [...] Tissue Pathology (01/31/2025 8:47 AM EDT) Tissue [facility] External Provider LAB PAT HOLOGY ORDERABLES Final Result documented in this encounter Visit Diagnoses Not on filedocumented in this encounter Additional Health Concerns Assessment Noted Time PHQ-9 Depression Total Score: 0 12/03/19 25 1:50 PM EST documented as of this encounter Care Teams Traffic Manager Relationship Specialty Start Date End Date Eduardo Minor MD [address] [place] [address] PCP - General Internal Medicine 03/18/19 documented as of this encounter
--- OUTSIDE RECORDS SUMMARY | 2025-07-13 09:46 | XMS_ITS | Encounter Summary ---
Author Organization [employer] Address [address] [facility] 7t [place] [address] Care Team Providers Care Chronometer Adjuster Name Role Phone Eduardo Minor MD Primary Care Provide r Reason for Visit * Reason Comments Med Refill Encounter Details Date Type Department Care Team ([facility] st Contact Info) Description 12/15/2023 Refill [facility] [address] [place], [place] [phone] Eduardo Minor MD [address] [place], [place] [phone] Social History Tobacco Use Types Packs/Day Years [...] t he electric, gas, oil or water [employer] threatened to shut off services in your [...] documented as of this encounter Care Teams Chronometer Adjuster Relationship Specialty Start Date End Date Eduardo Minor MD [address] [place] [address] PCP - General Internal Medicine 03/18/19 documented as of this encounter
--- OUTSIDE RECORDS SUMMARY | 2025-07-13 09:46 | XMS_ITS | Encounter Summary ---
Author Organization [employer] Address [address] [place] [address] 7 [place] [address] Care Team Providers Care Exercise Physiology Professor Name Role Phone Eduardo Minor MD Primary Care Provide r Reason for Visit * Reason Comments Med Refill Encounter Details Date Type Department Care Team ([facility] st Contact Info) Description 01/16/2023 Refill [facility] [address] [place], [place] [phone] Eduardo Minor MD [address] [place] [address] Acquired hypothyroidism Social History Tobacco Use Types [...] documented as of this encounter Care Teams Exercise Physiology Professor Relationship Specialty Start Date End Date Eduardo Minor MD [address] [place] [phone] PCP - General Internal Medicine 03/18/19 documented as of this encounter
--- OUTSIDE RECORDS SUMMARY | 2025-07-13 09:46 | XMS_ITS | Encounter Summary ---
Author Organization [employer] Address [address] [facility] 7t [place] [address] Care Team Providers Care Digital Media Specialist Name Role Phone Eduardo Minor MD Primary Care Provide r Encounter Details Date Type Department Care Team ([facility] Contact Info) Description 02/25/2025 Orders Only [facility] [address] [place] [address] Provider, MD Carlyle Social History Tobacco Use [...] documented as of this encounter Care Teams Digital Media Specialist Relationship Specialty Start Date End Date Eduardo Minor MD [address] [place] [phone] PCP - General Internal Medicine 03/18/19 documented as of this encounter
--- OUTSIDE RECORDS SUMMARY | 2025-07-13 09:46 | XMS_ITS | Clinical Summary ---
Author Organization [facility] Address [address] [place] [address] Phone Care Team Providers Care Explosive Specialist Name Role Phone Eduardo Verma MD Primary Care [facility] Surgical History Surgery Date Site/Laterality Comments CHOLECYSTECTOMY PROCEDURE: [place] LAPAROSCOPY SURG CHOLECYSTECTOMY Medical History Medical History [...] AM EDT Appointment [facility] [address] [phone] Health Maintenance Due Date Last Done Comments Colorectal Cancer Screening: Colonoscopy 1962 Diabetes: Annual Foot Exam 1972 Diabetes: Annual Retina Eye Exam 1972 Pneumococcal Vaccine: 50+ Years (1 of 2 - PCV) 1981 Zoster Vaccines (1 of 2) 1981 Cervical Cancer Screening: Pap Smear 1983 HIV Screening 09/01/2022 Hepatitis C Screening 09/01/2022 [...] year. Mammography location: [facility] at [address], [address] -------- FINAL REPORT -------- Dictated By: Ricardo Patterson Dictated Date: 01/10/2025 17:24 ET Assigned Physician: Ricardo Patterson Reviewed and Electronically Signed By: Ricardo Patterson Signed Date: 01/10/2025 17:32 ET Workstation ID: [id number] Transcribed By: Self Edit Transcribed Date: 01/10/2025 17:24 ET Narrative 01/10/2025 5:32 PM EDT EXAM: SCREENING MAMMOGRAPHY, BILATERAL HISTORY: SCREENING. No additional history. COMPARISON: 09/18/23, 07/12/22, 07/10/21, 06/23/20 TECHNIQUE: Synthesized CC and MLO projections of each breast. Tomosynthesis of each breast in the CC and MLO projections. ADDITIONAL IMAGING: None Computer-aided detection was employed with the [employer] AI 3-D. TISSUE DENSITY: There are scattered [...] None Computer-aided detection was employed with the [employer] AI 3-D. TISSUE DENSITY: There are scattered [...] year. Mammography location: [facility] at [address], [address] -------- FINAL REPORT -------- Dictated By: Ricardo Patterson Dictated Date: 01/10/2025 17:24 ET Assigned Physician: Ricardo Patterson Reviewed and Electronically Signed By: Ricardo Patterson Signed Date: 01/10/2025 17:32 ET Workstation ID: [id number] Transcribed By: Self Edit Transcribed Date: 01/10/2025 17:24 ET us Eduardo Verma MD IMG BI PROCEDURES F inal Result * (ABNORMAL) Basic metabolic panel (12/23/2024 8:00 AM EDT) Sodium 142 133 - 145 mmol/L LAB CHEMISTRY METHOD 12/23/2024 9:15 AM [facility] Potassium 4.6 3.5 - 5.5 mmol/L LAB CHEMISTRY METHOD 12/23/2024 9:15 AM [facility] Chloride 106 96 - 110 mmol/L LAB CHEMISTRY METHOD 12/23/2024 9:15 AM [facility] CO2 32 21 - 32 mmol/L LAB CHEMISTRY METHOD 12/23/2024 9:15 AM [facility] Anion Gap 4 3 - 11 LAB CHEMISTRY METHOD 12/23/2024 9:15 AM [facility] Glucose 110(H) 70 - 100 mg/dL LAB CHEMISTRY METHOD 12/23/2024 9:15 AM [facility] BUN 20 5 - 25 mg/dL LAB CHEMISTRY METHOD 12/23/2024 9:15 AM [facility] Creatinine 0.62 0.50 - 1.10 mg/dL LAB CHEMISTRY METHOD 12/23/2024 9:15 AM [facility] eGFR 101 >=60 mL/min/1. 73m2 LAB CHEMISTRY METHOD 12/23/2024 9:15 AM [facility] Comment:Calculation based on the Chronic Kidney Disease Epidemiology Collaboration (CKD-EPI) equation refit without adjustment for race. BUN/Creatinine Ratio 32.3 LAB CHEMISTRY METHOD 12/23/2024 9:15 AM [facility] Calcium 9.8 8.5 - 10.5 mg/dL LAB CHEMISTRY METHOD 12/23/2024 9:15 AM [facility] Blood Venous blood specimen / Unknown Venipuncture / Unknown 12/23/2024 8:00 AM EDT 12/23/2024 8:44 AM EDT Eduardo Verma MD LAB BLOOD ORDERABLE S Final Result [facility] [address] [place] [address], from Last 3 Months or Most Recently Relevant to Health Maintenance Insurance MEDICAID - [place] Care Teams Explosive Specialist Relationship Specialty Start Date End Date Eduardo Verma MD [address] [place] [address] [place] [address] PCP - General Internal Medicine 04/08/22
--- OUTSIDE RECORDS SUMMARY | 2025-07-13 09:46 | XMS_ITS | Encounter Summary ---
Author Organization [employer] Address [address] [facility] 7 [place] [address] Care Team Providers Care It Service Continuity Supervisor Name Role Phone Eduardo Minor MD Primary Care Provide r Reason for Visit * Reason [place] Date Comments Med Refill 10/13/2024 Encounter Details Date Type Department Care Team ([facility] st Contact Info) Description 10/13/2024 Refill [facility] [address] [place], [place] [phone] Eduardo Minor MD [address] [place] [address] Type 2 diabetes mellitus without complication, without long-term current use of insulin ([facility]); Type 2 diabetes mellitus without complication, unspecified whether halfway insulin use ([facility]) Social History Tobacco Use Types Packs/Day [...] mellitus without complication, unspecified whether long chain beamer insulin use documented in this encounter Additional Health Concerns Assessment Noted Time PHQ-9 Depression Total Score: 0 02/03/20 24 1:01 PM EDT documented as of this encounter Care Teams It Service Continuity Supervisor Relationship Specialty Start Date End Date Eduardo Minor MD [address] [place] [address] PCP - General Internal Medicine 03/18/19 documented as of this encounter
--- OUTSIDE RECORDS SUMMARY | 2025-07-13 09:46 | XMS_ITS | Encounter Summary ---
Author Organization [employer] Address [address] [place] [address] 7t [place] [address] Care Team Providers Care Business Systems Administrator Name Role Phone Eduardo Minor MD Primary Care Provide r Encounter Details Date Type Department Care Team (Late st Contact Info) Description 10/07/2022 Orders Only [facility]INE [address] [place] [address] Awa Bermudez RN Social History Tobacco Use [...] on filedocumented in this encounter Care Teams Business Systems Administrator Relationship Specialty Start Date End Date Eduardo Minor MD [address] [place] [address] PCP - General Internal Medicine 03/18/19 documented as of this encounter
--- OUTSIDE RECORDS SUMMARY | 2025-07-13 09:46 | XMS_ITS | Encounter Summary ---
Author Organization [employer] Address [address] [address] [place] [address] Care Team Providers Care Trumpet Player Name Role Phone Eduardo Minor MD Primary Care Provide r Encounter Details Date Type Department Care Team ([facility] st Contact Info) Description 10/01/2023 Telephone [facility] MEDICINE [address] [place], [place] [phone] Eduardo Minor MD [address] [place], [place] [phone] Social History Tobacco Use Types Packs/Day Years [...] documented as of this encounter Care Teams Trumpet Player Relationship Specialty Start Date End Date Eduardo Minor MD [address] [place] [phone] PCP - General Internal Medicine 03/18/19 documented as of this encounter
--- OUTSIDE RECORDS SUMMARY | 2025-07-13 09:46 | XMS_ITS | Clinical Summary ---
Author Organization [employer] Address [address] [place] [address] 7[address] [place] [address] Care Team Providers Care Laborer Construction Or Leak Gang Name Role Phone Eduardo Minor MD Primary Care Provide r Allergies Active Allergy Reactions Criticality Noted Date Comments Turmeric Hives 01/07/2023 Medications ibuprofen 400 MG tablet Take 1 tablet (400 mg) by mouth every 6 (six) hours if needed for moderate pain or fever for up to 30 doses. 15 tablet 3 Active Blood Glucose Monitoring Suppl (FreeStyle Lite) w/Device kitIndications: Type 2 diabetes mellitus without complication, without long-term current use of insulin (HCC) USE KIT TWICE DAILY 1 kit 4 Active levothyroxine (Synthroid) 88 MCG tablet Take 1 tablet (88 mcg) by mouth before breakfast. 30 tablet 11 5 11/20/19 26 Active glucose blood (FREESTYLE LITE) test stripIndication s:Type 2 diabetes mellitus without complication, unspecified whether superintendent terminal insulin use USE DIRECTED TO TEST BLOOD GLUCOSE TWICE DAILY 50 strip 11 5 Active metFORMIN XR (Glucophage-XR) 500 MG 24 hr tabletIndicatio ns:Type 2 diabetes mellitus without complication, without long-term current use of insulin (HCC) Take 1 tablet (500 mg) by mouth with evening meal. Do not crush, chew, or split. 30 tablet 6 5 Active triamcinolone (Kenalog) 0.025 % ointmentIndicat ions:Eczema, unspecified type Apply topically 2 times daily. 15 g 3 4 07/07/20 25 Discontinu ed(Therapy completed) Active Problems Problem Noted Date Diagnosed Date B-cell non-Hodgkin lymphoma (CMS/HCC) 02/24/2025 Assessment & Plan (07/07/2025 10:27 AM EDT): Pt here for a follow [...] needle biopsy of left retroperitoneal mass which vqtaqsit-vyb-Ahidasc B-cell lymphoma with CD10 coexpression consistent with [...] Dr. Nelson ordered a Staging with PET-CT. PET CT 02/25/25 showed heterogeneous thyroid activity She also had a CT/CT abdomen pelvis that showed: Left-sided retroperitoneal lymphadenopathy probably engulfing the mid to distal left ureter. Hepatomegaly, mild. Seen lst by dr nelson 06/24/2025 She is on single agent rituximab 375 mg per m2 weekly for 4 treatments. She experienced itchy throat and nose with cycle 1 day 1 on 06/17/25. Responded well to Solu-Cortef, Pepcid, Benadryl IVP and was able to complete the infusion. During second infusion she reported feeling nauseous and then numb all over followed by a blank stare and unable to communicate for a few seconds right after receiving premeds including Tylenol 650 mg p.o., Zofran 8 mg p.o., Pepcid 20 mg IVP and Benadryl 25 mg IVP. Right after she became shaky and tearful and stated she didn't feel right. She received additional PO dexamethasone and Solu-Cortef 50 mg IVP. She felt better within the next 25-30 minutes. Symptoms have resolved and she tolerated the Ruxience infusion well. Assessment & Plan (02/24/2025 10:52 AM EDT): [...] needle biopsy of left retroperitoneal mass which gnswnxjq-syc-Zhqygko B-cell lymphoma with CD10 coexpression consistent with [...] carpal tunnel syndrome 02/03/2024 Assessment & Plan (07/07/2025 10:31 AM EDT): Doing well Pt has a Hx of CTS release surgery. NCS 03/09/2024 showed: Mild bilateral median neuropathy across carpal tunnel. Radiculopathy could not be ruled out as patient refused electromyogram. Assessment & Plan (08/03/2024 1:00 PM EST): [...] on US , follows with Dr Paulson [facility] 01/07/2023 Assessment & Plan (07/07/2025 10:40 AM EDT): Routine physical exam today within normal limits Mammogram: 01/10/2025 Normal Pap Smear: Done 08/2023 at [facility] Colonoscopy: 11/2022 showed a Tubular adenoma, Diverticulosis and Hemorrhoids Dr. Calderon Assessment & Plan (02/03/2024 1:03 PM EDT): Mammogram: 09/18/2023 Normal done at [facility] Pap Smear: Done 08/2023 at [facility] Colonoscopy: 11/2022 showed a Tubular adenoma, Diverticulosis and Hemorrhoids Dr. Calderon Assessment & Plan (01/07/2023 4:16 PM EDT): Mammogram: 07/12/2022 Normal done at [facility] Pap Smear: Done by Dr Paulson [facility] Colonoscopy: 12/09/2022 showed a Tubular adenoma, [...] in the past by Dr Longo TSH 07/2022 wnl Essential hypertension 10/07/2022 Assessment & [...] 10/07/2022 Mixed hyperlipidemia 10/07/2022 Assessment & Plan (07/07/2025 10:28 AM EDT): Patient with elevated lipids. Most recent lipid profile from: Lab Results Component Value Date TRIG 110 05/27/2024 TRIG 82 01/07/2023 CHOL 152 05/27/2024 LDLCHOLCAL 85 05/27/2024 HDL 45 05/27/2024 Were wnl Currently not on any regimen , will repeat . Plan: continue to adhere to a low cholesterol diet. Advised to try to adhere to a low cholesterol diet, counseled and educated about diet and exercise, Patient encouraged to come up with a personal goal for weight loss. Assessment & Plan (08/03/2024 12:59 PM EST): [...] loss. Tubular adenoma 10/07/2022 Assessment & Plan (07/07/2025 10:31 AM EDT): Last colonoscopy 11/2022 Dr. Calderon Assessment & Plan (02/03/2024 1:01 PM EDT): Last colonoscopy 11/2022 Dr. Calderon Type 2 diabetes mellitus without complications 0 10/07/2022 Assessment & Plan (07/07/2025 10:29 AM EDT): Patient here for a f/u DM controlled She had been on a regimen of: Metformin XR 500 mg po daily . Pt told me she stopped it on her own because her BG were fine Hgb A1c 07/07/2025: 6.9 from 6.4 Eye exam 04/07/2024 [facility] checked on: 11/30/2020 1 was: 0.4 Pt is not on an HOLGER/ARB. Pt very concerned about side effects of these medications. Foot check risk zero Plan: Restart Metformin XR 500 mg po daily Pt does not take Asa due to stomach upset Pt advised to: adhere to diabetic diet check your blood sugars regularly check your feet on a daily basis Assessment & Plan (02/24/2025 10:53 AM EDT): Patient here for a f/u DM controlled She had been on a regimen of: Metformin XR 500 mg po daily . Pt tells me she stopped it on her own because her BG were fine Hgb A1c 12/02/2024: 6.4 Eye exam 04/07/2024 [facility] checked on: 11/30/2020 1 was: [...] Hgb A1c 12/02/2024: 6.4 Eye exam 04/07/2024 [facility] checked on: 11/30/2020 1 was: [...] Hgb A1c 08/03/2024: 5.9 Eye exam 04/07/2024 [facility] checked on: 11/30/2020 1 was: [...] basis Thyroid nodule 10/07/2022 Assessment & Plan (07/07/2025 10:24 AM EDT): Seen in the past by Dr Longo, now under the care of Dr Avani Gold, last seen 04/07/2025 Repeat U/S thyroid showed: US/US thyroid Mildly suspicious nodules on the right, one of which is new from the prior study. Assessment & Plan (02/03/2024 12:58 PM EDT): [...] Encounters Date Type Department Care Team Description 07/07/2025 10:30 AM EDT Office Visit [address] [address] Eduardo Minor MD Type 2 diabetes mellitus without complication, without long-term current use of insulin (HCC) (Primary Dx); B-cell non-Hodgkin lymphoma (CMS/HCC) (HCC); Thyroid nodule; Mixed hyperlipidemia; Preventative health care; Tubular adenoma; Bilateral carpal tunnel syndrome 07/07/2025 Travel 07/06/[address] [address] Eduardo Minor MD chartprep 06/30/2025 Patient Outreach [facility] [address] [place] [address] Eduardo Minor MD Pre-visit Planning (SDOH was already completed ) 06/24/[address] [address] Eduardo Minor MD 05/26/[address] [address] Eduardo Minor MD Appointment Confirmation 05/25/[address] [address] Eduardo Minor MD Chart Prep 05/23/2025 Orders Only GENERIC EXTERNAL DATA DEPARTMENT Provider, Generic External Data 05/18/2025 Patient Outreach [facility] [address] [facility] [place] [address] Eduardo Minor MD Pre-visit Planning (SDOH screening was completed on 12/02/2024) 05/11/2025 Telephone [facility] [place] [address] Eduardo Minor MD Nurse Triage 05/08/2025 Refill [facility] [address] [facility] [place] [address] Eduardo Minor MD Type 2 diabetes mellitus without complication, without long-term current use of insulin ([facility]) from Last 3 Months Immunizations Immunization Administration [...] Sign Reading Time Taken Comments Blood Pressure 128/72 07/07/2025 10:14 AM EDT Pulse 74 07/07/2025 10:14 AM EDT Temperature 36 C (96.8 F) 07/07/2025 10:14 AM EDT Respiratory Rate 12 07/07/2025 10:14 AM EDT Oxygen Saturation 98% 02/24/2025 10:55 AM EDT Inhaled Oxygen Concentration - - Weight 83.3 kg (183 lb 9.6 oz) 07/07/2025 10:14 AM EDT Height 152.4 cm (5') 07/07/2025 10:14 AM EDT Body Mass Index 35.86 07/07/2025 10:14 AM EDT Plan of Treatment Health Maintenance Due Date Last Done Comments CT Colonography 1960 FIT DNA/Cologuard 1960 FIT 1960 FOBT 1960 HIV Screening 1960 Sigmoidoscopy 1960 Hepatitis C Screening 1980 Pneumococcal Vaccine: 50+ Years (1 of 2 - PCV) 1981 Zoster Vaccines (1 of 2) 1981 RSV Patients and Patients Aged 60 years or older (1 - Risk 60-74 years 1-dose series) 2022 Lipid Panel 05/27/2025 05/27/2024, 0409/2022, 11/30/2020 COVID-19 Vaccine ( - season) 2025 10/24/2021, 01/12/2021, 12/15/2020 Influenza Vaccine (#1) 2025 Diabetes: Urine Protein Screening 08/03/2025 08/03/2024, 01/07/2023, 11/30/2020 Diabetes: Hemoglobin A1C 10/07/2025 025, 02/24/2025, 12/02/2024, Additional history exists Diabetes: Foot Exam 11/20/2025 11/20/2024 Alcohol/Substance Use Screening 12/02/2025 12/02/2024 Depression Screening 12/02/2025 12/02/2024, 12/03/19 25 SDOH Screening 12/02/2025 12/02/2024 Mammogram 01/10/2026 01/10/2025, 12/28, 01/10/2025, Additional history exists Disability Screening 02/24/2026 02/24/2025 Tobacco Screening 07/07/2026 07/07/2025 Cervical Cancer Screening 09/18/2026 HPV/Cotest 09/18/2026 07/09/2022 Pap Smear 09/18/2026 09/18/2023, 07/09/2022 Eye Exam 06/07/2027 06/07/2025 Colonoscopy 12/10/2027 12/09/2022 Colorectal Cancer Screening 12/10/2027 [...] Procedure Name Priority Date/Time Associated Diagnosis Comments POCT GLYCOSYLATED HEMOGLOBIN (HGB A1C) Routine 07/07/2025 10:15 AM EDT Type 2 diabetes mellitus without complication, without long-term current use of insulin (HCC) POCT GLUCOSE Routine 07/07/2025 10:14 AM EDT Type 2 diabetes mellitus without complication, without long-term current use of insulin (HCC) DIABETES EYE EXAM Routine 06/07/2025 US THYROID Routine 05/26/2025 4:[address] ABDOMEN PELVIS W CONTRAST Routine 05/23/2025 11:14 AM EDT [id number], SERUM Routine 05/23/2025 8:21 AM EDT LD Routine 05/23/2025 8:21 AM EDT COMPREHENSIVE METABOLIC PANEL Routine 05/23/2025 8:21 AM EDT CBC WITH AUTO DIFFERENTIAL Routine 05/23/2025 8:21 AM EDT BI MAMMOGRAM SCREENING TOMOSYNTHESIS BILATERAL Routine 01/10/2025 [...] Recently Relevant to Health Maintenance Results * (ABNORMAL) POCT glycosylated hemoglobin (Hgb A1c) (07/07/2025 10:15 AM EDT) Hemoglobin A1C 6.9(A) 4.0 - 5.7 % QC Media Lot # [id number] Lot# Expiration Date [id number] Blood Capillary blood specimen / Unknown 07/07/2025 10:15 AM EDT Eduardo Long MD POINT OF CARE TEST EN TER/EDIT ORDERABLES Final Result * POCT glucose manually resulted (07/07/2025 10:14 AM EDT) Glucose Blood, POC 130 60 - 200 mg/dL QC Media Lot # [id number] Lot# Expiration Date [id number] Blood Capillary blood specimen / Unknown 07/07/2025 10:14 AM EDT Eduardo Long MD POINT OF CARE TEST EN TER/EDIT ORDERABLES Final Result * Diabetes Eye Exam (06/07/2025) Eye Exam Normal Normal Comment:Done by [facility] Historical Provider MD HEALTH MAINTENANCE Final Result * US Thyroid (05/26/2025 4:09 PM EDT) Anatomical Region Laterality Modality Head, Neck Ultrasound 05/26/2025 4:09 PM EDT Narrative 05/27/2025 7:28 AM EDT [place] [address] Ultrasound Report Signed Patient: Lili Madrid MR#: [id number] : 1960 Acct:[id number] Age/Sex: 64 / F ADM Date: 05/26/25 Loc: HO.US Attending Dr: Avani Gold MD Ordering Physician: Avani Gold MD Date of Service: 05/26/25 Procedure(s): US thyroid Accession Number(s): [id number] cc: Eduardo Verma MD; Avani Gold MD [...] 05/27/25 0725 DD/ 1609 TD/TT: 05/26/25 1615 Air Motor Repairer: Procedure Note Donotuseinterpreter, Image - 05/27/[address] [address] Ultrasound Report Signed Patient: Madelyn MadridnMR#: [id number] : 1960cct:[id number] Age/Sex: 64 / FADM Date: 05/26/25 Loc: HO.US Attending Dr: Avani Gold MD Ordering Physician: Avani Gold MD Date of Service: 05/26/25 Procedure(s): US thyroid Accession Number(s): [id number] cc: Eduardo Verma MD; Avani Gold MD [...] 05/27/25 0725 DD/ 1609 TD/TT: 05/26/25 1615 Air Motor Repairer: us [facility] External Provider IMG US PROCEDURES Edited Result - Final * CT Abdomen Pelvis w/ Contrast (05/23/2025 11:14 AM EDT) Anatomical Region Laterality Modality Body, Pelvis, Abdomen Computed T omography 05/23/2025 11:1 4 AM EDT Narrative 05/23/2025 12:[address] [address] [address] Scan Report Signed Patient: Lili Madrid MR#: [id number] : 1960 Acct:[id number] Age/Sex: 64 / F ADM Date: 05/23/25 Loc: HO.CT Attending Dr: Xochitl Nelson MD Ordering Physician: Xochitl Nelson MD Date of Service: 05/23/25 Procedure(s): CT abdomen pelvis w IV con Accession Number(s): [id number] cc: Xochitl Nelson MD; Eduardo Verma MD Report Number: [id number]: Total DLP = 985.00 mGy-cm EXAMINATION: CT [...] 05/23/25 1156 DD/ 1114 TD/TT: 05/23/25 1136 Air Motor Repairer: Procedure Note Donotuseinterpreter, Image - 05/23/[address] [place] [address] [address] Scan Report Signed Patient: Linda Madrid#: [id number] : 1960cct:[id number] Age/Sex: 64 / FADM Date: 05/23/25 Loc: HO.CT Attending Dr: Xochitl Nelson MD Ordering Physician: Xochitl Nelson MD Date of Service: 05/23/25 Procedure(s): CT abdomen pelvis w IV con Accession Number(s): [id number] cc: Xochitl Nelson MD; Eduardo Verma MD Report Number: [id number]: Total DLP = 985.00 mGy-cm EXAMINATION: CT [...] 05/23/25 1156 DD/ 1114 TD/TT: 05/23/25 1136 Air Motor Repairer: [facility] External Provider IMG CT PROCEDURES Final Result * CBC auto differential (05/23/2025 8:21 AM EDT) White Blood Count 7.8 4.8 - 10.8 X10*3/uL [facility] Red Blood Count 4.39 4.20 - 5.50 X10*6/uL [facility] Hemoglobin 13.2 12.0 - 16.0 g/dl [facility] Hematocrit 39.4 37.0 - 47.0 % [facility] Mean Corpuscular Volume 89.7 80.0 - 98.0 fL [facility] Mean Corpuscular Hemoglobin 30.1 27.0 - 33.0 pg [facility] Mean Corpuscular HGB Conc 33.5 31.0 - 35.0 g/dl [facility] Red Cell Distribution Width 13.1 11.0 - 16.0 % [facility] Platelet Count 330 160 - 400 X10*3/uL [facility] Mean Platelet Volume 9.5 9.4 - 12.3 fL [facility] Neutrophils Percent Auto 57.6 45 - 73 % [facility] Imm Gran Pct Auto 0.4 0.0 - 0.4 % [facility] Lymphocytes Percent Auto 28.4 20 - 40 % [facility] Monocytes Percent Auto 9.6 2 - 11 % [facility] Eosinophils Percent Auto 2.8 0 - 4 % [facility] Basophils Percent Auto 1.2 0 - 2 % [facility] NRBC Pct Auto 0.0 0.0 - 0.2 /100WBC [facility] Neutrophils Absolute Auto 4.5 2.0 - 8.3 x10*3/uL [facility] Imm Gran Abs Auto 0.03 0.00 - 0.03 X10*3/uL [facility] Lymphocytes Absolute Auto 2.2 1.2 - 4.9 X10*3/uL [facility] Monocytes Absolute Auto 0.8 0.1 - 1.2 X10*3/uL [facility] Eosinophils Absolute Auto 0.2 0.0 - 0.4 X10*3/uL [facility] Basophils Absolute Auto 0.1 0.0 - 0.2 X10*3/uL [facility] NRBC Abs Auto 0.000 0.0 - 0.012 X10*3/uL [facility] 05/23/2025 8:21 AM EDT 05/23/2025 8:21 AM EDT us Generic External Data Provider LAB BLOOD ORDERAB LES Final Result Performing Organization Address [facility] Co de Phone Number [facility] [address] [place] [phone] * Lactate Dehydrogenase (LD) (05/23/2025 8:21 AM EDT) Lactate Dehydrogenase 156 122 - 220 U/L [facility] 05/23/2025 8:21 AM EDT 05/23/2025 8:21 AM EDT us Generic External Data Provider LAB BLOOD ORDERAB LES Final Result Performing Organization Address [facility]/ZIP Co de Phone Number [facility] [address] [place] [phone] * [id number], Serum (05/23/2025 8:21 AM EDT) Beta 2 Microglobulin, Serum 2.25 < OR = 2.51 mg/L [facility] Comment:THIS TEST WAS PERFOR MED AT:[facility] [place] [id number] CHE MD 05/23/2025 8:21 AM EDT 05/23/2025 8:21 AM EDT us Generic External Data Provider LAB BLOOD ORDERAB LES Final Result [facility] [address] [place] [phone] * (ABNORMAL) Comprehensive Metabolic Panel (05/23/2025 8:21 AM EDT) Pathologist [facility] Sodium 142 135 - 145 mmol/L [facility] Potassium 5.1 3.3 - 5.1 mmol/L [facility] Chloride 105 96 - 108 mmol/L [facility] Carbon Dioxide 29 22 - 29 mmol/L [facility] Anion Gap 13 12 - 20 [facility] Urea Nitrogen (BUN) 15 9 - 16 mg/dL [facility] Creatinine, Serum 0.76 0.5 - 1.4 mg/dL [facility] Estimated Glomerular Filt Rate >60 [facility] Comment:Chronic Kidney Disea se: Estimated GFR < 60 mL/min/1.92o6Ejilvq Kidney Disease: Estimated GFR < 15 mL/min/1.73m2 Glucose 137(H) 60 - 115 mg/dL [facility] Calcium 9.9 8.4 - 10.2 mg/dL [facility] Bilirubin, Total 0.3 0.0 - 1.0 mg/dL [facility] Aspartate Amino Transferase 23 5 - 31 U/L [facility] Alanine Aminotransferase 19 0 - 31 U/L [facility] Total Protein 7.5 6.5 - 8.0 g/dL [facility] Albumin Level 4.3 3.5 - 5.0 g/dL [facility] Alkaline Phosphatase 69 39 - 117 U/L [facility] 05/23/2025 8:21 AM EDT 05/23/2025 8:21 AM EDT Generic External Data Provider LAB BLOOD ORDERAB LES Final Result Performing Organization Address [facility] Co de Phone Number [facility] [address] [place] [phone] * BI Mammogram Screening Tomosynthesis Bilateral (01/10/2025) Anatomical Region Laterality Modality Breast Bilateral Mammography Eduardo Long MD IMG BI PROCEDURES Fin al Result * Albumin, Random Urine W/Creatinine (08/03/2024 1:35 PM EST) Creatinine, Urine 121.86 mg/dL [facility] Microalbumin Urine 12.0 mg/L [facility] Microalbum Creatinine Ratio Ur 9.8 <30 ug/mg cr [facility] Comment:Albumin/Creatinine R atio Reference Ranges: Normal: < 30 ug/mg creatinine Microalbuminuria: 30 - 300 ug/mg creatinineClinical Albuminuria: > 300 ug/mg creatinine Urine (Urine, Random) 08/03/2024 1:35 PM EST 08/03/2024 4:09 PM EST Eduardo Long MD LAB URINE ORDERABLES Final Result Performing Organization Address [facility] Co de Phone Number [facility] [address] [place] [phone] * Lipid Panel, Standard (05/27/2024 7:46 AM EDT) Triglycerides 110 <150 mg/dL [facility] Comment:Desirable Triglyceri de: less than 150 mg/dLBorderline High Triglyceride 150-199 mg/dLHigh Triglyceride: 200-499 mg/dLVery High Triglyceride: greater than or equal to 5OO mg/dL Cholesterol 152 <200 mg/dL [facility] Comment:Desirable Cholestero l: less than 200 mg/dLBorderline High Cholesterol: 200-239 mg/dLHigh Cholesterol: greater than 239 mg/dL LDL Cholesterol Calculated 85 <100 mg/dL [facility] Comment:Desirable LDL: less than 100 mg/dLNear Optimal/Above Optimal LDL: 110- 129 mg/dLBorderline High LDL: 130-159 mg/dLHigh LDL: 160-189 mg/dLVery High LDL: greater than or equal to 190 mg/dL HDL Cholesterol 45 >40 mg/dL [facility] Comment:Desirable HDL: great er than 40 mg/dL Note: This HDL assay may give artificially low results in patients with liver disease. Blood Venous blood specimen / Unknown 05/27/2024 7:46 AM EDT 05/27/2024 7:46 AM EDT Eduardo Long MD LAB BLOOD ORDERABLES Final Result [facility] [address] [place] [phone] * Pap Smear (09/18/2023) Only the most recent of2 resultswithin the time period is included. Historical Provider HEALTH MAINTENANCE Final Result * Colonoscopy (12/09/2022) Colonoscopy Normal Normal Narrative Kelli Mix - 12/09/2022 Repeat in 5 years Historical Provider HEALTH MAINTENANCE Final Result from Last 3 Months or Most Recently Relevant to Health Maintenance [place] [address] [place] [address] C3 Care Teams Laborer Construction Or Leak Gang Relationship Specialty Start Date End Date Eduardo Minor MD [address] [place] [phone] PCP - General Internal Medicine 03/18/19
--- OUTSIDE RECORDS SUMMARY | 2025-07-13 09:46 | XMS_ITS | Encounter Summary ---
Author Organization [employer] Address [address] [place] [address] [address] [place] [address] Care Team Providers Care Mechanical Development Engineer Name Role Phone Eduardo Minor MD Primary Care Provide r Reason for Visit * Reason Onset Date Comments Durable Medical Equipment 05/06/2023 Encounter Details Date Type Department Care Team ([facility] st Contact Info) Description 05/06/2023 Telephone [facility] [address] [place], [place] [phone] Eduardo Minor MD [address] [place] [address] Durable Medical Equipment Social History Tobacco Use [...] documented as of this encounter Care Teams Mechanical Development Engineer Relationship Specialty Start Date End Date Eduardo Minor MD [address] [place] [address] PCP - General Internal Medicine 03/18/19 documented as of this encounter
--- OUTSIDE RECORDS SUMMARY | 2025-07-13 09:46 | XMS_ITS | Encounter Summary ---
Author Organization [employer] Address [address] [facility] [address]t [place] [address] Care Team Providers Care Supervisor Packing Room Name Role Phone Eduardo Minor MD Primary Care Provide r Encounter Details Date Type Department Care Team ([facility] st Contact Info) Description 01/24/2025 Orders Only [facility] [address] [place], [place] [phone] Bel Han MD [address] [place], [place] [phone] Social History Tobacco Use Types Packs/Day Years [...] as of this encounter Care Teams Supervisor Packing Room Relationship Specialty Start Date End Date Eduardo Minor MD [address] [place] [phone] PCP - General Internal Medicine 03/18/19 documented as of this encounter
--- OUTSIDE RECORDS SUMMARY | 2025-07-13 09:46 | XMS_ITS | Encounter Summary ---
Author Organization [employer] Address [address] [place] [address] Care Team Providers Care Waiter/Waitress Tourist Class Name Role Phone Eduardo Minor MD Primary Care Provide r Encounter Details Date Type Department Care Team ([facility] st Contact Info) Description 11/07/2023 Orders Only [facility] [address] [place] [phone] Ronny Topete MD [address] [place], [place] [phone] Posterior chest pain (Primary Dx) Social History [...] documented as of this encounter Care Teams Waiter/Waitress Tourist Class Relationship Specialty Start Date End Date Eduardo Minor MD [address] [place] [phone] PCP - General Internal Medicine 03/18/19 documented as of this encounter
--- OUTSIDE RECORDS SUMMARY | 2025-07-13 09:46 | XMS_ITS | Encounter Summary ---
Author Organization [employer] Address [address] [facility] 7t [place] [address] Care Team Providers Care Merchandising Director Name Role Phone Eduardo Minor MD Primary Care Provide r Reason for Visit * Reason Comments Med Refill Encounter Details Date Type Department Care Team ([facility] st Contact Info) Description 08/05/2024 Refill [facility] [address] [place], [place] [phone] Eduardo Minor MD [address] [place], [place] [phone] Type 2 diabetes mellitus without complication, without long-term current use of insulin ([facility]) Social History Tobacco Use Types Packs/Day [...] documented as of this encounter Care Teams Merchandising Director Relationship Specialty Start Date End Date Eduardo Minor MD [address] [place] [id number] PCP - General Internal Medicine 03/18/19 documented as of this encounter
--- OUTSIDE RECORDS SUMMARY | 2025-07-13 09:47 | XMS_ITS | Encounter Summary ---
Author Organization [employer] Address [address] [facility] 7t [place] [address] Care Team Providers Care Thermal Cutting Tracer Machine Operator Name Role Phone Eduardo Minor MD Primary Care Provide r Encounter Details Date Type Department Care Team ([facility] st Contact Info) Description 01/03/2025 Orders Only [facility] [address] [place], [place] [phone] Bel Han MD [address] [place], [place] [phone] Social History Tobacco Use Types Packs/Day Years [...] documented as of this encounter Care Teams Thermal Cutting Tracer Machine Operator Relationship Specialty Start Date End Date Eduardo Mionr MD [address] [place] [id number] PCP - General Internal Medicine 03/18/19 documented as of this encounter
--- OUTSIDE RECORDS SUMMARY | 2025-07-13 09:47 | XMS_ITS | Encounter Summary ---
Author Organization [employer] Address [address] [facility] 7t [place] [address] Care Team Providers Care Transport Tank Technician Name Role Phone Eduardo Minor MD Primary Care Provide r Encounter Details Date Type Department Care Team (Late st Contact Info) Description 11/26/2022 Orders Only [facility] [address] [place] [address] Gayatri Otto LPN Social History Tobacco Use [...] on filedocumented in this encounter Care Teams Transport Tank Technician Relationship Specialty Start Date End Date Eduardo Minor MD [address] [place] [id number] PCP - General Internal Medicine 03/18/19 documented as of this encounter
--- NOTE | 2025-07-13 10:11 | PM.PROC ---
Brief Operative Note Date of procedure: 07/13/25 Pre-op diagnosis: right mid lower 1.2 cm and right lower 1.3 cm thyroid nodule FNA biopsy Post-op diagnosis: same Procedure: THYROID FINE NEEDLE ASPIRATION PROCEDURE NOTE ? PROCEDURE PERFORMED: Ultrasound-guided FNA of thyroid nodule ? OPERATORS: Dr. Avani Gold ? INDICATION: right mid lower 1.2 cm and right lower 1.3 cm thyroid nodules; FNA performed to assess for malignancy ? DESCRIPTION OF PROCEDURE: The indications for FNA (to assess for malignancy) were reviewed with the patient in detail. Potential complications (e.g., bleeding, infection, damage to local structures, absence of clear diagnosis after FNA) were reviewed. Alternatives to FNA including conservative observation or surgery were described. The patient understood and agreed to proceed. This was documented by the signing of the written informed consent form. A time-out was performed to confirm the patient's identity and the site of planned FNA. The nodules of interest were identified using ultrasound (14 MHz linear array probe). The sites of FNA was then draped in the usual fashion and carefully cleaned and prepared using alcohol swabs. The skin at the previously-identified sites of needle insertion was iced and sprayed with numbing spray. First for the right mid lower 1.2 cm thyroid nodule Under ultrasound guidance, _4_ passes were performed using a 1.5-inch, 25-gauge needle, and sample was obtained via capillary action. The needle tip was clearly visualized to be within the nodule at the time of sampling for _3 of _4_ passes. Then for the right lower 1.3 cm thyroid nodule Under ultrasound guidance, _4_ passes were performed using a 1.5-inch, 25-gauge needle, and sample was obtained via capillary action. The needle tip was clearly visualized to be within the nodule at the time of sampling for _3 of _4_ passes. The patient tolerated the procedure well. There were no immediate complications. A small adhesive bandage was applied, and the patient was advised to take acetaminophen (rather than NSAIDs) for any discomfort and to report any signs of inflammation/infection or marked swelling. IMPRESSION: Technically successful ultrasound-guided fine needle aspiration of right mid lower 1.2 cm and right lower 1.3 cm thyroid nodules. PLAN: The patient was advised that I will provide follow-up regarding the cytology result and any subsequent plans. Avani Gold MD Endocrinology Attending Condition: stable Disposition: same day
== END 2025-07-13 09:00 | disposition home or self-care (01) ==
LOC: HO.US 08:59
PROVIDERS: PCP Internal Medicine; Visit Provider Student in an Organized Health Care Education/Training Program
DX: E04.2 Nontoxic multinodular goiter (principal)
CPT/HCPCS: 10005; 10006; 88173; 88305

== ENCOUNTER → 2025-07-13 08:59 | Outpatient (BNV) | payer MEDICAID, SELFPAY | PROVIDERS: PCP Internal Medicine; Visit Provider Student in an Organized Health Care Education/Training Program | DX: E04.2 Nontoxic multinodular goiter (principal) | CPT/HCPCS: 10005; 10006 ==

== ENCOUNTER 2025-07-27 14:24 | Outpatient (AMB) | payer MEDICAID, SELFPAY ==
[2025-07-27 14:32] VITALS: BP 98/60; PULSE 85; O2SAT 96
--- NOTE | 2025-07-27 14:32 | A.OFFVIS_ITS ---
Vital Signs 07/27/25 14:32 Height 5 ft BMI Reason not done Patient refused/unable BP 98/60 Blood Pressure Location Rt brachial Position Sitting Pulse 85 Pulse Source Pulse Oximeter Pulse Oximetry (%) 96 Oxygen Delivery Method Room Air Intake Visit Reasons: F/u thyroid FNA- pt Intake Note: Patient present here today for FNA Thyroid Biopsy Results: Patient of DR Avani Gold MD. Resistor Coater Required: No Accompanied by: Daughter Allergies tumeric Adverse Reaction (Uncoded 07/27/25 14:34) Hives HPI Comments Details: 65 YO F with PMHx hypothyroidism who is seen in F/U for a NTMNG.. Found to have a incidental paraaortic mass on MRI lumbar spine , in , biopsy of the mass showed follicular lymphoma. She is seeing Dr. Nelson for this. During evaluation, had a PET CT for staging performed at [facility] on 02/22/25 revealed metabolically active left para-aortic lymphadenopathy SUV max of 6.8. Asymmetric increased activity in the right thyroid lobe SUV max 5.6. Thats why she is here today. History of hypothyroidism since in her 20s or 30s Currently on levothyroxine 88 mcg , take it at 3 or 4 AM in the morning and then goes to sleep 03/20/22: She had a thyroid US which revealed a 1.3 cm RMP thyroid nodule. She was subsequently referred to Endocrinology. US thyroid showed right mid 1.3 cm nodule solid hyper echoic that had increased in size 08/29/22: She underwent CT of the neck given the compressive symptoms. This did not reveal any mass effect from the thyroid. There were some elongated lymph nodes visualized. 01/02/23: Dr. Crespo repeated US herself didnt show any real nodules jus ta heterogenous gland with pseudonodules Patient currently denies heat or cold intolerance, hair loss, palpitation, mood changes, , changes in appearance of eyes or vision changes, tremors, increased diaphoresis or dry skin. ?Some days low energy. Has Constipation. Anxiety regarding new diagnosis and has gained 8 lbs in the past 3-4 monhts due to eating a lot because of anxiety. Reports intermittent difficulty swallowing, some intermittent hoarseness. Patient denies any history of childhood neck radiation. Denies having ever used lithium, amiodarone or biotin supplements. Maternal aunt had thyroid cancer. Doesnt know what type . Ultrasound thyroid 05/26/2025, showed a right mid to lower 1.2 cm solid isoechoic TR 3 nodule, this was previously seen on the ultrasound in 2021 when remained stable in size. Another right lower pole 1.3 cm solid hypoechoic TR 3 nodule noted. Interval history Patient seen today to review FNA performed on 07/13/2025. Patient reports feeling otherwise okay, she is concerned about these results as that she is did not with other cancers. Physical exam General: Well appearing. NAD. Not Cushingoid or Acromegalic Eyes: No conjunctival injection, not lid lag or proptosis CV: RRR, no murmur. No edema. Resp:Lungs clear to auscultation bilaterally Abdomen: Soft, nontender. nondistended Extremities/Neuro: No weakness or tremor of outstretched hands Laboratory Tests 08/14/22 03/31/25 12:42 11:48 TSH 1.80 Thyroglobulin Antibody 17 H Thyroid Peroxidase Ab 43 H EXAMINATION: US THYROID 05/26/25 HISTORY: E04.2 - Nontoxic multinodular goiter. History of follicular lymphoma with a staging PET/CT scan showing increased activity on the right side of the thyroid. TECHNIQUE: Real-time grayscale ultrasound imaging was performed and images were reviewed. COMPARISON: Comparison is made with the prior examination dated . FINDINGS: SIZE: The right thyroid lobe measures 4.7 x 1.7 x 1.5 cm. The left thyroid lobe measures 4.2 x 1.5 x 1.2 cm. The isthmus measures 4 mm. FLOW: Flow to the gland is normal. ECHOGENICITY: The echotexture of the gland is homogeneous. NODULES: There are nodules in the right thyroid lobe as described below: Nodule #: 1 Location: Mid to lower pole of the right thyroid lobe measuring 1.2 x 0.7 x 0.9 cm (previously 1.3 x 1.1 x 0.7 cm). Shape: Wider than tall (0 points) Margins: Ill-defined (0 points) Echotexture: Isoechoic (1 point) Composition: Solid (2 points) Calcifications: None (0 points) Total points: 3 TIRADS: TR3: Mildly suspicious. Nodule #: 2 Location: Lower pole of the right thyroid lobe measuring 1.3 x 0.8 x 0.8 cm (not seen previously). Shape: Wider than tall (0 points) Margins: Ill-defined (0 points) Echotexture: Hyperechoic (1 point) Composition: Solid (2 points) Calcifications: None (0 points) Total points: 3 TIRADS: TR3: Mildly suspicious. US/US thyroid IMPRESSION: Mildly suspicious nodules on the right, one of which is new from the prior study. Thyroid US: 03/20/2022 Right Thyroid Lobe: 4.5 x 1.7 x 1.8 cm, volume 7.2 mL. Previously 4.1 x 1.9 x 1.7 cm, volume 6.6 mL. Parenchyma: The gland echotexture is homogeneous. Thyroid vascularity is normal. Left Thyroid Lobe: 3.7 x 1.5 x 1.2 cm, volume 3.5 mL. Previously 3.4 x 1.5 x 1.3 cm, volume 3.4 mL. Parenchyma: The gland echotexture is homogeneous. Thyroid vascularity is normal. Isthmus: 0.6 cm in maximum AP dimension. Previously 0.5 cm. Estimated total number of nodules greater than or equal to 1 cm: 1. Technical Customer Support Specialist nodules are described as follows: 1. Location: Right mid. Size: 1.3 x 1.1 x 0.7 cm, volume 0.50 mL. Previously: 0.9 x 0.5 x 0.8 cm, volume 0.14 mL. Nodule characteristics: Composition: Solid (2). Echogenicity: Hyperechoic (1). Shape: Not taller than wide (0). Margins: Smooth (0). Echogenic Foci: None (0). ACR TI-RADS total points: 3 Previous: 3 ACR TI-RADS category: 3 Previous: 3 Significant change in size (>/= 20% in 2 dimensions and minimal increase of 2 mm or 50% or greater increase in volume): None Change in features: None Change in ACR TI-RADS risk category: None NODES: No lymphadenopathy is seen in the tissue surrounding the thyroid gland. CT Neck: 08/29/2022 FINDINGS: No significant cutaneous thickening or subcutaneous inflammation. No discrete fluid collection within the deep tissues of the neck. The premaxillary, retromaxillary, pterygopalatine fossa, orbital apical, parapharyngeal, and prelaryngeal adipose tissue is maintained. Normal appearance of the parotid and submandibular glands. Heterogeneous multinodular thyroid gland similar to prior evaluation. The largest demonstrated nodule appears to measure approximately 1.3 cm (no follow-up imaging recommended based on current guidelines at the time of examination). Elongated level Ib lymph nodes measure up to 1.3 cm bilaterally with maintained normal fatty josi. Level IIa lymph nodes measure up to 1.2 cm bilaterally with maintained normal fatty josi. An elongated left supraclavicular lymph node measures up to 1.2 cm with maintained normal fatty hilum (similar to exam from 2019). Otherwise, scattered subcentimeter lymph nodes bilaterally, none of which are pathologically enlarged. Normal mucosal contours of the pharynx and larynx. Normal appearance of the hyoid bone, thyroid cartilage, or cartilaginous trachea. The airways remains widely patent. No radiopaque foreign bodies. The atlantooccipital and atlantoaxial articulations remain well aligned. Straightening of the normal cervical lordosis. Otherwise, normal anatomic alignment. No evidence of acute fracture or subluxation of the cervical spine. The vertebral body heights are maintained. Moderate degenerative disc disease at C6-C7. Mild degenerative disc disease at all additional cervical levels. There is no prevertebral soft tissue swelling. The visualized portion of the skull base is without significant abnormalities. The visualized paranasal sinuses are clear. The mastoid air cells and middle ear cavities are clear. Periapical lucency associated with the maxillary left molar. No demonstrated additional significant periapical odontogenic disease. CT Upper Chest: The visualized lung apices and upper mediastinum are within normal limits. Pathology: FNA 07/13/2025 Diagnosis A. Thyroid, right mid lower pole 1.2 cm nodule, fine needle aspiration: Benign (Troy category II). COMMENT (A): Satisfactory for evaluation; moderately cellular specimen. Groups of follicular epithelial cells in a mixed, mostly macrofollicular, arrangement are seen; no cytologic atypia is present. Some colloid is present. Taken together, the findings are consistent with a benign thyroid nodule. B. Thyroid, right lower pole 1.3 cm nodule, fine needle aspiration: Atypia of undetermined significance (Troy category III). COMMENT (B): Satisfactory for evaluation; paucicellular specimen. Occasional groups of follicular epithelial cells in a mixed micro and macrofollicular arrangement are seen; some crowding is present. Rare colloid is present. The cell block has similar findings. Afirma results will be addended. Affirma 07/13/25 The result of this 1.3cm Troy III nodule B is Afirma GSC Benign, which suggests a low risk of cancer at approximately 4%. Treatment like a cytologically benign nodule may be appropriate, including clinical correlation. Afirma XA is not performed on GSC Benign nodules. TERT promoter region analysis is not performed on GSC Benign nodules. [facility] Medical History T2DM (type 2 diabetes mellitus) Hypothyroidism Multinodular thyroid Surgical History (Updated 07/27/25 @ 14:36 by YARITZA Nichols) Hx of ultrasound guided needle biopsy Hx of cholecystectomy Hx of tubal ligation Family History Father Diabetes Heart attack Mother Thyroid disease COPD (chronic obstructive pulmonary disease) Maternal Aunt Thyroid cancer Social History Household Members: Spouse Housing: Apartment Are you a primary healthcare translator to a significant other at home: Yes Do you presently have visiting nurse or other home services: No Alcohol intake: current Alcohol intake frequency: does not drink Patient Tobacco Use Status: Never used Tobacco service: No Current occupational status: disabled Physical Exam Vital Signs: Last Vital Signs Pulse 85 07/27/25 14:32 BP 98/60 07/27/25 14:32 Pulse Ox 96 07/27/25 14:32 Oxygen Delivery Method Room Air 07/27/25 14:32 Assessment & Plan Assessment & Plan (1) Multinodular thyroid: Code(s): E04.2 - Nontoxic multinodular goiter Category: Medical Plan: 65-year-old female who was found to have a right dominant 1.3 cm nodule on ultrasound of the thyroid in 2021, who was subsequently thought to have pseudonodules on ultrasound repeated in December 2022. Now she is coming in to reestablish care because recently in November 2024 she got diagnosed with follicular lymphoma, and when she underwent PET-CT scan while staging of this lymphoma in January 2025, she was noted to have increased activity in the right thyroid lobe. given there is a possible concern of increased PET activity on the right thyroid lobe, with a history of possible right-sided nodule, and given her family history of thyroid cancer, we decided to repeat thyroid ultrasound. She does have some intermittent compressive symptoms which have been there for years. Ultrasound thyroid 05/26/2025, showed a right mid to lower 1.2 cm solid isoechoic TR 3 nodule, this was previously seen on the ultrasound in 2021 when remained stable in size. Another right lower pole 1.3 cm solid hypoechoic TR 3 nodule noted. While both of these do not meet criteria for biopsy based on TI-RADS category, however given patient had increased uptake on PET scan and these nodules are greater than 1 cm in size, hence a biopsy these was scheduled to rule out malignancy. FNA 07/13/2025: Right mid lower pole 1.2 cm nodule: FNA diagnosis: Benign (Troy II). Findings: Moderately cellular, macrofollicular groups, no atypia, some colloid. Right lower pole 1.3 cm nodule: FNA diagnosis: Atypia of undetermined significance (AUS, Troy III). Findings: Paucicellular, mixed micro/macrofollicular groups, some crowding, rare colloid. Afirma GSC result: Benign, indicating a low (4%) risk of malignancy. No further molecular testing (Afirma XA or TERT) performed due to benign GSC result. 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
--- OUTSIDE RECORDS SUMMARY | 2025-07-27 18:47 | XMS_ITS | Encounter Summary ---
Author Organization [employer] Address [address] [facility] 7t [place] [address] Care Team Providers Care Tree Climber Name Role Phone Eduardo Minor MD Primary Care Provide r Encounter Details Date Type Department Care Team ([facility] Contact Info) Description 02/25/2025 Orders Only [facility] [address] [place] [address] Provider, MD Carlyle Social History Tobacco Use [...] documented as of this encounter Care Teams Tree Climber Relationship Specialty Start Date End Date Eduardo Minor MD [address] [place] [id number] PCP - General Internal Medicine 03/18/19 documented as of this encounter
--- OUTSIDE RECORDS SUMMARY | 2025-07-27 18:47 | XMS_ITS | Patient Health Record ---
Author Organization [facility] Address [address] [place] [address] Care Team Providers Care Tier Over Name Role Phone Drew Long MD, Eduardo Primary Care Provide r Siddhartha Grove Unavailable [phone] Allergies No Known Allergies Reason For Referral [...] Problem Screening for malignant neoplasm of colon (168989265) Encounter for screening for malignant neoplasm of colon (Z12.11) Active confirmed Problem History of adenomatous polyp of colon (991716665) History of adenomatous polyp of colon (Z86.010) Active confirmed Problem Flatulence, eructation and gas pain (811669430) Bloating (R14.0) Active confirmed Problem Diverticular disease of colon (812140369) Diverticulosis of large intestine without perforation or abscess without bleeding (K57.30) Active confirmed Problem Pre-procedure evaluation check (262632894) Pre-procedural examination (Z01.818) Active confirmed Plan Of Treatment Future Test Test Name Order Date COLONOSCOPY 11/05/2012 COLONOSCOPY 01/31/2017 COLONOSCOPY 10/31/2022 Insurance Providers Payer Name Payer Address Payer Phone Subscriber Number Group Number Insured Name Patient Relationship to Insured Coverage Start Date Coverage End Date MED[facility] OF [facility] [address] [place] [id number] SHANAE GARCIA Self - patient is the insured Medical (General) History Medical History History ICD Code NIDDM Hypothyroidism and thyroid nodule Denies [place],CVA,Lung disease,renal disease Neg. ETT at [facility] in 2011 and 1 10/2015 Screening Colonoscopy 12/2012 --small tubular adenomas, mild diverticulosis, small internal hemorrhoids Negative colonoscopy in 08/2017 Surgical History Surgery Date(Month/Year) Tubal ligatiion 4 C-sections Cholecystectomy
--- OUTSIDE RECORDS SUMMARY | 2025-07-27 18:47 | XMS_ITS | Encounter Summary ---
Author Organization [employer] Address [address] [place] [address] 7t [place] [address] Care Team Providers Care Bonding Machine Setter Name Role Phone Eduardo Minor MD Primary Care Provide r Encounter Details Date Type Department Care Team (Late st Contact Info) Description 10/07/2022 Orders Only [facility] [address] [place] [address] Awa Bermudez RN Social History Tobacco Use [...] on filedocumented in this encounter Care Teams Bonding Machine Setter Relationship Specialty Start Date End Date Eduardo Minor MD [address] [place] [address] PCP - General Internal Medicine 03/18/19 documented as of this encounter
--- OUTSIDE RECORDS SUMMARY | 2025-07-27 18:47 | XMS_ITS | Encounter Summary ---
Author Organization [employer] Address [address] [facility] 7 [place] [address] Care Team Providers Care Tugboat Dispatcher Name Role Phone Eduardo Minor MD Primary Care Provide r Reason for Visit * Reason Onset Date Comments Med Refill 03/08/2024 Encounter Details Date Type Department Care Team ([facility] st Contact Info) Description 03/08/2024 Refill [facility]INE [address] [place], [place] [phone] Eduardo Minor MD [address] [place] [address] Type 2 diabetes mellitus without complication, without long-term current use of insulin ([facility]); Type 2 diabetes mellitus without complication, unspecified whether nursing home insulin use ([facility]) Social History Tobacco Use Types [...] diabetes mellitus without complication, unspecified whether terminal press operator insulin use documented in this encounter Additional Health Concerns Assessment Noted Time PHQ-9 Depression Total Score: 0 02/03/20 24 1:01 PM EDT documented as of this encounter Care Teams Tugboat Dispatcher Relationship Specialty Start Date End Date Eduardo Minor MD [address] [place] [address] PCP - General Internal Medicine 03/18/19 documented as of this encounter
--- OUTSIDE RECORDS SUMMARY | 2025-07-27 18:47 | XMS_ITS | Encounter Summary ---
Author Organization [employer] Address [address] [facility] 7t [place] [address] Care Team Providers Care Chemical Processing Equipment Repairer Name Role Phone Eduardo Minor MD Primary Care Provide r Encounter Details Date Type Department Care Team ([facility] Contact Info) Description 03/16/2025 Orders Only [facility] [address] [place] [address] Provider, MD Carlyle Social History Tobacco Use [...] documented as of this encounter Care Teams Chemical Processing Equipment Repairer Relationship Specialty Start Date End Date Eduardo Minor MD [address] [place] [id number] PCP - General Internal Medicine 03/18/19 documented as of this encounter
--- OUTSIDE RECORDS SUMMARY | 2025-07-27 18:47 | XMS_ITS | Encounter Summary ---
Author Organization [employer] Address [address] [facility] 7 [place] [address] Care Team Providers Care Casting Carrier Name Role Phone Eduardo Minor MD Primary Care Provide r Reason for Visit * Reason Onset Date Comments Med Refill 10/13/2024 Encounter Details Date Type Department Care Team ([facility] st Contact Info) Description 10/13/2024 Refill [facility] [address] [place], [place] [phone] Eduardo Minor MD [address] [place] [address] Type 2 diabetes mellitus without complication, without long-term current use of insulin ([facility]); Type 2 diabetes mellitus without complication, unspecified whether fci insulin use ([facility]) Social History Tobacco Use Types Packs/Day Years [...] mellitus without complication, unspecified whether termite control servicer insulin use documented in this encounter Additional Health Concerns Assessment Noted Time PHQ-9 Depression Total Score: 0 02/03/20 24 1:01 PM EDT documented as of this encounter Care Teams Casting Carrier Relationship Specialty Start Date End Date Eduardo Minor MD [address] [place] [address] PCP - General Internal Medicine 03/18/19 documented as of this encounter
--- OUTSIDE RECORDS SUMMARY | 2025-07-27 18:47 | XMS_ITS | Encounter Summary ---
Author Organization [employer] Address [address] [facility] 7t [place] [address] Care Team Providers Care Restrike Hammer Operator Name Role Phone Eduardo Minor MD Primary Care Provide r Reason for Visit * Reason Comments Med Refill Encounter Details Date Type Department Care Team ([facility] st Contact Info) Description 12/15/2023 Refill [facility] MEDICINE [address] [place], [place] [phone] Eduardo Minor MD [address] [place], [place] [phone] Social History Tobacco Use Types Packs/Day Years Used Date Smoking Tobacco: Never Passive Smoke Exposure: Never Smokeless Tobacco: Never Depression Answer Date Recorded Patient Health Questionnaire-9 Score 5 01/07/2023 Housing Stability Answer Date Recorded What is your housing situation today? I have xiomydwiane walker 07/05/[address] you [...] t he electric, gas, oil or water [employer] threatened to shut off services in your [...] documented as of this encounter Care Teams Restrike Hammer Operator Relationship Specialty Start Date End Date Eduardo Minor MD [address] [place] [address] PCP - General Internal Medicine 03/18/19 documented as of this encounter
--- OUTSIDE RECORDS SUMMARY | 2025-07-27 18:47 | XMS_ITS | Encounter Summary ---
Author Organization [email or web address] Address [address] [place] [address] 7 [place] [address] Care Team Providers Care Tester Printed Circuit Boards Name Role Phone Eduardo Minor MD Primary Care Provide r Reason for Visit * Reason Onset Date Comments Durable Medical Equipment 05/06/2023 Encounter Details Date Type Department Care Team ([facility] st Contact Info) Description 05/06/2023 Telephone [facility] MEDICINE [address] [place], [place] [phone] Eduardo Minor MD [address] [place] [address] Durable Medical Equipment Social History Tobacco Use [...] documented as of this encounter Care Teams Tester [employer]ed [employer] Bo[employer] Relationship Specialty Start Date End Date Eduardo Minor MD [address] [place] [address] PCP - General Internal Medicine 03/18/19 documented as of this encounter
--- OUTSIDE RECORDS SUMMARY | 2025-07-27 18:47 | XMS_ITS | Encounter Summary ---
Author Organization [employer] Address [address] [facility] [address] 7[address] [place] [address] Care Team Providers Care Director Of Leadership Development Name Role Phone Eduardo Minor MD Primary Care Provide r Encounter Details Date Type Department Care Team ([facility] st Contact Info) Description 02/01/2025 Orders Only [facility] MEDICINE [address] [place] [address] External Provider, [facility] Social History Tobacco Use Types Packs/Day [...] Tissue Pathology (01/31/2025 8:47 AM EDT) Tissue [facility] External Provider LAB PAT HOLOGY ORDERABLES Final Result documented in this encounter Visit Diagnoses Not on filedocumented in this encounter Additional Health Concerns Assessment Noted Time PHQ-9 Depression Total Score: 0 12/03/19 25 1:50 PM EST documented as of this encounter Care Teams Director Of Leadership Development Relationship Specialty Start Date End Date Edaurdo Minor MD [address] [place] [address] PCP - General Internal Medicine 03/18/19 documented as of this encounter
--- OUTSIDE RECORDS SUMMARY | 2025-07-27 18:47 | XMS_ITS | Encounter Summary ---
Author Organization [employer] Address [address] [facility] 7t [place] [address] Care Team Providers Care Drier Unloader Name Role Phone Eduardo Minor MD Primary Care Provide r Encounter Details Date Type Department Care Team (Late st Contact Info) Description 11/26/2022 Orders Only [facility]S [address] [place] [address] Gayatri Otto LPN Social History Tobacco Use [...] on filedocumented in this encounter Care Teams Drier Unloader Relationship Specialty Start Date End Date Eduardo Minor MD [address] [place] [phone] PCP - General Internal Medicine 03/18/19 documented as of this encounter
--- OUTSIDE RECORDS SUMMARY | 2025-07-27 18:47 | XMS_ITS | Clinical Summary ---
Author Organization [employer] Address [address] [place] [address] 7t [place] [address] Care Team Providers Care Food Quality Tester Name Role Phone Eduardo Minor MD [...] unspecified whether terminal makeup operator insulin use USE DIRECTED TO TEST BLOOD [...] needle biopsy of left retroperitoneal mass which txtregbt-zsr-Etmbwts B-cell lymphoma with CD10 coexpression consistent with [...] needle biopsy of left retroperitoneal mass which glonenrl-sro-Ibozyfz B-cell lymphoma with CD10 coexpression consistent with [...] on US , follows with Dr Paulson [facility] 01/07/2023 Assessment & Plan (07/07/2025 10:40 AM EDT): Routine physical exam today within normal limits Mammogram: 01/10/2025 Normal Pap Smear: Done 08/2023 at [facility] Colonoscopy: 11/2022 showed a Tubular adenoma, Diverticulosis and Hemorrhoids Dr. Calderon Assessment & Plan (02/03/2024 1:03 PM EDT): Mammogram: 09/18/2023 Normal done at [facility] Pap Smear: Done 08/2023 at [facility] Colonoscopy: 11/2022 showed a Tubular adenoma, Diverticulosis and Hemorrhoids Dr. Calderon Assessment & Plan (01/07/2023 4:16 PM EDT): Mammogram: 07/12/2022 Normal done at [facility] Pap Smear: Done by Dr Paulson [facility] Colonoscopy: 12/09/2022 showed a Tubular adenoma, [...] 07/07/2025: 6.9 from 6.4 Eye exam 04/07/2024 [facility] checked on: 11/30/2020 1 was: [...] Hgb A1c 12/02/2024: 6.4 Eye exam 04/07/2024 [facility]in checked on: 11/30/2020 1 was: [...] Hgb A1c 12/02/2024: 6.4 Eye exam 04/07/2024 [facility]albumin checked on: 11/30/2020 1 was: [...] Hgb A1c 08/03/2024: 5.9 Eye exam 04/07/2024 [facility]albumin checked on: 11/30/2020 1 was: [...] Encounters Date Type Department Care Team Description 07/13/2025 Orders Only GENERIC EXTERNAL DATA DEPARTMENT Provider, Generic External Data 07/07/2025 10:30 AM EDT Office Visit [address] [address] Eduardo Minor MD Type 2 diabetes mellitus without complication, without long-term current use of insulin (HCC) (Primary Dx); B-cell non-Hodgkin lymphoma (CMS/HCC) (HCC); Thyroid nodule; Mixed hyperlipidemia; Preventative health care; Tubular adenoma; Bilateral carpal tunnel syndrome 07/07/2025 Travel 07/06/[address] [address] Eduardo Minor MD chartprep 06/30/2025 Patient Outreach [facility] [address] [place] [address] Eduardo Minor MD Pre-visit Planning (SDOH was already completed ) 06/24/2025 Abstract [facility] [address] [place] [address] Eduardo Minor MD 05/26/[address] [address] Eduardo Minor MD Appointment Confirmation 05/25/2025 Telephone [facility] [address] [place] [address] Eduardo Minor MD Chart Prep 05/23/2025 Orders Only GENERIC EXTERNAL DATA DEPARTMENT Provider, Generic External Data 05/18/2025 Patient Outreach [facility] [address] [facility] [place] [address] Eduardo Minor MD Pre-visit Planning ([facility] screening was completed on 12/02/2024) 05/11/2025 Telephone [facility] [address] [facility] [place] [address] Eduardo Minor MD Nurse Triage 05/08/2025 Refill [facility] [place] [place] [address] Eduardo Minor MD Type 2 diabetes mellitus without complication, without long-term current use of insulin ([facility]) from Last 3 Months Immunizations Immunization Administration [...] t he electric, gas, oil or water [employer] threatened to shut off services in your [...] Procedure Name Priority Date/Time Associated Diagnosis Comments CELL BLOCK Routine 07/13/2025 10:10 AM EDT POCT GLYCOSYLATED HEMOGLOBIN (HGB A1C) Routine 07/07/2025 10:15 AM EDT Type 2 diabetes mellitus without complication, without long-term current use of insulin (HCC) POCT GLUCOSE Routine 07/07/2025 10:14 AM EDT Type 2 diabetes mellitus without complication, without long-term current use of insulin (HCC) HM DIABETES EYE EXAM Routine 06/07/2025 US THYROID Routine 05/26/2025 4:[address] ABDOMEN PELVIS W CONTRAST Routine 05/23/2025 11:14 AM EDT KDGF-[id number]-BDMPECVAYIIUL, SERUM Routine 05/23/2025 8:21 AM EDT LD [...] Recently Relevant to Health Maintenance Results * Cell Block (07/13/2025 10:10 AM EDT) 07/13/2025 10:1 0 AM EDT 07/14/2025 11:22 AM EDT [facility] - 07/15/2025 11:04 AM EDT ----- ------- Name: Lili Madrid Age/Sex: 65/F : 1960 Unit#: [id number] Attend Dr: Avani Gold MD Re07/13/25 Status: [facility] REF Location: [facility] Disch: ----- ------- SPEC : [id number] RECD: 07/14/25-1121 STATUS: JIMBO ALVARADO NUM: [id number] GERARD: 07/13/25-[address] [facility] [address]: Avani Gold MD ENTERED: 07/14/25-1256 SP TYPE: Cytology OT DR: Eduardo Verma MD ORDERED: Cell Block, Fine Ndl Asp/2 Diagnosis A. Thyroid, right mid lower pole 1.2 cm nodule, fine needle aspiration: Benign (Marion category II). COMMENT (A): Satisfactory for evaluation; moderately cellular specimen. Groups of follicular epithelial cells in a mixed, mostly macrofollicular, arrangement are seen; no cytologic atypia is present. Some colloid is present. Taken together, the findings are consistent with a benign thyroid nodule. B. Thyroid, right lower pole 1.3 cm nodule, fine needle aspiration: Atypia of undetermined significance (Marion category III). COMMENT (B): Satisfactory for evaluation; paucicellular specimen. Occasional groups of follicular epithelial cells in a mixed micro and macrofollicular arrangement are seen; some crowding is present. Rare colloid is present. The cell block has similar findings. Afirma results will be addended. Clinical History Right mid lower 1.2 cm and right lower 1.3 cm thyroid nodule FNA biopsy Material Received A. Right mid lower 1.2 cm thyroid nodule FNA biopsy B. Right lower 1.3 cm thyroid nodule FNA biopsy Gross Description A. Received is 30 cc of blood-tinged fluid from which a ThinPrep slide is prepared. B. Received is 28 cc of blood-tinged fluid from which a ThinPrep slide and cell block are prepared. IHC S/NG Disclaimer NOTE: Unless otherwise stated, all tissue is formalin-fixed and paraffin-embedded. Some or all of the immunohistochemical tests reported herein may have been developed and their performance characteristics determined by [facility]. They have not been cleared or approved by the U.S. Food and Drug Administration (FDA). However, the FDA has determined that such clearance or approval is not necessary. This laboratory is certified under the Clinical Laboratory Improvement Amendments of 1988 (CLIA) as qualified to perform high complexity clinical laboratory testing. CONTINUED ON NEXT PAGE ----- ------- Name: Lili Madrid Age/Sex: 65/F : 1960 Unit#: [id number] Attend Dr: Avani Gold MD Re07/13/25 Status: DEP REF Location: [facility] Disch: ----- ------- SPEC : [id number] RECD: 07/14/25 STATUS: JIMBO ALVARADO NUM: [id number] GERARD: 07/13/25-[address]: Avani Gold MD ENTERED: 07/14/25 SP TYPE: Cytology OTHR DR: Eduardo Verma MD ORDERED: Cell Block, Fine Ndl Asp/2 Copies To: Eduardo Verma MD [address] [phone] Avani Gold MD [facility] Endocrinology [address] [place] [address] [phone] [email or web address] ----- ------- Signed (signature on file) Jagdeep Raymond MD 07/15/25 1104 ----- ------- END OF REPORT us Generic External Data Provider LAB CYTOLOGY [place] Final Result [facility] [address] [place], [place] [phone] * (ABNORMAL) POCT glycosylated hemoglobin (Hgb A1c) (07/07/2025 10:15 AM EDT) Hemoglobin A1C 6.9(A) 4.0 - 5.7 % QC Media Lot # [id number] Lot# Expiration Date ,027 Blood Capillary blood specimen / Unknown 07/07/2025 10:15 AM EDT Eduardo Long MD POINT OF CARE TEST EN TER/EDIT ORDERABLES Final Result * POCT glucose manually resulted (07/07/2025 10:14 AM EDT) Glucose Blood, POC 130 60 - 200 mg/dL QC Media Lot # [id number] Lot# Expiration Date , Blood Capillary blood specimen / Unknown 07/07/2025 10:14 AM EDT Eduardo Long MD POINT OF CARE TEST EN TER/EDIT ORDERABLES Final Result * Hm Diabetes Eye Exam (06/07/2025) Eye Exam Normal Normal Comment:Done by [facility] Historical Provider HEALTH MAINTENANCE Final Result * US Thyroid (05/26/2025 4:09 PM EDT) Anatomical Region Laterality Modality Head, Neck Ultrasound 05/26/2025 4:09 PM EDT Narrative 05/27/2025 7:28 AM EDT [address] [address] Ultrasound Report Signed Patient: Lili Madrid MR#: [id number] : 1960 Acct:[id number] Age/Sex: 64 / F ADM Date: 05/26/25 Loc: HO.US Attending Dr: Avani Gold MD Ordering Physician: Avani Gold MD Date of Service: 05/26/25 Procedure(s): US thyroid Accession Number(s): [id number] cc: Eduardo Verma MD; Avani Gold MD [...] by Siddhartha Jim MD in OV> 05/27/25 07 DD/ 1609 TD/TT: 05/26/25 1615 Operations Manager/Coordinator: Procedure Note Donotuseinterpreter, Image - 05/27/2025 [place] [address] Ultrasound Report Signed Patient: Linda Madrid#: [id number] : 1960cct:[id number] Age/Sex: 64 / FADM Date: 05/26/25 Loc: HO.US Attending Dr: Avani Gold MD Ordering Physician: Avani Gold MD Date of Service: 05/26/25 Procedure(s): US thyroid Accession Number(s): [id number] cc: Eduardo Verma MD; Avani Gold MD [...] 05/27/25 0725 DD/ 1609 TD/TT: 05/26/25 1615 Operations Manager/Coordinator: us [facility] External Provider IMG US PROCEDURES Edited Result - Final * CT Abdomen Pelvis w/ Contrast (05/23/2025 11:14 AM EDT) Anatomical Region Laterality Modality Body, Pelvis, Abdomen Computed T omography 05/23/2025 11:1 4 AM EDT Narrative 05/23/2025 12:00 PM EDT [address] [address] [address] Scan Report Signed Patient: Lili Madrid MR#: [id number] : 1960 Acct:[id number] Age/Sex: 64 / F ADM Date: 05/23/25 Loc: HO.CT Attending Dr: Xochitl Nelson MD Ordering Physician: Xochitl Nelson MD Date of Service: 05/23/25 Procedure(s): CT abdomen pelvis w IV con Accession Number(s): [id number] cc: Xochitl Nelson MD; Eduardo Verma MD Report Number: [id number]: Total DLP = 985.00 mGy-cm EXAMINATION: CT [...] 05/23/25 1156 DD/ 1114 TD/TT: 05/23/25 1136 Operations Manager/Coordinator: Procedure Note Donotuseinterpreter, Image - 05/23/[address] [address] [address] Scan Report Signed Patient: Linda Madrid#: [id number] : 2Acct:[id number] Age/Sex: 64 / FADM Date: 05/23/25 Loc: HO.CT Attending Dr: Xochitl Nelson MD Ordering Physician: Xochitl Nelson MD Date of Service: 05/23/25 Procedure(s): CT abdomen pelvis w IV con Accession Number(s): [id number] cc: Xochitl Nelson MD; Eduardo Verma MD Report Number: [id number]: Total DLP = 985.00 mGy-cm EXAMINATION: CT [...] 05/23/25 1156 DD/ 1114 TD/TT: 05/23/25 1136 Operations Manager/Coordinator: [facility] External Provider IMG CT PROCEDURES Final Result * CBC auto differential (05/23/2025 8:21 AM EDT) White Blood Count 7.8 4.8 - 10.8 X10*3/uL [facility] Red Blood Count 4.39 4.20 - 5.50 X10*6/uL [facility] Hemoglobin 13.2 12.0 - 16.0 g/dl [facility] Hematocrit 39.4 37.0 - 47.0 % [facility] Mean Corpuscular Volume 89.7 80.0 - 98.0 fL [facility] Mean Corpuscular Hemoglobin 30.1 27.0 - 33.0 pg [facility] Mean Corpuscular HGB Conc 33.5 31.0 - 35.0 g/dl [facility] Red Cell Distribution Width 13.1 11.0 - 16.0 % [facility] Platelet Count 330 160 - 400 X10*3/uL [facility] Mean Platelet Volume 9.5 9.4 - 12.3 fL [facility] Neutrophils Percent Auto 57.6 45 - 73 % [facility] Imm Gran Pct Auto 0.4 0.0 - 0.4 % [facility] Lymphocytes Percent Auto 28.4 20 - 40 % [facility] Monocytes Percent Auto 9.6 2 - 11 % [facility] Eosinophils Percent Auto 2.8 0 - 4 % [facility] Basophils Percent Auto 1.2 0 - 2 % [facility] NRBC Pct Auto 0.0 0.0 - 0.2 /100WBC [facility] Neutrophils Absolute Auto 4.5 2.0 - 8.3 x10*3/uL [facility] Imm Gran Abs Auto 0.03 0.00 - 0.03 X10*3/uL [facility] Lymphocytes Absolute Auto 2.2 1.2 - 4.9 X10*3/uL [facility] Monocytes Absolute Auto 0.8 0.1 - 1.2 X10*3/uL [facility] Eosinophils Absolute Auto 0.2 0.0 - 0.4 X10*3/uL [facility] Basophils Absolute Auto 0.1 0.0 - 0.2 X10*3/uL [facility] NRBC Abs Auto 0.000 0.0 - 0.012 X10*3/uL [facility] 05/23/2025 8:21 AM EDT 05/23/2025 8:21 AM EDT us Generic External Data Provider LAB BLOOD ORDERAB LES Final Result [facility] [address] [place] [phone] * Lactate Dehydrogenase (LD) (05/23/2025 8:21 AM EDT) Lactate Dehydrogenase 156 122 - 220 U/L [facility] 05/23/2025 8:21 AM EDT 05/23/2025 8:21 AM EDT us Generic External Data Provider LAB BLOOD ORDERAB LES Final Result Performing Organization Address [facility] Co de Phone Number [facility] [address] [place] [phone] * Book-0-Iaymeuuwzgtbx, Serum (05/23/2025 8:21 AM EDT) Beta 2 Microglobulin, Serum 2.25 < OR = 2.51 mg/L [facility] Comment:THIS TEST WAS PERFOR MED AT:[facility] [place] [id number] CHE MD 05/23/2025 8:21 AM EDT 05/23/2025 8:21 AM EDT Generic External Data Provider LAB BLOOD ORDERAB LES Final Result Performing Organization Address [facility] de Phone Number [facility] [address] [place] [phone] * (ABNORMAL) Comprehensive Metabolic Panel (05/23/2025 8:21 AM EDT) Pathologist [facility] Sodium 142 135 - 145 mmol/L [facility] Potassium 5.1 3.3 - 5.1 mmol/L [facility] Chloride 105 96 - 108 mmol/L [facility] Carbon Dioxide 29 22 - 29 mmol/L [facility] Anion Gap 13 12 - 20 [facility] Urea Nitrogen (BUN) 15 9 - 16 mg/dL [facility] Creatinine, Serum 0.76 0.5 - 1.4 mg/dL [facility] Estimated Glomerular Filt Rate >60 [facility] Comment:Chronic Kidney Disea se: Estimated GFR < 60 mL/min/1.03l8Shgplv Kidney Disease: Estimated GFR < 15 mL/min/1.73m2 Glucose 137(H) 60 - 115 mg/dL [facility] Calcium 9.9 8.4 - 10.2 mg/dL [facility] Bilirubin, Total 0.3 0.0 - 1.0 mg/dL [facility] Aspartate Amino Transferase 23 5 - 31 U/L [facility] Alanine Aminotransferase 19 0 - 31 U/L [facility] Total Protein 7.5 6.5 - 8.0 g/dL [facility] Albumin Level 4.3 3.5 - 5.0 g/dL [facility] Alkaline Phosphatase 69 39 - 117 U/L [facility] 05/23/2025 8:21 AM EDT 05/23/2025 8:21 AM EDT Generic External Data Provider LAB BLOOD ORDERAB LES Final Result Performing Organization Address [facility] Co de Phone Number [facility] [address] [place] [phone] * BI Mammogram Screening Tomosynthesis Bilateral (01/10/2025) Anatomical Region Laterality Modality Breast Bilateral Mammography Eduardo Long MD IMG BI PROCEDURES Fin al Result * Albumin, Random Urine W/Creatinine (08/03/2024 1:35 PM EST) Creatinine, Urine 121.86 mg/dL [facility] Microalbumin Urine 12.0 mg/L [facility] Microalbum Creatinine Ratio Ur 9.8 <30 ug/mg cr [facility] Comment:Albumin/Creatinine R atio Reference Ranges: Normal: < 30 ug/mg creatinine Microalbuminuria: 30 - 300 ug/mg creatinineClinical Albuminuria: > 300 ug/mg creatinine Urine (Urine, Random) 08/03/2024 1:35 PM EST 08/03/2024 4:09 PM EST us Eduardo Long MD LAB URINE ORDERABLES Final Result Performing Organization Address [facility] Co de Phone Number [facility] [address] [place] [phone] * Lipid Panel, Standard (05/27/2024 7:46 AM EDT) Triglycerides 110 <150 mg/dL [facility] Comment:Desirable Triglyceri de: less than 150 mg/dLBorderline High Triglyceride 150-199 mg/dLHigh Triglyceride: 200-499 mg/dLVery High Triglyceride: greater than or equal to 5OO mg/dL Cholesterol 152 <200 mg/dL [facility] Comment:Desirable Cholestero l: less than 200 mg/dLBorderline High Cholesterol: 200-239 mg/dLHigh Cholesterol: greater than 239 mg/dL LDL Cholesterol Calculated 85 <100 mg/dL [facility] Comment:Desirable LDL: less than 100 mg/dLNear Optimal/Above Optimal LDL: 110- 129 mg/dLBorderline High LDL: 130-159 mg/dLHigh LDL: 160-189 mg/dLVery High LDL: greater than or equal to 190 mg/dL HDL Cholesterol 45 >40 mg/dL [facility] Comment:Desirable HDL: great er than 40 mg/dL Note: This HDL assay may give artificially low results in patients with liver disease. Blood Venous blood specimen / Unknown 05/27/2024 7:46 AM EDT 05/27/2024 7:46 AM EDT Eduardo Long MD LAB BLOOD ORDERABLES Final Result [facility] [address] [place] [phone] * Pap Smear (09/18/2023) Only the most recent of2 resultswithin the time period is included. Historical Provider HEALTH MAINTENANCE Final Result * Colonoscopy (12/09/2022) Colonoscopy Normal Normal Narrative Kelli Mix - 12/09/2022 Repeat in 5 years Historical Provider HEALTH MAINTENANCE Final Result from Last 3 Months or Most Recently Relevant to Health Maintenance Insurance [facility] C3 Care Teams Food Quality Tester Relationship Specialty Start Date End Date Eduardo Minor MD [address] [place] [phone] PCP - General Internal Medicine 03/18/19
--- OUTSIDE RECORDS SUMMARY | 2025-07-27 18:47 | XMS_ITS | Encounter Summary ---
Author Organization [employer] Address [address] [facility] 7t [place] [address] Care Team Providers Care Director Software Name Role Phone Eduardo Minor MD Primary Care Provide r Reason for Visit * Reason Comments Med Refill Encounter Details Date Type Department Care Team ([facility] st Contact Info) Description 08/14/[address] [facility] MEDICINE [address] [place], [place] [phone] Eduardo Minor MD 230 [place], [place] [phone] Social History Tobacco Use Types Packs/Day Years [...] t he electric, gas, oil or water [employer] threatened to shut off services in your [...] as of this encounter Care Teams Director Software Relationship Specialty Start Date End Date Eduardo Minor MD 230 [place] [address] PCP - General Internal Medicine 03/18/19 documented as of this encounter
--- OUTSIDE RECORDS SUMMARY | 2025-07-27 18:47 | XMS_ITS | Encounter Summary ---
Author Organization [employer] Address [address] [facility] 7t [place] [address] Care Team Providers Care Battery Engineer Name Role Phone Eduardo Minor MD Primary Care Provide r Encounter Details Date Type Department Care Team ([facility] st Contact Info) Description 01/24/2025 Orders Only [facility] MEDICINE 230 [place], [place] [phone] Bel Han MD 230 [place], [place] [phone] Social History Tobacco Use Types Packs/Day Years [...] documented as of this encounter Care Teams Battery Engineer Relationship Specialty Start Date End Date Eduardo Minor MD [address] [place] [phone] PCP - General Internal Medicine 03/18/19 documented as of this encounter
--- OUTSIDE RECORDS SUMMARY | 2025-07-27 18:47 | XMS_ITS | Encounter Summary ---
Author Organization [employer] Address [address] [facility] [address] 7[address] [place] [address] Care Team Providers Care Refinery Operator Crude Unit Name Role Phone Eduardo Minor MD Primary Care Provide r Encounter Details Date Type Department Care Team ([facility] st Contact Info) Description 11/07/2023 Orders Only [facility] [address] [place] [address] [phone] Ronny Topete MD 230 [place], [place] [phone] Posterior chest pain (Primary Dx) Social History [...] documented as of this encounter Care Teams Refinery Operator Crude Unit Relationship Specialty Start Date End Date Eduardo Minor MD [address] [place] [address] PCP - General Internal Medicine 03/18/19 documented as of this encounter
--- OUTSIDE RECORDS SUMMARY | 2025-07-27 18:47 | XMS_ITS | Encounter Summary ---
Author Organization [email or web address] Address [address] [facility] 7t [place] [address] Care Team Providers Care Mechanical Service Representative Name Role Phone Eduardo Minor MD Primary Care Provide r Encounter Details Date Type Department Care Team ([facility] st Contact Info) Description 01/03/2025 Orders Only [facility] MEDICINE 230 [place], [place] [phone] Bel Han MD 230 [place], [place] [phone] Social History Tobacco Use Types Packs/Day Years [...] as of this encounter Care Teams Mechanical Service Representative Relationship Specialty Start Date End Date Eduardo Minor MD [address] [place] [phone] PCP - General Internal Medicine 03/18/19 documented as of this encounter
--- OUTSIDE RECORDS SUMMARY | 2025-07-27 18:47 | XMS_ITS | Encounter Summary ---
Author Organization [employer] Address [address] [facility] 7t [place] [address] Care Team Providers Care Security Solutions Engineer Name Role Phone Eduardo Minor MD Primary Care Provide r Reason for Visit * Reason Comments Med Refill Encounter Details Date Type Department Care Team ([facility] st Contact Info) Description 08/05/2024 Refill [facility] MEDICINE 230 [place], [place] [phone] Eduardo Minor MD 230 [place], [place] [phone] Type 2 diabetes mellitus without complication, without long-term current use of insulin ([facility]) Social History Tobacco Use Types Packs/Day Years [...] documented as of this encounter Care Teams Security Solutions Engineer Relationship Specialty Start Date End Date Eduardo Minor MD [address] [place] [phone] PCP - General Internal Medicine 03/18/19 documented as of this encounter
--- OUTSIDE RECORDS SUMMARY | 2025-07-27 18:47 | XMS_ITS | Encounter Summary ---
Author Organization [employer] Address [address] [place] [address] 7 [place] [address] Care Team Providers Care Metal Casket Maker Name Role Phone Eduardo Minor MD Primary Care Provide r Reason for Visit * Reason Comments Med Refill Encounter Details Date Type Department Care Team ([facility] st Contact Info) Description 01/16/[address] [facility] MEDICINE 230 [place], [place] [phone] Eduardo Minor MD 230 [place] [address] Acquired hypothyroidism Social History Tobacco Use Types [...] documented as of this encounter Care Teams Metal Casket Maker Relationship Specialty Start Date End Date Eduardo Minor MD [address] [place] [address] PCP - General Internal Medicine 03/18/19 documented as of this encounter
--- OUTSIDE RECORDS SUMMARY | 2025-07-27 18:47 | XMS_ITS | Encounter Summary ---
Author Organization [employer] Address 75 [facility] 7 [place] [address] Care Team Providers Care Pipe Fitter Supervisor Name Role Phone Eduardo Minor MD Primary Care Provide r Reason for Visit * Reason Onset Date Comments Appointment Request 12/05/2023 Encounter Details Date Type Department Care Team ([facility] Contact Info) Description 12/05/2023 Telephone [facility] MEDICINE 230 [place], [place] [phone] Eduardo Minor MD 230 [place], [place] [phone] Appointment Request Social History Tobacco Use Types [...] as of this encounter Care Teams Pipe Fitter Supervisor Relationship Specialty Start Date End Date Eduardo Minor MD [address] [place] [phone] PCP - General Internal Medicine 03/18/19 documented as of this encounter
--- OUTSIDE RECORDS SUMMARY | 2025-07-27 18:47 | XMS_ITS | Encounter Summary ---
Author Organization [employer] Address [address] [facility] [address] 7t [place] [address] Care Team Providers Care Flight Technician Name Role Phone Eduardo Minor MD Primary Care Provide r Encounter Details Date Type Department Care Team (Late st Contact Info) Description 10/15/2023 Orders Only [facility] MEDICINE 230 [place] [address] ProviderCarlyle MD Social History Tobacco Use Types [...] documented as of this encounter Care Teams Flight Technician Relationship Specialty Start Date End Date Eduardo Minor MD [address] [place] [phone] PCP - General Internal Medicine 03/18/19 documented as of this encounter
--- OUTSIDE RECORDS SUMMARY | 2025-07-27 18:47 | XMS_ITS | Encounter Summary ---
Author Organization [employer] Address [address] [facility] 7t [place] [address] Care Team Providers Care Green Building Architect Name Role Phone Eduardo Minor MD Primary Care Provide r Encounter Details Date Type Department Care Team ([facility] st Contact Info) Description 06/24/2025 Abstract [facility] MEDICINE 230 [place], [place] [phone] Eduardo Minor MD 230 [place], [place] [phone] Social History Tobacco Use Types Packs/Day Years [...] encounter Results * Diabetes Eye Exam (06/07/2025) [facility] Eye Exam Normal Normal Comment:Done by [facility] Historical Provider HEALTH MAINTENANCE Final Result documented in this encounter Visit Diagnoses Not on filedocumented in this encounter Additional Health Concerns Assessment Noted Time PHQ-9 Depression Total Score: 0 12/03/19 25 1:50 PM EST documented as of this encounter Care Teams Green Building Architect Relationship Specialty Start Date End Date Eduardo Minor MD 230 [place] [address] PCP - General Internal Medicine 03/18/19 documented as of this encounter
--- OUTSIDE RECORDS SUMMARY | 2025-07-27 18:47 | XMS_ITS | Encounter Summary ---
Author Organization [employer] Address [address] [facility] [address] 7t [place] [address] Care Team Providers Care Meteorological Engineer Name Role Phone Eduardo Minor MD Primary Care Provide r Encounter Details Date Type Department Care Team ([facility] st Contact Info) Description 10/01/2023 Telephone [facility] MEDICINE 230 [place], [place] [phone] Eduardo Minor MD 230 [place], [place] [phone] Social History Tobacco Use Types Packs/Day Years [...] documented as of this encounter Care Teams Meteorological Engineer Relationship Specialty Start Date End Date Eduardo Minor MD [address] [place] [address] PCP - General Internal Medicine 03/18/19 documented as of this encounter
--- OUTSIDE RECORDS SUMMARY | 2025-07-27 18:47 | XMS_ITS | Encounter Summary ---
Author Organization [employer] Address [address] [facility] 7t [place] [address] Care Team Providers Care Character Impersonator Name Role Phone Eduardo Minor MD Primary Care Provide r Reason for Visit * Reason Comments Med Refill Encounter Details Date Type Department Care Team ([facility] Contact Info) Description 08/03/2024 Refill [facility] MEDICINE 230 [place], [place] [phone] Eduardo Minor MD 230 [place], [place] [phone] Type 2 diabetes mellitus without complication, unspecified whether senior living insulin use ([facility]) Social History Tobacco Use Types [...] diabetes mellitus without complication, unspecified whether intermediate card tender insulin use documented in this encounter Additional Health Concerns Assessment Noted Time PHQ-9 Depression Total Score: 0 02/03/20 24 1:01 PM EDT documented as of this encounter Care Teams Character Impersonator Relationship Specialty Start Date End Date Eduardo Minor MD 230 [place] [address] PCP - General Internal Medicine 03/18/19 documented as of this encounter
--- OUTSIDE RECORDS SUMMARY | 2025-07-27 18:47 | XMS_ITS | Encounter Summary ---
Author Organization [employer] Address [address] [facility] 7t [place] [address] Care Team Providers Care Semiautomatic Taper Operator Name Role Phone Eduardo Minor MD Primary Care Provide r Reason for Visit * Reason Comments Med Refill Encounter Details Date Type Department Care Team ([facility] st Contact Info) Description 05/08/[address] [facility] MEDICINE 230 [place], [place] [phone] Eduardo Minor MD 230 [place], [place] [phone] Type 2 diabetes mellitus without complication, without long-term current use of insulin ([facility]) Social History Tobacco Use Types [...] documented as of this encounter Care Teams Semiautomatic Taper Operator Relationship Specialty Start Date End Date Eduardo Minor MD [address] [place] [phone] PCP - General Internal Medicine 03/18/19 documented as of this encounter
--- OUTSIDE RECORDS SUMMARY | 2025-07-27 18:47 | XMS_ITS | Clinical Summary ---
Author Organization [facility] Address [address] [place] [address] Phone Care Team Providers Care Product Mgr Name Role Phone Eduardo Verma MD [facility] [place] [facility] History Surgery Date Site/Laterality Comments CHOLECYSTECTOMY PROCEDURE: DC LAPAROSCOPY SURG CHOLECYSTECTOMY Medical History Medical History [...] AM EDT Appointment [facility] [address] [phone] Health Maintenance Due Date Last [...] year. Mammography location: [facility] at [address], [address] -------- FINAL REPORT -------- Dictated By: Ricardo Patterson Dictated Date: 01/10/2025 17:24 ET Assigned Physician: Ricardo Patterson Reviewed and Electronically Signed By: Ricardo Patterson Signed Date: 01/10/2025 17:32 ET Workstation ID: [id number] Transcribed By: Self Edit Transcribed Date: 01/10/2025 17:24 ET Narrative 01/10/2025 5:32 PM EDT EXAM: SCREENING MAMMOGRAPHY, BILATERAL HISTORY: SCREENING. No additional history. COMPARISON: 09/18/23, 07/12/22, 07/10/21, 06/23/20 TECHNIQUE: Synthesized CC and MLO projections of each breast. Tomosynthesis of each breast in the CC and MLO projections. ADDITIONAL IMAGING: None Computer-aided detection was employed with the [employer] AI 3-D. TISSUE DENSITY: There are scattered [...] None Computer-aided detection was employed with the [employer] AI 3-D. TISSUE DENSITY: There are scattered [...] year. Mammography location: [facility] at [address], [address] -------- FINAL REPORT -------- Dictated By: Ricardo Patterson Dictated Date: 01/10/2025 17:24 ET Assigned Physician: Ricardo Patterson Reviewed and Electronically Signed By: Ricardo Patterson Signed Date: 01/10/2025 17:32 ET Workstation ID: [id number] Transcribed By: Self Edit Transcribed Date: 01/10/2025 17:24 ET us Eduardo Verma MD IMG BI PROCEDURES F inal Result * (ABNORMAL) Basic metabolic panel (12/23/2024 8:00 AM EDT) Sodium 142 133 - 145 mmol/L LAB CHEMISTRY METHOD 12/23/2024 9:15 AM [facility] Potassium 4.6 3.5 - 5.5 mmol/L LAB CHEMISTRY METHOD 12/23/2024 9:15 AM [facility] Chloride 106 96 - 110 mmol/L LAB CHEMISTRY METHOD 12/23/2024 9:15 AM [facility] CO2 32 21 - 32 mmol/L LAB CHEMISTRY METHOD 12/23/2024 9:15 AM [facility] Anion Gap 4 3 - 11 LAB CHEMISTRY METHOD 12/23/2024 9:15 AM [facility] Glucose 110(H) 70 - 100 mg/dL LAB CHEMISTRY METHOD 12/23/2024 9:15 AM [facility] BUN 20 5 - 25 mg/dL LAB CHEMISTRY METHOD 12/23/2024 9:15 AM [facility] Creatinine 0.62 0.50 - 1.10 mg/dL LAB CHEMISTRY METHOD 12/23/2024 9:15 AM [facility] eGFR 101 >=60 mL/min/1. 73m2 LAB CHEMISTRY METHOD 12/23/2024 9:15 AM [facility] Comment:Calculation based on the Chronic Kidney Disease Epidemiology Collaboration (CKD-EPI) equation refit without adjustment for race. BUN/Creatinine Ratio 32.3 LAB CHEMISTRY METHOD 12/23/2024 9:15 AM [facility] Calcium 9.8 8.5 - 10.5 mg/dL LAB CHEMISTRY METHOD 12/23/2024 9:15 AM [facility] Blood Venous blood specimen / Unknown Venipuncture / Unknown 12/23/2024 8:00 AM EDT 12/23/2024 8:44 AM EDT Eduardo Verma MD LAB BLOOD ORDERABLE S Final Result [facility] [address] [place] [address], from Last 3 Months or Most Recently Relevant to Health Maintenance Insurance MEDICAID - [place] Care Teams Product Mgr Relationship Specialty Start Date End Date Eduardo Verma MD [address] [place] [address] [place] [phone] PCP - General Internal Medicine 04/08/22
== END 2025-07-27 14:51 | disposition home or self-care (01) ==
LOC: HO.ENCR 14:25
PROVIDERS: PCP Internal Medicine; Visit Provider Student in an Organized Health Care Education/Training Program
DX: E04.2 Nontoxic multinodular goiter (principal); E06.3 Autoimmune thyroiditis
CPT/HCPCS: 99213

== ENCOUNTER → 2025-07-27 14:24 | Outpatient (BNVA) | payer MEDICAID, SELFPAY | PROVIDERS: PCP Internal Medicine; Visit Provider Student in an Organized Health Care Education/Training Program | DX: E04.2 Nontoxic multinodular goiter (principal); E06.3 Autoimmune thyroiditis; F41.9 Anxiety disorder, unspecified | CPT/HCPCS: 99212 ==

== ENCOUNTER 2025-09-09 16:29 | Emergency (ER) | payer MEDICAID, SELFPAY ==
--- NOTE | ~2025-09-09 | CT_ITS ---
CLINICAL HISTORY: mid abd pain, h o hernia, n v d CT abdomen and pelvis with contrast Comparison: CT abdomen and pelvis 05/23/2025 Findings: No acute findings within visualized lung bases. Mild prominence of intrahepatic bile ducts likely a sequela of prior cholecystectomy. Spleen, pancreas, adrenal glands, kidneys, are unremarkable. No free air or free fluid. Unremarkable urinary bladder. Anteverted uterus. Noncalcified and nonaneurysmal abdominal aorta. Small hiatal hernia. Nondistended stomach. Normal caliber small bowel. No obstruction. Colon appears unremarkable. Normal appendix. Interval decrease in overall conspicuity of left retroperitoneal lymphadenopathy. No acute osseous abnormality. No lytic or sclerotic osseous lesions. Impression: 1. No acute findings identified in the abdomen or pelvis. 2. Decrease in conspicuity of left retroperitoneal lymphadenopathy. 3. Additional findings as above. This document has been electronically signed by: Surya Woods MD on 09/10/2025 01:23:51
[2025-09-09 16:51] VITALS: BP 159/71; PULSE 85; RESP 18; TEMP 36.9; O2SAT 98; BMI 36.1
--- NOTE | 2025-09-09 16:51 | ED_ITS ---
HPI - General Adult General Chief complaint: Abdominal Pain Stated complaint: stomach pain nausea Time Seen by Provider: 09/09/25 21:58 Source: patient and family Limitations: no limitations History of Present Illness HPI narrative: 64-year-old female who has a history of follicular lymphoma, status post chemo and radiation, hypothyroidism, diabetes, presents for evaluation of abdominal pain. Patient states for the past 2 weeks she has had intermittent episodes of abdominal pain. Patient states it is initially diffuse but then has episodes of sharp pain in the lower abdomen to the left of her umbilicus. Patient states she has a known hernia in this region and feels as though it could be contributing to her symptoms. She denies any fevers or chills. She does have intermittent episodes of nausea and vomiting. She has not tried any medication for this. Today while moving her bowels she may have thought she saw blood. She has had decreased p.o. intake. She denies any urinary symptoms. Related Data Home Medications ?Medication ?Instructions ?Recorded ?Confirmed cholecalciferol (vitamin D3) 25 25 mcg PO DAILY 07/15/25 mcg (1,000 unit) capsule levothyroxine 88 mcg capsule 88 mcg PO DAILY 08/14/22 07/15/25 (Tirosint) cyclobenzaprine 10 mg tablet 10 mg PO BEDTIME PRN pain , muscle 01/30/23 07/15/25 spasm blood sugar diagnostic (FreeStyle #10 ea 02/02/2406/29 Lite Strips) blood-glucose meter (FreeStyle #1 ea 02/02/24 07/15/25 Lite Meter kit) mecobalamin (vitamin B12) 500 mcg 500 mcg PO DAILY 03/2207/15/25 chewable tablet metformin 500 mg tablet,extended 500 mg PO QPM 5 07/15/25 release 24 hr ondansetron 8 mg disintegrating 8 mg PO Q8H PRN nausea 07/27/25 tablet Previous Rx's ?Medication ?Instructions ?Recorded carbamide peroxide 6.5 % ear drops 5 drp otic (ear) ri ght Q12H #15 mL 06/24/25 (Debrox) [id number] 3.3 4 drp otic (ear) left TID #10 mL 09/26/25 mg-3 mg-10 mg-0.5 mg/mL ear drops,susp (Cortisporin-TC) loperamide 2 mg capsule 2 mg PO Q6H PRN loose stool #20 09/10/25 (Anti-Diarrheal (loperamide)) caps omeprazole 20 mg capsule,delayed 20 mg PO DAILY #14 ca ps 09/10/25 release ondansetron 4 mg disintegrating 4 mg PO Q8H PRN nausea and 09/10/25 tablet vomiting #12 tabs Allergies Allergy/AdvReac Type Severity Reaction Status Date / Time tumeric AdvReac Hives Uncoded 09/09/25 16:53 Review of Systems 2 Review of Systems: Yes all other systems are reviewed and are negative Cardiovascular: Cardiovascular: Denies chest pain Respiratory: Respiratory: Denies cough Gastrointestinal: Gastrointestinal: Denies melena, Denies bloating, Denies constipation, Reports GI cramping, Denies diarrhea, Reports loose stools, Reports vomiting and Denies hematemesis PMFSH Past Medical History Medical History T2DM (type 2 diabetes mellitus) Hypothyroidism Multinodular thyroid Surgical History Hx of ultrasound guided needle biopsy Hx of cholecystectomy Hx of tubal ligation Family History Family History Father Diabetes Heart attack Mother Thyroid disease COPD (chronic obstructive pulmonary disease) Maternal Aunt Thyroid cancer Social History Social History Household Members: Spouse Housing: Apartment Are you a primary human services care specialist to a significant other at home: Yes Do you presently have visiting nurse or other home services: No Alcohol intake: current Alcohol intake frequency: does not drink Patient Tobacco Use Status: Never used Tobacco Advance Directives: No Advance Directives Information Provided: Yes service: No Current occupational status: disabled Physical Exam ED Vital Signs: Vital Signs - 24 hr 09/09/25 16:51 09/09/25 23:08 09/10/25 00:11 Temperature 98.4 F 97.7 F 97.9 F Pulse Rate 85 70 65 Respiratory Rate 18 Blood Pressure 159/71 H 126/68 121/71 Pulse Oximetry 98 97 97 Oxygen Delivery Method Room Air Room Air Room Air BMI result Body Mass Index 36.1 Resp Other: Lung sounds clear throughout Cardio Other: regular rate and rhythm GI Other: abdomen is soft. There is mild diffuse periumbilical tenderness. Unable to appreciate any hernias. There are no peritoneal signs. No CVAT Rectal exam with female RN Adri present. no external hemorrhoids. Normal rectal tone. Minimal stool, Hemoccult obtained. Extrem Other: No calf tenderness or pedal edema. Course Course Course Narrative: Rapid medical examination performed in triage by Deyanira Allison PA-C: Patient is a 65 year old assigned female at presenting to the emergency department with abdominal pain and history of follicular lymphoma. Detailed physical exam and review of systems are deferred to the communications equipment supervisor. Labs ordered. Patient placed back in the waiting room pending room availability and results. Reevaluation(s) Reevaluation #1: 11:30 p.m. patient resting comfortably at this time. Rectal exam negative for Hemoccult blood. September 10, 1:13 a.m. patient resting comfortably at this time. CT results are pending. Reviewed all labs. If CT negative, patient feels comfortable with discharge plan home with antiemetics and antidiarrheals. September 10, 1:[address] results returned, no acute process. Improvement in left lymphadenopathy. Reviewed these findings with the patient. She feels comfortable with discharge plan home. She will continue symptomatic treatment, including Zofran for nausea, loperamide for diarrhea and adding omeprazole. She will follow up with her PCP. Patient expresses understanding of all discharge instructions and has no further questions at this time. Medications Administered Discontinued Medications Generic Name Dose Route Start Last Admin Trade Name Freq PRN Reason Stop Dose Admin Iohexol 85 ml 09/10/25 00:34 09/10/25 00:34 Iohexol 350 Mg/Ml 100 Ml Infus..Btl IV 09/10/25 00:35 85 ml ONCE ONE Administration Medical Decision Making Medical Decision Making [facility] Narrative: 65-year-old female with a history of lymphoma, status post chemo and radiation, with a 2 week history of abdominal pain nausea and vomiting that has been intermittent. Due to persistent symptoms she presents to the emergency department. Exam is without red flags. Labs are reassuring at this time. Given the patient's history, we will check CT. Of note, patient had PET scan on August 31 indicating improvement embolic activity within the right-sided periaortic retroperitoneal lymphadenopathy. Differential Diagnosis Differential Diagnoses: The differential diagnosis associated with the presentation includes Internal hernia Bowel obstruction Colitis Dehydration Malignancy Admission/Observation Consideration of admission/observation: Escalation of care including admission/observation considered Lab Data MDM Lab Attestation statement: I reviewed the patient's lab results. 09/09/25 17:19 09/09/25 17:19 Labs: Lab Results 09/09/25 09/09/25 09/09/25 Range/Units 17:18 17:19 23:07 WBC 9.5 (4.8-10.8) X10*3/uL RBC 4.49 (4.20-5.50) X10*6/uL Hgb 13.3 (12.0-16.0) g/dl Hct 40.0 (37.0-47.0) % MCV 89.1 (80.0-98.0) fL MCH 29.6 (27.0-33.0) pg MCHC 33.3 (31.0-35.0) g/dl RDW 12.7 (11.0-16.0) % Plt Count 340 (160-400) X10*3/uL MPV 9.8 (9.4-12.3) fL Immature Gran % (Auto) 0.3 (0.0-0.4) % Neut % (Auto) 67.4 (45-73) % Lymph % (Auto) 22.1 (20-40) % [place] % (Auto) 7.9 (2-11) % Eos % (Auto) 1.3 (0-4) % Baso % (Auto) 1.0 (0-2) % Lymph # (Auto) 2.1 (1.2-4.9) X10*3/uL [place] # (Auto) 0.8 (0.1-1.2) X10*3/uL Eos # (Auto) 0.1 (0.0-0.4) X10*3/uL Baso # (Auto) 0.1 (0.0-0.2) X10*3/uL Abs Immat Gran (auto) 0.03 (0.00-0.03) X10*3/uL Absolute Neuts (auto) 6.4 (2.0-8.3) x10*3/uL Absolute Nucleated RBC 0.000 (0.0-0.012) X10*3/uL Nucleated RBC % (auto) 0.0 (0.0-0.2) /100WBC Sodium 142 (135-145) mmol/L Potassium 4.0 (3.3-5.1) mmol/L Chloride 106 (96-108) mmol/L Carbon Dioxide 28 (22-29) mmol/L Anion Gap 12 (12-20) BUN 12 (9-16) mg/dL Creatinine 0.66 (0.5-1.4) mg/dL Estim Creat Clear Calc 83.7 Estimated GFR > 60 Random Glucose 106 (60-115) mg/dL Calcium 10.0 (8.4-10.2) mg/dL Magnesium 2.0 (1.6-2.6) mg/dL Total Bilirubin 0.2 (0.0-1.0) mg/dL AST 23 (5-31) U/L ALT 19 (0-31) U/L Alkaline Phosphatase 67 (39-117) U/L Total Protein 7.5 (6.5-8.0) g/dL Albumin 4.6 (3.5-5.0) g/dL Urine Color Yellow Urine Appearance Clear Urine pH 5.5 (5.0-9.0) Ur Specific [place] 1.010 (1.005-1.025) Urine Protein Negative (Neg-Trace) mg/dL Urine Glucose (UA) Negative (Negative) mg/dL Urine Ketones Negative (Negative) mg/dL Urine Blood Negative (Negative) Urine Nitrite Negative (Negative) Ur Leukocyte Esterase Negative (Negative) Stool Occult Blood NEGATIVE (NEGATIVE) Influenza Type A (PCR) NEGATIVE (Negative) Influenza Type B (PCR) NEGATIVE (Negative) RSV RNA Qual (PCR) NEGATIVE (Negative) SARS-CoV-2 RNA (RT-PCR) NEGATIVE (Negative) Discharge Plan Discharge Clinical Impression: Nausea and vomiting Qualifiers: Vomiting type: unspecified Qualified Code(s): R11.2 - Nausea with vomiting, unspecified Abdominal pain Qualifiers: Abdominal location: generalized Qualified Code(s): R10.84 - Generalized abdominal pain Diarrhea Qualifiers: Diarrhea type: unspecified type Qualified Code(s): R19.7 - Diarrhea, unspecified Patient Disposition: Home, Self-Care Instructions: Acute Nausea and Vomiting (ED), Acute Diarrhea (ED), Abdominal Pain (ED) Additional Instructions: Clear liquids. [place] diet. Gradually advance. Bananas. Plain white rice. Applesauce. Plain toast. Zofran as directed for nausea. Loperamide as directed for diarrhea. Omeprazole as directed. You may use Tylenol for pain as directed, available [id number]. Prescriptions: New loperamide [Anti-Diarrheal (loperamide)] 2 mg capsule 2 mg PO Q6H PRN (Reason: loose stool) Qty: 20 0RF ondansetron 4 mg tablet,disintegrating 4 mg PO Q8H PRN (Reason: nausea and vomiting) Qty: 12 0RF omeprazole 20 mg capsule,delayed release(DR/EC) 20 mg PO DAILY Qty: 14 0RF No Action Debrox 6.5 % Drops 5 drp OTIC (EAR) RIGHT Q12H Qty: 15 0RF Rx Instructions: Instill 5 drops into the right ear twice daily as needed, up to 4 day. May gently flush with warm water to remove softened was after use. Cortisporin-TC 3.3-3-10-0.5 mg/mL Drops,Suspension 4 drp OTIC (EAR) LEFT TID Qty: 10 0RF Rx Instructions: Instill 4 drops into the left ear 3 times a day for 7 days. cyclobenzaprine 10 mg tablet 10 mg PO BEDTIME PRN (Reason: pain, muscle spasm) levothyroxine [Tirosint] 88 mcg capsule 88 mcg PO DAILY cholecalciferol (vitamin D3) 25 mcg (1,000 unit) capsule 25 mcg PO DAILY metformin 500 mg tablet extended release 24 hr 500 mg PO QPM (DME) blood-glucose meter [FreeStyle Lite Meter] Kit See Rx Instructions .ROUTE BID Qty: 1 Rx Instructions: As directed (DME) FreeStyle Lite Strips Strip See Rx Instructions .ROUTE BID Qty: 10 Rx Instructions: As directed mecobalamin (vitamin B12) 500 mcg tablet,chewable 500 mcg PO DAILY ondansetron 8 mg tablet,disintegrating 8 mg PO Q8H PRN (Reason: nausea) Print Language: Liberian
[2025-09-09 17:23] LABS: MANUAL DIFF FLAG NO
[2025-09-09 17:27] LABS: Appearance Urine Clear; Glucose Urine UA Negative (Negative); PH 5.5 (5.0-9.0); Specific Gravity - Urine 1.010 (1.005-1.025)
[2025-09-09 17:32] LABS: Hematocrit 40.0 % (37.0-47.0); Hemoglobin 13.3 g/dl (12.0-16.0); Imm Gran Abs Auto 0.03 X10*3/uL (0.00-0.03); Imm Gran Pct Auto 0.3 % (0.0-0.4); Lymphocytes Absolute Auto 2.1 X10*3/uL (1.2-4.9); Mean Corpuscular HGB Conc 33.3 g/dl (31.0-35.0); Mean Corpuscular Hemoglobin 29.6 pg (27.0-33.0); Mean Corpuscular Volume 89.1 fL (80.0-98.0); NRBC Abs Auto 0.000 X10*3/uL (0.0-0.012); NRBC Pct Auto 0.0 /100WBC (0.0-0.2); Platelet Count 340 X10*3/uL (160-400); Red Blood Count 4.49 X10*6/uL (4.20-5.50); White Blood Count 9.5 X10*3/uL (4.8-10.8)
[2025-09-09 17:39] LABS: Alanine Aminotransferase 19 U/L (0-31); Albumin Level 4.6 g/dL (3.5-5.0); Alkaline Phosphatase 67 U/L (39-117); Anion Gap 12 (12-20); Aspartate Amino Transferase 23 U/L (5-31); Blood Urea Nitrogen 12 mg/dL (9-16); Calcium 10.0 mg/dL (8.4-10.2); Carbon Dioxide 28 mmol/L (22-29); Chloride 106 mmol/L (96-108); Creatinine Clr Calc Pharmacy 83.7; Estimated Glomerular Filt Rate > 60; Magnesium 2.0 mg/dL (1.6-2.6); Potassium 4.0 mmol/L (3.3-5.1); Sodium 142 mmol/L (135-145); Total Protein 7.5 g/dL (6.5-8.0)
[2025-09-09 18:03] LABS: Resp Syncy Virus RNA Qual PCR NEGATIVE (Negative); SARS COV2 PCR INHOUSE NEGATIVE (Negative)
--- OUTSIDE RECORDS SUMMARY | 2025-09-09 22:06 | XMS_ITS | Encounter Summary ---
Author Organization [employer] Address [address] [place] [address] Care Team Providers Care Glass Laminating Operator Name Role Phone Eduardo Minro MD Primary Care Provide r Encounter Details Date Type Department Care Team ([facility] st Contact Info) Description 10/01/2023 Telephone [facility]INE [address] [place], [place] [phone] Eduardo Minor MD [address] [place], [place] [phone] Social History Tobacco Use Types Packs/Day Years [...] Care Team (Late st Contact Info) Description 10/11/2025 1:00 PM EST Office Visit [facility] [address] [place] [address] Eduardo Minor MD [address] [place] [address] documented as of this encounter Visit Diagnoses Not on filedocumented in this encounter Additional Health Concerns Assessment Noted Time PHQ-9 Depression Total Score: 5 01/08/20 23 1:17 PM EDT documented as of this encounter Care Teams Glass Laminating Operator Relationship Specialty Start Date End Date Eduardo Minor MD [address] [place] [address] PCP - General Internal Medicine 03/18/19 documented as of this encounter
--- OUTSIDE RECORDS SUMMARY | 2025-09-09 22:06 | XMS_ITS | Encounter Summary ---
Author Organization [employer] Address [address] [facility] [facility] [address]t [place] [address] Care Team Providers Care Airport Maintenance Laborer Name Role Phone Eduardo Minor MD Primary Care Provide r Encounter Details Date Type Department Care Team ([facility] Contact Info) Description 02/25/2025 Orders Only [facility] [address] [place] [address] Provider, MD Carlyle Social History Tobacco Use [...] Description 10/11/2025 1:00 PM EST Office Visit [facility]INE [address] [place], [place] [phone] Eduardo Minor MD [address] [place] [address] documented as of this encounter Procedures Procedure [...] documented as of this encounter Care Teams Airport Maintenance Laborer Relationship Specialty Start Date End Date Eduardo Minor MD [address] [place] [phone] PCP - General Internal Medicine 03/18/19 documented as of this encounter
--- OUTSIDE RECORDS SUMMARY | 2025-09-09 22:06 | XMS_ITS | Encounter Summary ---
Author Organization [employer] Address [address] [place] [address] 7 [place] [address] Care Team Providers Care Lacquer Maker Name Role Phone Eduardo Minor MD Primary Care Provide r Reason for Visit * Reason Onset Date Comments Durable Medical Equipment 05/06/2023 Encounter Details Date Type Department Care Team ([facility] st Contact Info) Description 05/06/2023 Telephone [facility] MEDICINE [address] [place], [place] [phone] Eduardo Minor MD [address] [place] [address] Durable Medical Equipment Social History Tobacco Use [...] Description 10/11/2025 1:00 PM EST Office Visit [facility] [address] [place] [address] Eduardo Minor MD [address] [place] [address] documented as of this encounter Visit Diagnoses Not on filedocumented in this encounter Additional Health Concerns Assessment Noted Time PHQ-9 Depression Total Score: 5 01/08/20 23 1:17 PM EDT documented as of this encounter Care Teams Lacquer Maker Relationship Specialty Start Date End Date Eduardo Minor MD [address] [place], [place] [phone] PCP - General Internal Medicine 03/18/19 documented as of this encounter
--- OUTSIDE RECORDS SUMMARY | 2025-09-09 22:06 | XMS_ITS | Patient Health Record ---
Author Organization [facility] Address [address] [place] [id number] Care Team Providers Care Manager Transfer Name Role Phone Drew Long MD, Eduardo Primary Care Provide r S[place]a [place] Unavailable [phone] Allergies No Known Allergies Reason For Referral No Information Medications Medication SIG (Take, Route, Frequency, Duration) Notes Start Date End Date Status Vitamin B12 Active Vitamin D Active Potassium Active Multivitamin Active Tirosint 88 MCG Capsule Oral; Duration: 90 Active metFORMIN HCl ER 500 MG Tablet Extended Release 24 Hour TAKE 1 TABLET BY MOUTH EVERY DAY WITH THE EVENING MEAL Oral; Duration: 90 Active Immunizations Vaccine Route Administration Date Status Comme nts Influenza Unknown 10/31/2022 Refused Social History Social History Drugs/Alcohol: Social Info Question Answer Notes Alcohol Screen Did you have a drink containing alcohol in the past year? No Points 0 Interpretation Negative Additional Details Category Social Info Options Details Miscellaneous: Marital status: Occupation: home Section Notes: Nonsmoker; no alcohol Nonsmoker; no alcohol Nonsmoker; no alcohol Problems Problem Type SNOMED Code ICD Code Onset Dates Problem Status W/U Status Risk Notes Problem Screening for malignant neoplasm of colon (941357956) Encounter for screening for malignant neoplasm of colon (Z12.11) Active confirmed Problem History of adenomatous polyp of colon (267889467) History of adenomatous polyp of colon (Z86.010) Active confirmed Problem Flatulence, eructation and gas pain (537985653) Bloating (R14.0) Active confirmed Problem Diverticular disease of colon (095873592) Diverticulosis of large intestine without perforation or abscess without bleeding (K57.30) Active confirmed Problem Pre-procedure evaluation check (678725170) Pre-procedural examination (Z01.818) Active confirmed Plan Of Treatment Future Test Test Name Order Date COLONOSCOPY 11/05/2012 COLONOSCOPY 01/31/2017 COLONOSCOPY 10/31/2022 Insurance Providers Payer Name Payer Address Payer Phone Subscriber Number Group Number Insured Name Patient Relationship to Insured Coverage Start Date Coverage End Date MEDICAID OF [place] [address] [place] [id number] SHANAE GARCIA Self - patient is the insured Medical (General) History Medical History History ICD Code NIDDM Hypothyroidism and thyroid nodule Denies [place],CVA,Lung disease,renal disease Neg. [facility] and 1 10/2015 Screening Colonoscopy 12/2012 --small tubular adenomas, mild diverticulosis, small internal hemorrhoids Negative colonoscopy in 08/2017 Surgical History Surgery Date(Month/Year) Tubal ligatiion 4 C-sections Cholecystectomy
--- OUTSIDE RECORDS SUMMARY | 2025-09-09 22:06 | XMS_ITS | Encounter Summary ---
Author Organization [employer] Address [address] [facility] 7t [place] [address] Care Team Providers Care Spray Machine Loader Name Role Phone Eduardo Minor MD Primary Care Provide r Reason for Visit * Reason Comments Med Refill Encounter Details Date Type Department Care Team ([facility] st Contact Info) Description 05/08/2025 Refill [facility] [address] [place], [place] [phone] Eduardo Minor MD 230 [place], [place] [phone] Type 2 diabetes mellitus without complication, without long-term current use of insulin ([facility]) Social History Tobacco Use Types Packs/Day Years [...] Description 10/11/2025 1:00 PM EST Office Visit [facility] [address] [place] [address] Eduardo Minor MD [address] [place] [phone] documented as of this encounter Visit Diagnoses Diagnosis Type 2 diabetes mellitus without complication, without long-term current use of insulin (HCC) documented in this encounter Additional Health Concerns Assessment Noted Time PHQ-9 Depression Total Score: 0 12/03/19 25 1:50 PM EST documented as of this encounter Care Teams Spray Machine Loader Relationship Specialty Start Date End Date Eduardo Minor MD [address] [place] [phone] PCP - General Internal Medicine 03/18/19 documented as of this encounter
--- OUTSIDE RECORDS SUMMARY | 2025-09-09 22:06 | XMS_ITS | Encounter Summary ---
Author Organization [employer] Address [address] [facility] 7t [place] [address] Care Team Providers Care Transit Survey Worker Name Role Phone Eduardo Minor MD Primary Care Provide r Reason for Visit * Reason Comments Med Refill Encounter Details Date Type Department Care Team ([facility] st Contact Info) Description 08/14/2023 Refill [facility] [address] [place], [place] [phone] Eduardo Minor MD [address] [place], [place] [phone] Social History Tobacco Use Types Packs/Day Years [...] t he electric, gas, oil or water [employer] threatened to shut off services in your [...] Description 10/11/2025 1:00 PM EST Office Visit [facility] [address] [place] [address] Eduardo Minor MD [address] [place] [address] documented as of this encounter Visit Diagnoses Not on filedocumented in this encounter Additional Health Concerns Assessment Noted Time PHQ-9 Depression Total Score: 5 01/08/20 23 1:17 PM EDT documented as of this encounter Care Teams Transit Survey Worker Relationship Specialty Start Date End Date Eduardo Minor MD [address] [place] [address] PCP - General Internal Medicine 03/18/19 documented as of this encounter
--- OUTSIDE RECORDS SUMMARY | 2025-09-09 22:06 | XMS_ITS | Encounter Summary ---
Author Organization [employer] Address [address]t [place] [address] Care Team Providers Care Police Guard Name Role Phone Eduardo Minor MD Primary Care Provide r Encounter Details Date Type Department Care Team (Late st Contact Info) Description 10/15/2023 Orders Only [facility] MED[facility]INE [address] [place] [address] ProviderCarlyle MD Social History Tobacco Use Types [...] Description 10/11/2025 1:00 PM EST Office Visit [facility] [address] [place] [address] Eduardo Minor MD [address] [place] [address] documented as of this encounter Procedures Procedure [...] as of this encounter Care Teams Police Guard Relationship Specialty Start Date End Date Eduardo Minor MD [address] [place] [phone] PCP - General Internal Medicine 03/18/19 documented as of this encounter
--- OUTSIDE RECORDS SUMMARY | 2025-09-09 22:06 | XMS_ITS | Encounter Summary ---
Author Organization [employer] Address [address] [facility] 7t [place] [address] Care Team Providers Care Airplane Refueler Name Role Phone Eduardo Minor MD Primary Care Provide r Encounter Details Date Type Department Care Team ([facility] Contact Info) Description 03/16/2025 Orders Only [facility] [address] [place] [address] Provider, MD Carlyle Social History Tobacco Use [...] Description 10/11/2025 1:00 PM EST Office Visit [facility]ICINE [address] [place], [place] [phone] Eduardo Minor MD [address] [place] [phone] documented as of this encounter Procedures Procedure [...] documented as of this encounter Care Teams Airplane Refueler Relationship Specialty Start Date End Date Eduardo Minor MD [address] [place] [phone] PCP - General Internal Medicine 03/18/19 documented as of this encounter
--- OUTSIDE RECORDS SUMMARY | 2025-09-09 22:06 | XMS_ITS | Encounter Summary ---
Author Organization [employer] Address [address] [facility] 7t [place] [address] Care Team Providers Care Package Center Supervisor Name Role Phone Eduardo Minor MD Primary Care Provide r Encounter Details Date Type Department Care Team ([facility] st Contact Info) Description 01/24/2025 Orders Only [facility] MED[facility]INE [address] [place], [place] [phone] Bel Han MD [address] [place], [place] [phone] Social History Tobacco Use Types Packs/Day Years [...] Description 10/11/2025 1:00 PM EST Office Visit [facility] [address] [place] [address] Eduardo Minor MD [address] [place] [address] documented as of this encounter Visit Diagnoses Not on filedocumented in this encounter Additional Health Concerns Assessment Noted Time PHQ-9 Depression Total Score: 0 12/03/19 25 1:50 PM EST documented as of this encounter Care Teams Package Center Supervisor Relationship Specialty Start Date End Date Eduardo Minor MD [address] [place] [address] PCP - General Internal Medicine 03/18/19 documented as of this encounter
--- OUTSIDE RECORDS SUMMARY | 2025-09-09 22:06 | XMS_ITS | Encounter Summary ---
Author Organization [employer] Address [address] [facility] 7t [place] [address] Care Team Providers Care Operations Support Professionals Name Role Phone Eduardo Minor MD Primary Care Provide r Reason for Visit * Reason Comments Med Refill Encounter Details Date Type Department Care Team ([facility] Contact Info) Description 08/03/2024 Refill [facility] [address] [place], [place] [phone] Eduardo Minor MD [address] [place], [place] [phone] Type 2 diabetes mellitus without complication, unspecified whether prison insulin use ([facility]) Social History Tobacco Use Types Packs/Day [...] Description 10/11/2025 1:00 PM EST Office Visit [facility] [address] [place] [address] Eduardo Minor MD [address] [place] [address] documented as of this encounter Visit Diagnoses Diagnosis Type 2 diabetes mellitus without complication, unspecified whether prison insulin use documented in this encounter Additional Health Concerns Assessment Noted Time PHQ-9 Depression Total Score: 0 02/03/20 24 1:01 PM EDT documented as of this encounter Care Teams Operations Support Professionals Relationship Specialty Start Date End Date Eduardo Minor MD [address] [place] [address] PCP - General Internal Medicine 03/18/19 documented as of this encounter
--- OUTSIDE RECORDS SUMMARY | 2025-09-09 22:06 | XMS_ITS | Encounter Summary ---
Author Organization [employer] Address [address] [place] [address] 7 [place] [address] Care Team Providers Care Packager Name Role Phone Eduardo Minor MD Primary Care Provide r Reason for Visit * Reason Comments Med Refill Encounter Details Date Type Department Care Team (Late Contact Info) Description 01/16/2023 Refill [facility] MEDICINE [address] [place] [address] [phone] Eduardo Minor MD [address] [place] [address] Acquired hypothyroidism Social History Tobacco Use Types [...] Upcoming Encounters Date Type Department Care Team ([facility] [address] Contact Info) Description 10/11/2025 1:00 PM EST Office Visit [facility] MED[facility]INE 230 [place] [address] Eduardo Minor MD [address] [place] [address] documented as of this encounter Visit Diagnoses Diagnosis Acquired hypothyroidism Unspecified hypothyroidism documented in this encounter Additional Health Concerns Assessment Noted Time PHQ-9 Depression Total Score: 5 01/08/20 23 1:17 PM EDT documented as of this encounter Care Teams Packager Relationship Specialty Start Date End Date Eduardo Minor MD [address] [place] [address] PCP - General Internal Medicine 03/18/19 documented as of this encounter
--- OUTSIDE RECORDS SUMMARY | 2025-09-09 22:06 | XMS_ITS | Encounter Summary ---
Author Organization [employer] Address [address] [facility] [address] 7t [place] [address] Care Team Providers Care Health And Wellness Director Name Role Phone Eduardo Minor MD Primary Care Provide r Encounter Details Date Type Department Care Team ([facility] st Contact Info) Description 11/07/2023 Orders Only [facility] [address] [place] [address] [phone] Ronny Topete MD 230 [place], [place] [phone] Posterior chest pain (Primary Dx) Social History [...] Description 10/11/2025 1:00 PM EST Office Visit [facility] [address] [place] [phone] Eduardo Minor MD [address] [place] [address] Scheduled Orders Name Type Priority Associated Diagnoses Orde r Schedule XR Chest 2 Views Imaging Routine Posterior chest pain Expected: 11/07/2023, Expires: 11/07/2024 documented as of this encounter Visit Diagnoses Diagnosis Posterior chest pain- Primary documented in this encounter Additional Health Concerns Assessment Noted Time PHQ-9 Depression Total Score: 5 01/08/20 23 1:17 PM EDT documented as of this encounter Care Teams Health And Wellness Director Relationship Specialty Start Date End Date Eduardo Minor MD [address] [place] [phone] PCP - General Internal Medicine 03/18/19 documented as of this encounter
--- OUTSIDE RECORDS SUMMARY | 2025-09-09 22:06 | XMS_ITS | Encounter Summary ---
Author Organization [employer] Address 75 [facility] 7t [place] [address] Care Team Providers Care Brewmaster Name Role Phone Eduardo Minor MD Primary Care Provide r Reason for Visit * Reason Comments Med Refill Encounter Details Date Type Department Care Team ([facility] st Contact Info) Description 08/05/2024 Refill [facility] MED[facility]INE 230 [place], [place] [phone] Eduardo Minor MD 230 [place], [place] [phone] Type 2 diabetes mellitus without complication, without long-term current use of insulin ([facility]) Social History Tobacco Use Types [...] Description 10/11/2025 1:00 PM EST Office Visit [facility] MED[facility]INE [address] [place] [phone] Eduardo Minor MD [address] [place] [phone] documented as of this encounter Visit Diagnoses Diagnosis Type 2 diabetes mellitus without complication, without long-term current use of insulin (HCC) documented in this encounter Additional Health Concerns Assessment Noted Time PHQ-9 Depression Total Score: 0 02/03/20 24 1:01 PM EDT documented as of this encounter Care Teams Brewmaster Relationship Specialty Start Date End Date Eduardo Minor MD [address] [place] [phone] PCP - General Internal Medicine 03/18/19 documented as of this encounter
--- OUTSIDE RECORDS SUMMARY | 2025-09-09 22:06 | XMS_ITS | Encounter Summary ---
Author Organization [employer] Address [address] [facility] [address] 7t [place] [address] Care Team Providers Care Forge Operator Helper Name Role Phone Eduardo Minor MD Primary Care Provide r Encounter Details Date Type Department Care Team ([facility] st Contact Info) Description 02/01/2025 Orders Only [facility] [address] [place] [address] External Provider, [facility] Social History Tobacco Use Types Packs/Day [...] Description 10/11/2025 1:00 PM EST Office Visit [facility] 230 [place], [place] [phone] Eduardo Minor MD 230 [place] [address] documented as of this encounter Procedures Procedure Name Priority Date/Time Associated Diagnosis Comments TISSUE PATHOLOGY Routine 01/31/2025 8:47 AM EDT documented in this encounter Results * Tissue Pathology (01/31/2025 8:47 AM EDT) Tissue [facility] External Provider LAB PAT HOLOGY ORDERABLES Final Result documented in this encounter Visit Diagnoses Not on filedocumented in this encounter Additional Health Concerns Assessment Noted Time PHQ-9 Depression Total Score: 0 12/03/19 25 1:50 PM EST documented as of this encounter Care Teams Forge Operator Helper Relationship Specialty Start Date End Date Eduardo Minor MD 230 [place], [place] [phone] PCP - General Internal Medicine 03/18/19 documented as of this encounter
--- OUTSIDE RECORDS SUMMARY | 2025-09-09 22:06 | XMS_ITS | Clinical Summary ---
Author Organization [facility] Address [address] [place] [address] Phone Care Team Providers Care Shipper And Receiving Name Role Phone Eduardo Verma MD Primary Care Provi [facility] Encounters Date Type Department Care Team Description 08/31/2025 9:33 AM EST - 08/31/2025 11:59 PM EST Hospital Encounter [facility] PET Scan [address] [place] [address] Follicular lymphoma (CMS/HCC V24, CMS/HCC V28) Discharge Disposition: Home or Self Care from [...] AM EDT [facility]ointment [facility] [address] [phone] Health Maintenance Due Date Last [...] 01/12/2021, 12/15/2020 Influenza Vaccine (#1) 2025 Diabetes: Annual GFR (Glomerular Filtration Rate) 12/23/2025 12/23/2024, 12/23/2024 Hypertension/CHF/CAD Annual BMP Blood Test 12/23/2025 12/23/2024, 12/23/2024 Diabetes: Blood Sugar Control Test (HGBA1C) 01/05/2026 07/07/2025, 12/02/2024 Breast Cancer Screening 01/10/2027 01/11/20 25, 09/18/2023, [...] Comments PET CT SKULL TO MID THIGH SUBSEQUENT Routine 08/31/2025 12:17 PM EST Follicular lymphoma ([facility] V24, [facility] V28) MG MAMMO DIGITAL SCREENING W REJI BILAT Routine 01/10/2025 10:38 AM EDT Encounter for screening mammogram for malignant neoplasm of breast BASIC METABOLIC PANEL Routine 12/23/2024 8:00 AM EDT Essential hypertension, malignant from Last 3 Months or Most Recently Relevant to Health Maintenance Results * PET CT Skull to Mid Thigh Subsequent (08/31/2025 12:17 PM EST) Anatomical Region Laterality Modality Body Radiographic Soledad ging 09/07/2025 2:56 PM EST Impressions 09/07/2025 3:09 PM EST Significantly improved metabolic activity with a right-sided para-aortic retroperitoneal lymphadenopathy. Deauville score 2. -------- FINAL REPORT -------- Dictated By: Ronn Sweeney Dictated Date: 09/07/2025 14:56 ET Assigned Physician: Ronn Sweeney Reviewed and Electronically Signed By: Ronn Sweeney Signed Date: 09/07/2025 15:09 ET Workstation ID: [id number] Transcribed By: Self Edit Transcribed Date: 09/07/2025 15:00 ET Narrative 09/07/2025 3:09 PM EST History: Follicular lymphoma, subsequent treatment strategy Comparison: PET/CT from February 22, 2025 Radiopharmaceutical: 10.0 mCi of F-18 FDG IV given 52 minutes prior to imaging. Blood glucose: 120 mg/dl. CT Dose: 1110 DLP (mGy-cm) Routine body FDG PET-CT imaging was performed from the skull base to the mid thighs and reconstructed in axial, coronal, and sagittal planes at the computer workstation with fused data from both the PET imaging study and attenuation correction CT. The CT portion of the examination was done strictly for attenuation correction and is not a true diagnostic CT examination. PET 5-point scale (Deauville Criteria) Mediastinum uptake SUV max = 3.3 Liver uptake SUV max = 3.8 Score 2 - Uptake less or equal to mediastinum. FINDINGS: HEAD AND NECK: No abnormal activity. THORAX: No abnormal activity. ABDOMEN/PELVIS: Minimal residual FDG activity within the left-sided para-aortic retroperitoneal lymphadenopathy with SUV max of 2.4, previously 6.8. No new FDG avid nodes. MUSCULOSKELETAL: No abnormal activity. Procedure Note Ronn Sweeney MD - 09/07/2025 History: Follicular lymphoma, subsequent treatment strategy Comparison: PET/CT from February 22, 2025 Radiopharmaceutical: 10.0 mCi of F-18 FDG IV given 52 minutes prior toimaging. Blood glucose: 120 mg/dl. CT Dose: 1110 DLP (mGy-cm) Routine body FDG PET-CT imaging was performed from the skull base to themid thighs and reconstructed in axial, coronal, and sagittal planes at theMixalooputer workstation with fused data from both the PET imaging study andattenuation correction CT. The CT portion of the examination was donestrictly for attenuation correction and is not a true diagnostic CTexamination. PET 5-point scale (Deauville Criteria) Mediastinum uptake SUV max = 3.3 Liver uptake SUV max = 3.8 Score 2 - Uptake less or equal to mediastinum. FINDINGS: HEAD AND NECK: No abnormal activity. THORAX: No abnormal activity. ABDOMEN/PELVIS: Minimal residual FDG activity within the tlcn-eaurvkzge-kchlul retroperitoneal lymphadenopathy with SUV max of 2.4,previously 6.8. No new FDG avid nodes. MUSCULOSKELETAL: No abnormal activity. IMPRESSION: Significantly improved metabolic activity with a right-sided para-aorticretroperitoneal lymphadenopathy. Deauville score 2. -------- FINAL REPORT -------- Dictated By: Ronn Sweeney Dictated Date: 09/07/2025 14:56 ET Assigned Physician: Ronn Sweeney Reviewed and Electronically Signed By: Ronn Sweeney Signed Date: 09/07/2025 15:09 ET Workstation ID: [id number] Transcribed By: Self Edit Transcribed Date: 09/07/2025 15:00 ET Xochitl Nelson MD IM NM PROCEDURES Final Result * MG Mammo Digital Screening w Reji [...] year. Mammography location: [facility] at [address], [address] -------- FINAL REPORT -------- Dictated By: Ricardo Patterson Dictated Date: 01/10/2025 17:24 ET Assigned Physician: Ricardo Patterson Reviewed and Electronically Signed By: Ricardo Patterson Signed Date: 01/10/2025 17:32 ET Workstation ID: [id number] Transcribed By: Self Edit Transcribed Date: 01/10/2025 17:24 ET Narrative 01/10/2025 5:32 PM EDT EXAM: SCREENING MAMMOGRAPHY, BILATERAL HISTORY: SCREENING. No additional history. COMPARISON: 09/18/23, 07/12/22, 07/10/21, 06/23/20 TECHNIQUE: Synthesized CC and MLO projections of each breast. Tomosynthesis of each breast in the CC and MLO projections. ADDITIONAL IMAGING: None Computer-aided detection was employed with the [employer] Pro[employer] AI 3-D. TISSUE DENSITY: There are [...] None Computer-aided detection was employed with the [employer] ProFound AI 3-D. TISSUE DENSITY: There are [...] year. Mammography location: [facility] at [address], [address] -------- FINAL REPORT -------- Dictated By: Ricardo Patterson Dictated Date: 01/10/2025 17:24 ET Assigned Physician: Ricardo Patterson Reviewed and Electronically Signed By: Ricardo Patterson Signed Date: 01/10/2025 17:32 ET Workstation ID: [id number] Transcribed By: Self Edit Transcribed Date: 01/10/2025 17:24 ET us Eduardo Verma MD IMG BI PROCEDURES F inal Result * (ABNORMAL) Basic metabolic panel (12/23/2024 8:00 AM EDT) Sodium 142 133 - 145 mmol/L LAB CHEMISTRY METHOD 12/23/2024 9:15 AM [facility] Potassium 4.6 3.5 - 5.5 mmol/L LAB CHEMISTRY METHOD 12/23/2024 9:15 AM [facility] Chloride 106 96 - 110 mmol/L LAB CHEMISTRY METHOD 12/23/2024 9:15 AM [facility] CO2 32 21 - 32 mmol/L LAB CHEMISTRY METHOD 12/23/2024 9:15 AM [facility] Anion Gap 4 3 - 11 LAB CHEMISTRY METHOD 12/23/2024 9:15 AM [facility] Glucose 110(H) 70 - 100 mg/dL LAB CHEMISTRY METHOD 12/23/2024 9:15 AM [facility] BUN 20 5 - 25 mg/dL LAB CHEMISTRY METHOD 12/23/2024 9:15 AM [facility] Creatinine 0.62 0.50 - 1.10 mg/dL LAB CHEMISTRY METHOD 12/23/2024 9:15 AM [facility] eGFR 101 >=60 mL/min/1. 73m2 LAB CHEMISTRY METHOD 12/23/2024 9:15 AM [facility] Comment:Calculation based on the Chronic Kidney Disease Epidemiology Collaboration (CKD-EPI) equation refit without adjustment for race. BUN/Creatinine Ratio 32.3 LAB CHEMISTRY METHOD 12/23/2024 9:15 AM [facility] Calcium 9.8 8.5 - 10.5 mg/dL LAB CHEMISTRY METHOD 12/23/2024 9:15 AM [facility] Blood Venous blood specimen / Unknown Venipuncture / Unknown 12/23/2024 8:00 AM EDT 12/23/2024 8:44 AM EDT us Eduardo Verma MD LAB BLOOD ORDERABLE S Final Result [facility] [address] [place] [address], from Last 3 Months or Most Recently Relevant to Health Maintenance Insurance MEDICAID - [place] Care Teams Shipper And Receiving Relationship Specialty Start Date End Date Eduardo Verma MD [address] [place] [address] [place] [address] PCP - General Internal Medicine 04/08/22
--- OUTSIDE RECORDS SUMMARY | 2025-09-09 22:07 | XMS_ITS | Encounter Summary ---
Author Organization [employer] Address [address] [facility] 7 [place] [address] Care Team Providers Care Hosted Services Analyst Name Role Phone Eduardo Minor MD Primary Care Provide r Reason for Visit * Reason Onset Date Comments Med Refill 03/08/2024 Encounter Details Date Type Department Care Team ([facility] st Contact Info) Description 03/08/2024 Refill [facility] [address] [place], [place] [phone] Eduardo Minor MD [address] [place] [address] Type 2 diabetes mellitus without complication, without long-term current use of insulin ([facility]); Type 2 diabetes mellitus without complication, unspecified whether intermediate designer insulin use ([facility]) Social History Tobacco Use Types Packs/Day [...] Description 10/11/2025 1:00 PM EST Office Visit [facility] [address] [place] [address] Eduardo Minor MD [address] [place] [address] documented as of this encounter Visit Diagnoses Diagnosis Type 2 diabetes mellitus without complication, without long-term current use of insulin (HCC) Type 2 diabetes mellitus without complication, unspecified whether correction insulin use documented in this encounter Additional Health Concerns Assessment Noted Time PHQ-9 Depression Total Score: 0 02/03/20 24 1:01 PM EDT documented as of this encounter Care Teams Hosted Services Analyst Relationship Specialty Start Date End Date Eduardo Minor MD [address] [place] [address] PCP - General Internal Medicine 03/18/19 documented as of this encounter
--- OUTSIDE RECORDS SUMMARY | 2025-09-09 22:07 | XMS_ITS | Encounter Summary ---
Author Organization [employer] Address [address] [place] [address] 7 [place] [address] Care Team Providers Care E Commerce Developer Name Role Phone Eduardo Minor MD Primary Care Provide r Encounter Details Date Type Department Care Team (Late st Contact Info) Description 10/07/2022 Orders Only [facility] MED[facility]INE [address] [place] [phone] Awa Bermudez, RN Social History Tobacco Use Types Packs/Day [...] Description 10/11/2025 1:00 PM EST Office Visit [facility] [address] [place] [phone] Eduardo Minor MD [address] [place] [address] documented as of this encounter Visit Diagnoses Not on filedocumented in this encounter Care Teams E Commerce Developer Relationship Specialty Start Date End Date Eduardo Minor MD [address] [place] [address] PCP - General Internal Medicine 03/18/19 documented as of this encounter
--- OUTSIDE RECORDS SUMMARY | 2025-09-09 22:07 | XMS_ITS | Encounter Summary ---
Author Organization [employer] Address [address] [facility] 7t [place] [address] Care Team Providers Care Senior Contract Specialist Name Role Phone Eduardo Minor MD Primary Care Provide r Reason for Visit * Reason Comments Med Refill Encounter Details Date Type Department Care Team ([facility] st Contact Info) Description 12/15/2023 Refill [facility] [address] [place], [place] [phone] Eduardo Minor MD [address] [place], [place] [phone] Social History Tobacco Use Types Packs/Day Years [...] t he electric, gas, oil or water [employer] threatened to shut off services in your [...] 10/11/2025 1:00 PM EST Office Visit [facility]INE [address] [place] [address] Eduardo Minor MD [address] [place] [address] documented as of this encounter Visit Diagnoses Not on filedocumented in this encounter Additional Health Concerns Assessment Noted Time PHQ-9 Depression Total Score: 5 01/08/20 23 1:17 PM EDT documented as of this encounter Care Teams Senior Contract Specialist Relationship Specialty Start Date End Date Eduardo Minor MD [address] [place] [address] PCP - General Internal Medicine 03/18/19 documented as of this encounter
--- OUTSIDE RECORDS SUMMARY | 2025-09-09 22:07 | XMS_ITS | Encounter Summary ---
Author Organization [employer] Address [address] [facility] 7t [place] [address] Care Team Providers Care Mosquito Sprayer Name Role Phone Eduardo Minor MD Primary Care Provide r Encounter Details Date Type Department Care Team ([facility] Contact Info) Description 09/07/2025 Orders Only [facility] [address] [place] [address] Provider, MD Carlyle Social History Tobacco Use [...] Description 10/11/2025 1:00 PM EST Office Visit [facility] MEDICINE [address] [place] [address] Eduardo Minor MD [address] [place] [address] documented as of this encounter Goals Goal Patient Goal Type Associated Problems Recent Progress Patient-Stated? Author Help patients manage their type 2 diabetes Care Plan Help patients manage their type 2 diabetes No Damián Loving [place] Patient has chronic kidney disease Care Plan Patient has chronic kidney disease No LovingDamián stoner [place] Patient has chronic kidney disease Care Plan Patient has chronic kidney disease Srinivas Leong documented as of this encounter Procedures Procedure Name Priority Date/Time Associated Diagnosis Comments PET/CT BONE SKULL BASE TO MID THIGH Routine 08/31/2025 documented in this encounter Results * PET/CT Bone Skull Base to Mid Thigh (08/31/2025) Anatomical Region Laterality Modality Body Computed Tomogra phy us Historical Provider MD SOLIMAN CT PROCEDURES Final R esult documented in this encounter Visit Diagnoses Not on filedocumented in this encounter Additional Health Concerns Active Problems Noted Date Diagnosed Date Help patients manage their type 2 diabetes 08/12 Patient has chronic kidney disease 08/12/2025 Patient has chronic kidney disease 08/24/2025 Assessment Noted Time PHQ-9 Depression Total Score: 0 12/03/19 25 1:50 PM EST documented as of this encounter Care Teams Mosquito Sprayer Relationship Specialty Start Date End Date Eduardo Minor MD [address] [place] [address] PCP - General Internal Medicine 03/18/19 documented as of this encounter
--- OUTSIDE RECORDS SUMMARY | 2025-09-09 22:07 | XMS_ITS | Encounter Summary ---
Author Organization [email or web address] Address [address] [place] [address] 7 [place] [address] Care Team Providers Care Audiometrist Name Role Phone Eduardo Minor MD Primary Care Provide r Encounter Details Date Type Department Care Team (Late st Contact Info) Description 11/26/[address] [facility] [address] [place] [address] Gayatri Otto LPN Social History Tobacco Use [...] Description 10/11/2025 1:[address] PM EST [address] [facility] [address] [place] [address] Eduardo Minor MD [address] [place] [address] documented as of this encounter Visit Diagnoses Not on filedocumented in this encounter Care Teams Audiometrist Relationship Specialty Start Date End Date Eduardo Minor MD [address] [place] [address] PCP - General Internal Medicine 03/18/19 documented as of this encounter
--- OUTSIDE RECORDS SUMMARY | 2025-09-09 22:07 | XMS_ITS | Clinical Summary ---
Author Organization [employer] Address [address] [place] [address] 7t [place] [address] Care Team Providers Care Biztalk Administrator Name Role Phone Eduardo Minor MD [...] complication, without long-term current use of insulin ([facility]) USE KIT TWICE DAILY 1 kit 4 Active levothyroxine (Synthroid) 88 MCG tablet Take 1 tablet (88 mcg) by mouth before breakfast. 30 tablet 11 5 11/20/19 26 Active glucose blood (FREESTYLE LITE) test stripIndications :Type 2 diabetes mellitus without complication, unspecified whether terminologist insulin use USE DIRECTED TO TEST BLOOD GLUCOSE TWICE DAILY 50 strip 11 5 Active metFORMIN XR (Glucophage-XR) 500 MG 24 hr tabletIndication s:Type 2 diabetes mellitus without complication, without long-term current use of insulin ([facility]) Take 1 tablet (500 mg) by mouth with evening meal. Do not crush, chew, or split. 30 tablet 6 5 Active Active Problems Problem Noted Date [...] needle biopsy of left retroperitoneal mass which iltywthj-[id number]-[id number] B-cell lymphoma with CD10 coexpression consistent with [...] needle biopsy of left retroperitoneal mass which btyqpnqh-apb-Gwqdqea B-cell lymphoma with CD10 coexpression consistent with [...] on US , follows with Dr Paulson [facility] 01/07/2023 Assessment & Plan (07/07/2025 10:40 AM EDT): Routine physical exam today within normal limits Mammogram: 01/10/2025 Normal Pap Smear: Done 08/2023 at [facility] Colonoscopy: 11/2022 showed a Tubular adenoma, Diverticulosis and Hemorrhoids Dr. Calderon Assessment & Plan (02/03/2024 1:03 PM EDT): Mammogram: 09/18/2023 Normal done at [facility] Pap Smear: Done 08/2023 at [facility] Colonoscopy: 11/2022 showed a Tubular adenoma, Diverticulosis and Hemorrhoids Dr. Calderon Assessment & Plan (01/07/2023 4:16 PM EDT): Mammogram: 07/12/2022 Normal done at [facility] Pap Smear: Done by Dr Paulson [facility] Colonoscopy: 12/09/2022 showed a Tubular adenoma, [...] 07/07/2025: 6.9 from 6.4 Eye exam 04/07/2024 [facility] Microalbumin checked on: 11/30/2020 1 was: [...] Hgb A1c 12/02/2024: 6.4 Eye exam 04/07/2024 [facility] Microalbumin checked on: 11/30/2020 1 was: [...] Hgb A1c 12/02/2024: 6.4 Eye exam 04/07/2024 [facility] Microalbumin checked on: 11/30/2020 1 was: [...] Hgb A1c 08/03/2024: 5.9 Eye exam 04/07/2024 [facility] Microalbumin checked on: 11/30/2020 1 was: [...] Encounters Date Type Department Care Team Description 09/07/2025 Orders Only Education Everytime Information Management [address] [place], [place] [phone] ProviderCarlyle MD 08/24/[address] [phone] Eduardo Minor MD Call Back Request 08/12/[address] [phone] Eduardo Minor MD Cece recall 07/13/2025 Orders Only GENERIC EXTERNAL DATA DEPARTMENT [employer] External Data 07/07/2025 10:30 AM EDT Office Visit [address] [phone] Eduardo Minor MD Type 2 diabetes mellitus without complication, without long-term current use of insulin (HCC) (Primary Dx); B-cell non-Hodgkin lymphoma (CMS/HCC) (HCC); Thyroid nodule; Mixed hyperlipidemia; Preventative health care; Tubular adenoma; Bilateral carpal tunnel syndrome 07/07/2025 Travel 07/06/[address] [phone] Eduardo Minor MD chartprep 06/30/2025 Patient Outreach [facility] [address] [place] [address] Eduardo Minor MD Pre-visit Planning (SDOH was already completed ) 06/24/[address] [address] Eduardo Minor MD from Last 3 Months Immunizations Immunization Administration [...] 07/07/2025 10:14 AM EDT Plan of Treatment Upcoming Encounters Date Type Department Care Team (Late st Contact Info) Description 10/11/2025 1:00 PM EST Office Visit [facility] MEDICINE [address] [place] [address] Eduardo Minor MD [address] [place] [address] Health Maintenance Due Date Last Done Comments CT Colonography 1960 FIT DNA/Cologuard 1960 FIT 1962 FOBT 1960 HIV Screening 1960 Sigmoidoscopy 1960 Hepatitis C Screening 1980 Pneumococcal Vaccine: 50+ Years (1 of 2 - PCV) 1981 Zoster Vaccines (1 of 2) 1981 Lipid Panel 05/27/2025 05/27/2024, 0409/2022, 11/30/2020 COVID-19 [...] 07/09/2022 Eye Exam 06/07/2027 06/07/2025 Colonoscopy 12/10/2027 12/09/2022, 12/09/2022 Colorectal Cancer Screening 12/10/2027 DTaP/Tdap/Td Vaccines [...] on patient's age to complete this topic Goals Goal Patient Goal Type Associated Problems Recent Progress Patient-Stated? Author Help patients manage their type 2 diabetes Care Plan Help patients manage their type 2 diabetes Damián Yuan MA Patient has chronic kidney disease Care Plan Patient has chronic kidney disease Damián Yuan MA Patient has chronic kidney disease Care Plan Patient has chronic kidney disease Srinivas Leong Procedures Procedure Name Priority Date/Time Associated Diagnosis Comments PET/CT BONE SKULL BASE TO MID THIGH Routine 08/31/2025 CELL BLOCK Routine 07/13/2025 10:10 AM EDT POCT GLYCOSYLATED HEMOGLOBIN (HGB A1C) Routine 07/07/2025 10:15 AM EDT Type 2 diabetes mellitus without complication, without long-term current use of insulin (HCC) POCT GLUCOSE Routine 07/07/2025 10:14 AM EDT Type 2 diabetes mellitus without complication, without long-term current use of insulin (HCC) DIABETES EYE EXAM Routine 06/07/2025 BI MAMMOGRAM SCREENING TOMOSYNTHESIS BILATERAL Routine 01/10/2025 Breast cancer screening by mammogram ALBUMIN, RANDOM URINE W/CREATININE Routine 08/03/2024 1:35 PM EST Type 2 diabetes mellitus without complication, without long-term current use of insulin (CMS/HCC) LIPID PANEL, STANDARD Routine 05/27/2024 7:46 AM EDT Mixed hyperlipidemia PAP/HPV Routine 09/18/2023 HM COLONOSCOPY Routine 12/09/2022 PAP/HPV Routine 07/09/2022 from Last 3 Months or Most Recently Relevant to Health Maintenance Results * PET/CT Bone Skull Base to Mid Thigh (08/31/2025) Anatomical Region Laterality Modality Body Computed Tomogra phy us Historical Provider MD SOLIMAN CT PROCEDURES Final R esult * Cell Block (07/13/2025 10:10 AM EDT) 07/13/2025 10:1 0 AM EDT 07/14/2025 11:22 AM EDT Narrative [facility] - 07/15/2025 11:04 AM EDT ----- ------- Name: Lili Madrid Age/Sex: 65/F : 1960 [facility]#: [id number] Unit#: [id number] Attend Dr: Avani Gold MD Re07/13/25 Status: [facility] REF Location: [facility] Disch: ----- ------- SPEC : [id number] RECD: 07/14/25-1122 STATUS: [facility] NUM: [id number] GERARD: 07/13/25-[address] [facility] [address]: Avani Gold MD ENTERED: 07/14/25-1256 SP TYPE: Cytology OT DR: Eduardo Verma MD ORDERED: Cell Block, Fine Ndl Asp/2 Diagnosis A. Thyroid, right mid lower pole 1.2 cm nodule, fine needle aspiration: Benign (Kaiser category II). COMMENT (A): Satisfactory for evaluation; moderately cellular specimen. Groups of follicular epithelial cells in a mixed, mostly macrofollicular, arrangement are seen; no cytologic atypia is present. Some colloid is present. Taken together, the findings are consistent with a benign thyroid nodule. B. Thyroid, right lower pole 1.3 cm nodule, fine needle aspiration: Atypia of undetermined significance (Kaiser category III). COMMENT (B): Satisfactory for evaluation; [...] developed and their performance characteristics determined by [facility]. They have not been cleared or [...] Name: Lili Madrid Age/Sex: 65/F : 1960 [id number]#: [id number] Attend Dr: Avani Gold MD Re07/13/25 Status: DEP REF Location: [facility] Disch: ----- ------- SPEC : [id number] RECD: 07/14/25 STATUS: [facility] NUM: [id number] GERARD: 07/13/25-[address] [facility] [address]: Avani Gold MD ENTERED: 07/14/25-125 SP TYPE: Cytology OTHR DR: Eduardo Vrema MD ORDERED: Bibi Gonzalez Ndl Asp/2 Copies To: Eduardo Verma MD [facility] [address] [place] [address] Avani Gold MD [facility] [address] [address] [email or web address] ------- Signed (signature on file) Jagdeep Raymond MD 07/15/25 1104 ----- ------- END OF REPORT Generic External Data Provider LAB CYTOLOGY VERO MOORE Final Result [facility] [address] [place] [phone] * (ABNORMAL) POCT glycosylated hemoglobin (Hgb A1c) (07/07/2025 10:15 AM EDT) Hemoglobin A1C 6.9(A) 4.0 - 5.7 % QC Media Lot # [id number] Lot# Expiration Date [id number] Blood Capillary blood specimen / Unknown 07/07/2025 10:15 AM EDT Eduardo Long MD POINT OF CARE TEST EN TER/EDIT ORDERABLES Final Result * POCT glucose manually resulted (07/07/2025 10:14 AM EDT) Glucose Blood, POC 130 60 - 200 mg/dL QC Media Lot # [id number] Lot# Expiration Date ,[id number] Blood Capillary blood specimen / Unknown 07/07/2025 10:14 AM EDT Eduardo Long MD POINT OF CARE TEST EN TER/EDIT ORDERABLES Final Result * Hm Diabetes Eye Exam (06/07/2025) Eye Exam Normal Normal Comment:Done by [facility] Provider HEALTH MAINTENANCE Final Result * BI Mammogram Screening Tomosynthesis Bilateral (01/10/2025) Anatomical Region Laterality Modality Breast Bilateral Mammography Eduardo Long MD IMG BI PROCEDURES Fin al Result * Albumin, Random Urine W/Creatinine (08/03/2024 1:35 PM EST) Creatinine, Urine 121.86 mg/dL [facility] Microalbumin Urine 12.0 mg/L [facility] Microalbum Creatinine Ratio Ur 9.8 <30 ug/mg cr [facility] Comment:Albumin/Creatinine R atio Reference Ranges: Normal: < 30 ug/mg creatinine Microalbuminuria: 30 - 300 ug/mg creatinineClinical Albuminuria: > 300 ug/mg creatinine Urine (Urine, Random) 08/03/2024 1:35 PM EST 08/03/2024 4:09 PM EST Eduardo Long MD LAB URINE ORDERABLES Final Result [facility] [address] [place] [phone] * Lipid Panel, Standard (05/27/2024 7:46 AM EDT) Triglycerides 110 <150 mg/dL [facility] Comment:Desirable Triglyceri de: less than 150 mg/dLBorderline High Triglyceride 150-199 mg/dLHigh Triglyceride: 200-499 mg/dLVery High Triglyceride: greater than or equal to 5OO mg/dL Cholesterol 152 <200 mg/dL [facility] Comment:Desirable Cholestero l: less than 200 mg/dLBorderline High Cholesterol: 200-239 mg/dLHigh Cholesterol: greater than 239 mg/dL LDL Cholesterol Calculated 85 <100 mg/dL [facility] Comment:Desirable LDL: less than 100 mg/dLNear Optimal/Above Optimal LDL: 110- 129 mg/dLBorderline High LDL: 130-159 mg/dLHigh LDL: 160-189 mg/dLVery High LDL: greater than or equal to 190 mg/dL HDL Cholesterol 45 >40 mg/dL [facility] Comment:Desirable HDL: great er than 40 mg/dL Note: This HDL assay may give artificially low results in patients with liver disease. Blood Venous blood specimen / Unknown 05/27/2024 7:46 AM EDT 05/27/2024 7:46 AM EDT Eduardo Long MD LAB BLOOD ORDERABLES Final Result [facility] [address] [place] [phone] * Pap Smear (09/18/2023) Only the most recent of2 resultswithin the time period is included. Historical Provider HEALTH MAINTENANCE Final Result * Colonoscopy (12/09/2022) Colonoscopy Normal Normal Narrative Kelli Mix - 12/09/2022 Repeat in 5 years Historical Provider HEALTH MAINTENANCE Final Result from Last 3 Months or Most Recently Relevant to Health Maintenance Additional Health Concerns Active Problems Noted Date Diagnosed Date Help patients manage their type 2 diabetes 08/12 Patient has chronic kidney disease 08/12/2025 Patient has chronic kidney disease 08/24/2025 [facility] Care Teams Biztalk Administrator Relationship Specialty Start Date End Date dEuardo Minor MD [address] [place] [phone] PCP - General Internal Medicine 03/18/19
--- OUTSIDE RECORDS SUMMARY | 2025-09-09 22:07 | XMS_ITS | Encounter Summary ---
Author Organization [employer] Address [address] [facility] 7 [place] [address] Care Team Providers Care Transitional Nurse Name Role Phone Eduardo Minor MD Primary Care Provide r Reason for Visit * Reason Onset Date Comments Appointment Request 12/05/2023 Encounter Details Date Type Department Care Team ([facility] Contact Info) Description 12/05/2023 Telephone [facility] MEDICINE [address] [place], [place] [phone] Eduardo Minor MD [address] [place], [place] [phone] Appointment Request Social History Tobacco Use Types [...] Description 10/11/2025 1:00 PM EST Office Visit [facility] [address] [place] [address] Eduardo Minor MD [address] [place] [address] documented as of this encounter Visit Diagnoses Not on filedocumented in this encounter Additional Health Concerns Assessment Noted Time PHQ-9 Depression Total Score: 5 01/08/20 23 1:17 PM EDT documented as of this encounter Care Teams Transitional Nurse Relationship Specialty Start Date End Date Eduardo Minor MD [address] [place] [address] PCP - General Internal Medicine 03/18/19 documented as of this encounter
--- OUTSIDE RECORDS SUMMARY | 2025-09-09 22:07 | XMS_ITS | Encounter Summary ---
Author Organization [employer] Address [address] [facility] 7t [place] [address] Care Team Providers Care Electronic Equipment Trades Worker Name Role Phone Eduardo Minor MD Primary Care Provide r Encounter Details Date Type Department Care Team ([facility] st Contact Info) Description 06/24/2025 Abstract [facility] MEDICINE [address] [place], [place] [phone] Eduardo Minor MD [address] [place], [place] [phone] Social History Tobacco Use Types Packs/Day Years [...] Description 10/11/2025 1:00 PM EST Office Visit [facility] MEDICINE [address] [place] [phone] Eduardo Minor MD [address] [place] [phone] documented as of this encounter Procedures Procedure Name Priority Date/Time Associated Diagnosis Comments DIABETES EYE EXAM Routine 06/07/2025 documented in this encounter Results * Diabetes Eye Exam (06/07/2025) [facility] Eye Exam Normal Normal Comment:Done by [facility] us Historical Provider HEALTH MAINTENANCE Final Result documented in this encounter Visit Diagnoses Not on filedocumented in this encounter Additional Health Concerns Assessment Noted Time PHQ-9 Depression Total Score: 0 12/03/19 25 1:50 PM EST documented as of this encounter Care Teams Electronic Equipment Trades Worker Relationship Specialty Start Date End Date Eduardo Minor MD [address] [place] [address] [phone] PCP - General Internal Medicine 03/18/19 documented as of this encounter
--- OUTSIDE RECORDS SUMMARY | 2025-09-09 22:07 | XMS_ITS | Encounter Summary ---
Author Organization [employer] Address [address] [facility] 7t [place] [address] Care Team Providers Care Tile Setter Name Role Phone Eduardo Minor MD Primary Care Provide r Encounter Details Date Type Department Care Team ([facility] st Contact Info) Description 01/03/[address] [facility] MEDICINE [address] [place], [place] [phone] Bel Han MD [address] [place], [place] [phone] Social History Tobacco Use Types Packs/Day Years [...] 10/11/2025 1:00 PM EST Office Visit [facility] MEDICINE [address] [place] [address] Eduardo Minor MD [address] [place] [address] documented as of this encounter Visit Diagnoses Not on filedocumented in this encounter Additional Health Concerns Assessment Noted Time PHQ-9 Depression Total Score: 0 12/03/19 25 1:50 PM EST documented as of this encounter Care Teams Tile Setter Relationship Specialty Start Date End Date Eduardo Minor MD [address] [place] [address] PCP - General Internal Medicine 03/18/19 documented as of this encounter
--- OUTSIDE RECORDS SUMMARY | 2025-09-09 22:07 | XMS_ITS | Encounter Summary ---
Author Organization [employer] Address [address] [facility] 7 [place] [address] Care Team Providers Care Rn Home Health Name Role Phone Eduardo Minor MD Primary Care Provide r Reason for Visit * Reason Onset Date Comments Med Refill 10/13/2024 Encounter Details Date Type Department Care Team ([facility] st Contact Info) Description 10/13/2024 Refill [facility] MEDICINE [address] [place], [place] [phone] Eduardo Minor MD [address] [place] [address] Type 2 diabetes mellitus without complication, without long-term current use of insulin ([facility]); Type 2 diabetes mellitus without complication, unspecified whether termite exterminator helper insulin use ([facility]) Social History Tobacco Use Types [...] Description 10/11/2025 1:00 PM EST Office Visit [facility] MEDICINE [address] [place] [phone] Eduardo Minor MD [address] [place] [phone] documented as of this encounter Visit Diagnoses Diagnosis Type 2 diabetes mellitus without complication, without long-term current use of insulin (HCC) Type 2 diabetes mellitus without complication, unspecified whether termite exterminator helper insulin use documented in this encounter Additional Health Concerns Assessment Noted Time PHQ-9 Depression Total Score: 0 02/03/20 24 1:01 PM EDT documented as of this encounter Care Teams Rn Home Health Relationship Specialty Start Date End Date Eduardo Minor MD [address] [place] [phone] PCP - General Internal Medicine 03/18/19 documented as of this encounter
[2025-09-09 23:08] VITALS: BP 126/68; PULSE 70; TEMP 36.5; O2SAT 97
[2025-09-09 23:19] LABS: OBS Int Ctl Valid YES; OBS1 NEGATIVE (NEGATIVE)
[2025-09-10 00:11] VITALS: BP 121/71; PULSE 65; TEMP 36.6; O2SAT 97
[2025-09-10] MEDS: iohexoL 350 MG/ML 100 ML INFUS..BTL 85 ML IV (00:34)
[2025-09-10 03:24] VITALS: BP 121/71; PULSE 65; RESP 18; TEMP 36.6; O2SAT 97
== END 2025-09-10 02:15 | disposition home or self-care (01) ==
PROVIDERS: Physician Assistant; Physician Assistant Medical; Emergency Provider Emergency Medicine; PCP Internal Medicine
DX: R10.84 Generalized abdominal pain (principal); R11.2 Nausea with vomiting, unspecified; R19.7 Diarrhea, unspecified; Z03.818 Encounter for observation for suspected exposure to other biological agents ruled out; E11.9 Type 2 diabetes mellitus without complications; Z79.84 Long term (current) use of oral hypoglycemic drugs; Z79.899 Other long term (current) drug therapy
CPT/HCPCS: 36415; 74177; 80053; 81003; 82272; 83735; 85025; 87637; 99283; 99284; Q9967

== ENCOUNTER → 2025-09-10 00:25 | Outpatient (BNV) | payer MEDICAID, SELFPAY | PROVIDERS: Emergency Provider Emergency Medicine; PCP Internal Medicine; Visit Provider Radiology Diagnostic Radiology | DX: R10.9 Unspecified abdominal pain (principal); R11.2 Nausea with vomiting, unspecified; R19.7 Diarrhea, unspecified | CPT/HCPCS: 74177 ==